=== PATIENT | male | born 1935 | race Caucasian/White ===

== ENCOUNTER 2016-10-28 17:01 | Inpatient (IN) | payer MEDICARE, BC ==
[2016-10-28] MEDS ORDERED: ACETAMINOPHEN 325 MG TABLET PO ONE (18:45)
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
[2016-10-28] MEDS ORDERED: ACETAMINOPHEN 325 MG TABLET ONE (19:34)
[2016-10-28] MEDS ORDERED: ACETAMINOPHEN 500 MG TABLET PO PRN (20:57)
[2016-10-28 20:58] LABS: Hematocrit 37.2 % (42.0-52.0); Hemoglobin 12.4 gm/dL (13.5-18.0); Mean Cell Volume 88.4 fl (78-100); Mean Corpuscular Hemoglobin 29.5 pg (27-31); Mean Corpuscular Hgb Conc 33.3 g/dl (32-36); Mean Platelet Volume 10.7 fl (6.0-9.5); Neutrophil # 12.5 K/mm3 (1.3-6.0); Neutrophil % 81.8 % (42-75.0); Platelet Count 221 K/mm3 (150-450); Red Blood Count 4.21 M/mm3 (4.7-6.0); Red Cell Distribution Width 12.7 % (11.5-14.0); White Blood Count 15.3 K/mm3 (4.0-10.5)
[2016-10-28 21:13] LABS: Albumin * 3.1 gm/dl (3.4-5.0); Anion Gap 11.8 mmol/L (6.8-13.8); BUN/Creatinine Ratio 15.6 (9.0-21.6); Bilirubin, Total 0.4 mg/dL (0.0-1.1); Ca. Corrected For Albumin 9.2 mg/dL (8.4-10.2); Calcium * 8.8 mg/dL (7.9-10.9); Carbon Dioxide 26.3 mmol/L (24-32.6); Potassium 4.1 mmol/L (3.4-4.6); Total Protein 7.3 gm/dL (6.2-8.2)
[2016-10-28] MEDS ORDERED: NORMAL SALINE 1,000 ML IV ONE (21:22)
--- NOTE | 2016-10-28 21:40 | HP ---
Chief Complaint - Chief Complaint Date of Service: 10/28/16 Time of Service: 21:38 Chief Complaint: "Fall, LT hip Pain ". Source of HPI- Pt; neil, ARIANA limonoder report. History of Present Illness: Mr. Harris is a 81-yr-old WM pt of Dr. Layo Campos with a PMH of: CKD III , CAD, DM II, Gout, HLD, HTN, Hypothyroidism, HI & Spinal Stenosis. Pt is a fdc care resident at [facility] and has lived there for the past 25 yrs. Pt states that this morning after taking a shower, he lost his balance while trying to reach for his walker, and he fell down. He landed on the LT side of the body. He denies hitting his head on the surface or any object. He also denies any dizziness or lightheadedness prior to the fall. He was brought to the ED around noon. The X-ray imaging of the LT Hip/Pelvis & follow-up with a CT for better clarity showed he sustained a non- displaced LT femoral neck Fracture. His lab-work showed mildly elevated WBC of 15,300 with a LT shift. He denies any fever, chills, night sweats, coughing, diarrhea, abdominal pain or pain with urination. ERP spoke with Dr. Marcos ( Orthopedic ) and he will evaluate pt in am.The pt will need to be admitted inpatient for a minimum of 2 midnights due to the need for surgery which requires preoperative and post operative management. - Patient's Past Medical History Patient History - Medical: Diabetes Type 2, Diabetes Type 2 Insulin Dependent, Hypothyroidism, Renal Failure, Other Patient History - Cardiac/Respiratory: Coronary Heart Disease, Hypertension, Hyperlipidemia, Myocardial Infarction, Other - Gout Patient History - Cancer: No Hx of Cancer Patient History - Surgical Procedures: Cholecystectomy, Coronary Bypass Surgery Patient History - Other: None - Family History Father Family History - Medical: , No pertinent hx Mother Family History - Medical: , No pertinent hx - Social History Living Situations: assisted Abuse History: No History of abuse Psych History: No pertinent hx Smoking Status: Never smoker Do you dip or chew tobacco: No Alcohol Use: none Drug Use: none - Immunizations Immunizations Up to Date: Yes Hx Pneumococcal Vaccination: No History of Influenza Vaccine: No Review Of Systems (GEN) - Review of Systems Generalized/Overall Review: Absent: Weakness, Chills, Fever, Malaise EENTM: Absent: Eye Pain, Double Vision, Ear Pain, Mouth Swelling Respiratory: Absent: Cough, Shortness of Breath, Orthopnea Cardiac: Absent: Chest Pain, Edema, Palpitations, Syncope Abdominal: Absent: Nausea, Vomiting, Hematemesis, Abdominal Pain, Constipation, Diarrhea Genitourinary: Absent: Itching, Frequency, Hesitancy, Hematuria Musculoskeletal: Present: Joint Pain - LT hip Neurological: Present: Headache, Anxiety, Depressed Skin: Present: Dryness. Absent: Rash, Bruising Endocrine: Absent: Intolerance to Cold, Intolerance to Heat, Increased Hunger, Increased Thirst Misc: All systems neg except as marked Immunizations: IMMUNIZATION HX History of Influenza Vaccine No Hx Pneumococcal Vaccination No Allergies/Adverse Reactions: Allergies Allergy/AdvReac Type Severity Reaction Status Date / Time No Known Allergies Allergy Unverified 09/02/14 15:16 Home Medications: HOME MEDICATIONS Aspirin [[place] Aspirin] 81 mg PO QAM 09/02/14 [Last Taken 10/28/16 07:00] Atorvastatin Calcium [Lipitor] 80 mg PO DAILY 09/02/14 [Last Taken 10/27/16 20: 00] Chlorthalidone [Hygroton] 12.5 mg PO DAILY 09/02/14 [Last Taken 10/28/16 07:00] Ergocalciferol (Vitamin D2) [Vitamin D2] 2,000 unit PO DAILY 09/02/14 [Last Taken 10/28/16 07:00] Insulin Glargine,Hum.rec.anlog [Lantus] 45 units SC QPM 09/02/14 [Last Taken 20:00] Lisinopril [Zestril] 40 mg PO DAILY 09/02/14 [Last Taken 10/28/16 07:00] Metoprolol Tartrate [Lopressor] 50 mg PO DAILY 09/02/14 [Last Taken 10/28/16 07: 00] Nitroglycerin 0.4 mg SL PRN PRN MDD 3 doses 09/02/14 [Last Taken Unknown] amLODIPine BESYLATE [Norvasc] 10 mg PO QAM 09/02/14 [Last Taken 10/28/16 07:00] Catapres 0.1 mg PO BID 07/18/15 [Last Taken 10/28/16 07:00] Levothyroxine Sodium [Synthroid] 100 mcg PO DAILY 07/18/15 [Last Taken 10/28/16 07:00] Acetaminophen [Tylenol] 650 mg PO Q4H PRN 10/28/16 [Last Taken Unknown] Docusate Sodium [Colace Clear] 50 mg PO BID PRN 10/28/16 [Last Taken Unknown] Pregabalin [Lyrica] 25 mg PO QAM 10/28/16 [Last Taken 10/28/16 07:00] Saliva Stimulant Agents Comb.3 [Biotene Moisturizing Mouth] 44.3 ml MM PRN PRN 10/28/16 [Last Taken Unknown] traMADol HCL [Ultram] 50 mg PO TID PRN 10/28/16 [Last Taken Unknown] Exam - Exam Vital Signs: Vital Signs - Last Taken Temp 37.3 C 10/28/16 17:01 Pulse 63 10/28/16 17:01 Resp 16 10/28/16 17:01 BP 118/91 10/28/16 17:01 Pulse Ox 99 10/28/16 17:01 Constitutional: Present: Alert, Oriented x3, Cooperative, No distress, Elderly ENT Exam: Present: normal ENT inspection, hearing grossly normal. Absent: nasal drainage, pharyngeal erythema Eye Exam: bilateral eye: normal inspection, PERRL Neck: Present: full range of motion, supple, normal inspection Back Exam: Present: no CVA tenderness Breasts: Present: Exam deferred Respiratory: Present: lungs clear, normal breath sounds, no respiratory distress Cardiovascular/Chest: Present: normal peripheral pulses, regular rate, rhythm, no murmur Abdomen: Present: Normal bowel sounds, rigidity, firm /Rectal: Present: Exam deferred Extremity: Present: normal inspection, no pedal edema, other - Limited ROM on LLE, Skin Exam: Present: warm/dry, no cyanosis Lymphatic: Present: no adenopathy Neurologic: Present: alert, normal mood/affect, oriented x 3. Absent: motor weakness, dizzy/light-headedness Appearance: Present: appropriate appearance, appropriate insight Eye contact: Present: cooperative, good eye contact, normal speech Thoughts: Present: normal thought pattern, no apparent hallucination Diagnostic Studies: Abnormal Lab Results 10/28/16 Range/Units 20:50 BUN 38 H (6-23) mg/dL Creatinine 2.44 H (0.4-1.4) mg/dL Est GFR (Non-Af Amer) 27 L (60-130) mL/min ALT 14 L (19-67) U/L Albumin 3.1 L (3.4-5.0) gm/dl Laboratory Results WBC 15.3 K/mm3 (4.0-10.5) H 10/28/16 20:34 RBC 4.21 M/mm3 (4.7-6.0) L 10/28/16 20:34 Hgb 12.4 gm/dL (13.5-18.0) L 10/28/16 20:34 Hct 37.2 % (42.0-52.0) L 10/28/16 20:34 MCV 88.4 fl (78-100) 10/28/16 20:34 MCH 29.5 pg (27-31) 10/28/16 20: MCHC 33.3 g/dl (32-36) 10/28/16 20:34 RDW 12.7 % (11.5-14.0) 10/28/16 20:34 Plt Count 221 K/mm3 (150-450) 10/28/16 20:34 MPV 10.7 fl (6.0-9.5) H 10/28/16 20:34 Immature Gran % (Auto) 0.90 % (0.001-0.429) H 10/28/16 20:34 Immature Gran # (Auto) 0.13 K/mm3 (0.000-0.0310) H 10/28/16 20:34 Neutrophils % 81.8 % (42-75.0) H 10/28/16 20:34 Lymphocytes % 10.9 % (20-51) L 10/28/16 20:34 Monocytes % 4.6 % (0.0-9) 10/28/16 20:34 Eosinophils % 1.4 % (0.0-3.0) 10/28/16 20:34 Basophils % 0.4 % (0.0-1.0) 10/28/16 20:34 Nucleated RBC % 0.0 k/mm3 (0-1) 10/28/16 20:34 Neutrophils # 12.5 K/mm3 (1.3-6.0) H 10/28/16 20:34 Lymphocytes # 1.7 k/mm3 (1.5-3.5) 10/28/16 20:34 Monocytes # 0.7 k/mm3 (0.0-1.0) 10/28/16 20:34 Eosinophils # 0.2 k/mm3 (0.0-0.7) 10/28/16 20:34 Absolute Basophils 0.1 k/mm3 (0.0-0.1) 10/28/16 20:34 Sodium 140 mmol/L (132-142) 10/28/16 20:50 Plasma Sodium 140 mmol/L (130-142) 10/28/16 20:50 Potassium 4.1 mmol/L (3.4-4.6) 10/28/16 20:50 Chloride 106 mmol/L (97-106) 10/28/16 20:50 Carbon Dioxide 26.3 mmol/L (24-32.6) 10/28/16 20:50 Anion Gap 11.8 mmol/L (6.8-13.8) 10/28/16 20:50 BUN 38 mg/dL (6-23) H 10/28/16 20:50 Creatinine 2.44 mg/dL (0.4-1.4) H 10/28/16 20:50 Est GFR (Non-Af Amer) 27 mL/min (60-130) L 10/28/16 20:50 BUN/Creatinine Ratio 15.6 (9.0-21.6) 10/28/16 20:50 Random Glucose 106 mg/dL (70-110) 10/28/16 20:50 Calcium 8.8 mg/dL (7.9-10.9) 10/28/16 20:50 Calcium Adj for Albumin 9.2 mg/dL (8.4-10.2) 10/28/16 20:50 Total Bilirubin 0.4 mg/dL (0.0-1.1) 10/28/16 20:50 AST 17 U/L (0-48) 10/28/16 20:50 ALT 14 U/L (19-67) L 10/28/16 20:50 Alkaline Phosphatase 105 U/L (50-170) 10/28/16 20:50 Total Protein 7.3 gm/dL (6.2-8.2) 10/28/16 20:50 Albumin 3.1 gm/dl (3.4-5.0) L 10/28/16 20:50 Assessment/Plan - Assessment/Plan (1) Hip fracture, left Assessment: Mr. Harris sustained a non- displaced Left Femoral Neck Fracture. Orthopedic consulted and will eval. pt in am. Will provide supportive cares with:Pain mgt, immobilization of the affected extremity, IVF hydration and clear him for surgery. The EKG showed NSR. The CXR did not have any acute cardiopulmonary findings. He has an elevated WBC of 15,300 with Left shift and do not suspect any infection as there is no report of fevers or chills, no coughing, no diarrhea, or painful urination. The high WBC is likely due to physical stress from falling or from chronic inflammation from Gout. Therefore antibiotics may be unnecessary for now. According to RCRI, he has a score of 5 which is class IV /IV and carries a 11% chance of major cardiac event pre/post-operatively. However,the benefits of surgery outweighs the risks of not doing any and is clear to proceed with procedure. Problem: Acute Qualifiers: Encounter type: initial encounter Fracture type: closed Qualified Code(s) : S72.002A - Fracture of unspecified part of neck of left femur, initial encounter for closed fracture (2) Leukocytosis Assessment: Is likely due to physical stress from falling, chronic inflammation from Gout, VS infection. No sign of infection according to the ROS, the CXR, & UA. Therefore antibiotics initiation unnecessary at this time apart from the prophylactic antibiotics prior to surgery. Trend CBC in am. Problem: Acute (3) Diabetes Assessment: Will start D5NS while NPO, Accu checks q 6 hrs, Hold any regular insulin and give the long acting insulin. Problem: Chronic Qualifiers: Diabetes mellitus type: type 2 (4) HTN (hypertension) Assessment: Stable- Continue Amlodipine, Metoprolol, Lisinopril and Catapress. Problem: Chronic (5) Chronic kidney disease, stage 3a Assessment: BUN/CR of 38/2.44- Slightly above baseline. Will hydrate gently with IVF. BMP in am. Problem: Chronic
[2016-10-28] MEDS: DEXTROSE 5%-NORMAL SALINE 1,000 ML IV PRN (22:29)
[2016-10-28] MEDS: MORPHINE SULFATE 4 MG/ML SYRG IV PRN (23:56)
[2016-10-28 23:57] LABS: Urine Bilirubin Negative (NEGATIVE); Urine Blood 25 /ul (NEGATIVE); Urine Ketone Negative (NEGATIVE); Urine Nitrite Negative (NEGATIVE); Urine Protein 100 mg/dL (NEGATIVE); Urine Specific Gravity 1.015 SP.GR. (1.005-1.030); Urine Urobilinogen Normal (NORMAL); Urine pH 6.5 pH (5.0-7.0)
[2016-10-29 00:01] LABS: Urine Appearance Clear; Urine Bacteria None Seen; Urine Color Pale Yellow; Urine RBC 0-5 /hpf (0-5); Urine WBC 0-5 /hpf (0-5)
[2016-10-29 00:02] LABS: Urine Amorphous Sediment Moderate - 2+ (NONE-FEW); Urine Mucus Few - 1+
[2016-10-29] MEDS ORDERED: ACETAMINOPHEN 325 MG TABLET PO PRN (00:02)
[2016-10-29] MEDS ORDERED: traMADol HCL 50 MG TABLET PO PRN (00:02)
[2016-10-29] MEDS ORDERED: NITROGLYCERIN 0.4 MG/TAB BTL SL PRN (00:02)
[2016-10-29] MEDS ORDERED: DOCUSATE SODIUM 150 MG/15 ML BTL PO PRN ×2 (00:34→06:46)
[2016-10-29] MEDS: HYDROmorphone HCL 1 MG/ML DISP.SYRIN IV PRN ×5 (02:56→22:55)
[2016-10-29] MEDS: MORPHINE SULFATE 4 MG/ML SYRG IV PRN (05:12)
[2016-10-29 06:01] LABS: Hematocrit 34.6 % (42.0-52.0); Hemoglobin 11.3 gm/dL (13.5-18.0); Mean Cell Volume 88.5 fl (78-100); Mean Corpuscular Hemoglobin 28.9 pg (27-31); Mean Corpuscular Hgb Conc 32.7 g/dl (32-36); Mean Platelet Volume 11.4 fl (6.0-9.5); Neutrophil # 10.9 K/mm3 (1.3-6.0); Neutrophil % 79.6 % (42-75.0); Platelet Count 219 K/mm3 (150-450); Red Blood Count 3.91 M/mm3 (4.7-6.0); Red Cell Distribution Width 12.9 % (11.5-14.0); White Blood Count 13.6 K/mm3 (4.0-10.5)
[2016-10-29 06:09] LABS: Prothrombin Time (Patient) 11.4 Seconds (9.4-11.4)
[2016-10-29 06:10] LABS: Anion Gap 15.4 mmol/L (6.8-13.8); BUN/Creatinine Ratio 15.6 (9.0-21.6); Calcium * 8.8 mg/dL (7.9-10.9); Carbon Dioxide 21.9 mmol/L (24-32.6); Estimated Creat Clear 24.7; Potassium 4.3 mmol/L (3.4-4.6)
[2016-10-29 06:20] LABS: INR 1.1 INR (0.90-1.10); Partial Thrombolplastin Time 33.1 Seconds (24-32)
[2016-10-29] MEDS: LEVOTHYROXINE SODIUM 100 MCG TABLET PO SCH ×2 (07:05→08:39)
--- NOTE | 2016-10-29 08:15 | PN ---
Subjective - Date and Time Seen Date: 10/29/16 Time: 08:05 Subjective Narrative: Positive left hip pain. For ORIF in the morning. Objective - Review of Systems Generalized/Overall Review: Denies: Chills, Fever EENTM: Reports: No Symptoms Reported Respiratory: Denies: Cough, Shortness of Breath, Orthopnea Cardiac: Denies: Chest Pain, Edema, Palpitations Abdominal: Denies: Nausea, Vomiting Genitourinary Symptoms: Denies: Urgency, Frequency Musculoskeletal Complaints: Reports: Joint Pain - Vitals Vitals: Last Vital Signs Temp 37.4 C 10/29/16 06:49 Pulse 64 10/29/16 06:49 Resp 18 10/29/16 06:49 BP 127/72 10/29/16 06:49 Pulse Ox 94 10/29/16 06:49 - Abnormal Lab Findings Abnormal Lab Findings: Abnormal Lab Results 10/28/16 10/28/16 10/29/16 Range/Units 20:50 23:46 05:53 WBC 13.6 H (4.0-10.5) K/mm3 RBC 3.91 L (4.7-6.0) M/mm3 Hgb 11.3 L (13.5-18.0) gm/dL Hct 34.6 L (42.0-52.0) % MPV 11.4 H (6.0-9.5) fl Immature Gran % (Auto) 0.60 H (0.001-0.429) % Immature Gran # (Auto) 0.08 H (0.000-0.0310) K/mm3 Neutrophils % 79.6 H (42-75.0) % Lymphocytes % 10.8 L (20-51) % Neutrophils # 10.9 H (1.3-6.0) K/mm3 PTT (Bremer) (24-32) Seconds Chloride (97-106) mmol/L Carbon Dioxide (24-32.6) mmol/L Anion Gap (6.8-13.8) mmol/L BUN 38 H (6-23) mg/dL Creatinine 2.44 H (0.4-1.4) mg/dL Est GFR (Non-Af Amer) 27 L (60-130) mL/min Random Glucose (70-110) mg/dL ALT 14 L (19-67) U/L Albumin 3.1 L (3.4-5.0) gm/dl Urine Protein 100 H (NEGATIVE) mg/dL Urine Glucose (UA) 100 H (NEGATIVE) mg/dL Urine Blood 25 H (NEGATIVE) /ul Prot Sulfosalicylic Acd 4+ H (0) mg/dL Amorphous Sediment Moderate - 2+ H (NONE-FEW) Urine Mucus Few - 1+ H (NONE) 10/29/16 10/29/16 Range/Units 05:53 05:53 WBC (4.0-10.5) K/mm3 RBC (4.7-6.0) M/mm3 Hgb (13.5-18.0) gm/dL Hct (42.0-52.0) % MPV (6.0-9.5) fl Immature Gran % (Auto) (0.001-0.429) % Immature Gran # (Auto) (0.000-0.0310) K/mm3 Neutrophils % (42-75.0) % Lymphocytes % (20-51) % Neutrophils # (1.3-6.0) K/mm3 PTT (Bremer) 33.1 H (24-32) Seconds Chloride 108 H (97-106) mmol/L Carbon Dioxide 21.9 L (24-32.6) mmol/L Anion Gap 15.4 H (6.8-13.8) mmol/L BUN 36 H (6-23) mg/dL Creatinine 2.31 H (0.4-1.4) mg/dL Est GFR (Non-Af Amer) 29 L (60-130) mL/min Random Glucose 159 H D (70-110) mg/dL ALT (19-67) U/L Albumin (3.4-5.0) gm/dl Urine Protein (NEGATIVE) mg/dL Urine Glucose (UA) (NEGATIVE) mg/dL Urine Blood (NEGATIVE) /ul Prot Sulfosalicylic Acd (0) mg/dL Amorphous Sediment (NONE-FEW) Urine Mucus (NONE) - Exam Constitutional: Present: Alert, Oriented x3, Cooperative ENT Exam: Present: hard of hearing Neck: Present: supple Breasts: Present: Exam deferred Respiratory: Present: normal breath sounds, No rales, No wheezing Cardiovascular/Chest: Present: regular rate, rhythm, no murmur Abdomen: Present: Normal bowel sounds, soft, nontender, nondistended Extremity: Present: no pedal edema, no calf tenderness Assessment/Plan - Problems/Diagnosis (1) Nondisplaced fracture of neck of left femur Problem: Acute Qualifiers: Encounter type: initial encounter Fracture type: closed Qualified Code(s) : S72.002A - Fracture of unspecified part of neck of left femur, initial encounter for closed fracture Narrative: for ORIF in the morning. he is medically stable to proceed with proveedure. (2) Leukocytosis Problem: Acute Qualifiers: Leukocytosis type: unspecified Qualified Code(s): D72.829 - Elevated white blood cell count, unspecified Narrative: reactive (3) Chronic kidney disease, stage 3a Problem: Chronic Narrative: Stage IV (4) Diabetes Problem: Chronic Qualifiers: Diabetes mellitus type: type 2 (5) HTN (hypertension) Problem: Chronic Qualifiers: Hypertension type: essential hypertension Qualified Code(s): I10 - Essential (primary) hypertension (6) Fall Problem: Acute Qualifiers: Encounter type: initial encounter Qualified Code(s): W19.XXXA - Unspecified fall, initial encounter Narrative: lost balance while turning around.
[2016-10-29] MEDS: DEXTROSE 5%-NORMAL SALINE 1,000 ML IV PRN (08:36)
[2016-10-29] MEDS: LISINOPRIL 40 MG TABLET PO SCH (08:39)
[2016-10-29] MEDS: CHOLECALCIFEROL 1,000 UNIT CAPSULE PO SCH (08:39)
[2016-10-29] MEDS: amLODIPine BESYLATE 10 MG TABLET PO SCH (08:39)
[2016-10-29] MEDS: ASPIRIN 81 MG TABLET.DR PO SCH (08:40)
[2016-10-29] MEDS: NYSTATIN 15 APPL BTL TP SCH ×4 (08:40→20:05)
[2016-10-29] MEDS: CHLORTHALIDONE 25 MG TABLET PO SCH (08:40)
[2016-10-29] MEDS: CLONIDINE HCL 0.1 MG TABLET PO SCH ×2 (08:45→20:05)
[2016-10-29] MEDS: PREGABALIN 25 MG CAPSULE PO SCH (08:46)
[2016-10-29] MEDS ORDERED: METOPROLOL TARTRATE 50 MG TABLET PO SCH (09:00)
[2016-10-29] MEDS ORDERED: ATORVASTATIN CALCIUM 40 MG TABLET PO SCH (09:00)
[2016-10-29] MEDS ORDERED: amLODIPine BESYLATE 5 MG TABLET PO SCH (09:00)
--- OUTSIDE RECORDS SUMMARY | 2016-10-29 11:09 | XMS REPORT | Continuity of Care Document ---
:1935 Author Organization [facility] ([facility]) Address [place] [address] Phone [phone] Care Team Providers Name Role Phone Provider, No-Primary Care Primary Care Provider Unavailable Source Comments This disclosure is being made pursuant to the Care Everywhere program, applicable federal and state laws, and may not contain all informaitonavailable regarding this patient.[facility] ([facility]) Active Allergies and Adverse Reactions Not on File Current Medications Not on file Active Problems Not on file Social History Tobacco Use Types Packs/Day Years Used Date Never Assessed Plan of Care Health Maintenance Due Date Last Done Comments Hepatitis B Vaccine (1 of 3 - Primary Series) 1935 Tdap Vaccine 1945 Lipid Disorder Screening 02/12/1952 Td Vaccine 02/12/1952 Colonoscopy 1984 Zoster Vaccine 1994 Pneumococcal Vaccine (1 of 2 - PCV13) 1999 Influenza Vaccine: Seasonal (#1) 12/31/2015 Results from Last 3 Months Not on file
--- OUTSIDE RECORDS SUMMARY | 2016-10-29 11:09 | XMS REPORT | Continuity of Care Document ---
:1935 Author Organization [facility] ([facility]) Address [place] [address] Phone [phone] Care Team Providers Name Role Phone Provider, No-Primary Care Primary Care Provider Unavailable Source Comments This disclosure is being made pursuant to the Care Everywhere program, applicable federal and state laws, and may not contain all informaitonavailable regarding this patient.[facility] ([facility]) Active Allergies and Adverse Reactions [...]
--- NOTE | 2016-10-29 11:24 | CONS ---
- Reason for consultation (1) Nondisplaced fracture of neck of left femur Date of Service: 10/29/16 HPI - General Date of Service: 10/29/16 Narrative: Mr. Harris is a 81-year-old gentleman who was standing and turned to get his walker when he misstepped and fell onto his left side. He hit his left elbow and hip but did not lose consciousness or cause any other injury. He reported increased left hip pain and an inability to weight-bear and was brought to the emergency department. Plain radiographs were obtained which did not show any gross signs of fracture however a CT identified that there was a nondisplaced midcervical left femoral neck fracture. He reports that he is active, uses a walker occasionally for longer distances. He runs his own errands. He enjoys [place]. He drives. He reports no prior hip pain Source: patient Exam Limitations: no limitations - History of Present Illness Timing/Duration: 24 hours Severity: mild Modifying Factors - (Worsens): Reports: movement Modifying Factors - (Improves): Reports: immobilization, medication Associated Symptoms: denies symptoms Allergies/Adverse Reactions: Allergies No Known Allergies Allergy (Unverified 09/02/14 15:16) Home Medications: Home Medications Medication Instructions Recorded Last Taken Aspirin [[place] Aspirin] 81 mg PO QAM 09/02/14 10/28/16 07:00 Atorvastatin Calcium [Lipitor] 80 mg PO DAILY 09/02/14 10/27/16 20:00 Chlorthalidone [Hygroton] 12.5 mg PO DAILY 09/02/14 10/28/16 07:00 Ergocalciferol (Vitamin D2) 2,000 unit PO DAILY 09/02/14 10/28/16 07:00 [Vitamin D2] Insulin Glargine,Hum.rec.anlog 45 units SC QPM 09/02/14 10/27/16 20:00 [Lantus] Lisinopril [Zestril] 40 mg PO DAILY 09/02/14 10/28/16 07:00 Metoprolol Tartrate [Lopressor] 50 mg PO DAILY 09/02/14 10/28/16 07:00 Nitroglycerin 0.4 mg SL PRN PRN MDD 3 doses 09/02/14 Unknown amLODIPine BESYLATE [Norvasc] 10 mg PO QAM 09/02/14 10/28/16 07:00 Catapres 0.1 mg PO BID 07/18/15 10/28/16 07:00 Levothyroxine Sodium [Synthroid] 100 mcg PO DAILY 07/18/15 10/28/16 07:00 Acetaminophen [Tylenol] 650 mg PO Q4H PRN 10/28/16 Unknown Docusate Sodium [Colace Clear] 50 mg PO BID PRN 10/28/16 Unknown Pregabalin [Lyrica] 25 mg PO QAM 10/28/16 10/28/16 07:00 Saliva Stimulant Agents Comb.3 44.3 ml MM PRN PRN 10/28/16 Unknown [Biotene Moisturizing Mouth] traMADol HCL [Ultram] 50 mg PO TID PRN 10/28/16 Unknown - Patient's Past Medical History Patient History - Medical: Diabetes Type 2, Diabetes Type 2 Insulin Dependent, Hypothyroidism, Renal Failure, Other Patient History - Cardiac/Respiratory: Coronary Heart Disease, Hypertension, Hyperlipidemia, Myocardial Infarction, Other - Gout Patient History - Cancer: No Hx of Cancer Patient History - Surgical Procedures: Cholecystectomy, Coronary Bypass Surgery Patient History - Other: None - Family History Family History:: no untoward family reactions to anesthesia, no family history of clotting disorders, no family history of premature - Family History Mother Family History - Medical: , No pertinent hx Family History - Cardiac/Respiratory: No pertinent hx Family History - Cancer: No pertinent family hx Father Family History - Medical: , No pertinent hx Family History - Cardiac/Respiratory: No pertinent hx Family History - Cancer: No pertinent family hx - Social History Living Situations: custodial Abuse History: No History of abuse Psych History: No pertinent hx Does anyone smoke in the home?: No Smoking Status: Never smoker Have you smoked in the past 12 months: No Do you dip or chew tobacco: No Alcohol Use: none Drug Use: none - Immunizations Immunizations Up to Date: Yes Hx Pneumococcal Vaccination: No History of Influenza Vaccine: No Procedures ANESTH INJECT-SPIN CANAL (07/23/11) CATARAC PHACOEMULS/ASPIR (11/26/10) INJECT STEROID (07/23/11) INSERT LENS AT CATAR EXT (11/26/10) SPINAL CANAL INJECT NEC (07/23/11) Medications - Medications Current Medications: Current Medications Amlodipine Besylate (Norvasc) 10 mg PO QAM [facility] Stop: 11/28/16 09:01 Last Admin: 10/29/16 08:39 Dose: 10 mg Aspirin (Aspirin Enteric Coated) 81 mg PO QAM [facility] Stop: 11/28/16 09:01 Last Admin: 10/29/16 08:40 Dose: 81 mg Chlorthalidone (Hygroton) 12.5 mg PO DAILY [facility] Stop: 11/28/16 09:01 Last Admin: 10/29/16 08:40 Dose: 12.5 mg Cholecalciferol (Vitamin D) 2,000 unit PO DAILY [facility] Stop: 11/28/16 09:01 Last Admin: 10/29/16 08:39 Dose: 2,000 unit Clonidine (Catapres) 0.1 mg PO BID [facility] Stop: 11/28/16 09:01 Last Admin: 10/29/16 08:45 Dose: Not Given Hydromorphone HCl (Dilaudid) 0.5 mg IV Q2H PRN PRN Reason: Moderate Pain Stop: 11/28/16 01:42 Last Admin: 10/29/16 10:17 Dose: 0.5 mg Dextrose/Sodium Chloride (Dextrose 5%-0.9% Ns) 1,000 mls @ 100 mls/hr IV .Q10H PRN PRN Reason: HYDRATION Stop: 11/27/16 21:25 Last Admin: 10/29/16 08:36 Dose: 100 mls/hr Levothyroxine Sodium (Synthroid) 100 mcg PO QDAC [facility] Stop: 11/28/16 07:01 Last Admin: 10/29/16 08:39 Dose: 100 mcg Lisinopril (Zestril) 40 mg PO DAILY [facility] Stop: 11/28/16 09:01 Last Admin: 10/29/16 08:39 Dose: 40 mg Metoprolol Tartrate (Lopressor) 50 mg PO DAILY [facility] Stop: 11/28/16 09:01 Last Admin: 10/29/16 08:45 Dose: Not Given Morphine Sulfate (Morphine Sulfate) 2 mg IV Q15M PRN PRN Reason: Severe Pain Stop: 11/27/16 20:58 Last Admin: 10/29/16 05:12 Dose: 2 mg Nystatin (Mycostatin Powder) 1 appl TP QID [facility] Stop: 11/28/16 09:01 Last Admin: 10/29/16 08:40 Dose: 1 appl [facility]) [facility]: 11/28/16 09:01 Last Admin: 10/29/16 08:46 Dose: 25 mg Review of Systems - Review of Systems Generalized/Overall Review: Absent: Weakness, Fatigue Cardiac: Absent: Chest Pain Physical Examination - Exam Narrative: Left upper extremity: Skin tear at the left wrist which is clean and covered, ecchymosis to the lateral elbow, no tenderness to palpation, full elbow and wrist range of motion, no crepitance, sensation is intact light touch throughout the left upper extremity Left lower extremity: Pain with any hip range of motion, [place] dorsalis pedis pulse, no skin lacerations or ecchymosis or breakdown, thigh soft, calf is soft , sensation is intact light touch, no signs of soft tissue disruption around the hip, no shortening or rotation of the limb, no scars or signs of prior surgery at the knee or hip Vital Signs: Vital Signs - Last Taken Temp 37.3 C 10/29/16 10:53 Pulse 67 10/29/16 10:53 Resp 18 10/29/16 10:53 BP 133/70 10/29/16 10:53 Pulse Ox 93 10/29/16 10:53 O2 Oxygen Delivery Method Room Air Constitutional: Present: Alert, Oriented x3 - Results and Findings: Narrative: AP pelvis 2 views left hip: Cortical disruption in the inferior neck of the femoral neck without any signs of displacement, minimal arthrosis, no pelvic disruption, no shortening or malrotation of the extremity, no signs of implants CT left hip: Nondisplaced midcervical femoral neck fracture without any other signs of acute trauma Lab/Microbiology results last 24 hrs: Abnormal/Pending Laboratory Last 24 HRS 10/29/16 10/29/16 10/29/16 05:53 05:53 05:53 WBC 13.6 H RBC 3.91 L Hgb 11.3 L Hct 34.6 L MPV 11.4 H Immature Gran % (Auto) 0.60 H Immature Gran # (Auto) 0.08 H Neutrophils % 79.6 H Lymphocytes % 10.8 L Neutrophils # 10.9 H PTT ([place]) 33.1 H Chloride 108 H Carbon Dioxide 21.9 L Anion Gap 15.4 H BUN 36 H Creatinine 2.31 H Est GFR (Non-Af Amer) 29 L Random Glucose 159 H D ALT Albumin Urine Protein Urine Glucose (UA) Urine Blood Prot Sulfosalicylic Acd Amorphous Sediment Urine Mucus 10/28/16 10/28/16 23:46 20:50 WBC RBC Hgb Hct MPV Immature Gran % (Auto) Immature Gran # (Auto) Neutrophils % Lymphocytes % Neutrophils # PTT (Jeff) Chloride Carbon Dioxide Anion Gap BUN 38 H Creatinine 2.44 H Est GFR (Non-Af Amer) 27 L Random Glucose ALT 14 L Albumin 3.1 L Urine Protein 100 H Urine Glucose (UA) 100 H Urine Blood 25 H Prot Sulfosalicylic Acd 4+ H Amorphous Sediment Moderate - 2+ H Urine Mucus Few - 1+ H - Assessments/Findings (1) Nondisplaced fracture of neck of left femur Diagnosis(s): The plan will be to treat this with percutaneous fixation in the a.m. He'll be nothing by mouth after midnight. He will receive IV Ancef preoperatively for antibiotics. Consent will be obtained for closed reduction and percutaneous fixation of the left hip. The risks, benefits, alternatives were discussed with the patient. Nonoperative treatment was discussed with the risks associated with this as well as surgical intervention. The risks of , blood clots, malunion, nonunion, prominent implants, failure of implants, persistent pain, arthrosis, limited mobility, need for additional procedures were all discussed and he wished to proceed with surgical intervention. The case was discussed with his medical provider felt that he was of appropriate risk to undergo the procedure. Problem: Acute Qualifiers: Encounter type: initial encounter Fracture type: closed Qualified Code(s) : S72.002A - Fracture of unspecified part of neck of left femur, initial encounter for closed fracture
[2016-10-29] MEDS: INSULIN GLARGINE,HUM.REC.ANLOG 100 UNITS/ML VIAL SC SCH (18:06)
[2016-10-29] MEDS: ROSUVASTATIN CALCIUM 10 MG TABLET PO SCH (20:05)
[2016-10-29] MEDS: METOPROLOL TARTRATE 50 MG TABLET PO SCH (20:05)
[2016-10-30] MEDS: DEXTROSE 5%-NORMAL SALINE 1,000 ML IV PRN ×2 (04:09→07:40)
[2016-10-30 05:37] LABS: Hematocrit 39.1 % (42.0-52.0); Mean Cell Volume 87.5 fl (78-100); Mean Corpuscular Hemoglobin 29.1 pg (27-31); Mean Corpuscular Hgb Conc 33.2 g/dl (32-36); Mean Platelet Volume 10.9 fl (6.0-9.5); Neutrophil % 81.4 % (42-75.0); Platelet Count 223 K/mm3 (150-450); Red Blood Count 4.47 M/mm3 (4.7-6.0); Red Cell Distribution Width 12.8 % (11.5-14.0); White Blood Count 17.1 K/mm3 (4.0-10.5)
[2016-10-30 05:54] LABS: Anion Gap 16.6 mmol/L (6.8-13.8); BUN/Creatinine Ratio 14.9 (9.0-21.6); Calcium * 9.2 mg/dL (7.9-10.9); Carbon Dioxide 22.7 mmol/L (24-32.6); Estimated Creat Clear 23.5; Potassium 4.3 mmol/L (3.4-4.6)
--- NOTE | 2016-10-30 07:07 | PN ---
Subjective - Date and Time Seen Date: 10/30/16 Time: 06:58 Subjective Narrative: Patient says he has no coughing, SOB, dysuria, calf pain. positive hip pain. He did have a Tmax of 38 C and his WBC is more elevated. Objective - Review of Systems Generalized/Overall Review: Reports: Fever. Denies: Chills EENTM: Reports: No Symptoms Reported Respiratory: Denies: Cough, Shortness of Breath, Orthopnea Cardiac: Reports: Edema. Denies: Chest Pain, Palpitations Abdominal: Denies: Nausea, Vomiting Genitourinary Symptoms: Denies: Urgency, Frequency, Dysuria Musculoskeletal Complaints: Reports: Joint Pain - Vitals Vitals: Last Vital Signs Temp 37.3 C 10/30/16 06:42 Pulse 77 10/30/16 06:42 Resp 18 10/30/16 06:42 BP 136/80 10/30/16 06:42 Pulse Ox 94 10/30/16 06:42 - Abnormal Lab Findings Abnormal Lab Findings: Abnormal Lab Results 10/30/16 10/30/16 Range/Units 05:31 05:31 WBC 17.1 H D (4.0-10.5) K/mm3 RBC 4.47 L (4.7-6.0) M/mm3 Hgb 13.0 L (13.5-18.0) gm/dL Hct 39.1 L (42.0-52.0) % MPV 10.9 H (6.0-9.5) fl Immature Gran % (Auto) 0.80 H (0.001-0.429) % Immature Gran # (Auto) 0.14 H (0.000-0.0310) K/mm3 Neutrophils % 81.4 H (42-75.0) % Lymphocytes % 8.1 L (20-51) % Neutrophils # 14.0 H (1.3-6.0) K/mm3 Lymphocytes # 1.4 L (1.5-3.5) k/mm3 Monocytes # 1.3 H (0.0-1.0) k/mm3 Carbon Dioxide 22.7 L (24-32.6) mmol/L Anion Gap 16.6 H (6.8-13.8) mmol/L BUN 36 H (6-23) mg/dL Creatinine 2.42 H (0.4-1.4) mg/dL Est GFR (Non-Af Amer) 27 L (60-130) mL/min Random Glucose 171 H (70-110) mg/dL - Exam Constitutional: Present: Alert, Oriented x3, Cooperative, Elderly ENT Exam: Present: hard of hearing Neck: Present: supple Breasts: Present: Exam deferred Respiratory: Present: decreased breath sounds, No rales, No wheezing Cardiovascular/Chest: Present: regular rate, rhythm, no JVD, no murmur Abdomen: Present: Normal bowel sounds, soft, nontender, nondistended Extremity: Present: no calf tenderness, pedal edema - LLE Cauti Physician Documentation - Urinary Catheter Management Urethral (Foster) Date of Insertion: 10/29/16 Time of Insertion: 22:00 Assessment/Plan - Problems/Diagnosis (1) Nondisplaced fracture of neck of left femur Problem: Acute Qualifiers: Encounter type: initial encounter Fracture type: closed Qualified Code(s) : S72.002A - Fracture of unspecified part of neck of left femur, initial encounter for closed fracture Narrative: for CRIF today. (2) Fever Problem: Acute Qualifiers: Fever type: unspecified Qualified Code(s): R50.9 - Fever, unspecified Narrative: atelectasis? DVT? aspiration ? infection vs inflammatory. will get BC x 2, UA and UCS if warranted. will get a bedside CXR. he is likely getting Ancef per Ortho protocol.. ADDENDUM: I talked to Dr. Mague mcclain to give IV ancef preop. (3) Leukocytosis Problem: Acute Qualifiers: Leukocytosis type: unspecified Qualified Code(s): D72.829 - Elevated white blood cell count, unspecified Narrative: elevated more today at 17.1. infection vs inflammatory. denies coughing, dysuria , chest pain, calf pain, choking. (4) Chronic kidney disease, stage 3a Problem: Chronic Narrative: CRF Stage IV (5) Diabetes Problem: Chronic Qualifiers: Diabetes mellitus type: type 2 (6) HTN (hypertension) Problem: Chronic Qualifiers: Hypertension type: essential hypertension Qualified Code(s): I10 - Essential (primary) hypertension (7) Fall Problem: Acute Qualifiers: Encounter type: initial encounter Qualified Code(s): W19.XXXA - Unspecified fall, initial encounter (8) Mild dementia Problem: Chronic
[2016-10-30] MEDS ORDERED: ceFAZolin SODIUM/DEXTROSE,ISO 2 GM/50 ML BAG IV PRN (07:17)
[2016-10-30 07:33] LABS: Urine Bilirubin Negative (NEGATIVE); Urine Blood 250 /ul (NEGATIVE); Urine Ketone Negative (NEGATIVE); Urine Nitrite Negative (NEGATIVE); Urine Protein >=300 mg/dL (NEGATIVE)
--- NOTE | 2016-10-30 07:38 | PN ---
[place]ñito Note - Interim Narrative: 10/30/16 07:37 Patient seen and examined this morning. This morning, the patient had a fever of 38.0 which has now normalized. His WBC has bumped to 17 this am as well. This is most likely secondary to atelectasis vs UTI. After discussion with Internal Medicine, this will not preclude us from proceeding with surgery. This fracture needs to be addressed in a timely manner to get the patient up and mobilizing. In my opinion, it would be more dangerous to delay the surgery and leave the patient bed bound. On exam, he is alert and oriented. Breath sounds are clear and unlabored, heart is regular rate and rhythym. Patient has pain with any movement of the LLE, he has good strength distally, intact sensation in all nerve branches, and brisk capillary refill at the foot. We will proceed with fixation of his non-displaced L femoral neck fracture this morning. 2g Ancef pre-op.
[2016-10-30 07:52] LABS: Urine Appearance Slightly Cloudy; Urine Bacteria TRACE; Urine Color Yellow; Urine RBC 25-50 /hpf (0-5); Urine WBC 0-5 /hpf (0-5)
[2016-10-30] MEDS ORDERED: ceFAZolin SODIUM 1 GM VIAL IV ONE (08:35)
[2016-10-30] MEDS ORDERED: RINGERS SOLUTION,LACTATED 1,000 ML IV ONE (08:35)
[2016-10-30] MEDS ORDERED: PROMETHAZINE HCL 5 MG in DEXTROSE 5 % IN WATER 50 ML IV PRN ×2 (09:51)
[2016-10-30] MEDS ORDERED: MAGNESIUM HYDROXIDE 30 ML UDC PO PRN (09:51)
[2016-10-30] MEDS ORDERED: diphenhydrAMINE HCL 50 MG/ML VIAL IV PRN (09:51)
[2016-10-30] MEDS ORDERED: MAG HYDROX/ALUMINUM HYD/SIMETH 30 ML UDC PO PRN (09:51)
[2016-10-30] MEDS ORDERED: MORPHINE SULFATE 4 MG/ML SYRG IV PRN (09:58)
[2016-10-30] MEDS ORDERED: INSULIN REGULAR, HUMAN 100 UNITS/ML VIAL IV ONE (10:05)
--- NOTE | 2016-10-30 10:11 | OR ---
Operative Report - Dictated Report Narrative: Date: 10/30/2016 Surgeon: Gustavo Duran M.D. Assembler [employer]: Bhupendra Wolfe PA-C Preoperative diagnosis: Left nondisplaced, mid-cervical femoral neck fracture Postoperative diagnosis: Left nondisplaced, mid-cervical femoral neck fracture Operations and procedures: Open treatment left nondisplaced femoral neck fracture with cannulated screws Anesthesia: Spinal Specimens: None Estimated blood loss: Less than 50 [place] Retained implants: [employer] 7.0 mm cannulated, partially threaded screws 3 with washers Complications: None Indications for procedure: Osmany is an 81-year-old male who injured the left leg after a fall from standing height. He is an independent ambulator in a prison setting. They were admitted to the hospital after being evaluated in the emergency department. Once the medical provider felt that they were stable for surgical treatment, the risks and benefits alternatives were discussed. The risks of , blood clots, bleeding, infection, nerve/tendon/blood vessel injury, malunion, nonunion, failure of implants, painful implants, arthrosis, and need for additional procedures were discussed. The extremity was marked and consent was obtained on the floor. Procedure: After marking the operative extremity on the floor, the patient was taken to the operating room. A timeout was performed. IV antibiotics consisting of 2 g of Ancef were administered. A spinal anesthetic was induced by anesthesia, and the patient was then placed onto a fracture table with a well-padded perineal post. The nonoperative leg was placed in a well-padded traction boot in slight extension without any traction with an SCD on the leg. The operative leg was placed in a well-padded traction boot. Preliminary images were attained utilizing C-arm in both the AP and lateral views. This confirmed that we had obtained adequate visualization of the entirety of the proximal femur on the AP and lateral views and that the fracture remained nondisplaced. The hip was then prepped and draped in a standard sterile fashion using a shower curtain drape. We first turned our attention to the lateral aspect of the proximal femur. The guidewire was laid on top of the hip to saman out a position for inferior most screw. A lateral incision was then made approximately 4 cm in length based on the saman that was previously made. The IT band was then incised revealing the lateral aspect of the greater trochanter. Our inferior most guidepin was then placed in the inferior and slightly posterior aspect of the femoral neck through the calcar. Appropriate position and depth was then confirmed on AP and lateral images. The 2 superior guide pins were then placed starting with the anterior pin followed by the posterior pin. These were placed in the superior aspect of the femoral neck parallel to the previously placed inferior pin. Once again, appropriate position and depth was confirmed on AP and lateral fluoroscopic images. Our pins were then measured and screw lengths 5 mm less than the measured value were chosen. We chose a 16 mm partially- threaded screw for the inferior most screw to avoid threads crossing the fracture site. 32 mm partially threaded cannulated screws were chosen for the 2 superior screws. Washers were used for the inferior and posterior-superior screws. All screws were advanced down to the lateral cortex of the greater trochanter and hand tightened. The position and depth of all 3 screws was then confirmed on final AP and lateral images, ensuring that we had not penetrated the joint. The hip was placed through range of motion and showed no crepitance. The IT band was closed with 0 Vicryl, the subcutaneous tissue with 3-0 Vicryl, and the skin was closed with eleno. Sterile dressings of Xeroform, 4 x 4, ABD, and tape were applied. All sponge, sharp, and instrument counts were correct prior to closing the wounds. The patient was then awoken and transferred to the postanesthesia care unit in stable condition.
[2016-10-30] MEDS: LEVOTHYROXINE SODIUM 100 MCG TABLET PO SCH (11:14)
[2016-10-30] MEDS: ASPIRIN 81 MG TABLET.DR PO SCH (11:14)
[2016-10-30] MEDS: CHOLECALCIFEROL 1,000 UNIT CAPSULE PO SCH (11:14)
[2016-10-30] MEDS: NYSTATIN 15 APPL BTL TP SCH ×4 (11:14→21:14)
[2016-10-30] MEDS: PREGABALIN 25 MG CAPSULE PO SCH (11:20)
[2016-10-30] MEDS: CLONIDINE HCL 0.1 MG TABLET PO SCH ×2 (12:12→21:14)
[2016-10-30] MEDS: CHLORTHALIDONE 25 MG TABLET PO SCH (12:12)
[2016-10-30] MEDS: METOPROLOL TARTRATE 50 MG TABLET PO SCH (12:12)
[2016-10-30] MEDS: LISINOPRIL 40 MG TABLET PO SCH (12:13)
[2016-10-30] MEDS: amLODIPine BESYLATE 10 MG TABLET PO SCH (12:13)
[2016-10-30] MEDS: ceFAZolin SODIUM 2 GM in DEXTROSE 5 % IN WATER 50 ML IV SCH ×4 (12:27→17:58)
[2016-10-30] MEDS: DEXTROSE 5%-LACTATED RINGERS 1,000 ML IV PRN ×2 (12:36→21:13)
[2016-10-30] MEDS: oxyCODONE HCL/ACETAMINOPHEN 1 TAB TABLET PO PRN ×2 (13:16→21:13)
[2016-10-30 16:52] LABS: Albumin * 2.7 gm/dl (3.4-5.0); Bilirubin Direct 0.2 mg/dL (0.0-0.3); Bilirubin, Total 0.9 mg/dL (0.0-1.1); Bilirubin,Indirect 0.7 mg/dL (0.1-0.7); Total Protein 6.3 gm/dL (6.2-8.2)
[2016-10-30 17:00] LABS: Troponin I 0.361 ng/ml (0.00-0.10)
--- NOTE | 2016-10-30 17:49 | PN ---
Progess Note - Interim Narrative: 10/30/16 17:39 Nurse called me to asses the patient as he just does not look right. Patient says he has no CP, Abdominal pain, no nausea, no HUGHES, no calf pain but visibly has SOB and he agrees to it. His O2 saturation is 96-97 %, sinus tachy in the low 100's, 130/93. He does have a distended abdomen on P.E. and has some tenderness on palpation, BS is decreased. He is AAO x 2 and has no focal deficit. Will get bedside AXR, do EKG and do troponin. ADDENDUM: His EKG showed ST, RBBB, inferior wall AR, old, ST changes r/o anterior ischemia, troponin 0.361. Still no CP. Will repeat troponin and EKG in 6 hours and trend it as this could still be due renal causes- he has a Cr of 2.47 in Stage IV of CRF. In the meantime with do heparin drip w/o the bolus as he just had his surgery this morning and d/c his lovenox. Will do echo in the morning. Will likely treat this conservatively if this is going to be AMI as his kidney function may not tolerate the burden of IV dye. AXR showed ileus. Will keep him on clear liquids for now.
[2016-10-30] MEDS: INSULIN GLARGINE,HUM.REC.ANLOG 100 UNITS/ML VIAL SC SCH (17:56)
[2016-10-30 17:58] LABS: Hematocrit 38.5 % (42.0-52.0); Hemoglobin 13.1 gm/dL (13.5-18.0); Mean Cell Volume 86.7 fl (78-100); Mean Corpuscular Hemoglobin 29.5 pg (27-31); Mean Platelet Volume 10.7 fl (6.0-9.5); Neutrophil # 17.2 K/mm3 (1.3-6.0); Neutrophil % 85.2 % (42-75.0); Platelet Count 212 K/mm3 (150-450); Red Blood Count 4.44 M/mm3 (4.7-6.0); Red Cell Distribution Width 12.7 % (11.5-14.0); White Blood Count 20.1 K/mm3 (4.0-10.5)
[2016-10-30 18:08] LABS: Prothrombin Time (Patient) 12.3 Seconds (9.4-11.4)
[2016-10-30 18:09] LABS: INR 1.18 INR (0.90-1.10); Partial Thrombolplastin Time 38.1 Seconds (24-32)
[2016-10-30] MEDS: HEPARIN SODIUM,PORCINE/D5W 25,000 UNITS/500 ML BAG IV PRN (19:14)
[2016-10-30] MEDS ORDERED: SENNOSIDES/DOCUSATE SODIUM 1 TAB TABLET PO SCH (21:00)
[2016-10-30] MEDS: ROSUVASTATIN CALCIUM 10 MG TABLET PO SCH (21:14)
[2016-10-31] MEDS: HYDROmorphone HCL 1 MG/ML DISP.SYRIN IV PRN ×2 (00:17→05:10)
[2016-10-31] MEDS: ceFAZolin SODIUM 2 GM in DEXTROSE 5 % IN WATER 50 ML IV SCH ×6 (00:21→11:14)
[2016-10-31 01:45] LABS: Hematocrit 36.7 % (42.0-52.0); Hemoglobin 12.3 gm/dL (13.5-18.0); Mean Cell Volume 87.8 fl (78-100); Mean Corpuscular Hemoglobin 29.4 pg (27-31); Mean Corpuscular Hgb Conc 33.5 g/dl (32-36); Mean Platelet Volume 10.9 fl (6.0-9.5); Platelet Count 205 K/mm3 (150-450); Red Blood Count 4.18 M/mm3 (4.7-6.0); Red Cell Distribution Width 12.9 % (11.5-14.0); White Blood Count 18.4 K/mm3 (4.0-10.5)
[2016-10-31 01:54] LABS: BUN/Creatinine Ratio 13.1 (9.0-21.6); Calcium * 8.9 mg/dL (7.9-10.9); Estimated Creat Clear 22.7
[2016-10-31] MEDS: DEXTROSE 5%-LACTATED RINGERS 1,000 ML IV PRN (04:55)
[2016-10-31] MEDS: ONDANSETRON HCL/PF 2 MG/ML VIAL IV PRN (04:56)
[2016-10-31] MEDS: LEVOTHYROXINE SODIUM 100 MCG TABLET PO SCH (06:58)
[2016-10-31] MEDS: HEPARIN SODIUM,PORCINE/D5W 25,000 UNITS/500 ML BAG IV PRN (07:00)
--- NOTE | 2016-10-31 07:54 | PN ---
Subjective - Date and Time Seen Date: 10/31/16 Time: 07:45 Subjective Narrative: Patient AAO x 2. Eating breakfast- clear liquids . Ileus with N/V this morning. Afebrile. Objective - Review of Systems Generalized/Overall Review: Denies: Chills, Fever EENTM: Reports: No Symptoms Reported Respiratory: Denies: Cough, Shortness of Breath, Orthopnea Cardiac: Denies: Chest Pain, Palpitations Abdominal: Reports: Nausea, Vomiting. Denies: Abdominal Pain Genitourinary Symptoms: Denies: Urgency, Frequency Musculoskeletal Complaints: Reports: Joint Pain - Vitals Vitals: Last Vital Signs Temp 37.1 C 10/31/16 01:15 Pulse 96 10/31/16 05:15 Resp 20 10/31/16 05:15 BP 126/76 10/31/16 05:15 Pulse Ox 97 10/31/16 05:15 - Abnormal Lab Findings Abnormal Lab Findings: Abnormal Lab Results 10/30/16 10/30/16 10/30/16 Range/Units 05:31 06:57 17:58 WBC 20.1 H (4.0-10.5) K/mm3 RBC 4.44 L (4.7-6.0) M/mm3 Hgb 13.1 L (13.5-18.0) gm/dL Hct 38.5 L (42.0-52.0) % MPV 10.7 H (6.0-9.5) fl Immature Gran % (Auto) 0.70 H (0.001-0.429) % Immature Gran # (Auto) 0.15 H (0.000-0.0310) K/mm3 Neutrophils % 85.2 H (42-75.0) % Lymphocytes % 6.5 L (20-51) % Neutrophils # 17.2 H (1.3-6.0) K/mm3 Lymphocytes # 1.3 L (1.5-3.5) k/mm3 Monocytes # 1.4 H (0.0-1.0) k/mm3 PT (9.4-11.4) Seconds INR (Anticoag Therapy) (0.90-1.10) INR PTT (Jeff) (24-32) Seconds Carbon Dioxide (24-32.6) mmol/L Anion Gap (6.8-13.8) mmol/L BUN (6-23) mg/dL Creatinine (0.4-1.4) mg/dL Est GFR (Non-Af Amer) (60-130) mL/min Random Glucose (70-110) mg/dL ALT 13 L (19-67) U/L Troponin I 0.361 H* (0.00-0.10) ng/ml Albumin 2.7 L (3.4-5.0) gm/dl Urine Protein >=300 H (NEGATIVE) mg/dL Urine Glucose (UA) 100 H (NEGATIVE) mg/dL Urine Blood 250 H (NEGATIVE) /ul Prot Sulfosalicylic Acd 4+ H (0) mg/dL Urine Urobilinogen 2.0 H (NORMAL) EU/dl Urine RBC 25-50 H (0-5) /hpf Hyaline Casts 5-10 H (NONE) /LPF 10/30/16 10/30/16 10/31/16 Range/Units 17:58 22:30 01:40 WBC (4.0-10.5) K/mm3 RBC (4.7-6.0) M/mm3 Hgb (13.5-18.0) gm/dL Hct (42.0-52.0) % MPV (6.0-9.5) fl Immature Gran % (Auto) (0.001-0.429) % Immature Gran # (Auto) (0.000-0.0310) K/mm3 Neutrophils % (42-75.0) % Lymphocytes % (20-51) % Neutrophils # (1.3-6.0) K/mm3 Lymphocytes # (1.5-3.5) k/mm3 Monocytes # (0.0-1.0) k/mm3 PT 12.3 H (9.4-11.4) Seconds INR (Anticoag Therapy) 1.18 H (0.90-1.10) INR PTT ([place]) 38.1 H 48.5 H D (24-32) Seconds Carbon Dioxide (24-32.6) mmol/L Anion Gap (6.8-13.8) mmol/L BUN (6-23) mg/dL Creatinine (0.4-1.4) mg/dL Est GFR (Non-Af Amer) (60-130) mL/min Random Glucose (70-110) mg/dL ALT (19-67) U/L Troponin I 0.195 H* (0.00-0.10) ng/ml Albumin (3.4-5.0) gm/dl Urine Protein (NEGATIVE) mg/dL Urine Glucose (UA) (NEGATIVE) mg/dL Urine Blood (NEGATIVE) /ul Prot Sulfosalicylic Acd (0) mg/dL Urine Urobilinogen (NORMAL) EU/dl Urine RBC (0-5) /hpf Hyaline Casts (NONE) /LPF 10/31/16 10/31/16 10/31/16 Range/Units 01:40 01:40 05:40 WBC 18.4 H (4.0-10.5) K/mm3 RBC 4.18 L (4.7-6.0) M/mm3 Hgb 12.3 L (13.5-18.0) gm/dL Hct 36.7 L (42.0-52.0) % MPV 10.9 H (6.0-9.5) fl Immature Gran % (Auto) (0.001-0.429) % Immature Gran # (Auto) (0.000-0.0310) K/mm3 Neutrophils % (42-75.0) % Lymphocytes % (20-51) % Neutrophils # (1.3-6.0) K/mm3 Lymphocytes # (1.5-3.5) k/mm3 Monocytes # (0.0-1.0) k/mm3 PT (9.4-11.4) Seconds INR (Anticoag Therapy) (0.90-1.10) INR PTT (Jeff) 45.5 H (24-32) Seconds Carbon Dioxide 22.0 L (24-32.6) mmol/L Anion Gap 14.0 H (6.8-13.8) mmol/L BUN 33 H (6-23) mg/dL Creatinine 2.51 H (0.4-1.4) mg/dL Est GFR (Non-Af Amer) 26 L (60-130) mL/min Random Glucose 230 H D (70-110) mg/dL ALT (19-67) U/L Troponin I (0.00-0.10) ng/ml Albumin (3.4-5.0) gm/dl Urine Protein (NEGATIVE) mg/dL Urine Glucose (UA) (NEGATIVE) mg/dL Urine Blood (NEGATIVE) /ul Prot Sulfosalicylic Acd (0) mg/dL Urine Urobilinogen (NORMAL) EU/dl Urine RBC (0-5) /hpf Hyaline Casts (NONE) /LPF - Exam Constitutional: Present: Alert - AAO x 2, Elderly ENT Exam: Present: hard of hearing Neck: Present: supple Breasts: Present: Exam deferred Respiratory: Present: decreased breath sounds. Absent: No rales, No wheezing Cardiovascular/Chest: Present: regular rate, rhythm, systolic murmur. Absent: no JVD Abdomen: Present: soft, tender, distended - slightly, hypoactive Extremity: Present: no calf tenderness, pedal edema Cauti Physician Documentation - Urinary Catheter Management Urethral ([place]) Date of Insertion: 10/29/16 Time of Insertion: 22:00 Assessment/Plan - Problems/Diagnosis (1) Nondisplaced fracture of neck of left femur Problem: Acute Qualifiers: Encounter type: initial encounter Fracture type: closed Qualified Code(s) : S72.002A - Fracture of unspecified part of neck of left femur, initial encounter for closed fracture Narrative: S/P CRIF. POD # 1. afebrile. leukocytosis- work up so far negative. likely inflammatory still. (2) Fever Problem: Acute Qualifiers: Fever type: unspecified Qualified Code(s): R50.9 - Fever, unspecified Narrative: resolved (3) Leukocytosis Problem: Acute Qualifiers: Leukocytosis type: unspecified Qualified Code(s): D72.829 - Elevated white blood cell count, unspecified Narrative: peaked to 20 but down this morning to 18. reactive likely more than infection. (4) Chronic kidney disease, stage 3a Problem: Chronic Narrative: CRF Stage IV (5) Diabetes Problem: Chronic Qualifiers: Diabetes mellitus type: type 2 (6) HTN (hypertension) Problem: Chronic Qualifiers: Hypertension type: essential hypertension Qualified Code(s): I10 - Essential (primary) hypertension (7) Fall Problem: Acute Qualifiers: Encounter type: initial encounter Qualified Code(s): W19.XXXA - Unspecified fall, initial encounter (8) Mild dementia Problem: Chronic (9) Elevated troponin Problem: Acute Narrative: trending down- renal related and likely increase demand ischemia from stress of fracture and surgery. will await Echo. if no new wall motion abnormality will d/ c heparin drip. (10) Adynamic ileus Problem: Acute Narrative: postoperative. will keep patient on clear liquids for now. increase ambulation with PT. minimize narcotics if possible. will increase senosoides/docusate to BID and scheduled.
[2016-10-31] MEDS ORDERED: ENOXAPARIN SODIUM 30 MG/0.3 ML SYRG SC SCH (08:56)
[2016-10-31] MEDS: ASPIRIN 81 MG TABLET.DR PO SCH (09:29)
[2016-10-31] MEDS: CLONIDINE HCL 0.1 MG TABLET PO SCH ×2 (09:29→20:28)
[2016-10-31] MEDS: CHLORTHALIDONE 25 MG TABLET PO SCH (09:29)
[2016-10-31] MEDS: METOPROLOL TARTRATE 50 MG TABLET PO SCH (09:29)
[2016-10-31] MEDS: NYSTATIN 15 APPL BTL TP SCH ×4 (09:30→20:27)
[2016-10-31] MEDS: amLODIPine BESYLATE 10 MG TABLET PO SCH (09:30)
[2016-10-31] MEDS: LISINOPRIL 40 MG TABLET PO SCH (09:31)
[2016-10-31] MEDS: SENNOSIDES/DOCUSATE SODIUM 1 TAB TABLET PO SCH ×2 (09:31→20:28)
[2016-10-31] MEDS: CHOLECALCIFEROL 1,000 UNIT CAPSULE PO SCH (09:31)
[2016-10-31] MEDS: oxyCODONE HCL/ACETAMINOPHEN 1 TAB TABLET PO PRN ×2 (09:33→14:16)
[2016-10-31] MEDS: PREGABALIN 25 MG CAPSULE PO SCH (09:33)
[2016-10-31] MEDS ORDERED: MORPHINE SULFATE 2 MG/ML DISP.SYRIN IV PRN (09:44)
--- NOTE | 2016-10-31 12:15 | PN ---
Subjective - Date and Time Seen Date: 10/31/16 Time: 12:11 Subjective Narrative: Patient is awake and alert. He responds to questions. Patient states that he has pain is under control. Staff states it took a max of 3 for any attempt at a touchdown weightbearing. Patient denies nausea vomiting. She states he ate small amounts of his meals today. Objective Objective Narrative: Examination today of left hip reveals dressing to be in place. There is clean and dry. No bleeding on the dressing. She has tenderness to palpation about the area of the dressing. There is no swelling noted to the left lower extremity. Toes well and left side. His normal light touch sensation. Diminished but intact pulses noted to the left lower extremity. - Vitals Vitals: Last Vital Signs Temp 36.7 C 10/31/16 11:15 Pulse 72 10/31/16 11:15 Resp 17 10/31/16 11:15 BP 99/56 10/31/16 11:15 Pulse Ox 97 10/31/16 11:15 - Abnormal Lab Findings Abnormal Lab Findings: Abnormal Lab Results 10/30/16 10/30/16 10/30/16 Range/Units 05:31 17:58 17:58 WBC 20.1 H (4.0-10.5) K/mm3 RBC 4.44 L (4.7-6.0) M/mm3 Hgb 13.1 L (13.5-18.0) gm/dL Hct 38.5 L (42.0-52.0) % MPV 10.7 H (6.0-9.5) fl Immature Gran % (Auto) 0.70 H (0.001-0.429) % Immature Gran # (Auto) 0.15 H (0.000-0.0310) K/mm3 Neutrophils % 85.2 H (42-75.0) % Lymphocytes % 6.5 L (20-51) % Neutrophils # 17.2 H (1.3-6.0) K/mm3 Lymphocytes # 1.3 L (1.5-3.5) k/mm3 Monocytes # 1.4 H (0.0-1.0) k/mm3 PT 12.3 H (9.4-11.4) Seconds INR (Anticoag Therapy) 1.18 H (0.90-1.10) INR PTT (Jeff) 38.1 H (24-32) Seconds Carbon Dioxide (24-32.6) mmol/L Anion Gap (6.8-13.8) mmol/L BUN (6-23) mg/dL Creatinine (0.4-1.4) mg/dL Est GFR (Non-Af Amer) (60-130) mL/min Random Glucose (70-110) mg/dL ALT 13 L (19-67) U/L Troponin I 0.361 H* (0.00-0.10) ng/ml Albumin 2.7 L (3.4-5.0) gm/dl 10/30/16 10/31/16 10/31/16 Range/Units 22:30 01:40 01:40 WBC 18.4 H (4.0-10.5) K/mm3 RBC 4.18 L (4.7-6.0) M/mm3 Hgb 12.3 L (13.5-18.0) gm/dL Hct 36.7 L (42.0-52.0) % MPV 10.9 H (6.0-9.5) fl Immature Gran % (Auto) (0.001-0.429) % Immature Gran # (Auto) (0.000-0.0310) K/mm3 Neutrophils % (42-75.0) % Lymphocytes % (20-51) % Neutrophils # (1.3-6.0) K/mm3 Lymphocytes # (1.5-3.5) k/mm3 Monocytes # (0.0-1.0) k/mm3 PT (9.4-11.4) Seconds INR (Anticoag Therapy) (0.90-1.10) INR PTT ([place]) 48.5 H D (24-32) Seconds Carbon Dioxide (24-32.6) mmol/L Anion Gap (6.8-13.8) mmol/L BUN (6-23) mg/dL Creatinine (0.4-1.4) mg/dL Est GFR (Non-Af Amer) (60-130) mL/min Random Glucose (70-110) mg/dL ALT (19-67) U/L Troponin I 0.195 H* (0.00-0.10) ng/ml Albumin (3.4-5.0) gm/dl 06/07/1810/31/16 10/31/16 Range/Units 01:40 05:40 06:00 WBC (4.0-10.5) K/mm3 RBC (4.7-6.0) M/mm3 Hgb (13.5-18.0) gm/dL Hct (42.0-52.0) % MPV (6.0-9.5) fl Immature Gran % (Auto) (0.001-0.429) % Immature Gran # (Auto) (0.000-0.0310) K/mm3 Neutrophils % (42-75.0) % Lymphocytes % (20-51) % Neutrophils # (1.3-6.0) K/mm3 Lymphocytes # (1.5-3.5) k/mm3 Monocytes # (0.0-1.0) k/mm3 PT (9.4-11.4) Seconds INR (Anticoag Therapy) (0.90-1.10) INR PTT (Jeff) 45.5 H (24-32) Seconds Carbon Dioxide 22.0 L (24-32.6) mmol/L Anion Gap 14.0 H (6.8-13.8) mmol/L BUN 33 H (6-23) mg/dL Creatinine 2.51 H (0.4-1.4) mg/dL Est GFR (Non-Af Amer) 26 L (60-130) mL/min Random Glucose 230 H D (70-110) mg/dL ALT (19-67) U/L Troponin I 0.240 H* (0.00-0.10) ng/ml Albumin (3.4-5.0) gm/dl Cauti Physician Documentation - Urinary Catheter Management Urethral ([place]) Date of Insertion: 10/29/16 Time of Insertion: 22:00 Date of Removal: 10/31/16 Time of Removal: 07:30 Assessment/Plan Plan Narrative: Continue physical therapy. Continue pain medication as ordered patient may required placement if does not advance well with physical therapy
[2016-10-31] MEDS ORDERED: ROSUVASTATIN CALCIUM 10 MG TABLET PO STA (13:48)
[2016-10-31] MEDS: CLOPIDOGREL BISULFATE 75 MG TABLET PO SCH (14:12)
[2016-10-31] MEDS: ENOXAPARIN SODIUM 30 MG/0.3 ML SYRG SC SCH (14:12)
[2016-10-31] MEDS: INSULIN LISPRO 100 UNITS/ML VIAL SC SCH (16:58)
[2016-10-31] MEDS: INSULIN GLARGINE,HUM.REC.ANLOG 100 UNITS/ML VIAL SC SCH (17:00)
[2016-10-31] MEDS: ROSUVASTATIN CALCIUM 10 MG TABLET PO SCH (20:28)
[2016-11-01 05:43] LABS: Hematocrit 36.4 % (42.0-52.0); Hemoglobin 12.1 gm/dL (13.5-18.0); Mean Cell Volume 87.1 fl (78-100); Mean Corpuscular Hemoglobin 28.9 pg (27-31); Mean Corpuscular Hgb Conc 33.2 g/dl (32-36); Neutrophil # 19.7 K/mm3 (1.3-6.0); Neutrophil % 88.7 % (42-75.0); Platelet Count 244 K/mm3 (150-450); Red Blood Count 4.18 M/mm3 (4.7-6.0); Red Cell Distribution Width 12.9 % (11.5-14.0); White Blood Count 22.2 K/mm3 (4.0-10.5)
[2016-11-01 05:52] LABS: Anion Gap 15.5 mmol/L (6.8-13.8); BUN/Creatinine Ratio 12.9 (9.0-21.6); Calcium * 9.2 mg/dL (7.9-10.9); Carbon Dioxide 25.6 mmol/L (24-32.6); Potassium 4.1 mmol/L (3.4-4.6)
[2016-11-01] MEDS: INSULIN LISPRO 100 UNITS/ML VIAL SC SCH ×3 (06:29→16:11)
[2016-11-01] MEDS: LEVOTHYROXINE SODIUM 100 MCG TABLET PO SCH (06:31)
[2016-11-01] MEDS: ONDANSETRON HCL/PF 2 MG/ML VIAL IV PRN (06:33)
--- NOTE | 2016-11-01 06:45 | PN ---
Subjective - Date and Time Seen Date: 11/01/16 Time: 06:35 Subjective Narrative: Mr. Harris examined this am. He is in mild distress and discomfort from nausea. Reported vomiting towards morning hours and during the exam, he had another moderate emesis. Denies abdominal pain. WBC 22,000 & CR 3.17 this am. Has not ambulated much. No other issues according to nursing. Objective - Vitals Vitals: Last Vital Signs Temp 37.8 C H 11/01/16 06:24 Pulse 90 11/01/16 06:24 Resp 30 H 11/01/16 06:24 BP 155/86 11/01/16 06:24 Pulse Ox 96 11/01/16 06:24 - Abnormal Lab Findings Abnormal Lab Findings: Abnormal Lab Results 10/31/16 11/01/16 11/01/16 Range/Units 06:00 05:30 05:30 WBC 22.2 H D (4.0-10.5) K/mm3 RBC 4.18 L (4.7-6.0) M/mm3 Hgb 12.1 L (13.5-18.0) gm/dL Hct 36.4 L (42.0-52.0) % MPV 11.0 H (6.0-9.5) fl Immature Gran % (Auto) 0.80 H (0.001-0.429) % Immature Gran # (Auto) 0.17 H (0.000-0.0310) K/mm3 Neutrophils % 88.7 H (42-75.0) % Lymphocytes % 4.3 L (20-51) % Neutrophils # 19.7 H (1.3-6.0) K/mm3 Lymphocytes # 1.0 L (1.5-3.5) k/mm3 Monocytes # 1.2 H (0.0-1.0) k/mm3 Plasma Sodium 143 H (130-142) mmol/L Anion Gap 15.5 H (6.8-13.8) mmol/L BUN 41 H (6-23) mg/dL Creatinine 3.17 H D (0.4-1.4) mg/dL Est GFR (Non-Af Amer) 20 L D (60-130) mL/min Random Glucose 178 H (70-110) mg/dL Troponin I 0.240 H* (0.00-0.10) ng/ml - Exam Constitutional: Present: Alert, Oriented x3, Mild distress ENT Exam: Present: normal ENT inspection, hearing grossly normal, dry mucous membranes Neck: Present: full range of motion Respiratory: Present: chest non-tender, lungs clear Cardiovascular/Chest: Present: normal peripheral pulses, regular rate, rhythm, no chest tenderness Abdomen: Present: Normal bowel sounds, no rebound tenderness, distended /Rectal: Present: Other - [place] Catheter Extremity: Present: no pedal edema, other - LT hip surgical site Skin Exam: Present: warm/dry, no cyanosis Lymphatic: Present: no adenopathy Neurologic: Present: alert, oriented x 3, depressed affect Appearance: Present: appropriate appearance, appropriate insight Eye contact: Present: cooperative, good eye contact, normal speech Thoughts: Present: normal thought pattern, no apparent hallucination Cauti Physician Documentation - Urinary Catheter Management Urethral ([place]) Date of Insertion: 10/31/16 Time of Insertion: 16:50 Date of Removal: 10/31/16 Time of Removal: 07:30 Assessment/Plan - Problems/Diagnosis (1) Nondisplaced fracture of neck of left femur Problem: Acute Qualifiers: Encounter type: initial encounter Fracture type: closed Qualified Code(s) : S72.002A - Fracture of unspecified part of neck of left femur, initial encounter for closed fracture Narrative: POD # 2 of ORIF. Continue physical therapy.Ortho following pt. Continue with pain mgt, bowel regimen, DVT prophylaxis. (2) Nausea & vomiting Problem: Acute Narrative: Noted to have abdominal distention. Vomited twice this am. Had an Ileus on Abdominal Xray obtained on 10/30. Will obtain another KUB to see if there is obstruction developing. Give antiemetics, Keep NPO, & Resume IVF. (3) Leukocytosis Problem: Acute Qualifiers: Leukocytosis type: unspecified Qualified Code(s): D72.829 - Elevated white blood cell count, unspecified Narrative: WBC up more this am. prior work-up was negative. Will check Abdominal X-ray this am. . (4) Elevated troponin Problem: Acute Narrative: Found to be renal related and likely increase demand Ischemia from stress of fracture and surgery. Echo report pending. Was being medically managed with anticoagulant. Heparin discontinued- no new wall motion abnormality on Echo. (5) Chronic kidney disease, stage 3a Problem: Chronic Narrative: CR up 3.17- Will need gentle hydration with IVF. BMP in am. (6) Diabetes Problem: Chronic Qualifiers: Diabetes mellitus type: type 2 (7) HTN (hypertension) Problem: Chronic Qualifiers: Hypertension type: essential hypertension Qualified Code(s): I10 - Essential (primary) hypertension
[2016-11-01] MEDS: CHLORTHALIDONE 25 MG TABLET PO SCH (08:10)
[2016-11-01] MEDS: LISINOPRIL 40 MG TABLET PO SCH (08:10)
[2016-11-01] MEDS: METOPROLOL TARTRATE 50 MG TABLET PO SCH ×3 (08:10→20:19)
[2016-11-01] MEDS: SENNOSIDES/DOCUSATE SODIUM 1 TAB TABLET PO SCH ×2 (08:10→20:19)
[2016-11-01] MEDS: amLODIPine BESYLATE 10 MG TABLET PO SCH (08:11)
[2016-11-01] MEDS: ASPIRIN 81 MG TABLET.DR PO SCH (08:11)
[2016-11-01] MEDS: CHOLECALCIFEROL 1,000 UNIT CAPSULE PO SCH (08:11)
[2016-11-01] MEDS: CLOPIDOGREL BISULFATE 75 MG TABLET PO SCH (08:11)
[2016-11-01] MEDS: CLONIDINE HCL 0.1 MG TABLET PO SCH ×2 (08:11→20:17)
[2016-11-01] MEDS: NYSTATIN 15 APPL BTL TP SCH ×4 (08:12→23:36)
[2016-11-01] MEDS: PREGABALIN 25 MG CAPSULE PO SCH (08:14)
[2016-11-01] MEDS ORDERED: POTASSIUM CHLORIDE 20 MEQ in DEXTROSE 5%-0.5 NORMAL SALINE 990 ML IV SCH (09:00)
--- NOTE | 2016-11-01 10:23 | PN ---
Subjective - Date and Time Seen Date: 11/01/16 Subjective Narrative: Patient with increased nausea and vomiting this am. KUB obtained concerning for ileus. WBC bumped again this am, still no clear source. Objective - Vitals Vitals: Last Vital Signs Temp 37.8 C H 11/01/16 06:24 Pulse 91 11/01/16 09:07 Resp 30 H 11/01/16 06:24 BP 155/86 11/01/16 09:07 Pulse Ox 96 11/01/16 06:24 - Abnormal Lab Findings Abnormal Lab Findings: Abnormal Lab Results 11/01/16 11/01/16 Range/Units 05:30 05:30 WBC 22.2 H D (4.0-10.5) K/mm3 RBC 4.18 L (4.7-6.0) M/mm3 Hgb 12.1 L (13.5-18.0) gm/dL Hct 36.4 L (42.0-52.0) % MPV 11.0 H (6.0-9.5) fl Immature Gran % (Auto) 0.80 H (0.001-0.429) % Immature Gran # (Auto) 0.17 H (0.000-0.0310) K/mm3 Neutrophils % 88.7 H (42-75.0) % Lymphocytes % 4.3 L (20-51) % Neutrophils # 19.7 H (1.3-6.0) K/mm3 Lymphocytes # 1.0 L (1.5-3.5) k/mm3 Monocytes # 1.2 H (0.0-1.0) k/mm3 Plasma Sodium 143 H (130-142) mmol/L Anion Gap 15.5 H (6.8-13.8) mmol/L BUN 41 H (6-23) mg/dL Creatinine 3.17 H D (0.4-1.4) mg/dL Est GFR (Non-Af Amer) 20 L D (60-130) mL/min Random Glucose 178 H (70-110) mg/dL - Exam Exam Narrative: Gen: alert, oriented to person and place MSK: LLE--> dressing c/d/i, mild surrounding tenderness, no erythema, SILT, distal cap refill brisk Cauti Physician Documentation - Urinary Catheter Management Urethral ([place]) Date of Insertion: 10/31/16 Time of Insertion: 16:50 Date of Removal: 11/01/16 Time of Removal: 10:10 Assessment/Plan Plan Narrative: 81 yo M w/ non-displaced L femoral neck fx s/p ORIF with cannulated screws, POD #2. - WBAT, ROM as tolerated - elevated WBC - blood and urine cultures remain negative, Medicine continuing to work up source, CXR and abdominal CT ordered - nausea and vomiting - likely ileus, patient remaining NPO, likely NG tube placement today - oral pain meds - DVT ppx: lovenox, SCDs, teds - PT/OT - dispo: continue inpatient care per Medicine team
[2016-11-01 11:05] LABS: Anion Gap 18.9 mmol/L (6.8-13.8); BUN/Creatinine Ratio 13.6 (9.0-21.6); Calcium * 8.8 mg/dL (7.9-10.9); Carbon Dioxide 23.1 mmol/L (24-32.6); Estimated Creat Clear 17.2
[2016-11-01 12:31] LABS: Random Urine Total Protein 526.1 mg/dL (0-12)
[2016-11-01] MEDS: ENOXAPARIN SODIUM 30 MG/0.3 ML SYRG SC SCH (13:21)
[2016-11-01 13:41] LABS: Urine Bacteria 1+; Urine RBC >50 /hpf (0-5)
[2016-11-01 13:42] LABS: Urine Coarse Granular Cast 0-5 /LPF; Urine Fine Granular Cast 0-5 /LPF
[2016-11-01] MEDS: INSULIN GLARGINE,HUM.REC.ANLOG 100 UNITS/ML VIAL SC SCH (16:21)
[2016-11-01] MEDS: DEXTROSE 5%-0.5 NORMAL SALINE 1,000 ML IV PRN (18:21)
[2016-11-01] MEDS: ROSUVASTATIN CALCIUM 10 MG TABLET PO SCH (20:19)
[2016-11-01] MEDS: oxyCODONE HCL/ACETAMINOPHEN 1 TAB TABLET PO PRN (20:25)
[2016-11-01] MEDS: Lytes/Yerba Santa 240 APPL BTL MM PRN (20:29)
[2016-11-02] MEDS: DEXTROSE 5%-0.5 NORMAL SALINE 1,000 ML IV PRN ×3 (02:37→18:52)
[2016-11-02 05:42] LABS: Hemoglobin 11.5 gm/dL (13.5-18.0); Mean Cell Volume 88.8 fl (78-100); Mean Corpuscular Hgb Conc 33.8 g/dl (32-36); Mean Platelet Volume 10.5 fl (6.0-9.5); Neutrophil # 14.6 K/mm3 (1.3-6.0); Neutrophil % 84.3 % (42-75.0); Platelet Count 249 K/mm3 (150-450); Red Blood Count 3.83 M/mm3 (4.7-6.0); White Blood Count 17.3 K/mm3 (4.0-10.5)
[2016-11-02 06:00] LABS: Anion Gap 15.5 mmol/L (6.8-13.8); BUN/Creatinine Ratio 14.7 (9.0-21.6); Bilirubin Direct 0.2 mg/dL (0.0-0.3); Bilirubin, Total 0.4 mg/dL (0.0-1.1); Bilirubin,Indirect 0.2 mg/dL (0.1-0.7); Calcium * 8.6 mg/dL (7.9-10.9); Carbon Dioxide 23.2 mmol/L (24-32.6); Estimated Creat Clear 16.4; Potassium 3.7 mmol/L (3.4-4.6); Total Protein 6.5 gm/dL (6.2-8.2)
[2016-11-02] MEDS: INSULIN LISPRO 100 UNITS/ML VIAL SC SCH ×3 (06:28→16:04)
[2016-11-02] MEDS: LEVOTHYROXINE SODIUM 100 MCG TABLET PO SCH (06:29)
[2016-11-02] MEDS ORDERED: DIATRIZOATE MEGLU/DIATRIZO SOD 30 ML BTL PO ONE (07:30)
--- NOTE | 2016-11-02 08:34 | PN ---
Subjective - Date and Time Seen Date: 11/02/16 Time: 08:31 Subjective Narrative: Patient seen and examined at bedside. No acute issues overnight. Patient states his pain is well controlled but he just can't get comfortable while sitting in the chair. No BM but patient states he is passing gas. Objective - Review of Systems Generalized/Overall Review: Reports: No Symptoms Reported EENTM: Reports: No Symptoms Reported Respiratory: Reports: No Symptoms Reported Cardiac: Reports: No Symptoms Reported Abdominal: Denies: Abdominal Pain Genitourinary Symptoms: Reports: No Symptoms Reported Musculoskeletal Complaints: Reports: Joint Pain - s/p left hip surgery Neurological: Reports: No Symptoms Reported Skin: Reports: No Symptoms Reported Endocrine: Reports: No Symptoms Reported Misc: All systems neg except as marked - Vitals Vitals: Last Vital Signs Temp 37.2 C 11/02/16 06:09 Pulse 71 11/02/16 06:09 Resp 16 11/02/16 06:09 BP 122/69 11/02/16 06:09 Pulse Ox 92 11/02/16 06:09 - Abnormal Lab Findings Abnormal Lab Findings: Abnormal Lab Results 11/01/16 11/01/16 11/01/16 Range/Units 05:30 10:15 10:45 WBC (4.0-10.5) K/mm3 RBC (4.7-6.0) M/mm3 Hgb (13.5-18.0) gm/dL Hct (42.0-52.0) % MPV (6.0-9.5) fl Immature Gran % (Auto) (0.001-0.429) % Immature Gran # (Auto) (0.000-0.0310) K/mm3 Neutrophils % (42-75.0) % Lymphocytes % (20-51) % Eosinophils % (0.0-3.0) % Neutrophils # (1.3-6.0) K/mm3 Lymphocytes # (1.5-3.5) k/mm3 Sodium 143 H (132-142) mmol/L Plasma Sodium 144 H (130-142) mmol/L Carbon Dioxide 23.1 L (24-32.6) mmol/L Anion Gap 18.9 H (6.8-13.8) mmol/L BUN 45 H (6-23) mg/dL Creatinine 3.31 H (0.4-1.4) mg/dL Est GFR (Non-Af Amer) 19 L (60-130) mL/min Random Glucose 189 H (70-110) mg/dL AST (0-48) U/L ALT (19-67) U/L Albumin (3.4-5.0) gm/dl Procalcitonin 0.99 H (0.05-0.50) ng/mL Urine RBC >50 H (0-5) /hpf Urine WBC 5-10 H (0-5) /hpf Urine Bacteria 1+ H (NONE) Fine Granular Casts 0-5 H (NONE) /LPF Coarse Granular Casts 0-5 H (NONE) /LPF U Random Total Protein (0-12) mg/dL U [place] Prot/Creat Ratio (0-199) mg/gm Ur Random Sodium (40-220) mmol/L Urine Comment Culture ordered L 11/01/16 11/01/16 11/02/16 Range/Units Unknown Unknown 05:35 WBC 17.3 H D (4.0-10.5) K/mm3 RBC 3.83 L (4.7-6.0) M/mm3 Hgb 11.5 L (13.5-18.0) gm/dL Hct 34.0 L (42.0-52.0) % MPV 10.5 H (6.0-9.5) fl Immature Gran % (Auto) 0.60 H (0.001-0.429) % Immature Gran # (Auto) 0.11 H (0.000-0.0310) K/mm3 Neutrophils % 84.3 H (42-75.0) % Lymphocytes % 6.0 L (20-51) % Eosinophils % 3.2 H (0.0-3.0) % Neutrophils # 14.6 H (1.3-6.0) K/mm3 Lymphocytes # 1.0 L (1.5-3.5) k/mm3 Sodium (132-142) mmol/L Plasma Sodium (130-142) mmol/L Carbon Dioxide (24-32.6) mmol/L Anion Gap (6.8-13.8) mmol/L BUN (6-23) mg/dL Creatinine (0.4-1.4) mg/dL Est GFR (Non-Af Amer) (60-130) mL/min Random Glucose (70-110) mg/dL AST (0-48) U/L ALT (19-67) U/L Albumin (3.4-5.0) gm/dl Procalcitonin (0.05-0.50) ng/mL Urine RBC (0-5) /hpf Urine WBC (0-5) /hpf Urine Bacteria (NONE) Fine Granular Casts (NONE) /LPF Coarse Granular Casts (NONE) /LPF U Random Total Protein 526.1 H (0-12) mg/dL U [place] Prot/Creat Ratio 3659 H (0-199) mg/gm Ur Random Sodium 25 L (40-220) mmol/L Urine Comment 11/02/16 11/02/16 Range/Units 05:35 05:35 WBC (4.0-10.5) K/mm3 RBC (4.7-6.0) M/mm3 Hgb (13.5-18.0) gm/dL Hct (42.0-52.0) % MPV (6.0-9.5) fl Immature Gran % (Auto) (0.001-0.429) % Immature Gran # (Auto) (0.000-0.0310) K/mm3 Neutrophils % (42-75.0) % Lymphocytes % (20-51) % Eosinophils % (0.0-3.0) % Neutrophils # (1.3-6.0) K/mm3 Lymphocytes # (1.5-3.5) k/mm3 Sodium (132-142) mmol/L Plasma Sodium (130-142) mmol/L Carbon Dioxide 23.2 L (24-32.6) mmol/L Anion Gap 15.5 H (6.8-13.8) mmol/L BUN 51 H (6-23) mg/dL Creatinine 3.47 H (0.4-1.4) mg/dL Est GFR (Non-Af Amer) 18 L (60-130) mL/min Random Glucose 174 H (70-110) mg/dL AST 136 H (0-48) U/L ALT 8 L (19-67) U/L Albumin 2.0 L (3.4-5.0) gm/dl Procalcitonin 0.97 H (0.05-0.50) ng/mL Urine RBC (0-5) /hpf Urine WBC (0-5) /hpf Urine Bacteria (NONE) Fine Granular Casts (NONE) /LPF Coarse Granular Casts (NONE) /LPF U Random Total Protein (0-12) mg/dL U [place] Prot/Creat Ratio (0-199) mg/gm Ur Random Sodium (40-220) mmol/L Urine Comment - Exam Constitutional: Present: Alert, Cooperative, No distress, Elderly ENT Exam: Present: hard of hearing, moist mucous membranes Respiratory: Present: lungs clear, normal breath sounds, no respiratory distress , no accessory muscle use Cardiovascular/Chest: Present: regular rate, rhythm, edema - Very minimal trace edema in bilateral lower extremities Abdomen: Present: soft, distended, hypoactive. Absent: rigidity Extremity: Present: lower extremity edema - Very minimal trace edema in bilateral lower extremities, other - s/p left hip ORIF with dressings in place Skin Exam: Present: warm/dry Neurologic: Present: alert, normal mood/affect Appearance: Present: impaired insight, impaired recent memory, impaired remote memory Eye contact: Present: cooperative Thoughts: Present: no apparent hallucination Cauti Physician Documentation - Urinary Catheter Management Urethral ([facility]) Date of Insertion: 10/31/16 Time of Insertion: 16:50 Date of Removal: 11/01/16 Time of Removal: 10:10 Assessment/Plan Plan Narrative: IMPRESSION & PLAN: Nondisplaced left femoral neck fracture s/p ORIF on 10/30/2016 -Weight-bearing as tolerated, range of motion as tolerated -Pain control per ortho -VTE prophylaxis with Lovenox, SCDs, compression stockings -Continue ongoing PT and OT evaluation and treatment Leukocytosis -Unclear etiology. Urine culture and blood culture NGTD. CXR unremarkable -White blood cell count improving this morning. Leukocytosis is likely multifactorial and secondary to a reactive process as well as vomiting. No obvious signs of infection. Hold off on antibiotics for now. 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 He has likely had progression of his CKD since that time so I am not sure what his actual baseline creatinine is. -CKD is likely multifactorial and secondary to both DM and HTN. ?MM -Creatinine Clearance is ~17 mL/min -Renally dose all medications and avoid nephrotoxic medications if possible -Tramadol interval changed to Q12H -Hold Lisinopril for now -Atorvastatin would ideally be the best statin to use in this patient as it is the only statin that does not have to have dose adjustments based on kidney function. However, I spoke with our pharmacist and we do not have any atorvastatin available for inpatient use. I would recommend on discharge, that the patient be discharged home on Atorvastatin 40 or 80mg PO QHS. -FENa is 0.4% which is consistent with a prerenal etiology. Continue IV fluid hydration. Consider outpatient evaluation for renal artery stenosis. If the patient is not already following with nephrology I would recommend that he be referred to nephrology as an outpatient for ongoing evaluation and management of his poor kidney function. -Renal ultrasound on 11/01/2016 showed: Bilateral renal cysts without evidence for hydronephrosis. Urinary bladder within normal limits. Prostate volume of 9 cc. -Continue IVF hydration with D5 NS @ 125cc/hr. Monitor volume status closely. Check daily weight. Proteinuria -Based on review of the patients clinic records, he has had markedly elevated microalbumin/creatinine ratios that date back to September 2010 at which time the ratio was 1184. -Likely secondary to CKD and DM. ?MM Given his progression, I have ordered for further evaluation with SPEP and UPEP. Ileus vs. Partial Bowel Obstruction -I was unable to auscultate any bowel sounds yesterday so an order placed for an NG to LIS; however, patient unable to tolerate NG placement. Today I am able to auscultate bowel sounds, however the patient is still rather distended and has not had a BM. Order placed for a CT of the abdomen and pelvis with oral contrast only. -NPO except sips with meds Patient was on metoprolol tartrate 50mg daily and tartrate should be dosed BID. Patient switched to metoprolol succinate 50mg PO daily. 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 Problem: Chronic (3) Proteinuria Problem: Chronic Qualifiers: Proteinuria type: persistent Qualified Code(s): R80.1 - Persistent proteinuria, unspecified (4) Ileus, postoperative Problem: Acute (5) Partial bowel obstruction Problem: Suspected (6) Leukocytosis Problem: Acute Qualifiers: Leukocytosis type: unspecified Qualified Code(s): D72.829 - Elevated white blood cell count, unspecified (7) Nondisplaced fracture of neck of left femur Problem: Acute Qualifiers: Encounter type: initial encounter Fracture type: closed Qualified Code(s) : S72.002A - Fracture of unspecified part of neck of left femur, initial encounter for closed fracture
[2016-11-02] MEDS: ASPIRIN 81 MG TABLET.DR PO SCH (08:54)
[2016-11-02] MEDS: CLOPIDOGREL BISULFATE 75 MG TABLET PO SCH (08:55)
[2016-11-02] MEDS: CHOLECALCIFEROL 1,000 UNIT CAPSULE PO SCH (08:55)
[2016-11-02] MEDS: CLONIDINE HCL 0.1 MG TABLET PO SCH ×2 (08:55→20:23)
[2016-11-02] MEDS: amLODIPine BESYLATE 10 MG TABLET PO SCH (08:55)
[2016-11-02] MEDS: CHLORTHALIDONE 25 MG TABLET PO SCH (08:55)
[2016-11-02] MEDS: SENNOSIDES/DOCUSATE SODIUM 1 TAB TABLET PO SCH ×2 (08:55→20:22)
[2016-11-02] MEDS: NYSTATIN 15 APPL BTL TP SCH ×4 (08:56→20:24)
[2016-11-02] MEDS: METOPROLOL SUCCINATE 50 MG TABLET.SA PO SCH (08:56)
[2016-11-02] MEDS: PREGABALIN 25 MG CAPSULE PO SCH (08:58)
--- NOTE | 2016-11-02 10:05 | PN ---
Subjective - Date and Time Seen Date: 11/02/16 Subjective Narrative: Patient passing gas this am, no BM. Nausea/vomiting improved. Pain controlled in L hip, but can't get comfortable in chair. Objective - Vitals Vitals: Last Vital Signs Temp 37.2 C 11/02/16 06:09 Pulse 71 11/02/16 08:56 Resp 16 11/02/16 06:09 BP 122/69 11/02/16 08:56 Pulse Ox 92 11/02/16 06:09 - Abnormal Lab Findings Abnormal Lab Findings: Abnormal Lab Results 11/01/16 11/01/16 11/01/16 Range/Units 05:30 10:15 10:45 WBC (4.0-10.5) K/mm3 RBC (4.7-6.0) M/mm3 Hgb (13.5-18.0) gm/dL Hct (42.0-52.0) % MPV (6.0-9.5) fl Immature Gran % (Auto) (0.001-0.429) % Immature Gran # (Auto) (0.000-0.0310) K/mm3 Neutrophils % (42-75.0) % Lymphocytes % (20-51) % Eosinophils % (0.0-3.0) % Neutrophils # (1.3-6.0) K/mm3 Lymphocytes # (1.5-3.5) k/mm3 Sodium 143 H (132-142) mmol/L Plasma Sodium 144 H (130-142) mmol/L Carbon Dioxide 23.1 L (24-32.6) mmol/L Anion Gap 18.9 H (6.8-13.8) mmol/L BUN 45 H (6-23) mg/dL Creatinine 3.31 H (0.4-1.4) mg/dL Est GFR (Non-Af Amer) 19 L (60-130) mL/min Random Glucose 189 H (70-110) mg/dL AST (0-48) U/L ALT (19-67) U/L Albumin (3.4-5.0) gm/dl Procalcitonin 0.99 H (0.05-0.50) ng/mL Urine RBC >50 H (0-5) /hpf Urine WBC 5-10 H (0-5) /hpf Urine Bacteria 1+ H (NONE) Fine Granular Casts 0-5 H (NONE) /LPF Coarse Granular Casts 0-5 H (NONE) /LPF U Random Total Protein (0-12) mg/dL U [place] Prot/Creat Ratio (0-199) mg/gm Ur Random Sodium (40-220) mmol/L Urine Comment Culture ordered L 11/01/16 11/01/16 11/02/16 Range/Units Unknown Unknown 05:35 WBC 17.3 H D (4.0-10.5) K/mm3 RBC 3.83 L (4.7-6.0) M/mm3 Hgb 11.5 L (13.5-18.0) gm/dL Hct 34.0 L (42.0-52.0) % MPV 10.5 H (6.0-9.5) fl Immature Gran % (Auto) 0.60 H (0.001-0.429) % Immature Gran # (Auto) 0.11 H (0.000-0.0310) K/mm3 Neutrophils % 84.3 H (42-75.0) % Lymphocytes % 6.0 L (20-51) % Eosinophils % 3.2 H (0.0-3.0) % Neutrophils # 14.6 H (1.3-6.0) K/mm3 Lymphocytes # 1.0 L (1.5-3.5) k/mm3 Sodium (132-142) mmol/L Plasma Sodium (130-142) mmol/L Carbon Dioxide (24-32.6) mmol/L Anion Gap (6.8-13.8) mmol/L BUN (6-23) mg/dL Creatinine (0.4-1.4) mg/dL Est GFR (Non-Af Amer) (60-130) mL/min Random Glucose (70-110) mg/dL AST (0-48) U/L ALT (19-67) U/L Albumin (3.4-5.0) gm/dl Procalcitonin (0.05-0.50) ng/mL Urine RBC (0-5) /hpf Urine WBC (0-5) /hpf Urine Bacteria (NONE) Fine Granular Casts (NONE) /LPF Coarse Granular Casts (NONE) /LPF U Random Total Protein 526.1 H (0-12) mg/dL U [place] Prot/Creat Ratio 3659 H (0-199) mg/gm Ur Random Sodium 25 L (40-220) mmol/L Urine Comment 11/02/16 11/02/16 Range/Units 05:35 05:35 WBC (4.0-10.5) K/mm3 RBC (4.7-6.0) M/mm3 Hgb (13.5-18.0) gm/dL Hct (42.0-52.0) % MPV (6.0-9.5) fl Immature Gran % (Auto) (0.001-0.429) % Immature Gran # (Auto) (0.000-0.0310) K/mm3 Neutrophils % (42-75.0) % Lymphocytes % (20-51) % Eosinophils % (0.0-3.0) % Neutrophils # (1.3-6.0) K/mm3 Lymphocytes # (1.5-3.5) k/mm3 Sodium (132-142) mmol/L Plasma Sodium (130-142) mmol/L Carbon Dioxide 23.2 L (24-32.6) mmol/L Anion Gap 15.5 H (6.8-13.8) mmol/L BUN 51 H (6-23) mg/dL Creatinine 3.47 H (0.4-1.4) mg/dL Est GFR (Non-Af Amer) 18 L (60-130) mL/min Random Glucose 174 H (70-110) mg/dL AST 136 H (0-48) U/L ALT 8 L (19-67) U/L Albumin 2.0 L (3.4-5.0) gm/dl Procalcitonin 0.97 H (0.05-0.50) ng/mL Urine RBC (0-5) /hpf Urine WBC (0-5) /hpf Urine Bacteria (NONE) Fine Granular Casts (NONE) /LPF Coarse Granular Casts (NONE) /LPF U Random Total Protein (0-12) mg/dL U [place] Prot/Creat Ratio (0-199) mg/gm Ur Random Sodium (40-220) mmol/L Urine Comment - Exam Exam Narrative: MSK: LLE--> dressings c/d/i, mild TTP, no swelling or erythema, SILT, distal cap refill brisk Cauti Physician Documentation - Urinary Catheter Management Urethral ([facility]) Date of Insertion: 10/31/16 Time of Insertion: 16:50 Date of Removal: 11/01/16 Time of Removal: 10:10 Assessment/Plan Plan Narrative: 81 yo M w/ non-displaced L femoral neck fx s/p ORIF with cannulated screws, POD #2. - WBAT, ROM as tolerated - elevated WBC - comprehensive workup negative so far, WBC trending back down, likely secondary to inflammatory response to injury and surgery - nausea and vomiting - passing gas today but no BM, oral contrast CT ordered for today, continue managment per Medicine team - renal failure - continue management per Medicine team - oral pain meds - DVT ppx: lovenox, SCDs, teds - PT/OT - dispo: continue inpatient care per Medicine team
[2016-11-02] MEDS: traMADol HCL 50 MG TABLET PO PRN (12:42)
[2016-11-02] MEDS: ENOXAPARIN SODIUM 30 MG/0.3 ML SYRG SC SCH (13:16)
[2016-11-02] MEDS: INSULIN GLARGINE,HUM.REC.ANLOG 100 UNITS/ML VIAL SC SCH (16:07)
[2016-11-02] MEDS: Lytes/Yerba Santa 240 APPL BTL MM PRN (18:37)
[2016-11-02] MEDS: ROSUVASTATIN CALCIUM 10 MG TABLET PO SCH (20:23)
[2016-11-02] MEDS: ACETAMINOPHEN 500 MG TABLET PO PRN (21:39)
[2016-11-03] MEDS: DEXTROSE 5%-0.5 NORMAL SALINE 1,000 ML IV PRN ×3 (02:27→18:45)
[2016-11-03] MEDS: traMADol HCL 50 MG TABLET PO PRN ×2 (04:26→18:45)
[2016-11-03 05:25] LABS: Hematocrit 30.8 % (42.0-52.0); Hemoglobin 10.3 gm/dL (13.5-18.0); Mean Cell Volume 88.3 fl (78-100); Mean Corpuscular Hemoglobin 29.5 pg (27-31); Mean Corpuscular Hgb Conc 33.4 g/dl (32-36); Mean Platelet Volume 9.8 fl (6.0-9.5); Neutrophil # 13.9 K/mm3 (1.3-6.0); Neutrophil % 82.3 % (42-75.0); Platelet Count 249 K/mm3 (150-450); Red Blood Count 3.49 M/mm3 (4.7-6.0); White Blood Count 16.9 K/mm3 (4.0-10.5)
[2016-11-03 05:43] LABS: Albumin * 1.9 gm/dl (3.4-5.0); Anion Gap 14.7 mmol/L (6.8-13.8); BUN/Creatinine Ratio 17.4 (9.0-21.6); Bilirubin Direct 0.2 mg/dL (0.0-0.3); Bilirubin, Total 0.5 mg/dL (0.0-1.1); Bilirubin,Indirect 0.3 mg/dL (0.1-0.7); Calcium * 8.5 mg/dL (7.9-10.9); Carbon Dioxide 22.6 mmol/L (24-32.6); Estimated Creat Clear 17.4; Potassium 3.3 mmol/L (3.4-4.6); Total Protein 6.2 gm/dL (6.2-8.2)
[2016-11-03] MEDS: INSULIN LISPRO 100 UNITS/ML VIAL SC SCH ×3 (07:03→16:59)
[2016-11-03] MEDS: LEVOTHYROXINE SODIUM 100 MCG TABLET PO SCH (07:04)
--- NOTE | 2016-11-03 08:44 | PN ---
Subjective - Date and Time Seen Date: 11/03/16 Time: 08:30 Subjective Narrative: Tmax 37.8 . had BM yesterday. Objective - Review of Systems Generalized/Overall Review: Reports: Fever. Denies: Chills EENTM: Reports: No Symptoms Reported Respiratory: Denies: Cough, Shortness of Breath, Orthopnea Cardiac: Denies: Chest Pain, Edema, Palpitations Abdominal: Denies: Nausea, Vomiting Genitourinary Symptoms: Denies: Urgency, Frequency Musculoskeletal Complaints: Reports: Joint Pain - Vitals Vitals: Last Vital Signs Temp 37.3 C 11/03/16 07:15 Pulse 66 11/03/16 07:15 Resp 18 11/03/16 07:15 BP 140/77 11/03/16 07:15 Pulse Ox 94 11/03/16 07:15 - Abnormal Lab Findings Abnormal Lab Findings: Abnormal Lab Results 11/03/16 11/03/16 Range/Units 05:20 05:20 WBC 16.9 H (4.0-10.5) K/mm3 RBC 3.49 L (4.7-6.0) M/mm3 Hgb 10.3 L (13.5-18.0) gm/dL Hct 30.8 L (42.0-52.0) % MPV 9.8 H (6.0-9.5) fl Immature Gran % (Auto) 0.50 H (0.001-0.429) % Immature Gran # (Auto) 0.09 H (0.000-0.0310) K/mm3 Neutrophils % 82.3 H (42-75.0) % Lymphocytes % 6.7 L (20-51) % Eosinophils % 4.3 H (0.0-3.0) % Neutrophils # 13.9 H (1.3-6.0) K/mm3 Lymphocytes # 1.1 L (1.5-3.5) k/mm3 Potassium 3.3 L (3.4-4.6) mmol/L Carbon Dioxide 22.6 L (24-32.6) mmol/L Anion Gap 14.7 H (6.8-13.8) mmol/L BUN 57 H (6-23) mg/dL Creatinine 3.27 H (0.4-1.4) mg/dL Est GFR (Non-Af Amer) 19 L (60-130) mL/min AST 91 H (0-48) U/L ALT 8 L (19-67) U/L Albumin 1.9 L (3.4-5.0) gm/dl - Exam Constitutional: Present: Alert, Cooperative ENT Exam: Present: hard of hearing Neck: Present: supple Breasts: Present: Exam deferred Respiratory: Present: decreased breath sounds, No rales, No wheezing Cardiovascular/Chest: Present: regular rate, rhythm, no JVD, no murmur Abdomen: Present: Normal bowel sounds, soft, nontender, nondistended Extremity: Present: no calf tenderness, pedal edema Cauti Physician Documentation - Urinary Catheter Management Urethral ([place]) Date of Insertion: 10/31/16 Time of Insertion: 16:50 Date of Removal: 11/01/16 Time of Removal: 10:10 Assessment/Plan - Problems/Diagnosis (1) Nondisplaced fracture of neck of left femur Problem: Acute Qualifiers: Encounter type: initial encounter Fracture type: closed Qualified Code(s) : S72.002A - Fracture of unspecified part of neck of left femur, initial encounter for closed fracture (2) Fever Problem: Acute Qualifiers: Fever type: unspecified Qualified Code(s): R50.9 - Fever, unspecified (3) Leukocytosis Problem: Acute Qualifiers: Leukocytosis type: unspecified Qualified Code(s): D72.829 - Elevated white blood cell count, unspecified Narrative: likley due to PSBO. Trending down. (4) Diabetes Problem: Chronic Qualifiers: Diabetes mellitus type: type 2 (5) HTN (hypertension) Problem: Chronic Qualifiers: Hypertension type: essential hypertension Qualified Code(s): I10 - Essential (primary) hypertension (6) Fall Problem: Acute Qualifiers: Encounter type: initial encounter Qualified Code(s): W19.XXXA - Unspecified fall, initial encounter (7) Mild dementia Problem: Chronic (8) Elevated troponin Problem: Acute (9) Adynamic ileus Problem: Acute Narrative: CTS showed PSBO. Had BM yesterday. will get Surgical consult. (10) CRF (chronic renal failure) Problem: Acute Qualifiers: Chronic kidney disease stage: stage 4 (severe) Qualified Code(s): N18.4 - Chronic kidney disease, stage 4 (severe)
[2016-11-03] MEDS: ACETAMINOPHEN 500 MG TABLET PO PRN (09:12)
[2016-11-03] MEDS: ASPIRIN 81 MG TABLET.DR PO SCH (09:12)
[2016-11-03] MEDS: CHLORTHALIDONE 25 MG TABLET PO SCH (09:12)
[2016-11-03] MEDS: METOPROLOL SUCCINATE 50 MG TABLET.SA PO SCH (09:12)
[2016-11-03] MEDS: SENNOSIDES/DOCUSATE SODIUM 1 TAB TABLET PO SCH ×2 (09:13→20:14)
[2016-11-03] MEDS: NYSTATIN 15 APPL BTL TP SCH ×4 (09:13→20:16)
[2016-11-03] MEDS: CLOPIDOGREL BISULFATE 75 MG TABLET PO SCH (09:13)
[2016-11-03] MEDS: CHOLECALCIFEROL 1,000 UNIT CAPSULE PO SCH (09:13)
[2016-11-03] MEDS: CLONIDINE HCL 0.1 MG TABLET PO SCH ×2 (09:13→20:15)
[2016-11-03] MEDS: amLODIPine BESYLATE 10 MG TABLET PO SCH (09:13)
[2016-11-03] MEDS: PREGABALIN 25 MG CAPSULE PO SCH (09:18)
[2016-11-03] MEDS: ENOXAPARIN SODIUM 30 MG/0.3 ML SYRG SC SCH (15:00)
--- NOTE | 2016-11-03 16:53 | PN ---
Subjective - Date and Time Seen Date: 11/03/16 Subjective Narrative: Patient had BM late yesterday, continuing to pass gas. Hip pain controlled. Objective - Vitals Vitals: Last Vital Signs Temp 36.7 C 11/03/16 15:00 Pulse 71 11/03/16 15:00 Resp 17 11/03/16 15:00 BP 115/71 11/03/16 15:00 Pulse Ox 99 11/03/16 15:00 - Abnormal Lab Findings Abnormal Lab Findings: Abnormal Lab Results 11/03/16 11/03/16 Range/Units 05:20 05:20 WBC 16.9 H (4.0-10.5) K/mm3 RBC 3.49 L (4.7-6.0) M/mm3 Hgb 10.3 L (13.5-18.0) gm/dL Hct 30.8 L (42.0-52.0) % MPV 9.8 H (6.0-9.5) fl Immature Gran % (Auto) 0.50 H (0.001-0.429) % Immature Gran # (Auto) 0.09 H (0.000-0.0310) K/mm3 Neutrophils % 82.3 H (42-75.0) % Lymphocytes % 6.7 L (20-51) % Eosinophils % 4.3 H (0.0-3.0) % Neutrophils # 13.9 H (1.3-6.0) K/mm3 Lymphocytes # 1.1 L (1.5-3.5) k/mm3 Potassium 3.3 L (3.4-4.6) mmol/L Carbon Dioxide 22.6 L (24-32.6) mmol/L Anion Gap 14.7 H (6.8-13.8) mmol/L BUN 57 H (6-23) mg/dL Creatinine 3.27 H (0.4-1.4) mg/dL Est GFR (Non-Af Amer) 19 L (60-130) mL/min AST 91 H (0-48) U/L ALT 8 L (19-67) U/L Albumin 1.9 L (3.4-5.0) gm/dl - Exam Exam Narrative: MSK: LLE--> dressings c/d/i, no swelling or erythema, appropriate TTP, SILT, cap refill brisk Cauti Physician Documentation - Urinary Catheter Management Urethral ([facility]) Date of Insertion: 10/31/16 Time of Insertion: 16:50 Date of Removal: 11/01/16 Time of Removal: 10:10 Assessment/Plan Plan Narrative: 81 yo M w/ non-displaced L femoral neck fx s/p ORIF with cannulated screws, POD #4. - WBAT, ROM as tolerated - elevated WBC - comprehensive workup negative so far, WBC trending back down, likely secondary to inflammatory response to injury and surgery - nausea and vomiting - passing gas and had BM, CT with oral contrast consistent with partial small bowel obstruction - Gen surg consult pending - renal failure - continue management per Medicine team - oral pain meds - DVT ppx: lovenox, SCDs, teds - PT/OT - dispo: continue inpatient care per Medicine team
[2016-11-03] MEDS: INSULIN GLARGINE,HUM.REC.ANLOG 100 UNITS/ML VIAL SC SCH (17:00)
[2016-11-03] MEDS: ROSUVASTATIN CALCIUM 10 MG TABLET PO SCH (20:16)
[2016-11-04] MEDS: ONDANSETRON HCL/PF 2 MG/ML VIAL IV PRN (00:17)
--- NOTE | 2016-11-04 03:16 | PN ---
Progess Note - Interim Narrative: 11/04/16 03:13 At 23.45, Nursing staff reported that pt had greenish emesis measuring about 900ml. Abdomen noted to be distended but soft with tenderness on lower region. Pt initially underwent ORIF of LT hip on 10/30/16. He was noted to have increasing Leukocytosis and had abdominal pain. An Abdominal X-ray obtained on showed he had an ileus. He was kept on clear liquid diet. During the morning hours on 11/01, he had two episodes of moderate emesis. A KUB imaging followed by CT of the Abdomen with Gastrograffin was completed and the results showed PSBO. Apparently pt refused an NG tube to be placed. The pt was thought to have improved on his own as noted with passing flatus, less distention, active BS, and normal BMs. Surgery (Dr. Steele) had been consulted on pt's case by Dr Campos and he happened to be seeing another pt on the floor last night. I passed the report that the pt's symptoms seemed to be improving, and therefore he planned to evaluate pt in am, 11/04. However at approximately midnight on 11/04 , pt developed the vomiting again and had 3 episodes with one measuring 900ml. He was kept NPO. I discussed the case with Dr. Steele again who agreed that the pt needed the NG tube to be placed as otherwise, serious complications such as bowel necrosis or perforation can occur that can lead to emergent abdominal surgery. I visited with the pt about the medical necessity of placing the NG tube to resolve bowel obstruction and the danger of refusing the tube for the decompression of his abdomen. He willingly agreed stating " I ve been miserable with vomiting and am okay with whatever treatment you think I need to feel better." Orders communicated to nursing. Will continue to monitor pt, offer supportive cares with: Gut rest, IVF ( D5NSw 20KCL@100ml/hr, Pain mgt , Antiemetics. Surgery will follow and make additional recommendation and need for serial Abd imaging to see if there is resolution of PSBO * Nursing placed the NG tube and reported an instant 600ml output of feculent material.
[2016-11-04] MEDS: POTASSIUM CHLORIDE 20 MEQ in DEXTROSE 5%-NORMAL SALINE 990 ML IV SCH ×2 (04:45→14:51)
[2016-11-04 06:53] LABS: Hematocrit 31.4 % (42.0-52.0); Hemoglobin 10.7 gm/dL (13.5-18.0); Mean Cell Volume 85.8 fl (78-100); Mean Corpuscular Hemoglobin 29.2 pg (27-31); Mean Corpuscular Hgb Conc 34.1 g/dl (32-36); Neutrophil # 16.2 K/mm3 (1.3-6.0); Neutrophil % 89.6 % (42-75.0); Platelet Count 310 K/mm3 (150-450); Red Blood Count 3.66 M/mm3 (4.7-6.0); Red Cell Distribution Width 12.8 % (11.5-14.0); White Blood Count 18.1 K/mm3 (4.0-10.5)
[2016-11-04 06:59] LABS: Anion Gap 14.6 mmol/L (6.8-13.8); BUN/Creatinine Ratio 16.8 (9.0-21.6); Calcium * 8.4 mg/dL (7.9-10.9); Carbon Dioxide 22.9 mmol/L (24-32.6); Estimated Creat Clear 17.7; Potassium 3.5 mmol/L (3.4-4.6)
[2016-11-04] MEDS: INSULIN LISPRO 100 UNITS/ML VIAL SC SCH ×3 (06:59→16:31)
[2016-11-04] MEDS: LEVOTHYROXINE SODIUM 100 MCG TABLET PO SCH (06:59)
--- NOTE | 2016-11-04 08:11 | ECHO ---
This report is available in the EMR
--- NOTE | 2016-11-04 08:26 | PN ---
Subjective - Date and Time Seen Date: 11/04/16 Time: 08:18 Subjective Narrative: Sitting on chair. No abdominal pain. On NGT. Tmax 38.2. Objective - Review of Systems Generalized/Overall Review: Reports: Fever. Denies: Chills EENTM: Reports: No Symptoms Reported Respiratory: Denies: Cough, Shortness of Breath, Orthopnea Cardiac: Denies: Chest Pain, Edema, Palpitations Abdominal: Reports: Nausea, Vomiting. Denies: Abdominal Pain Genitourinary Symptoms: Denies: Urgency, Frequency Musculoskeletal Complaints: Reports: Joint Pain - Vitals Vitals: Last Vital Signs Temp 38.3 C H 11/04/16 07:05 Pulse 83 11/04/16 07:05 Resp 18 11/04/16 07:05 BP 123/71 11/04/16 07:05 Pulse Ox 96 11/04/16 07:05 - Abnormal Lab Findings Abnormal Lab Findings: Abnormal Lab Results 11/04/16 11/04/16 Range/Units 06:45 06:45 WBC 18.1 H (4.0-10.5) K/mm3 RBC 3.66 L (4.7-6.0) M/mm3 Hgb 10.7 L (13.5-18.0) gm/dL Hct 31.4 L (42.0-52.0) % MPV 10.0 H (6.0-9.5) fl Immature Gran % (Auto) 0.70 H (0.001-0.429) % Immature Gran # (Auto) 0.12 H (0.000-0.0310) K/mm3 Neutrophils % 89.6 H (42-75.0) % Lymphocytes % 4.5 L (20-51) % Neutrophils # 16.2 H (1.3-6.0) K/mm3 Lymphocytes # 0.8 L (1.5-3.5) k/mm3 Carbon Dioxide 22.9 L (24-32.6) mmol/L Anion Gap 14.6 H (6.8-13.8) mmol/L BUN 54 H (6-23) mg/dL Creatinine 3.21 H (0.4-1.4) mg/dL Est GFR (Non-Af Amer) 20 L (60-130) mL/min Random Glucose 182 H D (70-110) mg/dL - Exam Constitutional: Present: Alert, Oriented x3, Cooperative, Elderly ENT Exam: Present: hard of hearing Neck: Present: supple Breasts: Present: Exam deferred Respiratory: Present: decreased breath sounds, No rales, No wheezing Cardiovascular/Chest: Present: regular rate, rhythm, no JVD, no murmur Abdomen: Present: nontender, tender - slightly, firm, hypoactive Extremity: Present: no calf tenderness, pedal edema Cauti Physician Documentation - Urinary Catheter Management Urethral (Foster) Date of Insertion: 10/31/16 Time of Insertion: 16:50 Date of Removal: 11/01/16 Time of Removal: 10:10 Assessment/Plan - Problems/Diagnosis (1) Dark emesis Problem: Acute Narrative: likely due to PSBO. continue with NGT. surgery will see him today. will add LFT to his labs. will start IV protonix. (2) SBO (small bowel obstruction) Problem: Acute Narrative: PSBO on CTS . Adynamic Ileus on AXR. Surgery will see him today. keep NPO and on IVF. will do follow up AXR, (3) Nondisplaced fracture of neck of left femur Problem: Acute Qualifiers: Encounter type: initial encounter Fracture type: closed Qualified Code(s) : S72.002A - Fracture of unspecified part of neck of left femur, initial encounter for closed fracture Narrative: s/p CRIF (4) Fever Problem: Acute Qualifiers: Fever type: unspecified Qualified Code(s): R50.9 - Fever, unspecified Narrative: likely GIT in etiology. (5) Leukocytosis Problem: Acute Qualifiers: Leukocytosis type: unspecified Qualified Code(s): D72.829 - Elevated white blood cell count, unspecified Narrative: likely GIT in etiology. (6) Diabetes Problem: Chronic Qualifiers: Diabetes mellitus type: type 2 (7) HTN (hypertension) Problem: Chronic Qualifiers: Hypertension type: essential hypertension Qualified Code(s): I10 - Essential (primary) hypertension (8) Fall Problem: Acute Qualifiers: Encounter type: initial encounter Qualified Code(s): W19.XXXA - Unspecified fall, initial encounter (9) Mild dementia Problem: Chronic (10) Elevated troponin Problem: Acute (11) CRF (chronic renal failure) Problem: Acute Qualifiers: Chronic kidney disease stage: stage 4 (severe) Qualified Code(s): N18.4 - Chronic kidney disease, stage 4 (severe) (12) Nutrition deficiency due to insufficient food Problem: Acute Narrative: will likely need TPN.
[2016-11-04 08:44] LABS: Bilirubin Direct 0.1 mg/dL (0.0-0.3); Bilirubin, Total 0.4 mg/dL (0.0-1.1); Bilirubin,Indirect 0.3 mg/dL (0.1-0.7); Total Protein 6.5 gm/dL (6.2-8.2)
[2016-11-04] MEDS: CLONIDINE HCL 0.1 MG TABLET PO SCH ×2 (08:45→20:21)
[2016-11-04] MEDS: ASPIRIN 81 MG TABLET.DR PO SCH (08:45)
[2016-11-04] MEDS: CHLORTHALIDONE 25 MG TABLET PO SCH (08:45)
[2016-11-04] MEDS: PREGABALIN 25 MG CAPSULE PO SCH (08:46)
[2016-11-04] MEDS: CLOPIDOGREL BISULFATE 75 MG TABLET PO SCH (08:46)
[2016-11-04] MEDS: NYSTATIN 15 APPL BTL TP SCH ×4 (08:46→20:20)
[2016-11-04] MEDS: amLODIPine BESYLATE 10 MG TABLET PO SCH (08:46)
[2016-11-04] MEDS: METOPROLOL SUCCINATE 50 MG TABLET.SA PO SCH (08:46)
[2016-11-04] MEDS: SENNOSIDES/DOCUSATE SODIUM 1 TAB TABLET PO SCH ×2 (08:46→20:20)
[2016-11-04] MEDS: CHOLECALCIFEROL 1,000 UNIT CAPSULE PO SCH (08:46)
[2016-11-04] MEDS: CIPROFLOXACIN LACTATE/D5W 400 MG/200 ML BAG IV SCH (08:57)
[2016-11-04] MEDS: ACETAMINOPHEN 500 MG TABLET PO PRN (09:00)
[2016-11-04 10:42] LABS: Abnormal Protein Band 1 DNR mg/dL (NONE DETECTED); Abnormal Protein Band 2 DNR mg/dL (NONE DETECTED); Abnormal Protein Band 3 DNR mg/dL (NONE DETECTED); Alpha-1-Globulins 4 %; Alpha-2-Globulins 13 %; Protein/Creatinine Ratio 4311 mg/g creat (22-128)
[2016-11-04] MEDS: metroNIDAZOLE/SODIUM CHLORIDE 500 MG/100 ML BAG IV SCH ×2 (11:03→16:32)
[2016-11-04] MEDS: PANTOPRAZOLE SODIUM 40 MG in NORMAL SALINE 100 ML IV SCH (12:10)
[2016-11-04 13:30] LABS: Protein Total, Random Urine 651 mg/dL (5-25)
[2016-11-04] MEDS: ENOXAPARIN SODIUM 30 MG/0.3 ML SYRG SC SCH (14:51)
[2016-11-04] MEDS: INSULIN GLARGINE,HUM.REC.ANLOG 100 UNITS/ML VIAL SC SCH (16:31)
[2016-11-04] MEDS: ROSUVASTATIN CALCIUM 10 MG TABLET PO SCH (20:21)
--- NOTE | 2016-11-04 23:05 | CONS ---
[facility] - General Date of Service: 11/04/16 Narrative: Asked to see for a partial SBO. Pt had surgery for a hip fracture and has had trouble with oral intake postoperatively. Over the weekend he refused NG placement. He has had a CT of the abdomen showing a partial SBO. He has had persistent leukocytosis postoperatively initially thought due to his trauma however no source has been found. He has had an NG tube placed. He has no complaints of abdominal pain. Source: patient, RN/MD, old records Exam Limitations: no limitations - History of Present Illness Allergies/Adverse Reactions: Allergies No Known Allergies Allergy (Unverified 09/02/14 15:16) Home Medications: Home Medications Medication Instructions Recorded Last Taken Aspirin [Carteret Aspirin] 81 mg PO QAM 09/02/14 10/28/16 07:00 Atorvastatin Calcium [Lipitor] 80 mg PO DAILY 09/02/14 10/27/16 20:00 Chlorthalidone [Hygroton] 12.5 mg PO DAILY 09/02/14 10/28/16 07:00 Ergocalciferol (Vitamin D2) 2,000 unit PO DAILY 09/02/14 10/28/16 07:00 [Vitamin D2] Insulin Glargine,Hum.rec.anlog 45 units SC QPM 09/02/14 10/27/16 20:00 [Lantus] Lisinopril [Zestril] 40 mg PO DAILY 09/02/14 10/28/16 07:00 Metoprolol Tartrate [Lopressor] 50 mg PO DAILY 09/02/14 10/28/16 07:00 Nitroglycerin 0.4 mg SL PRN PRN MDD 3 doses 09/02/14 Unknown amLODIPine BESYLATE [Norvasc] 10 mg PO QAM 09/02/14 10/28/16 07:00 Catapres 0.1 mg PO BID 07/18/15 10/28/16 07:00 Levothyroxine Sodium [Synthroid] 100 mcg PO DAILY 07/18/15 10/28/16 07:00 Acetaminophen [Tylenol] 650 mg PO Q4H PRN 10/28/16 Unknown Docusate Sodium [Colace Clear] 50 mg PO BID PRN 10/28/16 Unknown Pregabalin [Lyrica] 25 mg PO QAM 10/28/16 10/28/16 07:00 Saliva Stimulant Agents Comb.3 44.3 ml MM PRN PRN 10/28/16 Unknown [Biotene Moisturizing Mouth] traMADol HCL [Ultram] 50 mg PO TID PRN 10/28/16 Unknown - Patient's Past Medical History Patient History - Medical: Diabetes Type 2, Diabetes Type 2 Insulin Dependent, Hypothyroidism, Renal Failure, Other Patient History - Cardiac/Respiratory: Coronary Heart Disease, Hypertension, Hyperlipidemia, Myocardial Infarction, Other - Gout Patient History - Cancer: No Hx of Cancer Patient History - Surgical Procedures: Cholecystectomy, Coronary Bypass Surgery Patient History - Other: None - Family History Family History:: no untoward family reactions to anesthesia, no family history of clotting disorders, no family history of premature - Family History Mother Family History - Medical: , No pertinent hx Family History - Cardiac/Respiratory: No pertinent hx Family History - Cancer: No pertinent family hx Father Family History - Medical: , No pertinent hx Family History - Cardiac/Respiratory: No pertinent hx Family History - Cancer: No pertinent family hx - Social History Living Situations: [facility] Abuse History: No History of abuse Psych History: No pertinent hx Does anyone smoke in the home?: No Smoking Status: Never smoker Have you smoked in the past 12 months: No Do you dip or chew tobacco: No Alcohol Use: none Drug Use: none - Immunizations Immunizations Up to Date: Yes Hx Pneumococcal Vaccination: No History of Influenza Vaccine: No Procedures ANESTH INJECT-SPIN CANAL (07/23/11) CATARAC PHACOEMULS/ASPIR (11/26/10) INJECT STEROID (07/23/11) INSERT LENS AT CATAR EXT (11/26/10) REPOSITION LEFT UPPER FEMUR WITH INT FIX, OPEN APPROACH (10/28/16) SPINAL CANAL INJECT NEC (07/23/11) Medications - Medications Current Medications: Current Medications Acetaminophen (Tylenol) 1,000 mg PO Q6H PRN PRN Reason: Mild pain Stop: 11/29/16 09:52 Last Admin: 11/04/16 09:00 Dose: 1,000 mg Amlodipine Besylate (Norvasc) 10 mg PO QAM MAGGI Stop: 11/28/16 09:01 Last Admin: 11/04/16 08:46 Dose: 10 mg Aspirin (Aspirin Enteric Coated) 81 mg PO QAM MAGGI Stop: 11/28/16 09:01 Last Admin: 11/04/16 08:45 Dose: Not Given Chlorthalidone (Hygroton) 12.5 mg PO DAILY MAGGI Stop: 11/28/16 09:01 Last Admin: 11/04/16 08:45 Dose: 12.5 mg Cholecalciferol (Vitamin D) 2,000 unit PO DAILY MAGGI Stop: 11/28/16 09:01 Last Admin: 11/04/16 08:46 Dose: Not Given Clonidine (Catapres) 0.1 mg PO BID MAGGI Stop: 11/28/16 09:01 Last Admin: 11/04/16 20:21 Dose: 0.1 mg Clopidogrel Bisulfate (Plavix) 75 mg PO DAILY MAGGI Stop: 11/30/16 14:16 Last Admin: 11/04/16 08:46 Dose: 75 mg Enoxaparin Sodium (Lovenox) 30 mg SC Q24H MAGGI Stop: 11/30/16 14:16 Last Admin: 11/04/16 14:51 Dose: 30 mg Hydromorphone HCl (Dilaudid) 0.5 mg IV Q2H PRN PRN Reason: Moderate Pain Stop: 11/28/16 01:42 Last Admin: 10/31/16 05:10 Dose: 0.5 mg Dextrose/Sodium Chloride (Dextrose 5%-0.45%Ns) 1,000 mls @ 125 mls/hr IV .Q8H PRN PRN Reason: HYDRATION Stop: 12/01/16 11:38 Last Infusion: 11/04/16 02:45 Dose: Infused Potassium Chloride 20 meq/ (Dextrose/Sodium Chloride) 1,000 mls @ 100 mls/hr IV .Q10H MAGGI Stop: 12/04/16 03:46 Last Admin: 11/04/16 14:51 Dose: 100 mls/hr Ciprofloxacin/Dextrose (Cipro) 400 mg in 200 mls @ 200 mls/hr IV Q24H MAGGI PRN Reason: Protocol Stop: 12/04/16 08:31 Last Infusion: 11/04/16 09:57 Dose: Infused Metronidazole (Flagyl) 500 mg in 100 mls @ 100 mls/hr IV Q8H MAGGI PRN Reason: Protocol Stop: 12/04/16 09:31 Last Infusion: 11/04/16 17:32 Dose: Infused Pantoprazole Sodium 40 mg/ (Sodium Chloride) 100 mls @ 400 mls/hr IV Q24H [facility] Stop: 12/04/16 10:31 Last Infusion: 11/04/16 12:25 Dose: Infused Insulin Glargine (Lantus) 45 units SC QPM [facility] Stop: 11/28/16 17:01 Last Admin: 11/04/16 16:31 Dose: 45 units Insulin Human Lispro (Humalog) 0 - 21 units SC ACINS MAGGI PRN Reason: Protocol Stop: 11/30/16 17:01 Last Admin: 11/04/16 16:31 Dose: Not Given Levothyroxine Sodium (Synthroid) 100 mcg PO QDAC [facility] Stop: 11/28/16 07:01 Last Admin: 11/04/16 06:59 Dose: Not Given Metoprolol Succinate (Toprol Xl) 50 mg PO DAILY [facility] Stop: 12/02/16 09:01 Last Admin: 11/04/16 08:46 Dose: 50 mg Nystatin (Mycostatin Powder) 1 appl TP QID [facility] Stop: 11/28/16 09:01 Last Admin: 11/04/16 20:20 Dose: 1 appl Ondansetron HCl (Zofran) 4 mg IV Q4H PRN PRN Reason: Nausea And Vomiting Stop: 11/27/16 20:58 Last Admin: 11/04/16 00:17 Dose: 4 mg Oxycodone/Acetaminophen (Percocet 5 Mg/325 Mg) 1 tab PO Q4H PRN PRN Reason: Moderate Pain Stop: 11/29/16 09:52 Last Admin: 10/31/16 09:33 Dose: 1 tab Oxycodone/Acetaminophen (Percocet 5 Mg/325 Mg) 2 tab PO Q4H PRN PRN Reason: Moderate Pain Stop: 11/29/16 09:52 Last Admin: 11/01/16 20:25 Dose: 2 tab Pregabalin (Lyrica) 25 mg PO QAM [facility] Stop: 11/28/16 09:01 Last Admin: 11/04/16 08:46 Dose: Not Given Rosuvastatin Calcium (Crestor) 10 mg PO HS [facility] Stop: 11/30/16 21:01 Last Admin: 11/04/16 20:21 Dose: 10 mg Saliva Substitute (Mouthkote Solution) 1 appl MM PRN PRN PRN Reason: Dry Mouth Stop: 11/28/16 01:48 Last Admin: 11/02/16 18:37 Dose: 1 appl Senna/Docusate Sodium (Senokot-S) 2 tab PO BID MAGGI Stop: 11/30/16 09:01 Last Admin: 11/04/16 20:20 Dose: 2 tab Tramadol HCl (Ultram) 50 mg PO Q12H PRN PRN Reason: Mild to Moderate Pain Stop: 11/28/16 00:03 Last Admin: 11/03/16 18:45 Dose: 50 mg Review of Systems - Review of Systems Misc: All systems neg except as marked - see HPI Physical Examination - Exam Vital Signs: Vital Signs - Last Taken Temp 36.8 C 11/04/16 19:00 Pulse 72 11/04/16 20:21 Resp 17 11/04/16 19:00 BP 130/68 11/04/16 20:21 Pulse Ox 91 11/04/16 19:00 O2 Oxygen Delivery Method Room Air Constitutional: Present: Alert, Oriented x3, Cooperative, No distress ENT Exam: Present: other - NG per nares. Draining clear bilious succus entericus. Neck: Present: normal inspection, trachea midline Respiratory: Present: no respiratory distress Abdomen: Present: soft, nontender, nondistended, no rebound tenderness. Absent : tender, guarding, rigidity, rebound tenderness Skin Exam: Present: warm/dry Neurologic: Present: no motor/sensory deficits - Results and Findings: Lab/Microbiology results last 24 hrs: Abnormal/Pending Laboratory Last 24 HRS 11/04/16 11/04/16 11/04/16 06:48 06:45 06:45 WBC 18.1 H RBC 3.66 L Hgb 10.7 L Hct 31.4 L MPV 10.0 H Immature Gran % (Auto) 0.70 H Immature Gran # (Auto) 0.12 H Neutrophils % 89.6 H Lymphocytes % 4.5 L Neutrophils # 16.2 H Lymphocytes # 0.8 L Carbon Dioxide 22.9 L Anion Gap 14.6 H BUN 54 H Creatinine 3.21 H Est GFR (Non-Af Amer) 20 L Random Glucose 182 H D AST 66 H Albumin 2.0 L U Random Total Protein 11/01/16 10:50 WBC RBC Hgb Hct MPV Immature Gran % (Auto) Immature Gran # (Auto) Neutrophils % Lymphocytes % Neutrophils # Lymphocytes # Carbon Dioxide Anion Gap BUN Creatinine Est GFR (Non-Af Amer) Random Glucose AST Albumin U Random Total Protein 651 H Culture 10/30/16 07:12 Blood Culture - Final Blood NO GROWTH 5 DAYS 10/30/16 05:31 Blood Culture - Final Blood NO GROWTH 5 DAYS - Assessments/Findings (1) Partial obstruction of small intestine Diagnosis(s): Recommend gut rest. Abdominal exam is completely benign and does not account for his leukocytosis. Problem: Acute
[2016-11-05] MEDS: POTASSIUM CHLORIDE 20 MEQ in DEXTROSE 5%-NORMAL SALINE 990 ML IV SCH ×4 (01:00→14:25)
[2016-11-05] MEDS: metroNIDAZOLE/SODIUM CHLORIDE 500 MG/100 ML BAG IV SCH ×3 (01:00→17:20)
[2016-11-05] MEDS: INSULIN LISPRO 100 UNITS/ML VIAL SC SCH ×3 (07:21→16:16)
[2016-11-05] MEDS: LEVOTHYROXINE SODIUM 100 MCG TABLET PO SCH (07:23)
[2016-11-05 07:56] LABS: Hematocrit 33.1 % (42.0-52.0); Hemoglobin 11.2 gm/dL (13.5-18.0); Mean Cell Volume 87.1 fl (78-100); Mean Corpuscular Hemoglobin 29.5 pg (27-31); Mean Corpuscular Hgb Conc 33.8 g/dl (32-36); Mean Platelet Volume 9.9 fl (6.0-9.5); Neutrophil # 17.3 K/mm3 (1.3-6.0); Neutrophil % 86.1 % (42-75.0); Platelet Count 357 K/mm3 (150-450); White Blood Count 20.1 K/mm3 (4.0-10.5)
[2016-11-05 08:05] LABS: Anion Gap 14.6 mmol/L (6.8-13.8); BUN/Creatinine Ratio 15.9 (9.0-21.6); Calcium * 8.8 mg/dL (7.9-10.9); Carbon Dioxide 22.7 mmol/L (24-32.6); Estimated Creat Clear 18.9; Potassium 3.3 mmol/L (3.4-4.6)
--- NOTE | 2016-11-05 08:08 | PN ---
Subjective - Date and Time Seen Date: 11/05/16 Time: 08:08 Subjective Narrative: Patient feels better clinically. Tmax 37. no BM after 11/02/16. Objective - Review of Systems Generalized/Overall Review: Denies: Chills, Fever EENTM: Reports: No Symptoms Reported Respiratory: Denies: Cough, Shortness of Breath, Orthopnea Cardiac: Denies: Chest Pain, Edema, Palpitations Abdominal: Denies: Nausea, Vomiting, Abdominal Pain Genitourinary Symptoms: Denies: Itching, Urgency Musculoskeletal Complaints: Reports: Joint Pain - Vitals Vitals: Last Vital Signs Temp 37 C 11/05/16 07:20 Pulse 76 11/05/16 07:20 Resp 20 11/05/16 07:20 BP 132/74 11/05/16 07:20 Pulse Ox 94 11/05/16 07:20 - Abnormal Lab Findings Abnormal Lab Findings: Abnormal Lab Results 11/01/16 11/04/16 11/05/16 Range/Units 10:50 06:48 07:44 WBC 20.1 H (4.0-10.5) K/mm3 RBC 3.80 L (4.7-6.0) M/mm3 Hgb 11.2 L (13.5-18.0) gm/dL Hct 33.1 L (42.0-52.0) % MPV 9.9 H (6.0-9.5) fl Immature Gran % (Auto) 1.40 H (0.001-0.429) % Immature Gran # (Auto) 0.28 H (0.000-0.0310) K/mm3 Neutrophils % 86.1 H (42-75.0) % Lymphocytes % 4.5 L (20-51) % Neutrophils # 17.3 H (1.3-6.0) K/mm3 Lymphocytes # 0.9 L (1.5-3.5) k/mm3 Monocytes # 1.1 H (0.0-1.0) k/mm3 AST 66 H (0-48) U/L Albumin 2.0 L (3.4-5.0) gm/dl U Random Total Protein 651 H mg/dL - Exam Constitutional: Present: Alert, Oriented x3, Cooperative, Elderly ENT Exam: Present: hard of hearing Abdomen: Present: Normal bowel sounds, nontender, firm, distended, hypoactive Extremity: Present: no calf tenderness, pedal edema Cauti Physician Documentation - Urinary Catheter Management Urethral (Foster) Date of Insertion: 10/31/16 Time of Insertion: 16:50 Date of Removal: 11/01/16 Time of Removal: 10:10 Assessment/Plan - Problems/Diagnosis (1) Dark emesis Problem: Acute Narrative: on NGT. NPO. IVF. IV protonix. surgery on case- recommends still conservative treatment for now. (2) SBO (small bowel obstruction) Problem: Acute Narrative: NPO. IVF. talked with surgery today- recommend to continue with conservative treatment. (3) Nondisplaced fracture of neck of left femur Problem: Acute Qualifiers: Encounter type: initial encounter Fracture type: closed Qualified Code(s) : S72.002A - Fracture of unspecified part of neck of left femur, initial encounter for closed fracture Narrative: s/p CRIF. (4) Fever Problem: Resolved Qualifiers: Fever type: unspecified Qualified Code(s): R50.9 - Fever, unspecified Narrative: T max 37. (5) Leukocytosis Problem: Acute Qualifiers: Leukocytosis type: unspecified Qualified Code(s): D72.829 - Elevated white blood cell count, unspecified Narrative: up to 20 from 18. Day 2 of IV Cipro/Flagyl. will continue. (6) Diabetes Problem: Chronic Qualifiers: Diabetes mellitus type: type 2 (7) HTN (hypertension) Problem: Chronic Qualifiers: Hypertension type: essential hypertension Qualified Code(s): I10 - Essential (primary) hypertension (8) Fall Problem: Acute Qualifiers: Encounter type: initial encounter Qualified Code(s): W19.XXXA - Unspecified fall, initial encounter (9) Mild dementia Problem: Chronic (10) Elevated troponin Problem: Acute (11) CRF (chronic renal failure) Problem: Acute Qualifiers: Chronic kidney disease stage: stage 4 (severe) Qualified Code(s): N18.4 - Chronic kidney disease, stage 4 (severe) (12) Nutrition deficiency due to insufficient food Problem: Acute Narrative: will refer to anesthesia for PICC line or central line for TPN.
[2016-11-05] MEDS: CIPROFLOXACIN LACTATE/D5W 400 MG/200 ML BAG IV SCH (08:45)
[2016-11-05] MEDS: ASPIRIN 81 MG TABLET.DR PO SCH (08:46)
[2016-11-05] MEDS: CLONIDINE HCL 0.1 MG TABLET PO SCH ×2 (08:47→20:40)
[2016-11-05] MEDS: PREGABALIN 25 MG CAPSULE PO SCH (08:47)
[2016-11-05] MEDS: CLOPIDOGREL BISULFATE 75 MG TABLET PO SCH (08:47)
[2016-11-05] MEDS: CHLORTHALIDONE 25 MG TABLET PO SCH (08:47)
[2016-11-05] MEDS: amLODIPine BESYLATE 10 MG TABLET PO SCH (08:47)
[2016-11-05] MEDS: NYSTATIN 15 APPL BTL TP SCH ×4 (08:47→20:40)
[2016-11-05] MEDS: CHOLECALCIFEROL 1,000 UNIT CAPSULE PO SCH (08:48)
[2016-11-05] MEDS: METOPROLOL SUCCINATE 50 MG TABLET.SA PO SCH (08:48)
[2016-11-05 09:15] LABS: Magnesium 1.7 mg/dL (1.2-2.8); Phosphorus 3.5 mg/dL (2.2-4.2)
[2016-11-05] MEDS: SENNOSIDES/DOCUSATE SODIUM 1 TAB TABLET PO SCH ×2 (10:00→20:40)
[2016-11-05] MEDS: PANTOPRAZOLE SODIUM 40 MG in NORMAL SALINE 100 ML IV SCH (11:45)
[2016-11-05] MEDS: traMADol HCL 50 MG TABLET PO PRN (11:47)
[2016-11-05] MEDS: ENOXAPARIN SODIUM 30 MG/0.3 ML SYRG SC SCH (14:26)
[2016-11-05] MEDS ORDERED: POTASSIUM PHOS,M-BASIC-D-BASIC 18 MM, ELECTROLYTE SOLUTION,INJ 20 ML, MULTIVIT INFUSN,A... IV SCH ×6 (15:00)
--- NOTE | 2016-11-05 15:09 | OR ---
Anesthesia Procedure Note - Anesthesia Procedure Note Date of Service: 11/05/16 Narrative: Vital Signs - Last Taken Temp 36.8 C 11/05/16 11:18 Pulse 82 11/05/16 11:18 Resp 20 11/05/16 11:18 BP 128/64 11/05/16 11:18 Pulse Ox 96 11/05/16 11:18 O2 Oxygen Delivery Method Room Air 11/05/16 15:06 ANESTHESIA PROCEDURE NOTE Date of Procedure: 11/05/2016. Time of procedure: 1330. Performed by: Chung Swann CRNA Host And Hostess: None. Preprocedure diagnosis: Need for TPN and lipids. Post procedure diagnosis: Same. Procedure: Unsuccessful ultrasound-guided PICC line insertion. Indications: This 81-year-old male who is in need of a PICC line for administration of TPN and lipids. Findings: See below. Details of the procedure: Under ultrasound guidance the right cephalic vein was visualized. Skin over the intended target site was cleansed with ChloraPrep. The patient was draped in sterile fashion. The skin over the intended target site was anesthetized with 1% lidocaine. Under direct ultrasound visualization the vein was cannulated with a 22-gauge IV catheter. Dark red blood was noted from the catheter. A 0.45 mm guidewire was inserted through the IV catheter and IV catheter was removed intact. A skin ld was made at the guidewire insertion site with a scalpel. The 5 [place] vessel dilator was inserted over the guidewire and the guidewire was removed intact. Dark red blood was noted from the vessel dilator. The PICC line was inserted to a depth of 46 cm and the vessel dilator was peeled away. Dark red blood was noted from both ports of the PICC line. PICC line was flushed with sterile normal saline solution. A sterile dressing was then applied over the PICC line insertion site. EBL: Minimal. Fluids: N/A. Specimen: N/A. Post procedure condition: The patient tolerated the procedure well. No complications were noted. Chest x-ray revealed the placement of the PICC line to be curled upon itself in the vein chest just medial to the axilla. The PICC line was then removed. Pressure was applied to the insertion site and a pressure dressing was applied to maintain hemostasis. Thank you for this consultation. Chung Swann CRNA
--- NOTE | 2016-11-05 15:18 | PN ---
Subjective - Date and Time Seen Date: 11/05/16 Subjective Narrative: No acute events. NGT placed. PICC line for TPN attempted but was unsuccessful. Hip pain well controlled. Objective - Vitals Vitals: Last Vital Signs Temp 36.8 C 11/05/16 11:18 Pulse 82 11/05/16 11:18 Resp 20 11/05/16 11:18 BP 128/64 11/05/16 11:18 Pulse Ox 96 11/05/16 11:18 - Abnormal Lab Findings Abnormal Lab Findings: Abnormal Lab Results 11/05/16 11/05/16 Range/Units 07:44 07:44 WBC 20.1 H (4.0-10.5) K/mm3 RBC 3.80 L (4.7-6.0) M/mm3 Hgb 11.2 L (13.5-18.0) gm/dL Hct 33.1 L (42.0-52.0) % MPV 9.9 H (6.0-9.5) fl Immature Gran % (Auto) 1.40 H (0.001-0.429) % Immature Gran # (Auto) 0.28 H (0.000-0.0310) K/mm3 Neutrophils % 86.1 H (42-75.0) % Lymphocytes % 4.5 L (20-51) % Neutrophils # 17.3 H (1.3-6.0) K/mm3 Lymphocytes # 0.9 L (1.5-3.5) k/mm3 Monocytes # 1.1 H (0.0-1.0) k/mm3 Potassium 3.3 L (3.4-4.6) mmol/L Carbon Dioxide 22.7 L (24-32.6) mmol/L Anion Gap 14.6 H (6.8-13.8) mmol/L BUN 48 H (6-23) mg/dL Creatinine 3.02 H (0.4-1.4) mg/dL Est GFR (Non-Af Amer) 21 L (60-130) mL/min Random Glucose 161 H (70-110) mg/dL - Exam Exam Narrative: MSK: LLE--> incision healing appropriately without drainage or erythema, mild TTP, minimal pain with gentle ROM of hip, SILT, cap refill brisk Cauti Physician Documentation - Urinary Catheter Management Urethral (Foster) Date of Insertion: 10/31/16 Time of Insertion: 16:50 Date of Removal: 11/01/16 Time of Removal: 10:10 Assessment/Plan Plan Narrative: 81 yo M w/ non-displaced L femoral neck fx s/p ORIF with cannulated screws, POD #6. - WBAT, ROM as tolerated - elevated WBC - continues to be labile, Medicine managing, hip not concerning as a source at this time - postoperative SBO - NGT, NPO, needing access for TPN - PICC placement unsuccessful - renal failure - continue management per Medicine team - oral pain meds - DVT ppx: lovenox, SCDs, teds - PT/OT - dispo: continue inpatient care per Medicine team
--- NOTE | 2016-11-05 16:36 | PN ---
Subjective - Date and Time Seen Date: 11/05/16 Time: 16:30 Subjective Narrative: FU PSBO He has no complaints of abdominal pain. He has just completed a walk with PT this morning and is being seated in a chair. Objective - Review of Systems Abdominal: Reports: No Symptoms Reported Misc: All systems neg except as marked - Vitals Vitals: Last Vital Signs Temp 36.8 C 11/05/16 11:18 Pulse 82 11/05/16 11:18 Resp 20 11/05/16 11:18 BP 128/64 11/05/16 11:18 Pulse Ox 96 11/05/16 11:18 - Abnormal Lab Findings Abnormal Lab Findings: Abnormal Lab Results 11/05/16 11/05/16 Range/Units 07:44 07:44 WBC 20.1 H (4.0-10.5) K/mm3 RBC 3.80 L (4.7-6.0) M/mm3 Hgb 11.2 L (13.5-18.0) gm/dL Hct 33.1 L (42.0-52.0) % MPV 9.9 H (6.0-9.5) fl Immature Gran % (Auto) 1.40 H (0.001-0.429) % Immature Gran # (Auto) 0.28 H (0.000-0.0310) K/mm3 Neutrophils % 86.1 H (42-75.0) % Lymphocytes % 4.5 L (20-51) % Neutrophils # 17.3 H (1.3-6.0) K/mm3 Lymphocytes # 0.9 L (1.5-3.5) k/mm3 Monocytes # 1.1 H (0.0-1.0) k/mm3 Potassium 3.3 L (3.4-4.6) mmol/L Carbon Dioxide 22.7 L (24-32.6) mmol/L Anion Gap 14.6 H (6.8-13.8) mmol/L BUN 48 H (6-23) mg/dL Creatinine 3.02 H (0.4-1.4) mg/dL Est GFR (Non-Af Amer) 21 L (60-130) mL/min Random Glucose 161 H (70-110) mg/dL - Exam Constitutional: Present: Alert, Oriented x3, Cooperative, No distress ENT Exam: Present: other - NG with clear bilious succus entericus Abdomen: Present: soft, nontender, nondistended, no rebound tenderness. Absent : tender, guarding, rigidity, rebound tenderness Skin Exam: Present: warm/dry Cauti Physician Documentation - Urinary Catheter Management Urethral (Foster) Date of Insertion: 10/31/16 Time of Insertion: 16:50 Date of Removal: 11/01/16 Time of Removal: 10:10 Assessment/Plan Plan Narrative: Case d/w Dr. Campos. Agree with nutritional goals and PICC. Ongoing gut rest. - Problems/Diagnosis (1) Partial obstruction of small intestine Problem: Acute
[2016-11-05] MEDS: FAT EMULSIONS 50 G in Premix Bag 1 BAG IV SCH (16:58)
[2016-11-05] MEDS: INSULIN GLARGINE,HUM.REC.ANLOG 100 UNITS/ML VIAL SC SCH (17:21)
[2016-11-05] MEDS: ROSUVASTATIN CALCIUM 10 MG TABLET PO SCH (20:40)
[2016-11-06] MEDS: metroNIDAZOLE/SODIUM CHLORIDE 500 MG/100 ML BAG IV SCH ×3 (01:07→16:51)
[2016-11-06] MEDS: POTASSIUM CHLORIDE 20 MEQ in DEXTROSE 5%-NORMAL SALINE 990 ML IV SCH ×4 (01:07→21:15)
[2016-11-06 06:17] LABS: Hematocrit 30.1 % (42.0-52.0); Hemoglobin 10.2 gm/dL (13.5-18.0); Mean Cell Volume 86.7 fl (78-100); Mean Corpuscular Hemoglobin 29.4 pg (27-31); Mean Corpuscular Hgb Conc 33.9 g/dl (32-36); Mean Platelet Volume 10.2 fl (6.0-9.5); Neutrophil % 81.9 % (42-75.0); Platelet Count 381 K/mm3 (150-450); Red Blood Count 3.47 M/mm3 (4.7-6.0); Red Cell Distribution Width 13.1 % (11.5-14.0); White Blood Count 18.4 K/mm3 (4.0-10.5)
[2016-11-06 06:22] LABS: Albumin * 2.1 gm/dl (3.4-5.0); Anion Gap 12.1 mmol/L (6.8-13.8); BUN/Creatinine Ratio 15.7 (9.0-21.6); Bilirubin, Total 0.5 mg/dL (0.0-1.1); Ca. Corrected For Albumin 9.8 mg/dL (8.4-10.2); Calcium * 8.6 mg/dL (7.9-10.9); Magnesium 1.6 mg/dL (1.2-2.8); Phosphorus 3.3 mg/dL (2.2-4.2); Potassium 3.1 mmol/L (3.4-4.6); Total Protein 6.1 gm/dL (6.2-8.2)
[2016-11-06] MEDS: INSULIN LISPRO 100 UNITS/ML VIAL SC SCH ×3 (06:36→16:26)
[2016-11-06] MEDS: LEVOTHYROXINE SODIUM 100 MCG TABLET PO SCH (06:37)
--- NOTE | 2016-11-06 07:36 | PN ---
Subjective - Date and Time Seen Date: 11/06/16 Time: 07:36 Subjective Narrative: Working with PT with transfer to recliner from bed. Afebrile. Tmax 37. WBC improved to 18 . Objective - Review of Systems Generalized/Overall Review: Reports: Weakness. Denies: Chills, Fever Respiratory: Denies: Cough, Shortness of Breath Cardiac: Denies: Chest Pain, Edema, Palpitations Abdominal: Denies: Nausea - on NGT, Vomiting - on NGT Genitourinary Symptoms: Denies: Urgency, Frequency Musculoskeletal Complaints: Reports: Joint Pain - Vitals Vitals: Last Vital Signs Temp 37 C 11/06/16 06:40 Pulse 81 11/06/16 06:40 Resp 20 11/06/16 06:40 BP 151/87 11/06/16 06:40 Pulse Ox 96 11/06/16 06:40 - Abnormal Lab Findings Abnormal Lab Findings: Abnormal Lab Results 11/05/16 11/05/16 11/06/16 Range/Units 07:44 07:44 05:54 WBC 20.1 H (4.0-10.5) K/mm3 RBC 3.80 L (4.7-6.0) M/mm3 Hgb 11.2 L (13.5-18.0) gm/dL Hct 33.1 L (42.0-52.0) % MPV 9.9 H (6.0-9.5) fl Immature Gran % (Auto) 1.40 H (0.001-0.429) % Immature Gran # (Auto) 0.28 H (0.000-0.0310) K/mm3 Neutrophils % 86.1 H (42-75.0) % Lymphocytes % 4.5 L (20-51) % Neutrophils # 17.3 H (1.3-6.0) K/mm3 Lymphocytes # 0.9 L (1.5-3.5) k/mm3 Monocytes # 1.1 H (0.0-1.0) k/mm3 Sodium 143 H (132-142) mmol/L Plasma Sodium 144 H (130-142) mmol/L Potassium 3.3 L 3.1 L (3.4-4.6) mmol/L Chloride 111 H (97-106) mmol/L Carbon Dioxide 22.7 L 23.0 L (24-32.6) mmol/L Anion Gap 14.6 H (6.8-13.8) mmol/L BUN 48 H 45 H (6-23) mg/dL Creatinine 3.02 H 2.86 H (0.4-1.4) mg/dL Est GFR (Non-Af Amer) 21 L 23 L (60-130) mL/min Random Glucose 161 H 133 H (70-110) mg/dL ALT 12 L (19-67) U/L Total Protein 6.1 L (6.2-8.2) gm/dL Albumin 2.1 L (3.4-5.0) gm/dl 11/06/16 Range/Units 06:11 WBC 18.4 H (4.0-10.5) K/mm3 RBC 3.47 L (4.7-6.0) M/mm3 Hgb 10.2 L (13.5-18.0) gm/dL Hct 30.1 L (42.0-52.0) % MPV 10.2 H (6.0-9.5) fl Immature Gran % (Auto) 2.50 H (0.001-0.429) % Immature Gran # (Auto) 0.45 H (0.000-0.0310) K/mm3 Neutrophils % 81.9 H (42-75.0) % Lymphocytes % 6.4 L (20-51) % Neutrophils # 15.0 H (1.3-6.0) K/mm3 Lymphocytes # 1.2 L (1.5-3.5) k/mm3 Monocytes # 1.1 H (0.0-1.0) k/mm3 Sodium (132-142) mmol/L Plasma Sodium (130-142) mmol/L Potassium (3.4-4.6) mmol/L Chloride (97-106) mmol/L Carbon Dioxide (24-32.6) mmol/L Anion Gap (6.8-13.8) mmol/L BUN (6-23) mg/dL Creatinine (0.4-1.4) mg/dL Est GFR (Non-Af Amer) (60-130) mL/min Random Glucose (70-110) mg/dL ALT (19-67) U/L Total Protein (6.2-8.2) gm/dL Albumin (3.4-5.0) gm/dl - Exam Constitutional: Present: Alert, Oriented x3, Cooperative, Elderly ENT Exam: Present: hard of hearing Neck: Present: supple Breasts: Present: Exam deferred Respiratory: Present: decreased breath sounds, No rales, No wheezing Cardiovascular/Chest: Present: regular rate, rhythm, no JVD, no murmur Abdomen: Present: nontender, firm, distended - slightly, hypoactive Extremity: Present: no pedal edema, no calf tenderness Cauti Physician Documentation - Urinary Catheter Management Urethral (Foster) Date of Insertion: 10/31/16 Time of Insertion: 16:50 Date of Removal: 11/01/16 Time of Removal: 10:10 Assessment/Plan - Problems/Diagnosis (1) Dark emesis Problem: Acute Narrative: 80-90 ml- dark fluid on NGT. (2) SBO (small bowel obstruction) Problem: Acute Narrative: NPO. IVF. on NGT. continue with bowel rest per surgery. (3) Nondisplaced fracture of neck of left femur Problem: Acute Qualifiers: Encounter type: initial encounter Fracture type: closed Qualified Code(s) : S72.002A - Fracture of unspecified part of neck of left femur, initial encounter for closed fracture Narrative: s/p CRIF (4) Fever Problem: Resolved Qualifiers: Fever type: unspecified Qualified Code(s): R50.9 - Fever, unspecified (5) Leukocytosis Problem: Acute Qualifiers: Leukocytosis type: unspecified Qualified Code(s): D72.829 - Elevated white blood cell count, unspecified Narrative: Improved to 18 from 20. Continue with Cipro/Flagyl Day # 3.. (6) Diabetes Problem: Chronic Qualifiers: Diabetes mellitus type: type 2 (7) HTN (hypertension) Problem: Chronic Qualifiers: Hypertension type: essential hypertension Qualified Code(s): I10 - Essential (primary) hypertension (8) Fall Problem: Acute Qualifiers: Encounter type: initial encounter Qualified Code(s): W19.XXXA - Unspecified fall, initial encounter (9) Mild dementia Problem: Chronic (10) CRF (chronic renal failure) Problem: Acute Qualifiers: Chronic kidney disease stage: stage 4 (severe) Qualified Code(s): N18.4 - Chronic kidney disease, stage 4 (severe) Narrative: Cr improved to 2.81. (11) Nutrition deficiency due to insufficient food Problem: Acute Narrative: for PICC line today and if not succesful surgery will do subclavian. Once estab; ished , will start TPN. (12) Hypokalemia Problem: Acute Narrative: due to gastric loss- 3.1. will give K riders today.
[2016-11-06] MEDS: POTASSIUM CHLORIDE 100 ML IV SCH ×2 (07:42→08:43)
[2016-11-06] MEDS: CIPROFLOXACIN LACTATE/D5W 400 MG/200 ML BAG IV SCH (08:43)
[2016-11-06] MEDS: ASPIRIN 81 MG TABLET.DR PO SCH (08:44)
[2016-11-06] MEDS: CHLORTHALIDONE 25 MG TABLET PO SCH (08:44)
[2016-11-06] MEDS: FAT EMULSIONS 50 G in Premix Bag 1 BAG IV SCH ×2 (08:44→21:15)
[2016-11-06] MEDS: CLONIDINE HCL 0.1 MG TABLET PO SCH ×2 (08:44→21:09)
[2016-11-06] MEDS: PREGABALIN 25 MG CAPSULE PO SCH (08:45)
[2016-11-06] MEDS: NYSTATIN 15 APPL BTL TP SCH ×4 (08:45→21:08)
[2016-11-06] MEDS: CLOPIDOGREL BISULFATE 75 MG TABLET PO SCH (08:45)
[2016-11-06] MEDS: SENNOSIDES/DOCUSATE SODIUM 1 TAB TABLET PO SCH ×2 (08:45→21:09)
[2016-11-06] MEDS: METOPROLOL SUCCINATE 50 MG TABLET.SA PO SCH (08:45)
[2016-11-06] MEDS: amLODIPine BESYLATE 10 MG TABLET PO SCH (08:45)
[2016-11-06] MEDS: CHOLECALCIFEROL 1,000 UNIT CAPSULE PO SCH (08:46)
[2016-11-06] MEDS: PANTOPRAZOLE SODIUM 40 MG in NORMAL SALINE 100 ML IV SCH (12:11)
--- NOTE | 2016-11-06 13:16 | PN ---
Subjective - Date and Time Seen Date: 11/06/16 Time: 12:59 Subjective Narrative: FU PSBO No c/o abdominal pain. Objective Objective Narrative: O: AXR shows no significant interval improvement. WBC is trending down. Abdomen is soft and nontender without peritoneal signs. NG with clear bilious succus entericus. - Vitals Vitals: Last Vital Signs Temp 36.8 C 11/06/16 10:41 Pulse 98 11/06/16 10:41 Resp 18 11/06/16 10:41 BP 142/78 11/06/16 10:41 Pulse Ox 98 11/06/16 10:41 - Abnormal Lab Findings Abnormal Lab Findings: Abnormal Lab Results 11/06/16 11/06/16 Range/Units 05:54 06:11 WBC 18.4 H (4.0-10.5) K/mm3 RBC 3.47 L (4.7-6.0) M/mm3 Hgb 10.2 L (13.5-18.0) gm/dL Hct 30.1 L (42.0-52.0) % MPV 10.2 H (6.0-9.5) fl Immature Gran % (Auto) 2.50 H (0.001-0.429) % Immature Gran # (Auto) 0.45 H (0.000-0.0310) K/mm3 Neutrophils % 81.9 H (42-75.0) % Lymphocytes % 6.4 L (20-51) % Neutrophils # 15.0 H (1.3-6.0) K/mm3 Lymphocytes # 1.2 L (1.5-3.5) k/mm3 Monocytes # 1.1 H (0.0-1.0) k/mm3 Sodium 143 H (132-142) mmol/L Plasma Sodium 144 H (130-142) mmol/L Potassium 3.1 L (3.4-4.6) mmol/L Chloride 111 H (97-106) mmol/L Carbon Dioxide 23.0 L (24-32.6) mmol/L BUN 45 H (6-23) mg/dL Creatinine 2.86 H (0.4-1.4) mg/dL Est GFR (Non-Af Amer) 23 L (60-130) mL/min Random Glucose 133 H (70-110) mg/dL ALT 12 L (19-67) U/L Total Protein 6.1 L (6.2-8.2) gm/dL Albumin 2.1 L (3.4-5.0) gm/dl - EKG/Xray Findings XRAY: abdomen Interpretation: Reviewed by me Melgoza Physician Documentation - Urinary Catheter Management Urethral (Foster) Date of Insertion: 10/31/16 Time of Insertion: 16:50 Date of Removal: 11/01/16 Time of Removal: 10:10 Assessment/Plan Plan Narrative: A: Persistent PSBO P: Case d/w Beth. Not making any progress with conservative measures and recommend exploratory laparotomy. I have spoken with his POA Ibrahima Harris and reviewed the risks and benefits and options. He seems to understand, asks appropriate questions, and desires to proceed. Will do central line if no PICC is started and ex-lap. Both discussed with his POA. - Problems/Diagnosis (1) Partial obstruction of small intestine Problem: Acute
[2016-11-06] MEDS: ENOXAPARIN SODIUM 30 MG/0.3 ML SYRG SC SCH (14:43)
[2016-11-06] MEDS: POTASSIUM PHOS,M-BASIC-D-BASIC 18 MM, ELECTROLYTE SOLUTION,INJ 20 ML, MULTIVIT INFUSN,A... IV SCH ×12 (16:27→21:15)
[2016-11-06] MEDS: INSULIN GLARGINE,HUM.REC.ANLOG 100 UNITS/ML VIAL SC SCH (16:50)
[2016-11-06] MEDS ORDERED: RINGERS SOLUTION,LACTATED 1,000 ML IV ONE ×2 (18:00)
[2016-11-06] MEDS ORDERED: BUPIVACAINE HCL 50 ML VIAL IJ ONE (18:35)
--- NOTE | 2016-11-06 20:12 | OR ---
Operative Report - Dictated Report Narrative: DATE: 11/06/2016 PRE: Partial Small Bowel Obstruction POST: Same, internal hernia, adhesions PROC: Exploratory laparotomy, reduction of internal hernia, adhesiolysis, suture of intestine SURG: Derrell Steele MD EBL: 10cc DRAINS: none SPECIMENS: none DESCRIPTION: Pt placed in supine position and GETA induction. A wilson was inserted, SCDs applied. Abdomen prepped and draped in a sterile fashion. Field block performed with marcaine in the midline. Abdomen entered in a standard fashion through a midline incision. He was noted to have a hernia patch from a previous umbilical hernia repair. Pt was eviscerated. Proximal bowel was dilated and fluid filled. Distal small bowel was decompressed and normal. There was a segment of small bowel that had a chronic indentation from internal herniation. There was in addition a sharp angulation at the transition point from adhesions. These were lysed. A small serosal tear was repaired with interrupted seromuscular stitches of 4-0 GI Vicryl. This segment was pressurized and held well. The small bowel was once again run and no other abnormalities were identified and it was all viable. No purulence or other abdominal abnormality was encountered. Small bowel contents were filling the distal bowel nicely as we returned abdominal contents to an anatomic position. The midline fascia was approximated with #1 PDS. The incision was closed with eleno. Mepilex with border was applied. The patient remains under GETA for placement of a PICC line. The CXR from that placement is pending at the time of this dictation.
[2016-11-06] MEDS: ROSUVASTATIN CALCIUM 10 MG TABLET PO SCH (21:09)
--- NOTE | 2016-11-06 21:09 | OR ---
Anesthesia Procedure Note - Anesthesia Procedure Note Date of Service: 11/06/16 Narrative: Vital Signs - Last Taken Temp 36.9 C 11/06/16 20:54 Pulse 62 11/06/16 20:55 Resp 18 11/06/16 20:55 BP 149/78 11/06/16 20:55 Pulse Ox 92 11/06/16 20:55 O2 Oxygen Delivery Method Room Air 11/06/16 21:05 ANESTHESIA PROCEDURE NOTE Date of Procedure: 11/06/2016. Time of procedure: 2011. Performed by: Chung Swann CRNA Heat Pump Installer: None. Preprocedure diagnosis: Small bowel obstruction. Post procedure diagnosis: Same. Procedure: Ultrasound-guided left basilic vein PICC line insertion. Indications: This 81-year-old male in need for IV nutrition. Findings: See below. Details of the procedure: Under ultrasound guidance the left basilic vein was visualized. Skin over the intended target site was cleansed with ChloraPrep. The patient was draped in sterile fashion. The skin over the intended target site was anesthetized with 1% lidocaine. Under direct ultrasound visualization the vein was cannulated with a 22-gauge IV catheter. Dark red blood was noted from the catheter. A 0.45 mm guidewire was inserted through the IV catheter and IV catheter was removed intact. A skin ld was made at the guidewire insertion site with a scalpel. The 5 Danish vessel dilator was inserted over the guidewire and the guidewire was removed intact. Dark red blood was noted from the vessel dilator. The PICC line was inserted to a depth of 64 cm and the vessel dilator was peeled away. Dark red blood was noted from both ports of the PICC line. PICC line was flushed with sterile normal saline solution. A sterile dressing was then applied over the PICC line insertion site. EBL: Minimal. Fluids: N/A. Specimen: N/A. Post procedure condition: The patient tolerated the procedure well. No complications were noted. Chest x-ray revealed the placement of the PICC line to be in the right atrium. Under sterile procedure the PICC line was withdrawn centimeters and sterile dressing was reapplied, per chest x-ray. Thank you for this consultation. Chung Swann CRNA
[2016-11-07] MEDS: metroNIDAZOLE/SODIUM CHLORIDE 500 MG/100 ML BAG IV SCH ×3 (00:45→18:19)
[2016-11-07 06:39] LABS: Albumin * 1.9 gm/dl (3.4-5.0); Anion Gap 16.2 mmol/L (6.8-13.8); BUN/Creatinine Ratio 14.3 (9.0-21.6); Bilirubin, Total 0.4 mg/dL (0.0-1.1); Ca. Corrected For Albumin 9.6 mg/dL (8.4-10.2); Calcium * 8.2 mg/dL (7.9-10.9); Carbon Dioxide 19.6 mmol/L (24-32.6); Magnesium 1.4 mg/dL (1.2-2.8); Phosphorus 2.7 mg/dL (2.2-4.2); Potassium 3.8 mmol/L (3.4-4.6); Total Protein 5.9 gm/dL (6.2-8.2)
[2016-11-07] MEDS: POTASSIUM CHLORIDE 20 MEQ in DEXTROSE 5%-NORMAL SALINE 990 ML IV SCH ×2 (07:05→20:10)
[2016-11-07] MEDS: LEVOTHYROXINE SODIUM 100 MCG TABLET PO SCH (07:08)
[2016-11-07] MEDS: INSULIN LISPRO 100 UNITS/ML VIAL SC SCH ×3 (07:09→17:08)
--- NOTE | 2016-11-07 08:01 | PN ---
Subjective - Date and Time Seen Date: 11/07/16 Time: 07:54 Subjective Narrative: Patient is POD # 1. Tmax 37. TPN is on board. Objective - Review of Systems Generalized/Overall Review: Denies: Chills, Fever EENTM: Reports: No Symptoms Reported Respiratory: Denies: Cough, Shortness of Breath, Orthopnea Cardiac: Denies: Chest Pain, Edema, Palpitations Abdominal: Reports: Abdominal Pain - incision wound. Denies: Nausea, Vomiting Genitourinary Symptoms: Denies: Urgency, Frequency Musculoskeletal Complaints: Denies: Joint Pain - Vitals Vitals: Last Vital Signs Temp 37.0 C 11/07/16 07:00 Pulse 76 11/07/16 07:00 Resp 20 11/07/16 07:00 BP 142/77 11/07/16 07:00 Pulse Ox 96 11/07/16 07:00 - Abnormal Lab Findings Abnormal Lab Findings: Abnormal Lab Results 11/07/16 Range/Units 06:00 Sodium 143 H (132-142) mmol/L Plasma Sodium 146 H (130-142) mmol/L Chloride 111 H (97-106) mmol/L Carbon Dioxide 19.6 L (24-32.6) mmol/L Anion Gap 16.2 H (6.8-13.8) mmol/L BUN 37 H (6-23) mg/dL Creatinine 2.59 H (0.4-1.4) mg/dL Est GFR (Non-Af Amer) 25 L (60-130) mL/min Random Glucose 273 H D (70-110) mg/dL ALT 12 L (19-67) U/L Total Protein 5.9 L (6.2-8.2) gm/dL Albumin 1.9 L (3.4-5.0) gm/dl - Exam Constitutional: Present: Alert, Cooperative, Elderly - AAO x 2 ENT Exam: Present: hard of hearing Neck: Present: supple Breasts: Present: Exam deferred Respiratory: Present: decreased breath sounds, No rales, No wheezing Cardiovascular/Chest: Present: regular rate, rhythm, no JVD, no murmur Abdomen: Present: soft, nondistended, tender - incision wound , area, no bowel sounds Extremity: Present: no calf tenderness, pedal edema Cauti Physician Documentation - Urinary Catheter Management Urethral (Foster) Date of Insertion: 11/06/16 Time of Insertion: 16:50 Date of Removal: 11/01/16 Time of Removal: 10:10 Assessment/Plan - Problems/Diagnosis (1) SBO (small bowel obstruction) Problem: Acute Narrative: PSBO s/p explor lap, lysis of adhesion , internal hernia reduction, suture of intestine (2) Nondisplaced fracture of neck of left femur Problem: Acute Qualifiers: Encounter type: initial encounter Fracture type: closed Qualified Code(s) : S72.002A - Fracture of unspecified part of neck of left femur, initial encounter for closed fracture Narrative: s/p CRIF (3) Leukocytosis Problem: Acute Qualifiers: Leukocytosis type: unspecified Qualified Code(s): D72.829 - Elevated white blood cell count, unspecified Narrative: GI vs pulmonary (atelectasis cannot r/o pneumonia on latest CXR. on Cipro / Flagyl. will change cipro to levaquin. (4) Diabetes Problem: Chronic Qualifiers: Diabetes mellitus type: type 2 (5) HTN (hypertension) Problem: Chronic Qualifiers: Hypertension type: essential hypertension Qualified Code(s): I10 - Essential (primary) hypertension (6) Mild dementia Problem: Chronic (7) CRF (chronic renal failure) Problem: Acute Qualifiers: Chronic kidney disease stage: stage 4 (severe) Qualified Code(s): N18.4 - Chronic kidney disease, stage 4 (severe) (8) Nutrition deficiency due to insufficient food Problem: Acute Narrative: on TPN (9) Hypokalemia Problem: Resolved
[2016-11-07 08:08] LABS: Hemoglobin 10.5 gm/dL (13.5-18.0); Mean Cell Volume 88.2 fl (78-100); Mean Corpuscular Hemoglobin 28.9 pg (27-31); Mean Corpuscular Hgb Conc 32.8 g/dl (32-36); Mean Platelet Volume 10.1 fl (6.0-9.5); Neutrophil # 14.3 K/mm3 (1.3-6.0); Neutrophil % 78.1 % (42-75.0); Platelet Count 418 K/mm3 (150-450); Red Blood Count 3.63 M/mm3 (4.7-6.0); Red Cell Distribution Width 13.1 % (11.5-14.0); White Blood Count 18.3 K/mm3 (4.0-10.5)
--- NOTE | 2016-11-07 08:09 | PN ---
Subjective - Date and Time Seen Date: 11/07/16 Subjective Narrative: Taken for ex lap with lysis of adhesions and hernia repair yesterday. Patient doing ok this am. Pain controlled. Objective - Vitals Vitals: Last Vital Signs Temp 37.0 C 11/07/16 07:00 Pulse 76 11/07/16 07:00 Resp 20 11/07/16 07:00 BP 142/77 11/07/16 07:00 Pulse Ox 96 11/07/16 07:00 - Abnormal Lab Findings Abnormal Lab Findings: Abnormal Lab Results 11/07/16 Range/Units 06:00 Sodium 143 H (132-142) mmol/L Plasma Sodium 146 H (130-142) mmol/L Chloride 111 H (97-106) mmol/L Carbon Dioxide 19.6 L (24-32.6) mmol/L Anion Gap 16.2 H (6.8-13.8) mmol/L BUN 37 H (6-23) mg/dL Creatinine 2.59 H (0.4-1.4) mg/dL Est GFR (Non-Af Amer) 25 L (60-130) mL/min Random Glucose 273 H D (70-110) mg/dL ALT 12 L (19-67) U/L Total Protein 5.9 L (6.2-8.2) gm/dL Albumin 1.9 L (3.4-5.0) gm/dl - Exam Exam Narrative: MSK: LLE--> dressing changed, incision healing appropriately without drainage or erythema, mild TTP, SILT, 5/5 EHL/FHL/DF/PF, cap refill brisk Cauti Physician Documentation - Urinary Catheter Management Urethral (Foster) Date of Insertion: 11/06/16 Time of Insertion: 16:50 Date of Removal: 11/01/16 Time of Removal: 10:10 Assessment/Plan Plan Narrative: 81 yo M w/ non-displaced L femoral neck fx s/p ORIF with cannulated screws, POD #8. - WBAT, ROM as tolerated - elevated WBC - continues to be labile, Medicine managing, hip not concerning as a source at this time - postoperative SBO - taken for ex lap with lysis of adhesions and hernia repair yesterday due to lack of improvement with NGT and bowel rest - TPN per Medicine team - renal failure - continue management per Medicine team - oral pain meds - DVT ppx: GELY metcalfs, teds - PT/OT - dispo: continue inpatient care per Medicine team
[2016-11-07] MEDS ORDERED: LEVOFLOXACIN/D5W 750 MG/150 ML BAG IV ONE (09:00)
[2016-11-07] MEDS: CLONIDINE HCL 0.1 MG TABLET PO SCH ×2 (09:48→20:08)
[2016-11-07] MEDS: CHOLECALCIFEROL 1,000 UNIT CAPSULE PO SCH (09:48)
[2016-11-07] MEDS: amLODIPine BESYLATE 10 MG TABLET PO SCH (09:48)
[2016-11-07] MEDS: CHLORTHALIDONE 25 MG TABLET PO SCH (09:48)
[2016-11-07] MEDS: CLOPIDOGREL BISULFATE 75 MG TABLET PO SCH (09:48)
[2016-11-07] MEDS: ASPIRIN 81 MG TABLET.DR PO SCH (09:49)
[2016-11-07] MEDS: NYSTATIN 15 APPL BTL TP SCH ×4 (09:49→20:10)
[2016-11-07] MEDS: SENNOSIDES/DOCUSATE SODIUM 1 TAB TABLET PO SCH ×2 (09:49→20:09)
[2016-11-07] MEDS: PREGABALIN 25 MG CAPSULE PO SCH (09:50)
[2016-11-07] MEDS: METOPROLOL SUCCINATE 50 MG TABLET.SA PO SCH (09:51)
[2016-11-07] MEDS: traMADol HCL 50 MG TABLET PO PRN (10:01)
[2016-11-07] MEDS: PANTOPRAZOLE SODIUM 40 MG in NORMAL SALINE 100 ML IV SCH (12:10)
--- NOTE | 2016-11-07 12:17 | PN ---
Subjective - Date and Time Seen Date: 11/07/16 Time: 12:15 Subjective Narrative: POD1 Adhesiolysis for PSBO No c/o. Objective Objective Narrative: NG succus clear bilious Drsg CDI - Vitals Vitals: Last Vital Signs Temp 36.8 C 11/07/16 10:59 Pulse 87 11/07/16 10:59 Resp 20 11/07/16 10:59 BP 123/78 11/07/16 10:59 Pulse Ox 96 11/07/16 10:59 - Abnormal Lab Findings Abnormal Lab Findings: Abnormal Lab Results 11/07/16 11/07/16 Range/Units 06:00 06:00 WBC 18.3 H (4.0-10.5) K/mm3 RBC 3.63 L (4.7-6.0) M/mm3 Hgb 10.5 L (13.5-18.0) gm/dL Hct 32.0 L (42.0-52.0) % MPV 10.1 H (6.0-9.5) fl Immature Gran % (Auto) 7.20 H (0.001-0.429) % Immature Gran # (Auto) 1.31 H (0.000-0.0310) K/mm3 Neutrophils % 78.1 H (42-75.0) % Lymphocytes % 6.8 L (20-51) % Neutrophils # 14.3 H (1.3-6.0) K/mm3 Lymphocytes # 1.3 L (1.5-3.5) k/mm3 Sodium 143 H (132-142) mmol/L Plasma Sodium 146 H (130-142) mmol/L Chloride 111 H (97-106) mmol/L Carbon Dioxide 19.6 L (24-32.6) mmol/L Anion Gap 16.2 H (6.8-13.8) mmol/L BUN 37 H (6-23) mg/dL Creatinine 2.59 H (0.4-1.4) mg/dL Est GFR (Non-Af Amer) 25 L (60-130) mL/min Random Glucose 273 H D (70-110) mg/dL ALT 12 L (19-67) U/L Total Protein 5.9 L (6.2-8.2) gm/dL Albumin 1.9 L (3.4-5.0) gm/dl Cauti Physician Documentation - Urinary Catheter Management Urethral (Foster) Date of Insertion: 11/06/16 Time of Insertion: 16:50 Date of Removal: 11/01/16 Time of Removal: 10:10 Assessment/Plan Plan Narrative: A: Stable POD1 P: clamp NG. - Problems/Diagnosis (1) Partial obstruction of small intestine Problem: Acute
[2016-11-07] MEDS: ENOXAPARIN SODIUM 30 MG/0.3 ML SYRG SC SCH (14:02)
[2016-11-07] MEDS: CIPROFLOXACIN LACTATE/D5W 400 MG/200 ML BAG IV SCH (16:55)
[2016-11-07] MEDS: INSULIN GLARGINE,HUM.REC.ANLOG 100 UNITS/ML VIAL SC SCH (17:08)
[2016-11-07] MEDS: Lytes/Yerba Santa 240 APPL BTL MM PRN (17:09)
[2016-11-07] MEDS: ROSUVASTATIN CALCIUM 10 MG TABLET PO SCH (20:09)
[2016-11-07] MEDS: POTASSIUM PHOS,M-BASIC-D-BASIC 18 MM, ELECTROLYTE SOLUTION,INJ 20 ML, MULTIVIT INFUSN,A... IV SCH ×6 (21:29)
[2016-11-07] MEDS: FAT EMULSIONS 50 G in Premix Bag 1 BAG IV SCH (21:29)
[2016-11-08] MEDS: metroNIDAZOLE/SODIUM CHLORIDE 500 MG/100 ML BAG IV SCH ×3 (00:46→17:56)
[2016-11-08 05:31] LABS: Hematocrit 30.9 % (42.0-52.0); Hemoglobin 10.2 gm/dL (13.5-18.0); Mean Corpuscular Hemoglobin 29.1 pg (27-31); Mean Platelet Volume 9.7 fl (6.0-9.5); Platelet Count 424 K/mm3 (150-450); Red Blood Count 3.51 M/mm3 (4.7-6.0); Red Cell Distribution Width 13.2 % (11.5-14.0); White Blood Count 22.6 K/mm3 (4.0-10.5)
[2016-11-08 05:42] LABS: Total Cells Counted 100
[2016-11-08 05:51] LABS: Albumin * 1.9 gm/dl (3.4-5.0); BUN/Creatinine Ratio 15.7 (9.0-21.6); Bilirubin, Total 0.3 mg/dL (0.0-1.1); Ca. Corrected For Albumin 9.8 mg/dL (8.4-10.2); Calcium * 8.4 mg/dL (7.9-10.9); Carbon Dioxide 18.9 mmol/L (24-32.6); Magnesium 1.3 mg/dL (1.2-2.8); Phosphorus 2.5 mg/dL (2.2-4.2); Potassium 3.9 mmol/L (3.4-4.6)
[2016-11-08 06:01] LABS: Band 3 % (0-2.0); Eosinophil 6 % (0-3); Immature Granulocyte 1 (0-1); Lymphocyte 7 % (20-51); Monocyte 7 % (0-9); Neutrophil 76 % (42-75); Neutrophil # 17.2 K/mm3 (1.3-6.0)
[2016-11-08 06:03] LABS: Platelet Estimate Normal (NORMAL); RBC Morphology Normal (NORMAL)
[2016-11-08] MEDS: LEVOTHYROXINE SODIUM 100 MCG TABLET PO SCH (07:01)
[2016-11-08] MEDS: INSULIN LISPRO 100 UNITS/ML VIAL SC SCH ×3 (07:04→17:24)
--- NOTE | 2016-11-08 08:11 | PN ---
Subjective - Date and Time Seen Date: 11/08/16 Subjective Narrative: No events overnight. Patient says he hurts all over this morning, denies hip pain specifically. Objective - Vitals Vitals: Last Vital Signs Temp 37 C 11/08/16 06:37 Pulse 94 11/08/16 06:37 Resp 20 11/08/16 06:37 BP 156/90 11/08/16 06:37 Pulse Ox 98 11/08/16 06:37 - Abnormal Lab Findings Abnormal Lab Findings: Abnormal Lab Results 11/07/16 11/08/16 11/08/16 Range/Units 06:00 05:15 05:15 WBC 18.3 H 22.6 H D (4.0-10.5) K/mm3 RBC 3.63 L 3.51 L (4.7-6.0) M/mm3 Hgb 10.5 L 10.2 L (13.5-18.0) gm/dL Hct 32.0 L 30.9 L (42.0-52.0) % MPV 10.1 H 9.7 H (6.0-9.5) fl Immature Gran % (Auto) 7.20 H (0.001-0.429) % Immature Gran # (Auto) 1.31 H (0.000-0.0310) K/mm3 Neutrophils % 78.1 H (42-75.0) % Neutrophils % (Manual) 76 H (42-75) % Band Neuts % (Manual) 3 H (0-2.0) % Lymphocytes % 6.8 L (20-51) % Lymphocytes % (Manual) 7 L (20-51) % Eosinophils % (Manual) 6 H (0-3) % Neutrophils # 14.3 H (1.3-6.0) K/mm3 Neutrophils # (Manual) 17.2 H (1.3-6.0) K/mm3 Lymphocytes # 1.3 L (1.5-3.5) k/mm3 Monocytes # (Manual) 1.6 H (0.0-1.0) k/mm3 Eosinophils # (Manual) 1.4 H (0.0-0.7) k/mm3 Plasma Sodium 145 H (130-142) mmol/L Chloride 110 H (97-106) mmol/L Carbon Dioxide 18.9 L (24-32.6) mmol/L Anion Gap 17.0 H (6.8-13.8) mmol/L BUN 37 H (6-23) mg/dL Creatinine 2.35 H (0.4-1.4) mg/dL Est GFR (Non-Af Amer) 28 L (60-130) mL/min Random Glucose 270 H (70-110) mg/dL ALT 10 L (19-67) U/L Total Protein 6.0 L (6.2-8.2) gm/dL Albumin 1.9 L (3.4-5.0) gm/dl - Exam Exam Narrative: MSK: LLE--> dressings c/d/i, no erythema, minimal tenderness, mild pain with gentle ROM, SILT, cap refill brisk Cauti Physician Documentation - Urinary Catheter Management Urethral (Foster) Date of Insertion: 11/06/16 Time of Insertion: 16:50 Date of Removal: 11/01/16 Time of Removal: 10:10 Assessment/Plan Plan Narrative: 81 yo M w/ non-displaced L femoral neck fx s/p ORIF with cannulated screws, POD #9. - WBAT, ROM as tolerated - elevated WBC - continues to be labile, Medicine managing, hip not concerning as a source at this time - postoperative SBO - s/p ex lap with lysis of adhesions and hernia repair due to lack of improvement with NGT and bowel rest, NGT clamped this am, Gen Surg managing - TPN per Medicine team - renal failure - continue management per Medicine team - oral pain meds - DVT ppx: lovenox, SCDs, teds - PT/OT - minimal progress with upright mobility - dispo: continue inpatient care per Medicine team
[2016-11-08] MEDS: PANTOPRAZOLE SODIUM 40 MG in NORMAL SALINE 100 ML IV SCH ×2 (09:55→18:48)
[2016-11-08] MEDS: FAT EMULSIONS 50 G in Premix Bag 1 BAG IV SCH (09:58)
[2016-11-08] MEDS: ASPIRIN 81 MG TABLET.DR PO SCH (10:05)
[2016-11-08] MEDS: PREGABALIN 25 MG CAPSULE PO SCH (10:05)
[2016-11-08] MEDS: CLOPIDOGREL BISULFATE 75 MG TABLET PO SCH (10:06)
[2016-11-08] MEDS: SENNOSIDES/DOCUSATE SODIUM 1 TAB TABLET PO SCH ×2 (10:06→20:16)
[2016-11-08] MEDS: CLONIDINE HCL 0.1 MG TABLET PO SCH ×2 (10:06→20:16)
[2016-11-08] MEDS: CHOLECALCIFEROL 1,000 UNIT CAPSULE PO SCH (10:06)
[2016-11-08] MEDS: amLODIPine BESYLATE 10 MG TABLET PO SCH (10:06)
[2016-11-08] MEDS: CHLORTHALIDONE 25 MG TABLET PO SCH (10:06)
[2016-11-08] MEDS: METOPROLOL SUCCINATE 50 MG TABLET.SA PO SCH (10:07)
[2016-11-08] MEDS: NYSTATIN 15 APPL BTL TP SCH ×4 (10:13→20:15)
--- NOTE | 2016-11-08 11:20 | PN ---
Subjective - Date and Time Seen Date: 11/08/16 Time: 11:18 Subjective Narrative: POD1 Ex Lap for adhesive PSBO No new c/o Objective Objective Narrative: Drsg CDI Tolerating NG clamping for 24 hours with no vomiting and no c/o nausea. - Vitals Vitals: Last Vital Signs Temp 36.8 C 11/08/16 10:40 Pulse 85 11/08/16 10:40 Resp 18 11/08/16 10:40 BP 156/82 11/08/16 10:40 Pulse Ox 99 11/08/16 10:40 - Abnormal Lab Findings Abnormal Lab Findings: Abnormal Lab Results 11/08/16 11/08/16 Range/Units 05:15 05:15 WBC 22.6 H D (4.0-10.5) K/mm3 RBC 3.51 L (4.7-6.0) M/mm3 Hgb 10.2 L (13.5-18.0) gm/dL Hct 30.9 L (42.0-52.0) % MPV 9.7 H (6.0-9.5) fl Neutrophils % (Manual) 76 H (42-75) % Band Neuts % (Manual) 3 H (0-2.0) % Lymphocytes % (Manual) 7 L (20-51) % Eosinophils % (Manual) 6 H (0-3) % Neutrophils # (Manual) 17.2 H (1.3-6.0) K/mm3 Monocytes # (Manual) 1.6 H (0.0-1.0) k/mm3 Eosinophils # (Manual) 1.4 H (0.0-0.7) k/mm3 Plasma Sodium 145 H (130-142) mmol/L Chloride 110 H (97-106) mmol/L Carbon Dioxide 18.9 L (24-32.6) mmol/L Anion Gap 17.0 H (6.8-13.8) mmol/L BUN 37 H (6-23) mg/dL Creatinine 2.35 H (0.4-1.4) mg/dL Est GFR (Non-Af Amer) 28 L (60-130) mL/min Random Glucose 270 H (70-110) mg/dL ALT 10 L (19-67) U/L Total Protein 6.0 L (6.2-8.2) gm/dL Albumin 1.9 L (3.4-5.0) gm/dl Cauti Physician Documentation - Urinary Catheter Management Urethral (Foster) Date of Insertion: 11/06/16 Time of Insertion: 16:50 Date of Removal: 11/01/16 Time of Removal: 10:10 Assessment/Plan Plan Narrative: A: Stable POD2 P: DC NG. Start clears. - Problems/Diagnosis (1) Partial obstruction of small intestine Problem: Acute
[2016-11-08] MEDS ORDERED: VANCOMYCIN HCL 1 GM in DEXTROSE 5 % IN WATER 250 ML IV ONE ×2 (12:02)
[2016-11-08] MEDS ORDERED: PIPERACILLIN SODIUM/TAZOBACTAM 3.375 GM in DEXTROSE 5 % IN WATER 100 ML IV STA ×2 (12:02)
[2016-11-08 12:26] LABS: Hematocrit 30.5 % (42.0-52.0); Hemoglobin 10.2 gm/dL (13.5-18.0); Mean Cell Volume 87.9 fl (78-100); Mean Corpuscular Hemoglobin 29.4 pg (27-31); Mean Corpuscular Hgb Conc 33.4 g/dl (32-36); Mean Platelet Volume 9.7 fl (6.0-9.5); Platelet Count 435 K/mm3 (150-450); Red Blood Count 3.47 M/mm3 (4.7-6.0); Red Cell Distribution Width 13.2 % (11.5-14.0); White Blood Count 23.6 K/mm3 (4.0-10.5)
--- NOTE | 2016-11-08 12:27 | PN ---
Subjective - Date and Time Seen Date: 11/08/16 Time: 12:27 Subjective Narrative: Ongoing wbc elevation, a little higher now, with mild bandemia, unknown source, taking a little po. Objective - Review of Systems Generalized/Overall Review: Reports: Malaise EENTM: Reports: No Symptoms Reported Respiratory: Reports: No Symptoms Reported Cardiac: Reports: No Symptoms Reported Abdominal: Reports: No Symptoms Reported Genitourinary Symptoms: Reports: No Symptoms Reported Musculoskeletal Complaints: Reports: No Symptoms Reported Neurological: Reports: No Symptoms Reported Skin: Reports: No Symptoms Reported Endocrine: Reports: No Symptoms Reported Misc: All systems neg except as marked - Vitals Vitals: Last Vital Signs Selected Entries 11/08/16 10:40 Temperature 36.8 C Temperature Oral Source Pulse Rate 85 Respiratory 18 Rate Blood Pressure 156/82 Blood Pressure Sitting Position O2 Sat by Pulse 99 Oximetry Oxygen Delivery Room Air Method Oxygen Flow 0 Rate - Abnormal Lab Findings Abnormal Lab Findings: Abnormal Lab Results 11/08/16 11/08/16 Range/Units 05:15 05:15 WBC 22.6 H D (4.0-10.5) K/mm3 RBC 3.51 L (4.7-6.0) M/mm3 Hgb 10.2 L (13.5-18.0) gm/dL Hct 30.9 L (42.0-52.0) % MPV 9.7 H (6.0-9.5) fl Neutrophils % (Manual) 76 H (42-75) % Band Neuts % (Manual) 3 H (0-2.0) % Lymphocytes % (Manual) 7 L (20-51) % Eosinophils % (Manual) 6 H (0-3) % Neutrophils # (Manual) 17.2 H (1.3-6.0) K/mm3 Monocytes # (Manual) 1.6 H (0.0-1.0) k/mm3 Eosinophils # (Manual) 1.4 H (0.0-0.7) k/mm3 Plasma Sodium 145 H (130-142) mmol/L Chloride 110 H (97-106) mmol/L Carbon Dioxide 18.9 L (24-32.6) mmol/L Anion Gap 17.0 H (6.8-13.8) mmol/L BUN 37 H (6-23) mg/dL Creatinine 2.35 H (0.4-1.4) mg/dL Est GFR (Non-Af Amer) 28 L (60-130) mL/min Random Glucose 270 H (70-110) mg/dL ALT 10 L (19-67) U/L Total Protein 6.0 L (6.2-8.2) gm/dL Albumin 1.9 L (3.4-5.0) gm/dl - Exam Constitutional: Present: Alert, Oriented x3, Cooperative, Well developed, Well nourished, No distress ENT Exam: Present: normal ENT inspection, hard of hearing Neck: Present: normal inspection Respiratory: Present: lungs clear, no respiratory distress Cardiovascular/Chest: Present: regular rate, rhythm, no edema Abdomen: Present: Normal bowel sounds, soft, nontender, nondistended, no rebound tenderness, no hepatospenomegaly, no masses Extremity: Present: normal inspection, no pedal edema Skin Exam: Present: no cyanosis, cool/dry Neurologic: Present: alert, oriented x 3 Appearance: Present: appropriate appearance, neat Eye contact: Present: cooperative Thoughts: Present: normal thought pattern Cauti Physician Documentation - Urinary Catheter Management Urethral (Foster) Date of Insertion: 11/06/16 Time of Insertion: 16:50 Date of Removal: 11/01/16 Time of Removal: 10:10 Assessment/Plan Plan Narrative: reculture. change antibiotics. I spoke with Dr. Steele, he would like to keep the pic line a bit longer. labs tomorrow. - Problems/Diagnosis (1) Hospital-acquired bacterial pneumonia Problem: Acute (2) Bandemia Problem: Acute (3) CRF (chronic renal failure) Problem: Acute Qualifiers: Chronic kidney disease stage: stage 4 (severe) Qualified Code(s): N18.4 - Chronic kidney disease, stage 4 (severe) (4) Hip fracture, left Problem: Acute Qualifiers: Encounter type: initial encounter Fracture type: closed Qualified Code(s) : S72.002A - Fracture of unspecified part of neck of left femur, initial encounter for closed fracture (5) Ileus, postoperative Problem: Acute (6) Leukocytosis Problem: Acute Qualifiers: Leukocytosis type: unspecified Qualified Code(s): D72.829 - Elevated white blood cell count, unspecified (7) Nutrition deficiency due to insufficient food Problem: Acute (8) Partial obstruction of small intestine Problem: Acute (9) Diabetes Problem: Chronic Qualifiers: Diabetes mellitus type: type 2 (10) HTN (hypertension) Problem: Chronic Qualifiers: Hypertension type: essential hypertension Qualified Code(s): I10 - Essential (primary) hypertension (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
[2016-11-08 12:28] LABS: Total Cells Counted 100
[2016-11-08 12:37] LABS: Albumin * 1.9 gm/dl (3.4-5.0); Anion Gap 16.2 mmol/L (6.8-13.8); BUN/Creatinine Ratio 16.7 (9.0-21.6); Bilirubin, Total 0.3 mg/dL (0.0-1.1); Ca. Corrected For Albumin 9.5 mg/dL (8.4-10.2); Calcium * 8.1 mg/dL (7.9-10.9); Carbon Dioxide 20.6 mmol/L (24-32.6); Potassium 3.8 mmol/L (3.4-4.6); Total Protein 5.9 gm/dL (6.2-8.2)
[2016-11-08 12:47] LABS: Eosinophil 5 % (0-3); Lymphocyte 4 % (20-51); Monocyte 8 % (0-9); Neutrophil 83 % (42-75); Neutrophil # 19.6 K/mm3 (1.3-6.0)
[2016-11-08 12:52] LABS: Platelet Estimate Normal (NORMAL); RBC Morphology Normal (NORMAL)
[2016-11-08] MEDS ORDERED: VANCOMYCIN HCL 1.75 GM in DEXTROSE 5 % IN WATER 500 ML IV SCH ×2 (13:30)
[2016-11-08] MEDS: PIPERACILLIN SODIUM/TAZOBACTAM 3.375 GM in DEXTROSE 5 % IN WATER 100 ML IV SCH ×2 (13:39)
[2016-11-08] MEDS: ENOXAPARIN SODIUM 30 MG/0.3 ML SYRG SC SCH (13:49)
--- NOTE | 2016-11-08 15:00 | PN ---
Progess Note - Interim Narrative: 11/08/16 14:57 Dr. Dubose, radiology called, no clear sign of pneumonia on today's CXR, which to my view indeed certainly looks better than the one two days ago. May be a clearing pneumonia. Small amount of air under right diaphragm consistent with recent laparotomy. No bands on midday CBC. procalcitonin and lactic acid ok mid day today. Leukocytosis remains a mystery, though could still be an in hospital pneumonia or related to the PICC line. Will continue as is for now.
[2016-11-08] MEDS: INSULIN GLARGINE,HUM.REC.ANLOG 100 UNITS/ML VIAL SC SCH (17:26)
[2016-11-08] MEDS: POTASSIUM CHLORIDE 20 MEQ in DEXTROSE 5%-NORMAL SALINE 990 ML IV SCH (19:38)
[2016-11-08] MEDS: ROSUVASTATIN CALCIUM 10 MG TABLET PO SCH (20:16)
[2016-11-08] MEDS: POTASSIUM PHOS,M-BASIC-D-BASIC 18 MM, ELECTROLYTE SOLUTION,INJ 20 ML, MULTIVIT INFUSN,A... IV SCH ×6 (20:22)
[2016-11-09] MEDS: metroNIDAZOLE/SODIUM CHLORIDE 500 MG/100 ML BAG IV SCH ×3 (00:30→17:24)
[2016-11-09] MEDS: PIPERACILLIN SODIUM/TAZOBACTAM 3.375 GM in DEXTROSE 5 % IN WATER 100 ML IV SCH ×2 (01:40)
[2016-11-09 05:21] LABS: Hematocrit 29.9 % (42.0-52.0); Hemoglobin 9.9 gm/dL (13.5-18.0); Mean Cell Volume 88.7 fl (78-100); Mean Corpuscular Hemoglobin 29.4 pg (27-31); Mean Corpuscular Hgb Conc 33.1 g/dl (32-36); Mean Platelet Volume 9.9 fl (6.0-9.5); Platelet Count 385 K/mm3 (150-450); Red Blood Count 3.37 M/mm3 (4.7-6.0); Red Cell Distribution Width 13.2 % (11.5-14.0); White Blood Count 21.9 K/mm3 (4.0-10.5)
[2016-11-09 05:37] LABS: Total Cells Counted 100
[2016-11-09 05:51] LABS: Albumin * 1.9 gm/dl (3.4-5.0); Anion Gap 15.2 mmol/L (6.8-13.8); BUN/Creatinine Ratio 18.5 (9.0-21.6); Bilirubin, Total 0.5 mg/dL (0.0-1.1); Ca. Corrected For Albumin 9.3 mg/dL (8.4-10.2); Calcium * 7.9 mg/dL (7.9-10.9); Carbon Dioxide 19.3 mmol/L (24-32.6); Potassium 3.5 mmol/L (3.4-4.6); Total Protein 5.8 gm/dL (6.2-8.2)
[2016-11-09 06:03] LABS: Atypical (Reactive) Lymph 4 % (0-2); Band 2 % (0-2.0); Eosinophil 3 % (0-3); Immature Granulocyte 1 (0-1); Lymphocyte 7 % (20-51); Monocyte 5 % (0-9); Neutrophil 78 % (42-75); Neutrophil # 17.1 K/mm3 (1.3-6.0)
[2016-11-09 06:05] LABS: Platelet Estimate Normal (NORMAL); RBC Morphology Normal (NORMAL)
[2016-11-09 06:12] LABS: Magnesium 1.3 mg/dL (1.2-2.8); Phosphorus 2.8 mg/dL (2.2-4.2)
[2016-11-09] MEDS: POTASSIUM CHLORIDE 20 MEQ in DEXTROSE 5%-NORMAL SALINE 990 ML IV SCH ×2 (06:52→17:58)
[2016-11-09] MEDS: LEVOTHYROXINE SODIUM 100 MCG TABLET PO SCH (06:52)
[2016-11-09] MEDS: PANTOPRAZOLE SODIUM 40 MG in NORMAL SALINE 100 ML IV SCH ×2 (06:54→18:30)
[2016-11-09] MEDS: INSULIN LISPRO 100 UNITS/ML VIAL SC SCH ×3 (07:04→17:27)
[2016-11-09] MEDS ORDERED: LEVOFLOXACIN/D5W 500 MG/100 ML BAG IV SCH (09:00)
[2016-11-09] MEDS: CHOLECALCIFEROL 1,000 UNIT CAPSULE PO SCH (09:03)
[2016-11-09] MEDS: ASPIRIN 81 MG TABLET.DR PO SCH (09:03)
[2016-11-09] MEDS: CLOPIDOGREL BISULFATE 75 MG TABLET PO SCH (09:03)
[2016-11-09] MEDS: CHLORTHALIDONE 25 MG TABLET PO SCH (09:03)
[2016-11-09] MEDS: CLONIDINE HCL 0.1 MG TABLET PO SCH ×2 (09:03→20:34)
[2016-11-09] MEDS: NYSTATIN 15 APPL BTL TP SCH ×4 (09:03→20:34)
[2016-11-09] MEDS: amLODIPine BESYLATE 10 MG TABLET PO SCH (09:04)
[2016-11-09] MEDS: METOPROLOL SUCCINATE 50 MG TABLET.SA PO SCH (09:04)
[2016-11-09] MEDS: SENNOSIDES/DOCUSATE SODIUM 1 TAB TABLET PO SCH ×2 (09:05→20:33)
[2016-11-09] MEDS: PREGABALIN 25 MG CAPSULE PO SCH (09:06)
[2016-11-09] MEDS: traMADol HCL 50 MG TABLET PO PRN (09:48)
[2016-11-09] MEDS: FAT EMULSIONS 50 G in Premix Bag 1 BAG IV SCH (10:48)
--- NOTE | 2016-11-09 12:09 | PN ---
Subjective - Date and Time Seen Date: 11/09/16 Time: 12:03 Subjective Narrative: POD3 Ex lap adhesiolysis of PSBO No new c/o Tolerating clears Objective Objective Narrative: Abd soft, nontender - Vitals Vitals: Last Vital Signs Temp 36.6 C 11/09/16 11:34 Pulse 68 11/09/16 11:34 Resp 18 11/09/16 11:34 BP 109/64 11/09/16 11:34 Pulse Ox 98 11/09/16 11:34 - Abnormal Lab Findings Abnormal Lab Findings: Abnormal Lab Results 11/08/16 11/08/16 11/09/16 Range/Units 12:15 12:15 05:00 WBC 23.6 H (4.0-10.5) K/mm3 RBC 3.47 L (4.7-6.0) M/mm3 Hgb 10.2 L (13.5-18.0) gm/dL Hct 30.5 L (42.0-52.0) % MPV 9.7 H (6.0-9.5) fl Neutrophils % (Manual) 83 H (42-75) % Lymphocytes % (Manual) 4 L (20-51) % Eosinophils % (Manual) 5 H (0-3) % Neutrophils # (Manual) 19.6 H (1.3-6.0) K/mm3 Lymphocytes # (Manual) 0.9 L (1.5-3.5) k/mm3 Monocytes # (Manual) 1.9 H (0.0-1.0) k/mm3 Eosinophils # (Manual) 1.2 H (0.0-0.7) k/mm3 Atypic/Reactive Lymphs (0-2) % Plasma Sodium 145 H (130-142) mmol/L Chloride 109 H 110 H (97-106) mmol/L Carbon Dioxide 20.6 L 19.3 L (24-32.6) mmol/L Anion Gap 16.2 H 15.2 H (6.8-13.8) mmol/L BUN 39 H 44 H (6-23) mg/dL Creatinine 2.34 H 2.38 H (0.4-1.4) mg/dL Est GFR (Non-Af Amer) 29 L 28 L (60-130) mL/min Random Glucose 293 H 189 H D (70-110) mg/dL ALT 11 L 12 L (19-67) U/L Total Protein 5.9 L 5.8 L (6.2-8.2) gm/dL Albumin 1.9 L 1.9 L (3.4-5.0) gm/dl 11/09/16 Range/Units 05:00 WBC 21.9 H (4.0-10.5) K/mm3 RBC 3.37 L (4.7-6.0) M/mm3 Hgb 9.9 L (13.5-18.0) gm/dL Hct 29.9 L (42.0-52.0) % MPV 9.9 H (6.0-9.5) fl Neutrophils % (Manual) 78 H (42-75) % Lymphocytes % (Manual) 7 L (20-51) % Eosinophils % (Manual) (0-3) % Neutrophils # (Manual) 17.1 H (1.3-6.0) K/mm3 Lymphocytes # (Manual) (1.5-3.5) k/mm3 Monocytes # (Manual) 1.1 H (0.0-1.0) k/mm3 Eosinophils # (Manual) (0.0-0.7) k/mm3 Atypic/Reactive Lymphs 4 H (0-2) % Plasma Sodium (130-142) mmol/L Chloride (97-106) mmol/L Carbon Dioxide (24-32.6) mmol/L Anion Gap (6.8-13.8) mmol/L BUN (6-23) mg/dL Creatinine (0.4-1.4) mg/dL Est GFR (Non-Af Amer) (60-130) mL/min Random Glucose (70-110) mg/dL ALT (19-67) U/L Total Protein (6.2-8.2) gm/dL Albumin (3.4-5.0) gm/dl Cauti Physician Documentation - Urinary Catheter Management Urethral (Foster) Date of Insertion: 11/06/16 Time of Insertion: 16:50 Date of Removal: 11/01/16 Time of Removal: 10:10 Assessment/Plan Plan Narrative: A: Stable POD3 P: Will keep on clears for the time being due to serosal tear that was repaired. Augment nutrition. Case discussed with Dr. Urias. - Problems/Diagnosis (1) Partial obstruction of small intestine Problem: Acute
--- NOTE | 2016-11-09 12:49 | PN ---
Subjective - Date and Time Seen Date: 11/09/16 Time: 12:46 Subjective Narrative: Ongoing wbc elevation, a little higher now, no bands, unknown source, taking a little po. Objective - Review of Systems Generalized/Overall Review: Reports: Malaise EENTM: Reports: No Symptoms Reported Respiratory: Reports: No Symptoms Reported Cardiac: Reports: No Symptoms Reported Abdominal: Reports: No Symptoms Reported Genitourinary Symptoms: Reports: No Symptoms Reported Musculoskeletal Complaints: Reports: No Symptoms Reported Neurological: Reports: No Symptoms Reported Skin: Reports: No Symptoms Reported Endocrine: Reports: No Symptoms Reported Misc: All systems neg except as marked - Vitals Vitals: Last Vital Signs Selected Entries 11/09/16 11:34 Temperature 36.6 C Temperature Oral Source Pulse Rate 68 Respiratory 18 Rate Respiratory Normal Depth Blood Pressure 109/64 Blood Pressure Supine Position O2 Sat by Pulse 98 Oximetry Oxygen Delivery Room Air Method Oxygen Flow 0 Rate - Abnormal Lab Findings Abnormal Lab Findings: Abnormal Lab Results 11/08/16 11/09/16 11/09/16 Range/Units 12:15 05:00 05:00 WBC 21.9 H (4.0-10.5) K/mm3 RBC 3.37 L (4.7-6.0) M/mm3 Hgb 9.9 L (13.5-18.0) gm/dL Hct 29.9 L (42.0-52.0) % MPV 9.9 H (6.0-9.5) fl Neutrophils % (Manual) 83 H 78 H (42-75) % Lymphocytes % (Manual) 4 L 7 L (20-51) % Eosinophils % (Manual) 5 H (0-3) % Neutrophils # (Manual) 19.6 H 17.1 H (1.3-6.0) K/mm3 Lymphocytes # (Manual) 0.9 L (1.5-3.5) k/mm3 Monocytes # (Manual) 1.9 H 1.1 H (0.0-1.0) k/mm3 Eosinophils # (Manual) 1.2 H (0.0-0.7) k/mm3 Atypic/Reactive Lymphs 4 H (0-2) % Chloride 110 H (97-106) mmol/L Carbon Dioxide 19.3 L (24-32.6) mmol/L Anion Gap 15.2 H (6.8-13.8) mmol/L BUN 44 H (6-23) mg/dL Creatinine 2.38 H (0.4-1.4) mg/dL Est GFR (Non-Af Amer) 28 L (60-130) mL/min Random Glucose 189 H D (70-110) mg/dL ALT 12 L (19-67) U/L Total Protein 5.8 L (6.2-8.2) gm/dL Albumin 1.9 L (3.4-5.0) gm/dl - Exam Constitutional: Present: Cooperative, No distress ENT Exam: Present: normal ENT inspection Neck: Present: normal inspection Respiratory: Present: lungs clear, no respiratory distress Cardiovascular/Chest: Present: regular rate, rhythm, no murmur Abdomen: Present: Normal bowel sounds, soft, nontender, nondistended, no rebound tenderness, no hepatospenomegaly, no masses Extremity: Present: no pedal edema Skin Exam: Present: no cyanosis, cool/dry Neurologic: Present: alert Appearance: Present: neat Eye contact: Present: cooperative Cauti Physician Documentation - Urinary Catheter Management Urethral (Foster) Date of Insertion: 11/06/16 Time of Insertion: 16:50 Date of Removal: 11/01/16 Time of Removal: 10:10 Assessment/Plan Plan Narrative: No source for leukocytosis. Leukocytosis at admission. Before PICC OR surgery. Stop antibiotics and watch. Re evaluate if needed. Right now we are treating leukocytosis with our antibiotics. - Problems/Diagnosis (1) Hospital-acquired bacterial pneumonia Problem: Acute (2) Bandemia Problem: Acute (3) CRF (chronic renal failure) Problem: Acute Qualifiers: Chronic kidney disease stage: stage 4 (severe) Qualified Code(s): N18.4 - Chronic kidney disease, stage 4 (severe) (4) Hip fracture, left Problem: Acute Qualifiers: Encounter type: initial encounter Fracture type: closed Qualified Code(s) : S72.002A - Fracture of unspecified part of neck of left femur, initial encounter for closed fracture (5) Ileus, postoperative Problem: Acute (6) Leukocytosis Problem: Acute Qualifiers: Leukocytosis type: unspecified Qualified Code(s): D72.829 - Elevated white blood cell count, unspecified (7) Nutrition deficiency due to insufficient food Problem: Acute (8) Partial obstruction of small intestine Problem: Acute (9) Diabetes Problem: Chronic Qualifiers: Diabetes mellitus type: type 2 (10) HTN (hypertension) Problem: Chronic Qualifiers: Hypertension type: essential hypertension Qualified Code(s): I10 - Essential (primary) hypertension (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
[2016-11-09] MEDS: ACETAMINOPHEN 500 MG TABLET PO PRN (13:23)
[2016-11-09] MEDS: ENOXAPARIN SODIUM 30 MG/0.3 ML SYRG SC SCH (13:51)
[2016-11-09] MEDS: INSULIN GLARGINE,HUM.REC.ANLOG 100 UNITS/ML VIAL SC SCH (17:28)
[2016-11-09 17:35] LABS: Amylase * 107 U/L (25-115); Lipase 1143 U/L (73-393)
[2016-11-09] MEDS: ROSUVASTATIN CALCIUM 10 MG TABLET PO SCH (20:34)
[2016-11-09] MEDS: POTASSIUM PHOS,M-BASIC-D-BASIC 18 MM, ELECTROLYTE SOLUTION,INJ 20 ML, MULTIVIT INFUSN,A... IV SCH ×6 (20:37)
[2016-11-10] MEDS: metroNIDAZOLE/SODIUM CHLORIDE 500 MG/100 ML BAG IV SCH ×2 (00:51→09:53)
[2016-11-10] MEDS: traMADol HCL 50 MG TABLET PO PRN ×2 (03:19→12:13)
[2016-11-10] MEDS: LEVOTHYROXINE SODIUM 100 MCG TABLET PO SCH (07:08)
[2016-11-10] MEDS: PANTOPRAZOLE SODIUM 40 MG in NORMAL SALINE 100 ML IV SCH ×2 (07:08→19:53)
[2016-11-10] MEDS: INSULIN LISPRO 100 UNITS/ML VIAL SC SCH ×3 (07:10→17:16)
--- NOTE | 2016-11-10 08:07 | PN ---
Subjective - Date and Time Seen Date: 11/10/16 Time: 08:01 Subjective Narrative: Patient is afebrile. Clinically does not look septic. He says he his able to keep PO stuff in. Objective - Review of Systems Generalized/Overall Review: Denies: Chills, Fever EENTM: Reports: No Symptoms Reported Respiratory: Denies: Cough, Shortness of Breath, Orthopnea Cardiac: Denies: Chest Pain, Edema, Palpitations Abdominal: Denies: Nausea, Vomiting, Abdominal Pain Genitourinary Symptoms: Denies: Urgency, Frequency Musculoskeletal Complaints: Reports: Joint Pain - Vitals Vitals: Last Vital Signs Temp 36.4 C L 11/10/16 06:19 Pulse 84 11/10/16 06:19 Resp 16 11/10/16 06:19 BP 134/80 11/10/16 06:19 Pulse Ox 97 11/10/16 06:19 - Abnormal Lab Findings Abnormal Lab Findings: Abnormal Lab Results 11/09/16 Range/Units 17:20 Lipase 1143 H (73-393) U/L - Exam Constitutional: Present: Alert - AAO x 2, Cooperative, Elderly ENT Exam: Present: hard of hearing Neck: Present: supple Breasts: Present: Exam deferred Respiratory: Present: decreased breath sounds, No rales, No wheezing Cardiovascular/Chest: Present: regular rate, rhythm, no JVD, no murmur Abdomen: Present: nontender, firm, distended - slightly, hypoactive Extremity: Present: no calf tenderness, other - PICC line in place- no gross eveidence of infection Cauti Physician Documentation - Urinary Catheter Management Urethral (Wilson) Date of Insertion: 11/06/16 Time of Insertion: 16:50 Date of Removal: 11/01/16 Time of Removal: 10:10 Assessment/Plan - Problems/Diagnosis (1) SBO (small bowel obstruction) Problem: Acute Narrative: s/p adhesiolysis and repair of serosal tear (2) Nondisplaced fracture of neck of left femur Problem: Acute Qualifiers: Encounter type: initial encounter Fracture type: closed Qualified Code(s) : S72.002A - Fracture of unspecified part of neck of left femur, initial encounter for closed fracture Narrative: s/p CRIF (3) Leukocytosis Problem: Acute Qualifiers: Leukocytosis type: unspecified Qualified Code(s): D72.829 - Elevated white blood cell count, unspecified Narrative: slight improvement as of yesterday. infection vs inflammatory vs malignancy. AL/ CLL unlikely - lymphocutes normal to low. Antibiotics stopped by covering physician except for Flagyl. latest CXR showed no consolidation, postive air under the diaphragm, correlate clinically. will d/c wilson and recheck UA and UCS if warranted. await labs from today and US official reading. Will try to get intouch with I.D. - [facility]. (4) Diabetes Problem: Chronic Qualifiers: Diabetes mellitus type: type 2 (5) HTN (hypertension) Problem: Chronic Qualifiers: Hypertension type: essential hypertension Qualified Code(s): I10 - Essential (primary) hypertension (6) Mild dementia Problem: Chronic (7) CRF (chronic renal failure) Problem: Acute Qualifiers: Chronic kidney disease stage: stage 4 (severe) Qualified Code(s): N18.4 - Chronic kidney disease, stage 4 (severe) (8) Nutrition deficiency due to insufficient food Problem: Acute Narrative: on TPN
--- NOTE | 2016-11-10 09:35 | PN ---
Subjective - Date and Time Seen Date: 11/10/16 Time: 09:32 Subjective Narrative: No acute overnight events. Pt reports he has had normal BM and urination. Pt feels like he has decreased strength and has not been able to get out of bed. No additional complaints. Objective - Vitals Vitals: Last Vital Signs Temp 36.4 C L 11/10/16 06:19 Pulse 84 11/10/16 06:19 Resp 16 11/10/16 06:19 BP 134/80 11/10/16 06:19 Pulse Ox 97 11/10/16 06:19 - Abnormal Lab Findings Abnormal Lab Findings: Abnormal Labs Laboratory Results - last 24 hr 11/09/16 17:20 Amylase 107 Lipase 1143 H Laboratory Last Values WBC 21.9 K/mm3 (4.0-10.5) H 11/09/16 05:00 RBC 3.37 M/mm3 (4.7-6.0) L 11/09/16 05:00 Hgb 9.9 gm/dL (13.5-18.0) L 11/09/16 05:00 Hct 29.9 % (42.0-52.0) L 11/09/16 05:00 MCV 88.7 fl (78-100) 11/09/16 05:00 MCH 29.4 pg (27-31) 11/09/16 05:00 MCHC 33.1 g/dl (32-36) 11/09/16 05:00 RDW 13.2 % (11.5-14.0) 11/09/16 05:00 Plt Count 385 K/mm3 (150-450) 11/09/16 05:00 MPV 9.9 fl (6.0-9.5) H 11/09/16 05:00 Immature Gran % (Auto) 7.20 % (0.001-0.429) H 11/07/16 06:00 Immature Gran # (Auto) 1.31 K/mm3 (0.000-0.0310) H 11/07/16 06:00 Neutrophils % 78.1 % (42-75.0) H 11/07/16 06:00 Neutrophils % (Manual) 78 % (42-75) H 11/09/16 05:00 Band Neuts % (Manual) 2 % (0-2.0) 11/09/16 05:00 Lymphocytes % 6.8 % (20-51) L 11/07/16 06:00 Lymphocytes % (Manual) 7 % (20-51) L 11/09/16 05:00 Monocytes % 5.4 % (0.0-9) 11/07/16 06:00 Monocytes % (Manual) 5 % (0-9) 11/09/16 05:00 Eosinophils % 2.0 % (0.0-3.0) 11/07/16 06:00 Eosinophils % (Manual) 3 % (0-3) 11/09/16 05:00 Basophils % 0.5 % (0.0-1.0) 11/07/16 06:00 Nucleated RBC % 0.0 k/mm3 (0-1) 11/07/16 06:00 Immature Granulocytes 1 (0-1) 11/09/16 05:00 Neutrophils # 14.3 K/mm3 (1.3-6.0) H 11/07/16 06:00 Neutrophils # (Manual) 17.1 K/mm3 (1.3-6.0) H 11/09/16 05:00 Lymphocytes # 1.3 k/mm3 (1.5-3.5) L 11/07/16 06:00 Lymphocytes # (Manual) 1.5 k/mm3 (1.5-3.5) 11/09/16 05:00 Monocytes # 1.0 k/mm3 (0.0-1.0) 11/07/16 06:00 Monocytes # (Manual) 1.1 k/mm3 (0.0-1.0) H 11/09/16 05:00 Eosinophils # 0.4 k/mm3 (0.0-0.7) 11/07/16 06:00 Eosinophils # (Manual) 0.7 k/mm3 (0.0-0.7) 11/09/16 05:00 Absolute Basophils 0.1 k/mm3 (0.0-0.1) 11/07/16 06:00 Atypic/Reactive Lymphs 4 % (0-2) H 11/09/16 05:00 Platelet Estimate Normal (NORMAL) 11/09/16 05:00 RBC Morphology Normal (NORMAL) 11/09/16 05:00 PT 12.3 Seconds (9.4-11.4) H 10/30/16 17:58 INR (Anticoag Therapy) 1.18 INR (0.90-1.10) H 10/30/16 17:58 PTT (Jeff) 45.5 Seconds (24-32) H 10/31/16 05:40 Sodium 141 mmol/L (132-142) 11/09/16 05:00 Plasma Sodium 142 mmol/L (130-142) 11/09/16 05:00 Potassium 3.5 mmol/L (3.4-4.6) 11/09/16 05:00 Chloride 110 mmol/L (97-106) H 11/09/16 05:00 Carbon Dioxide 19.3 mmol/L (24-32.6) L 11/09/16 05:00 Anion Gap 15.2 mmol/L (6.8-13.8) H 11/09/16 05:00 BUN 44 mg/dL (6-23) H 11/09/16 05:00 Creatinine 2.38 mg/dL (0.4-1.4) H 11/09/16 05:00 Est GFR (Non-Af Amer) 28 mL/min (60-130) L 11/09/16 05:00 BUN/Creatinine Ratio 18.5 (9.0-21.6) 11/09/16 05:00 Random Glucose 189 mg/dL (70-110) H D 11/09/16 05:00 Serum Osmolality 303 mOsm/kg 11/01/16 05:30 Lactic Acid, Venous 1.3 mmol/L (0.4-1.9) 11/08/16 12:15 Calcium 7.9 mg/dL (7.9-10.9) 11/09/16 05:00 Calcium Adj for Albumin 9.3 mg/dL (8.4-10.2) 11/09/16 05:00 Phosphorus 2.8 mg/dL (2.2-4.2) D 11/09/16 05:00 Magnesium 1.3 mg/dL (1.2-2.8) 11/09/16 05:00 Total Bilirubin 0.5 mg/dL (0.0-1.1) 11/09/16 05:00 Direct Bilirubin 0.1 mg/dL (0.0-0.3) 11/04/16 06:48 Indirect Bilirubin 0.3 mg/dL (0.1-0.7) 11/04/16 06:48 GGT 61 U/L (4-104) 11/04/16 06:48 AST 28 U/L (0-48) 11/09/16 05:00 ALT 12 U/L (19-67) L 11/09/16 05:00 Alkaline Phosphatase 86 U/L (50-170) 11/09/16 05:00 Troponin I 0.240 ng/ml (0.00-0.10) H* 10/31/16 06:00 Total Protein 5.8 gm/dL (6.2-8.2) L 11/09/16 05:00 Albumin 1.9 gm/dl (3.4-5.0) L 11/09/16 05:00 Albumin % 48 % 11/01/16 10:50 Nduzo-0-Otqnlivyb 4 % 11/01/16 10:50 Ogerc-7-Idbjmhkhe 13 % 11/01/16 10:50 Beta Globulins (%) 17 % 11/01/16 10:50 Gamma Globulins (%) 18 % 11/01/16 10:50 Abnormal Protein Bands Dnr mg/dL 11/01/16 10:50 Triglycerides 92 mg/dL (30-200) 11/05/16 07:44 Cholesterol 61 mg/dL (0-200) 11/05/16 07:44 Amylase 107 U/L (25-115) 11/09/16 17:20 Lipase 1143 U/L (73-393) H 11/09/16 17:20 Procalcitonin 0.43 ng/mL (0.05-0.50) 11/08/16 12:15 Urine Color Yellow 10/30/16 06:57 Urine Appearance Slightly cloudy 10/30/16 06:57 Urine pH 7.0 pH (5.0-7.0) 10/30/16 06:57 Ur Specific [place] 1.020 SP.GR. (1.005-1.030) 10/30/16 06:57 Urine Protein >=300 mg/dL (NEGATIVE) H 10/30/16 06:57 Urine Glucose (UA) 100 mg/dL (NEGATIVE) H 10/30/16 06:57 Urine Ketones Negative mg/dL (NEGATIVE) 10/30/16 06:57 Urine Blood 250 /ul (NEGATIVE) H 10/30/16 06:57 Urine Nitrate Negative (NEGATIVE) 10/30/16 06:57 Urine Bilirubin Negative mg/dl (NEGATIVE) 10/30/16 06:57 Prot Sulfosalicylic Acd 4+ mg/dL (0) H 10/30/16 06:57 Urine Urobilinogen 2.0 EU/dl (NORMAL) H 10/30/16 06:57 Ur Leukocyte Esterase Negative /ul (NEGATIVE) 10/30/16 06:57 Urine RBC >50 /hpf (0-5) H 11/01/16 10:15 Urine WBC 5-10 /hpf (0-5) H 11/01/16 10:15 Ur Epithelial Cells None seen /hpf (0-5) 11/01/16 10:15 Amorphous Sediment Moderate - 2+ (NONE-FEW) H 10/28/16 23:46 Urine Bacteria 1+ (NONE) H 11/01/16 10:15 Hyaline Casts 5-10 /LPF (NONE) H 10/30/16 06:57 Fine Granular Casts 0-5 /LPF (NONE) H 11/01/16 10:15 Coarse Granular Casts 0-5 /LPF (NONE) H 11/01/16 10:15 Urine Mucus Few - 1+ (NONE) H 10/28/16 23:46 Urine Culture Comments Culture to follow 10/30/16 06:57 Urine Osmolality 405 mOsm/kg 11/01/16 10:50 Ur Random Creatinine 143.8 mg/dL (60-200) 11/01/16 Unknown U Random Total Protein 526.1 mg/dL (0-12) H 11/01/16 Unknown U [place] Prot/Creat Ratio 3659 mg/gm (0-199) H 11/01/16 Unknown Ur Random Sodium 25 mmol/L (40-220) L 11/01/16 Unknown Ur Random Potassium 78.0 mmol/L (25-125) 11/01/16 Unknown Ur Random Chloride 43 11/01/16 Unknown Ur Random Urea 521 mg/dL 11/01/16 10:50 Urine PEP Interpret See note 11/01/16 10:50 Urine Comment Culture ordered L 11/01/16 10:15 Stool Occult Blood Negative 11/03/16 02:05 Blood Type O Positive 10/29/16 05:53 Antibody Screen Negative 10/29/16 05:53 11/09/16 Range/Units 17:20 Lipase 1143 H (73-393) U/L - Exam Constitutional: Present: Alert, Cooperative, No distress Respiratory: Absent: no respiratory distress Extremity: Present: other - LLE bandages clean, dry, intact. No erythema around wound. Distal pulses 2+, SILT, 5/5 strength EHL, FHL, PF, DF. Cauti Physician Documentation - Urinary Catheter Management Urethral (Foster) Date of Insertion: 11/06/16 Time of Insertion: 16:50 Date of Removal: 11/01/16 Time of Removal: 10:10 Assessment/Plan Plan Narrative: 81 yo M w/ non-displaced L femoral neck fx s/p ORIF with cannulated screws, POD #11. - WBAT, ROM as tolerated - elevated WBC at 21.6 - continues to be labile, Medicine managing, hip not concerning as a source at this time -HgB stable 9.9 - postoperative SBO - s/p ex lap with lysis of adhesions and hernia repair due to lack of improvement with NGT and bowel rest, NGT clamped, Gen Surg managing - TPN per Medicine team - renal failure - continue management per Medicine team - oral pain meds - DVT ppx: lovenox, SCDs, teds - PT/OT - minimal progress with upright mobility - dispo: continue inpatient care per Medicine team - Problems/Diagnosis (1) Hip fracture, left Problem: Acute Qualifiers: Encounter type: initial encounter Fracture type: closed Qualified Code(s) : S72.002A - Fracture of unspecified part of neck of left femur, initial encounter for closed fracture (2) Leukocytosis Problem: Acute Qualifiers: Leukocytosis type: unspecified Qualified Code(s): D72.829 - Elevated white blood cell count, unspecified (3) CRF (chronic renal failure) Problem: Acute Qualifiers: Chronic kidney disease stage: stage 4 (severe) Qualified Code(s): N18.4 - Chronic kidney disease, stage 4 (severe) (4) Ileus, postoperative Problem: Acute
[2016-11-10] MEDS: ASPIRIN 81 MG TABLET.DR PO SCH (09:38)
[2016-11-10] MEDS: CHLORTHALIDONE 25 MG TABLET PO SCH (09:38)
[2016-11-10] MEDS: SENNOSIDES/DOCUSATE SODIUM 1 TAB TABLET PO SCH ×2 (09:38→21:56)
[2016-11-10] MEDS: CHOLECALCIFEROL 1,000 UNIT CAPSULE PO SCH (09:39)
[2016-11-10] MEDS: CLONIDINE HCL 0.1 MG TABLET PO SCH ×2 (09:39→21:55)
[2016-11-10] MEDS: amLODIPine BESYLATE 10 MG TABLET PO SCH (09:39)
[2016-11-10] MEDS: CLOPIDOGREL BISULFATE 75 MG TABLET PO SCH (09:39)
[2016-11-10] MEDS: METOPROLOL SUCCINATE 50 MG TABLET.SA PO SCH (09:39)
[2016-11-10] MEDS: NYSTATIN 15 APPL BTL TP SCH ×4 (09:40→21:57)
[2016-11-10] MEDS: PREGABALIN 25 MG CAPSULE PO SCH (09:45)
[2016-11-10] MEDS: FAT EMULSIONS 50 G in Premix Bag 1 BAG IV SCH (09:53)
[2016-11-10 10:06] LABS: Hematocrit 29.8 % (42.0-52.0); Hemoglobin 10.1 gm/dL (13.5-18.0); Mean Cell Volume 86.4 fl (78-100); Mean Corpuscular Hemoglobin 29.3 pg (27-31); Mean Corpuscular Hgb Conc 33.9 g/dl (32-36); Mean Platelet Volume 9.9 fl (6.0-9.5); Platelet Count 381 K/mm3 (150-450); Red Blood Count 3.45 M/mm3 (4.7-6.0); Red Cell Distribution Width 13.2 % (11.5-14.0); White Blood Count 22.5 K/mm3 (4.0-10.5)
[2016-11-10 10:10] LABS: Urine Bilirubin Negative (NEGATIVE); Urine Blood 50 /ul (NEGATIVE); Urine Ketone Negative (NEGATIVE); Urine Nitrite Negative (NEGATIVE); Urine Protein 100 mg/dL (NEGATIVE); Urine Urobilinogen Normal (NORMAL); Urine pH 5.5 pH (5.0-7.0)
[2016-11-10 10:11] LABS: Total Cells Counted 100
[2016-11-10 10:16] LABS: Urine Appearance Clear; Urine Color Yellow
[2016-11-10 10:17] LABS: Urine RBC 0-5 /hpf (0-5); Urine WBC TRACE /hpf (0-5)
[2016-11-10 10:18] LABS: Albumin * 1.9 gm/dl (3.4-5.0); Anion Gap 16.9 mmol/L (6.8-13.8); Bilirubin, Total 0.3 mg/dL (0.0-1.1); Ca. Corrected For Albumin 9.5 mg/dL (8.4-10.2); Calcium * 8.1 mg/dL (7.9-10.9); Magnesium 1.3 mg/dL (1.2-2.8); Phosphorus 2.8 mg/dL (2.2-4.2); Potassium 3.9 mmol/L (3.4-4.6); Total Protein 5.9 gm/dL (6.2-8.2)
[2016-11-10 10:18] LABS: Urine Bacteria TRACE
[2016-11-10 10:19] LABS: Urine Mucus TRACE
[2016-11-10] MEDS: POTASSIUM CHLORIDE 20 MEQ in DEXTROSE 5%-NORMAL SALINE 990 ML IV SCH ×2 (10:33→16:17)
[2016-11-10 11:13] LABS: Atypical (Reactive) Lymph 1 % (0-2); Band 1 % (0-2.0); Eosinophil 5 % (0-3); Lymphocyte 12 % (20-51); Monocyte 3 % (0-9); Neutrophil 78 % (42-75); Neutrophil # 17.6 K/mm3 (1.3-6.0)
[2016-11-10 11:14] LABS: Platelet Estimate Normal (NORMAL)
[2016-11-10 11:16] LABS: Hypersegmented Polys 1+
[2016-11-10 11:17] LABS: Schistocytes 1+
[2016-11-10] MEDS ORDERED: CIPROFLOXACIN LACTATE/D5W 400 MG/200 ML BAG IV SCH (12:00)
--- NOTE | 2016-11-10 12:04 | PN ---
Subjective - Date and Time Seen Date: 11/10/16 Time: 12:02 Subjective Narrative: POD4 Ex lap BONIFACIO for PSBO Tolerating clears Neg BM Objective Objective Narrative: Drsg CDI - Vitals Vitals: Last Vital Signs Temp 37.4 C 11/10/16 10:22 Pulse 83 11/10/16 10:22 Resp 19 11/10/16 10:22 BP 132/72 11/10/16 10:22 Pulse Ox 94 11/10/16 10:22 - Abnormal Lab Findings Abnormal Lab Findings: Abnormal Lab Results 11/09/16 11/10/16 11/10/16 Range/Units 17:20 09:23 09:50 WBC (4.0-10.5) K/mm3 RBC (4.7-6.0) M/mm3 Hgb (13.5-18.0) gm/dL Hct (42.0-52.0) % MPV (6.0-9.5) fl Neutrophils % (Manual) (42-75) % Lymphocytes % (Manual) (20-51) % Eosinophils % (Manual) (0-3) % Neutrophils # (Manual) (1.3-6.0) K/mm3 Eosinophils # (Manual) (0.0-0.7) k/mm3 Chloride 110 H (97-106) mmol/L Carbon Dioxide 17.0 L (24-32.6) mmol/L Anion Gap 16.9 H (6.8-13.8) mmol/L BUN 47 H (6-23) mg/dL Creatinine 2.24 H (0.4-1.4) mg/dL Est GFR (Non-Af Amer) 30 L (60-130) mL/min Random Glucose 177 H (70-110) mg/dL ALT 11 L (19-67) U/L Total Protein 5.9 L (6.2-8.2) gm/dL Albumin 1.9 L (3.4-5.0) gm/dl Amylase 145 H (25-115) U/L Lipase 1143 H 1650 H (73-393) U/L Urine Protein 100 H (NEGATIVE) mg/dL Urine Glucose (UA) 250 H (NEGATIVE) mg/dL Urine Blood 50 H (NEGATIVE) /ul 11/10/16 Range/Units 09:50 WBC 22.5 H (4.0-10.5) K/mm3 RBC 3.45 L (4.7-6.0) M/mm3 Hgb 10.1 L (13.5-18.0) gm/dL Hct 29.8 L (42.0-52.0) % MPV 9.9 H (6.0-9.5) fl Neutrophils % (Manual) 78 H (42-75) % Lymphocytes % (Manual) 12 L (20-51) % Eosinophils % (Manual) 5 H (0-3) % Neutrophils # (Manual) 17.6 H (1.3-6.0) K/mm3 Eosinophils # (Manual) 1.1 H (0.0-0.7) k/mm3 Chloride (97-106) mmol/L Carbon Dioxide (24-32.6) mmol/L Anion Gap (6.8-13.8) mmol/L BUN (6-23) mg/dL Creatinine (0.4-1.4) mg/dL Est GFR (Non-Af Amer) (60-130) mL/min Random Glucose (70-110) mg/dL ALT (19-67) U/L Total Protein (6.2-8.2) gm/dL Albumin (3.4-5.0) gm/dl Amylase (25-115) U/L Lipase (73-393) U/L Urine Protein (NEGATIVE) mg/dL Urine Glucose (UA) (NEGATIVE) mg/dL Urine Blood (NEGATIVE) /ul Cauti Physician Documentation - Urinary Catheter Management Urethral (Foster) Date of Insertion: 11/06/16 Time of Insertion: 16:50 Date of Removal: 11/01/16 Time of Removal: 10:10 Assessment/Plan Plan Narrative: A: Stable P: Advance diet to regular - Problems/Diagnosis (1) Partial obstruction of small intestine Problem: Resolved
[2016-11-10 12:06] LABS: Ab Band 2 DNR g/dL (NONE DETECTED); Ab Band 3 DNR g/dL (NONE DETECTED); Alpha 1 Globulins 0.6 g/dL (0.2-0.3); Beta 1 Globulins 0.4 g/dL (0.4-0.6); SEP Albumin 2.6 g/dL (3.8-4.8)
[2016-11-10 12:10] LABS: CRP 3.8 mg/dL (0.0-0.9); Chol/HDL Risk Ratio 3.5 mg/dL (3.3-5.0)
[2016-11-10] MEDS: ENOXAPARIN SODIUM 30 MG/0.3 ML SYRG SC SCH (15:21)
[2016-11-10] MEDS: PIPERACILLIN SODIUM/TAZOBACTAM 3.375 GM in DEXTROSE 5 % IN WATER 100 ML IV SCH ×4 (16:13→23:26)
[2016-11-10] MEDS: INSULIN GLARGINE,HUM.REC.ANLOG 100 UNITS/ML VIAL SC SCH (17:17)
[2016-11-10] MEDS: ROSUVASTATIN CALCIUM 10 MG TABLET PO SCH (21:55)
[2016-11-11 06:15] LABS: Hematocrit 30.1 % (42.0-52.0); Hemoglobin 9.9 gm/dL (13.5-18.0); Mean Cell Volume 88.5 fl (78-100); Mean Corpuscular Hemoglobin 29.1 pg (27-31); Mean Corpuscular Hgb Conc 32.9 g/dl (32-36); Mean Platelet Volume 10.1 fl (6.0-9.5); Platelet Count 339 K/mm3 (150-450); Red Cell Distribution Width 13.2 % (11.5-14.0); White Blood Count 21.8 K/mm3 (4.0-10.5)
[2016-11-11 06:16] LABS: Total Cells Counted 100
[2016-11-11 06:35] LABS: Albumin * 1.8 gm/dl (3.4-5.0); BUN/Creatinine Ratio 21.2 (9.0-21.6); Bilirubin, Total 0.3 mg/dL (0.0-1.1); Ca. Corrected For Albumin 9.5 mg/dL (8.4-10.2); Calcium * 8.1 mg/dL (7.9-10.9); Carbon Dioxide 15.3 mmol/L (24-32.6); Potassium 4.3 mmol/L (3.4-4.6); Total Protein 5.7 gm/dL (6.2-8.2)
[2016-11-11 06:40] LABS: Eosinophil 6 % (0-3); Lymphocyte 12 % (20-51); Macrocytosis 1+; Monocyte 1 % (0-9); Neutrophil 81 % (42-75); Neutrophil # 17.7 K/mm3 (1.3-6.0); Platelet Estimate Normal (NORMAL); Polychromasia Trace
[2016-11-11 06:41] LABS: Dohle Bodies 2+
[2016-11-11] MEDS: LEVOTHYROXINE SODIUM 100 MCG TABLET PO SCH (07:14)
[2016-11-11] MEDS: INSULIN LISPRO 100 UNITS/ML VIAL SC SCH ×3 (07:14→16:55)
[2016-11-11] MEDS: PANTOPRAZOLE SODIUM 40 MG in NORMAL SALINE 100 ML IV SCH ×2 (07:15→18:44)
--- NOTE | 2016-11-11 07:29 | PN ---
Subjective - Date and Time Seen Date: 11/11/16 Time: 07:23 Subjective Narrative: Had a huge BM today per nursing staff. Afebrile. WBC slightly down. Complaining of muscle pain allover. Objective - Review of Systems Generalized/Overall Review: Denies: Chills, Fever EENTM: Reports: No Symptoms Reported Respiratory: Denies: Cough, Shortness of Breath Cardiac: Denies: Chest Pain, Edema, Palpitations Abdominal: Denies: Nausea, Vomiting, Abdominal Pain Genitourinary Symptoms: Denies: Urgency, Frequency Musculoskeletal Complaints: Reports: Joint Pain, Muscle Pain - Vitals Vitals: Last Vital Signs Temp 36.5 C 11/11/16 02:00 Pulse 65 11/11/16 02:00 Resp 18 11/11/16 02:00 BP 134/73 11/11/16 02:00 Pulse Ox 97 11/11/16 02:00 - Abnormal Lab Findings Abnormal Lab Findings: Abnormal Lab Results 11/01/16 11/10/16 11/10/16 Range/Units 10:45 09:23 09:50 WBC (4.0-10.5) K/mm3 RBC (4.7-6.0) M/mm3 Hgb (13.5-18.0) gm/dL Hct (42.0-52.0) % MPV (6.0-9.5) fl Neutrophils % (Manual) (42-75) % Lymphocytes % (Manual) (20-51) % Eosinophils % (Manual) (0-3) % Neutrophils # (Manual) (1.3-6.0) K/mm3 Eosinophils # (Manual) (0.0-0.7) k/mm3 ESR (0-10) mm/hr Chloride 110 H (97-106) mmol/L Carbon Dioxide 17.0 L (24-32.6) mmol/L Anion Gap 16.9 H (6.8-13.8) mmol/L BUN 47 H (6-23) mg/dL Creatinine 2.24 H (0.4-1.4) mg/dL Est GFR (Non-Af Amer) 30 L (60-130) mL/min Random Glucose 177 H (70-110) mg/dL ALT 11 L (19-67) U/L C-Reactive Prot, Quant (0.0-0.9) mg/dL Prot Electrophoresis 5.8 L g/dL Total Protein 5.9 L (6.2-8.2) gm/dL Albumin 1.9 L (3.4-5.0) gm/dl Albumin (PEP) 2.6 L g/dL Oxunz-9-Xkrkfogrf 0.6 H g/dL Hdhvq-4-Pqgxsqhoh 1.0 H g/dL LDL Cholesterol (70-130) mg/dL HDL Cholesterol (40-60) mg/dL Amylase 145 H (25-115) U/L Lipase 1650 H (73-393) U/L Urine Protein 100 H (NEGATIVE) mg/dL Urine Glucose (UA) 250 H (NEGATIVE) mg/dL Urine Blood 50 H (NEGATIVE) /ul 11/10/16 11/10/16 11/10/16 Range/Units 09:50 09:50 09:50 WBC 22.5 H (4.0-10.5) K/mm3 RBC 3.45 L (4.7-6.0) M/mm3 Hgb 10.1 L (13.5-18.0) gm/dL Hct 29.8 L (42.0-52.0) % MPV 9.9 H (6.0-9.5) fl Neutrophils % (Manual) 78 H (42-75) % Lymphocytes % (Manual) 12 L (20-51) % Eosinophils % (Manual) 5 H (0-3) % Neutrophils # (Manual) 17.6 H (1.3-6.0) K/mm3 Eosinophils # (Manual) 1.1 H (0.0-0.7) k/mm3 ESR 88 H (0-10) mm/hr Chloride (97-106) mmol/L Carbon Dioxide (24-32.6) mmol/L Anion Gap (6.8-13.8) mmol/L BUN (6-23) mg/dL Creatinine (0.4-1.4) mg/dL Est GFR (Non-Af Amer) (60-130) mL/min Random Glucose (70-110) mg/dL ALT (19-67) U/L C-Reactive Prot, Quant 3.8 H (0.0-0.9) mg/dL Prot Electrophoresis g/dL Total Protein (6.2-8.2) gm/dL Albumin (3.4-5.0) gm/dl Albumin (PEP) g/dL Npbrx-6-Edwnyqcrc g/dL Exxwt-0-Jhmlttupb g/dL LDL Cholesterol 15 L (70-130) mg/dL HDL Cholesterol 16 L (40-60) mg/dL Amylase (25-115) U/L Lipase (73-393) U/L Urine Protein (NEGATIVE) mg/dL Urine Glucose (UA) (NEGATIVE) mg/dL Urine Blood (NEGATIVE) /ul 11/11/16 11/11/16 Range/Units 06:08 06:08 WBC 21.8 H (4.0-10.5) K/mm3 RBC 3.40 L (4.7-6.0) M/mm3 Hgb 9.9 L (13.5-18.0) gm/dL Hct 30.1 L (42.0-52.0) % MPV 10.1 H (6.0-9.5) fl Neutrophils % (Manual) 81 H (42-75) % Lymphocytes % (Manual) 12 L (20-51) % Eosinophils % (Manual) 6 H (0-3) % Neutrophils # (Manual) 17.7 H (1.3-6.0) K/mm3 Eosinophils # (Manual) 1.3 H (0.0-0.7) k/mm3 ESR (0-10) mm/hr Chloride 110 H (97-106) mmol/L Carbon Dioxide 15.3 L (24-32.6) mmol/L Anion Gap 17.0 H (6.8-13.8) mmol/L BUN 49 H (6-23) mg/dL Creatinine 2.31 H (0.4-1.4) mg/dL Est GFR (Non-Af Amer) 29 L (60-130) mL/min Random Glucose 134 H (70-110) mg/dL ALT 9 L (19-67) U/L C-Reactive Prot, Quant (0.0-0.9) mg/dL Prot Electrophoresis g/dL Total Protein 5.7 L (6.2-8.2) gm/dL Albumin 1.8 L (3.4-5.0) gm/dl Albumin (PEP) g/dL Bljhs-7-Rgtxmshzt g/dL Udnwb-8-Bpevbwjvp g/dL LDL Cholesterol (70-130) mg/dL HDL Cholesterol (40-60) mg/dL Amylase (25-115) U/L Lipase (73-393) U/L Urine Protein (NEGATIVE) mg/dL Urine Glucose (UA) (NEGATIVE) mg/dL Urine Blood (NEGATIVE) /ul - Exam Constitutional: Present: Alert, Oriented x3, Cooperative, Elderly ENT Exam: Present: hard of hearing Neck: Present: supple Breasts: Present: Exam deferred Respiratory: Present: decreased breath sounds, No rales, No wheezing Cardiovascular/Chest: Present: regular rate, rhythm, no JVD, no murmur Abdomen: Present: nontender, nondistended, firm, hypoactive Extremity: Present: no pedal edema, no calf tenderness Cauti Physician Documentation - Urinary Catheter Management Urethral (Foster) Date of Insertion: 11/06/16 Time of Insertion: 16:50 Date of Removal: 11/01/16 Time of Removal: 10:10 Assessment/Plan - Problems/Diagnosis (1) SBO (small bowel obstruction) Problem: Acute Narrative: s/p adhesiolyis (2) Nondisplaced fracture of neck of left femur Problem: Acute Qualifiers: Encounter type: initial encounter Fracture type: closed Qualified Code(s) : S72.002A - Fracture of unspecified part of neck of left femur, initial encounter for closed fracture Narrative: s/p CRIF (3) Leukocytosis Problem: Acute Qualifiers: Leukocytosis type: unspecified Qualified Code(s): D72.829 - Elevated white blood cell count, unspecified Narrative: slightly improved. Discussed case with Demond Celestin , [facility]- give broad spectrum antibitoic- if WBC goes down in 48 hours continue for 7-10 days. ESR/ CRP elevated. Uric acid normal. Will add CK, LDH and aldolase for his muscle pain. will ikely be high due to his recent surgeries but if very high consider myositis. (4) Diabetes Problem: Chronic Qualifiers: Diabetes mellitus type: type 2 (5) HTN (hypertension) Problem: Chronic Qualifiers: Hypertension type: essential hypertension Qualified Code(s): I10 - Essential (primary) hypertension (6) Mild dementia Problem: Chronic (7) CRF (chronic renal failure) Problem: Acute Qualifiers: Chronic kidney disease stage: stage 4 (severe) Qualified Code(s): N18.4 - Chronic kidney disease, stage 4 (severe) (8) Nutrition deficiency due to insufficient food Problem: Acute Narrative: surgery has started him on regular diet. will d/c TPN.
[2016-11-11 07:30] LABS: Amylase * 159 U/L (25-115); CK Total * 99 U/L (0-259); LD 587 U/L (85-227); Lipase 1373 U/L (73-393)
[2016-11-11] MEDS: PIPERACILLIN SODIUM/TAZOBACTAM 3.375 GM in DEXTROSE 5 % IN WATER 100 ML IV SCH ×6 (08:32→22:48)
[2016-11-11] MEDS: amLODIPine BESYLATE 10 MG TABLET PO SCH (08:34)
[2016-11-11] MEDS: ASPIRIN 81 MG TABLET.DR PO SCH (08:34)
[2016-11-11] MEDS: CLONIDINE HCL 0.1 MG TABLET PO SCH ×2 (08:34→20:13)
[2016-11-11] MEDS: CLOPIDOGREL BISULFATE 75 MG TABLET PO SCH (08:35)
[2016-11-11] MEDS: METOPROLOL SUCCINATE 50 MG TABLET.SA PO SCH (08:35)
[2016-11-11] MEDS: CHLORTHALIDONE 25 MG TABLET PO SCH (08:35)
[2016-11-11] MEDS: CHOLECALCIFEROL 1,000 UNIT CAPSULE PO SCH (08:35)
[2016-11-11] MEDS: NYSTATIN 15 APPL BTL TP SCH ×4 (08:35→20:14)
[2016-11-11] MEDS: SENNOSIDES/DOCUSATE SODIUM 1 TAB TABLET PO SCH ×2 (08:35→20:13)
[2016-11-11] MEDS: traMADol HCL 50 MG TABLET PO PRN (08:36)
[2016-11-11] MEDS: PREGABALIN 25 MG CAPSULE PO SCH (08:36)
--- NOTE | 2016-11-11 10:44 | PN ---
Subjective - Date and Time Seen Date: 11/11/16 Time: 10:42 Subjective Narrative: POD5 Ex lap BONIFACIO for PSBO No c/o 4 large BMs today. Nurses are giving him a shave right now. Objective Objective Narrative: Kristina is CDI - Vitals Vitals: Last Vital Signs Temp 36.8 C 11/11/16 07:34 Pulse 93 11/11/16 08:35 Resp 18 11/11/16 07:34 BP 137/83 11/11/16 08:35 Pulse Ox 98 11/11/16 07:34 - Abnormal Lab Findings Abnormal Lab Findings: Abnormal Lab Results 11/01/16 11/10/16 11/10/16 Range/Units 10:45 09:50 09:50 WBC (4.0-10.5) K/mm3 RBC (4.7-6.0) M/mm3 Hgb (13.5-18.0) gm/dL Hct (42.0-52.0) % MPV (6.0-9.5) fl Neutrophils % (Manual) 78 H (42-75) % Lymphocytes % (Manual) 12 L (20-51) % Eosinophils % (Manual) 5 H (0-3) % Neutrophils # (Manual) 17.6 H (1.3-6.0) K/mm3 Eosinophils # (Manual) 1.1 H (0.0-0.7) k/mm3 ESR (0-10) mm/hr Chloride (97-106) mmol/L Carbon Dioxide (24-32.6) mmol/L Anion Gap (6.8-13.8) mmol/L BUN (6-23) mg/dL Creatinine (0.4-1.4) mg/dL Est GFR (Non-Af Amer) (60-130) mL/min Random Glucose (70-110) mg/dL ALT (19-67) U/L Lactate Dehydrogenase (85-227) U/L C-Reactive Prot, Quant 3.8 H (0.0-0.9) mg/dL Prot Electrophoresis 5.8 L g/dL Total Protein (6.2-8.2) gm/dL Albumin (3.4-5.0) gm/dl Albumin (PEP) 2.6 L g/dL Aidhv-9-Orumxyymj 0.6 H g/dL Borts-7-Hghyjfofr 1.0 H g/dL LDL Cholesterol 15 L (70-130) mg/dL HDL Cholesterol 16 L (40-60) mg/dL Amylase (25-115) U/L Lipase (73-393) U/L 11/10/16 11/11/16 11/11/16 Range/Units 09:50 06:08 06:08 WBC 21.8 H (4.0-10.5) K/mm3 RBC 3.40 L (4.7-6.0) M/mm3 Hgb 9.9 L (13.5-18.0) gm/dL Hct 30.1 L (42.0-52.0) % MPV 10.1 H (6.0-9.5) fl Neutrophils % (Manual) 81 H (42-75) % Lymphocytes % (Manual) 12 L (20-51) % Eosinophils % (Manual) 6 H (0-3) % Neutrophils # (Manual) 17.7 H (1.3-6.0) K/mm3 Eosinophils # (Manual) 1.3 H (0.0-0.7) k/mm3 ESR 88 H (0-10) mm/hr Chloride 110 H (97-106) mmol/L Carbon Dioxide 15.3 L (24-32.6) mmol/L Anion Gap 17.0 H (6.8-13.8) mmol/L BUN 49 H (6-23) mg/dL Creatinine 2.31 H (0.4-1.4) mg/dL Est GFR (Non-Af Amer) 29 L (60-130) mL/min Random Glucose 134 H (70-110) mg/dL ALT 9 L (19-67) U/L Lactate Dehydrogenase (85-227) U/L C-Reactive Prot, Quant (0.0-0.9) mg/dL Prot Electrophoresis g/dL Total Protein 5.7 L (6.2-8.2) gm/dL Albumin 1.8 L (3.4-5.0) gm/dl Albumin (PEP) g/dL Wiebd-2-Cjpfhzxiq g/dL Jfxcz-7-Bzmuwvkez g/dL LDL Cholesterol (70-130) mg/dL HDL Cholesterol (40-60) mg/dL Amylase (25-115) U/L Lipase (73-393) U/L 11/11/16 Range/Units 06:08 WBC (4.0-10.5) K/mm3 RBC (4.7-6.0) M/mm3 Hgb (13.5-18.0) gm/dL Hct (42.0-52.0) % MPV (6.0-9.5) fl Neutrophils % (Manual) (42-75) % Lymphocytes % (Manual) (20-51) % Eosinophils % (Manual) (0-3) % Neutrophils # (Manual) (1.3-6.0) K/mm3 Eosinophils # (Manual) (0.0-0.7) k/mm3 ESR (0-10) mm/hr Chloride (97-106) mmol/L Carbon Dioxide (24-32.6) mmol/L Anion Gap (6.8-13.8) mmol/L BUN (6-23) mg/dL Creatinine (0.4-1.4) mg/dL Est GFR (Non-Af Amer) (60-130) mL/min Random Glucose (70-110) mg/dL ALT (19-67) U/L Lactate Dehydrogenase 587 H (85-227) U/L C-Reactive Prot, Quant (0.0-0.9) mg/dL Prot Electrophoresis g/dL Total Protein (6.2-8.2) gm/dL Albumin (3.4-5.0) gm/dl Albumin (PEP) g/dL Jwcuq-4-Spmhfxzfj g/dL Jvemv-7-Akgziodcd g/dL LDL Cholesterol (70-130) mg/dL HDL Cholesterol (40-60) mg/dL Amylase 159 H (25-115) U/L Lipase 1373 H (73-393) U/L Cauti Physician Documentation - Urinary Catheter Management Urethral (Foster) Date of Insertion: 11/06/16 Time of Insertion: 16:50 Date of Removal: 11/01/16 Time of Removal: 10:10 Assessment/Plan Plan Narrative: A: Improved P: Dr. Campos note re WBC reviewed. Agree Satisfactory ongoing convalescence from abdominal surgery. - Problems/Diagnosis (1) Partial obstruction of small intestine Problem: Resolved
[2016-11-11] MEDS: POTASSIUM CHLORIDE 20 MEQ in DEXTROSE 5%-NORMAL SALINE 990 ML IV SCH ×2 (11:54→16:04)
--- NOTE | 2016-11-11 12:07 | PN ---
Subjective - Date and Time Seen Date: 11/11/16 Time: 12:04 Subjective Narrative: No acute overnight events. Pt reports that he has aches all over his body. Pt reports that he has been able to transition from bed to chair with assistance. Pt reports minimal pain from his hip. Objective - Vitals Vitals: Last Vital Signs Temp 36.8 C 11/11/16 11:04 Pulse 84 11/11/16 11:04 Resp 20 11/11/16 11:04 BP 145/88 11/11/16 11:04 Pulse Ox 96 11/11/16 11:04 - Abnormal Lab Findings Abnormal Lab Findings: Abnormal Lab Results 11/01/16 11/10/16 11/10/16 Range/Units 10:45 09:50 09:50 WBC (4.0-10.5) K/mm3 RBC (4.7-6.0) M/mm3 Hgb (13.5-18.0) gm/dL Hct (42.0-52.0) % MPV (6.0-9.5) fl Neutrophils % (Manual) (42-75) % Lymphocytes % (Manual) (20-51) % Eosinophils % (Manual) (0-3) % Neutrophils # (Manual) (1.3-6.0) K/mm3 Eosinophils # (Manual) (0.0-0.7) k/mm3 ESR 88 H (0-10) mm/hr Chloride (97-106) mmol/L Carbon Dioxide (24-32.6) mmol/L Anion Gap (6.8-13.8) mmol/L BUN (6-23) mg/dL Creatinine (0.4-1.4) mg/dL Est GFR (Non-Af Amer) (60-130) mL/min Random Glucose (70-110) mg/dL ALT (19-67) U/L Lactate Dehydrogenase (85-227) U/L C-Reactive Prot, Quant 3.8 H (0.0-0.9) mg/dL Prot Electrophoresis 5.8 L g/dL Total Protein (6.2-8.2) gm/dL Albumin (3.4-5.0) gm/dl Albumin (PEP) 2.6 L g/dL Nftkz-6-Sslloxxyr 0.6 H g/dL Zkdun-6-Ltdewzkmd 1.0 H g/dL LDL Cholesterol 15 L (70-130) mg/dL HDL Cholesterol 16 L (40-60) mg/dL Amylase (25-115) U/L Lipase (73-393) U/L 11/11/16 11/11/16 11/11/16 Range/Units 06:08 06:08 06:08 WBC 21.8 H (4.0-10.5) K/mm3 RBC 3.40 L (4.7-6.0) M/mm3 Hgb 9.9 L (13.5-18.0) gm/dL Hct 30.1 L (42.0-52.0) % MPV 10.1 H (6.0-9.5) fl Neutrophils % (Manual) 81 H (42-75) % Lymphocytes % (Manual) 12 L (20-51) % Eosinophils % (Manual) 6 H (0-3) % Neutrophils # (Manual) 17.7 H (1.3-6.0) K/mm3 Eosinophils # (Manual) 1.3 H (0.0-0.7) k/mm3 ESR (0-10) mm/hr Chloride 110 H (97-106) mmol/L Carbon Dioxide 15.3 L (24-32.6) mmol/L Anion Gap 17.0 H (6.8-13.8) mmol/L BUN 49 H (6-23) mg/dL Creatinine 2.31 H (0.4-1.4) mg/dL Est GFR (Non-Af Amer) 29 L (60-130) mL/min Random Glucose 134 H (70-110) mg/dL ALT 9 L (19-67) U/L Lactate Dehydrogenase 587 H (85-227) U/L C-Reactive Prot, Quant (0.0-0.9) mg/dL Prot Electrophoresis g/dL Total Protein 5.7 L (6.2-8.2) gm/dL Albumin 1.8 L (3.4-5.0) gm/dl Albumin (PEP) g/dL Palbp-7-Mzbzalfwm g/dL Wihik-5-Yljyelsjt g/dL LDL Cholesterol (70-130) mg/dL HDL Cholesterol (40-60) mg/dL Amylase 159 H (25-115) U/L Lipase 1373 H (73-393) U/L - Exam Constitutional: Present: Alert, Cooperative, No distress Respiratory: Present: no respiratory distress Extremity: Present: other - LLE bandages clean, dry, and intact. No erythema. SILT, 5/5 strength of EHL, FHL, DF, PF. Distal pulses 2+ Cauti Physician Documentation - Urinary Catheter Management Urethral (Foster) Date of Insertion: 11/06/16 Time of Insertion: 16:50 Date of Removal: 11/01/16 Time of Removal: 10:10 Assessment/Plan Plan Narrative: 81 yo M w/ non-displaced L femoral neck fx s/p ORIF with cannulated screws, POD #12. - WBAT, ROM as tolerated - elevated WBC at 21.8- continues to be labile, Medicine managing, hip not concerning as a source at this time -HgB stable 9.9 - postoperative SBO - s/p ex lap with lysis of adhesions and hernia repair due to lack of improvement with NGT and bowel rest, NGT clamped, Gen Surg managing - TPN per Medicine team - renal failure - continue management per Medicine team - oral pain meds - DVT ppx: lovenox, SCDs, teds - PT/OT - minimal progress with upright mobility - dispo: continue inpatient care per Medicine team - Problems/Diagnosis (1) Hip fracture, left Problem: Acute Qualifiers: Encounter type: initial encounter Fracture type: closed Qualified Code(s) : S72.002A - Fracture of unspecified part of neck of left femur, initial encounter for closed fracture (2) Leukocytosis Problem: Acute Qualifiers: Leukocytosis type: unspecified Qualified Code(s): D72.829 - Elevated white blood cell count, unspecified (3) CRF (chronic renal failure) Problem: Acute Qualifiers: Chronic kidney disease stage: stage 4 (severe) Qualified Code(s): N18.4 - Chronic kidney disease, stage 4 (severe) (4) Ileus, postoperative Problem: Acute
[2016-11-11] MEDS: ENOXAPARIN SODIUM 30 MG/0.3 ML SYRG SC SCH (13:28)
[2016-11-11] MEDS: INSULIN GLARGINE,HUM.REC.ANLOG 100 UNITS/ML VIAL SC SCH (16:56)
[2016-11-11] MEDS: ROSUVASTATIN CALCIUM 10 MG TABLET PO SCH (20:13)
[2016-11-12 05:08] LABS: Hemoglobin 9.9 gm/dL (13.5-18.0); Mean Cell Volume 88.5 fl (78-100); Mean Corpuscular Hemoglobin 29.2 pg (27-31); Mean Platelet Volume 10.1 fl (6.0-9.5); Neutrophil # 15.7 K/mm3 (1.3-6.0); Neutrophil % 77.2 % (42-75.0); Platelet Count 356 K/mm3 (150-450); Red Blood Count 3.39 M/mm3 (4.7-6.0); Red Cell Distribution Width 13.3 % (11.5-14.0); White Blood Count 20.3 K/mm3 (4.0-10.5)
[2016-11-12] MEDS: INSULIN LISPRO 100 UNITS/ML VIAL SC SCH ×3 (06:24→17:42)
[2016-11-12] MEDS: oxyCODONE HCL/ACETAMINOPHEN 1 TAB TABLET PO PRN (06:30)
[2016-11-12] MEDS: PANTOPRAZOLE SODIUM 40 MG in NORMAL SALINE 100 ML IV SCH ×2 (06:31→19:32)
[2016-11-12] MEDS: LEVOTHYROXINE SODIUM 100 MCG TABLET PO SCH (06:31)
[2016-11-12] MEDS: PIPERACILLIN SODIUM/TAZOBACTAM 3.375 GM in DEXTROSE 5 % IN WATER 100 ML IV SCH ×6 (07:17→22:32)
--- NOTE | 2016-11-12 08:12 | PN ---
Subjective - Date and Time Seen Date: 11/12/16 Time: 08:10 Subjective Narrative: POD6 s/p Ex Lap BONIFACIO for PSBO No new c/o Tolerating PO +BM Objective Objective Narrative: Wound without s/s infection - Vitals Vitals: Last Vital Signs Temp 36.4 C L 11/12/16 07:03 Pulse 66 11/12/16 07:03 Resp 20 11/12/16 07:03 BP 145/67 11/12/16 07:03 Pulse Ox 96 11/12/16 07:03 - Abnormal Lab Findings Abnormal Lab Findings: Abnormal Lab Results 11/12/16 Range/Units 05:10 WBC 20.3 H (4.0-10.5) K/mm3 RBC 3.39 L (4.7-6.0) M/mm3 Hgb 9.9 L (13.5-18.0) gm/dL Hct 30.0 L (42.0-52.0) % MPV 10.1 H (6.0-9.5) fl Immature Gran % (Auto) 5.40 H (0.001-0.429) % Immature Gran # (Auto) 1.10 H (0.000-0.0310) K/mm3 Neutrophils % 77.2 H (42-75.0) % Lymphocytes % 7.6 L (20-51) % Eosinophils % 4.8 H (0.0-3.0) % Neutrophils # 15.7 H (1.3-6.0) K/mm3 Eosinophils # 1.0 H (0.0-0.7) k/mm3 Cauti Physician Documentation - Urinary Catheter Management Urethral (Foster) Date of Insertion: 11/06/16 Time of Insertion: 16:50 Date of Removal: 11/01/16 Time of Removal: 10:10 Assessment/Plan Plan Narrative: A: Satisfactory ongoing postop convalescence P: No changes - Problems/Diagnosis (1) Partial obstruction of small intestine Problem: Resolved
--- NOTE | 2016-11-12 08:21 | PN ---
Progess Note - Interim Narrative: 11/12/16 08:20 Toney continue with IV antibioitcs as WBC is slowly improving. Possible SNF unless [facility] can do IV antibiotics.
[2016-11-12] MEDS: SENNOSIDES/DOCUSATE SODIUM 1 TAB TABLET PO SCH ×2 (08:39→20:17)
[2016-11-12] MEDS: CHLORTHALIDONE 25 MG TABLET PO SCH (08:40)
[2016-11-12] MEDS: amLODIPine BESYLATE 10 MG TABLET PO SCH (08:40)
[2016-11-12] MEDS: METOPROLOL SUCCINATE 50 MG TABLET.SA PO SCH (08:40)
[2016-11-12] MEDS: CLONIDINE HCL 0.1 MG TABLET PO SCH ×2 (08:41→20:18)
[2016-11-12] MEDS: NYSTATIN 15 APPL BTL TP SCH ×4 (08:41→20:18)
[2016-11-12] MEDS: ASPIRIN 81 MG TABLET.DR PO SCH (08:41)
[2016-11-12] MEDS: CLOPIDOGREL BISULFATE 75 MG TABLET PO SCH (08:41)
[2016-11-12] MEDS: traMADol HCL 50 MG TABLET PO PRN (08:42)
[2016-11-12] MEDS: PREGABALIN 25 MG CAPSULE PO SCH (08:42)
[2016-11-12] MEDS: CHOLECALCIFEROL 1,000 UNIT CAPSULE PO SCH (08:42)
[2016-11-12] MEDS: POTASSIUM CHLORIDE 20 MEQ in DEXTROSE 5%-NORMAL SALINE 990 ML IV SCH ×2 (08:50→11:30)
[2016-11-12] MEDS: ENOXAPARIN SODIUM 30 MG/0.3 ML SYRG SC SCH (14:45)
--- NOTE | 2016-11-12 15:12 | PN ---
Subjective - Date and Time Seen Date: 11/12/16 Time: 15:07 Subjective Narrative: Patient still with max assist with ambulation. elevated amylase/lipase liklely due to TPN infusion, unlikely pancreatitis - no abdominal pain. Objective - Review of Systems Generalized/Overall Review: Reports: Weakness. Denies: Chills, Fever EENTM: Reports: No Symptoms Reported Respiratory: Denies: Cough, Shortness of Breath Cardiac: Denies: Chest Pain, Edema, Palpitations Abdominal: Denies: Nausea, Vomiting, Abdominal Pain Genitourinary Symptoms: Denies: Urgency, Frequency Musculoskeletal Complaints: Reports: Joint Pain - Vitals Vitals: Last Vital Signs Temp 36.6 C 11/12/16 10:35 Pulse 74 11/12/16 10:35 Resp 18 11/12/16 10:35 BP 113/59 11/12/16 10:35 Pulse Ox 100 11/12/16 10:35 - Abnormal Lab Findings Abnormal Lab Findings: Abnormal Lab Results 11/12/16 Range/Units 05:10 WBC 20.3 H (4.0-10.5) K/mm3 RBC 3.39 L (4.7-6.0) M/mm3 Hgb 9.9 L (13.5-18.0) gm/dL Hct 30.0 L (42.0-52.0) % MPV 10.1 H (6.0-9.5) fl Immature Gran % (Auto) 5.40 H (0.001-0.429) % Immature Gran # (Auto) 1.10 H (0.000-0.0310) K/mm3 Neutrophils % 77.2 H (42-75.0) % Lymphocytes % 7.6 L (20-51) % Eosinophils % 4.8 H (0.0-3.0) % Neutrophils # 15.7 H (1.3-6.0) K/mm3 Eosinophils # 1.0 H (0.0-0.7) k/mm3 - Exam Constitutional: Present: Alert - AAO X 2, Cooperative, Elderly ENT Exam: Present: hard of hearing Neck: Present: supple Breasts: Present: Exam deferred Respiratory: Present: decreased breath sounds, No rales, No wheezing Cardiovascular/Chest: Present: regular rate, rhythm, no JVD, no murmur Abdomen: Present: Normal bowel sounds, nontender, distended Extremity: Present: no calf tenderness, pedal edema Cauti Physician Documentation - Urinary Catheter Management Urethral (Foster) Date of Insertion: 11/06/16 Time of Insertion: 16:50 Date of Removal: 11/01/16 Time of Removal: 10:10 Assessment/Plan - Problems/Diagnosis (1) SBO (small bowel obstruction) Problem: Acute Narrative: S/P ADHESIOLYSIS. positive BM. (2) Nondisplaced fracture of neck of left femur Problem: Acute Qualifiers: Encounter type: initial encounter Fracture type: closed Qualified Code(s) : S72.002A - Fracture of unspecified part of neck of left femur, initial encounter for closed fracture Narrative: s/p CRIF, slow to recover with PT/OT (3) Leukocytosis Problem: Acute Qualifiers: Leukocytosis type: unspecified Qualified Code(s): D72.829 - Elevated white blood cell count, unspecified Narrative: infection more than inflammatory or malignancy. WBC improved slightly but has not finished his 48 hour. Will transfer to SNF for IV antibuiotics in a.m. (4) Diabetes Problem: Chronic Qualifiers: Diabetes mellitus type: type 2 (5) HTN (hypertension) Problem: Chronic Qualifiers: Hypertension type: essential hypertension Qualified Code(s): I10 - Essential (primary) hypertension (6) Mild dementia Problem: Chronic (7) CRF (chronic renal failure) Problem: Acute Qualifiers: Chronic kidney disease stage: stage 4 (severe) Qualified Code(s): N18.4 - Chronic kidney disease, stage 4 (severe) (8) Nutrition deficiency due to insufficient food Problem: Acute Narrative: back on regular diet. TPN d/c.
[2016-11-12] MEDS: INSULIN GLARGINE,HUM.REC.ANLOG 100 UNITS/ML VIAL SC SCH (17:41)
[2016-11-12] MEDS: ROSUVASTATIN CALCIUM 10 MG TABLET PO SCH (20:18)
[2016-11-13] MEDS: POTASSIUM CHLORIDE 20 MEQ in DEXTROSE 5%-NORMAL SALINE 990 ML IV SCH (03:33)
[2016-11-13 05:27] LABS: Hematocrit 29.7 % (42.0-52.0); Hemoglobin 9.8 gm/dL (13.5-18.0); Mean Cell Volume 88.7 fl (78-100); Mean Corpuscular Hemoglobin 29.3 pg (27-31); Mean Platelet Volume 10.4 fl (6.0-9.5); Platelet Count 354 K/mm3 (150-450); Red Blood Count 3.35 M/mm3 (4.7-6.0); Red Cell Distribution Width 13.6 % (11.5-14.0); White Blood Count 17.4 K/mm3 (4.0-10.5)
[2016-11-13 05:32] LABS: Total Cells Counted 100
[2016-11-13 05:39] LABS: Anion Gap 15.4 mmol/L (6.8-13.8); BUN/Creatinine Ratio 18.7 (9.0-21.6); Calcium * 8.3 mg/dL (7.9-10.9); Carbon Dioxide 17.7 mmol/L (24-32.6); Estimated Creat Clear 24.2; Potassium 4.1 mmol/L (3.4-4.6)
[2016-11-13 06:21] LABS: Eosinophil 4 % (0-3); Immature Granulocyte 1 (0-1); Lymphocyte 9 % (20-51); Monocyte 3 % (0-9); Neutrophil 83 % (42-75); Neutrophil # 14.4 K/mm3 (1.3-6.0); Platelet Estimate Normal (NORMAL); RBC Morphology Normal (NORMAL)
[2016-11-13] MEDS: INSULIN LISPRO 100 UNITS/ML VIAL SC SCH (06:34)
[2016-11-13] MEDS: PANTOPRAZOLE SODIUM 40 MG in NORMAL SALINE 100 ML IV SCH (06:36)
[2016-11-13] MEDS: LEVOTHYROXINE SODIUM 100 MCG TABLET PO SCH (06:36)
[2016-11-13] MEDS: PIPERACILLIN SODIUM/TAZOBACTAM 3.375 GM in DEXTROSE 5 % IN WATER 100 ML IV SCH ×2 (06:37)
[2016-11-13 06:51] VITALS: BP 141/74
== END 2016-11-13 07:51 | disposition swing bed (61) | DRG 481 ==
LOC: ER 17:01 → MS 20:43
PROVIDERS: ADMIT Nurse Practitioner; ATTEND Internal Medicine
PROC: 0QS704Z Reposition Left Upper Femur with Internal Fixation Device, Open Approach (ICD-10-PCS; principal; 2016-10-30 08:00)
PROC: 0DN80ZZ Release Small Intestine, Open Approach (ICD-10-PCS; 2016-11-06)
PROC: 0DQ80ZZ Repair Small Intestine, Open Approach (ICD-10-PCS; 2016-11-06)
DX: S72.035A Nondisplaced midcervical fracture of left femur, initial encounter for closed fracture (principal); K56.5 Intestinal adhesions [bands] with obstruction (postinfection); K91.71 Accidental puncture and laceration of a digestive system organ or structure during a digestive system procedure; I24.8 Other forms of acute ischemic heart disease; W01.0XXA Fall on same level from slipping, tripping and stumbling without subsequent striking against object, initial encounter; Y92.129 Unspecified place in nursing home as the place of occurrence of the external cause; Y83.8 Other surgical procedures as the cause of abnormal reaction of the patient, or of later complication, without mention of misadventure at the time of the procedure; Y92.234 Operating room of hospital as the place of occurrence of the external cause; Y81.8 Miscellaneous general- and plastic-surgery devices associated with adverse incidents, not elsewhere classified; D72.829 Elevated white blood cell count, unspecified; I12.9 Hypertensive chronic kidney disease with stage 1 through stage 4 chronic kidney disease, or unspecified chronic kidney disease; I25.10 Atherosclerotic heart disease of native coronary artery without angina pectoris; N18.3 Chronic kidney disease, stage 3 (moderate); E11.22 Type 2 diabetes mellitus with diabetic chronic kidney disease; E78.5 Hyperlipidemia, unspecified; E03.9 Hypothyroidism, unspecified; I25.2 Old myocardial infarction; Z79.82 Long term (current) use of aspirin; Z79.4 Long term (current) use of insulin; Z95.1 Presence of aortocoronary bypass graft
CPT/HCPCS: 27236; 36415; 44005; 71010; 73502; 73700; 74000; 74020; 74176; 76000; 76705; 76770; 80048; 80053; 80061; 80076; 81001; 81015; 82085; 82150; 82272; 82436; 82465; 82550; 82570; 82977; 83605; 83615; 83690; 83735; 83930; 83935; 84100; 84133; 84145; 84156; 84165; 84166; 84300; 84478; 84484; 84540; 84550; 85007; 85025; 85027; 85610; 85652; 85730; 86140; 86850; 86900; 87040; 87081; 87086; 93005; 93306; 97110; 97163; 97165; 97530; 97535; J2405

== ENCOUNTER 2016-11-13 07:51 | Inpatient (IN) | payer MEDICARE, BC ==
--- OUTSIDE RECORDS SUMMARY | 2016-11-13 08:04 | XMS REPORT | Continuity of Care Document ---
:1935 Author Organization [facility] [place] [address] Phone [phone] Care Team Providers Name Role Phone Provider, No-Primary Care Primary Care Provider Unavailable Source Comments This disclosure is being made pursuant to the Care Everywhere program, applicable federal and state laws, and may not contain all informaitonavailable regarding this patient.[facility] ([facility]) Active Allergies and Adverse Reactions Not on File Current Medications Not on file Active Problems Not on file Most Recent Encounters Date Type Specialty Providers Description 11/10/2016 Telephone Med Infectious Mireille Garay MD Chief Comp: Disease Consultation Social History Tobacco Use Types Packs/Day Years Used Date Never Assessed Plan of Care Health Maintenance Due Date Last Done Comments Hepatitis B Vaccine (1 of 3 - Primary Series) 1935 Tdap Vaccine 1945 Lipid Disorder Screening 02/12/1952 Td Vaccine 02/12/1952 Colonoscopy 1984 Zoster Vaccine 1994 Pneumococcal Vaccine (1 of 2 - PCV13) 1999 Influenza Vaccine: Seasonal (Season Ended) 2016 Results from Last 3 Months Not on file
[2016-11-13] MEDS ORDERED: ACETAMINOPHEN 500 MG TABLET PO PRN (08:36)
[2016-11-13] MEDS ORDERED: DOCUSATE SODIUM 50 MG PO PRN (08:36)
[2016-11-13] MEDS ORDERED: NITROGLYCERIN 0.4 MG/TAB BTL SL PRN (08:36)
[2016-11-13] MEDS ORDERED: ONDANSETRON HCL/PF 2 MG/ML VIAL IV PRN (08:36)
[2016-11-13] MEDS ORDERED: ACETAMINOPHEN 325 MG TABLET PO PRN (08:36)
[2016-11-13] MEDS ORDERED: PANTOPRAZOLE SODIUM 40 MG VIAL IV SCH (08:45)
[2016-11-13] MEDS ORDERED: PIPERACILLIN SODIUM/TAZOBACTAM 3.375 GM VIAL IV SCH (08:45)
[2016-11-13] MEDS ORDERED: LISINOPRIL 40 MG TABLET PO SCH (09:00)
[2016-11-13] MEDS: LEVOTHYROXINE SODIUM 100 MCG TABLET PO SCH (09:35)
[2016-11-13] MEDS: amLODIPine BESYLATE 10 MG TABLET PO SCH (09:36)
[2016-11-13] MEDS: METOPROLOL SUCCINATE 50 MG TABLET.SA PO SCH (09:36)
[2016-11-13] MEDS: ASPIRIN 81 MG TABLET.DR PO SCH (09:37)
[2016-11-13] MEDS: CLONIDINE HCL 0.1 MG TABLET PO SCH ×2 (09:37→20:31)
[2016-11-13] MEDS: traMADol HCL 50 MG TABLET PO PRN (09:37)
[2016-11-13] MEDS: CLOPIDOGREL BISULFATE 75 MG TABLET PO SCH (09:37)
[2016-11-13] MEDS: CHOLECALCIFEROL 1,000 UNIT CAPSULE PO SCH (09:37)
[2016-11-13] MEDS: NYSTATIN 15 APPL BTL TP SCH ×4 (09:39→20:31)
[2016-11-13] MEDS: PREGABALIN 25 MG CAPSULE PO SCH (09:39)
[2016-11-13] MEDS: CHLORTHALIDONE 25 MG TABLET PO SCH (09:39)
--- NOTE | 2016-11-13 09:53 | HP ---
Chief Complaint - Chief Complaint Date of Service: 11/13/16 Time of Service: 09:52 Chief Complaint: SNF for IV antibiotics/PT/OT History of Present Illness: Osmany Harris is a 81-yr-old WM with a PMH of: CKD III, CAD, DM II, Gout, HLD , HTN, Hypothyroidism, AR & Spinal Stenosis who was admitted on 10/28/2016 for left hip pain after a fall. Pt is a long-term care resident at [facility] and has lived there for the past 25 yrs. Pt states that on the morning of admission after taking a shower, he lost his balance while trying to reach for his walker, and he fell down. He landed on the LT side of the body. He denies hitting his head on the surface or any object. He also denies any dizziness or lightheadedness prior to the fall. He was brought to the ED around noon. The X-ray imaging of the LT Hip/Pelvis & follow-up with a CT for better clarity showed he sustained a non- displaced LT femoral neck Fracture. His lab- work showed mildly elevated WBC of 15,300 with a LT shift. He denies any fever, chills, night sweats, coughing, diarrhea, abdominal pain or pain with urination. The patient was referred to Orthopedics and underwent CRIF with multiple pins. His WBC which was elevated on admission was likel reactive to the stress of his fracture. His troponin became eievated but had no EKG, CP. It was likely due to his CRF plus increased demand ischemia from his recent. surgery. His WBC continue to wax and wane and septic work up was negative. Impression was still infection more than inflammatory more than malignancy. He was found to have initially adynamic ileus on AXR . He was put on NPO and IVF . A follow up CTS of the abdomen showed PSBO. Surgery was consulted. He underwent adhesiolysis, suture of serosal tear after 1 week of conservative treatment for which TPN was also started. He was initially on Cipro/Flagyl and consultation with I.D. , ARTURO was done . Since we could not really pinpoint definitely a source of infection, they recommended starting a broad spectrum antibiotics and if WBC start going down in 48 hours to continue it for 7-10 days. He is being transferred to SNF for IV antibiotics and continuance of his PT/OT. - Patient's Past Medical History Patient History - Medical: Diabetes Type 2, Diabetes Type 2 Insulin Dependent, Hypothyroidism, Renal Failure, Other Patient History - Cardiac/Respiratory: Coronary Heart Disease, Hypertension, Hyperlipidemia, Myocardial Infarction, Other Patient History - Cancer: No Hx of Cancer Patient History - Surgical Procedures: Cholecystectomy, Coronary Bypass Surgery Patient History - Other: None - Family History Mother Family History - Medical: , No pertinent hx Family History - Cardiac/Respiratory: No pertinent hx Family History - Cancer: No pertinent family hx Father Family History - Medical: , No pertinent hx Family History - Cardiac/Respiratory: No pertinent hx Family History - Cancer: No pertinent family hx - Social History Living Situations: group home Abuse History: No History of abuse Psych History: No pertinent hx Does anyone smoke in the home?: No Alcohol Use: none Drug Use: none - Immunizations Immunizations Up to Date: Yes Hx Pneumococcal Vaccination: No History of Influenza Vaccine: No Review Of Systems (GEN) - Review of Systems Generalized/Overall Review: Present: Weakness. Absent: Chills, Fever EENTM: Present: No Symptoms Reported Respiratory: Absent: Cough, Shortness of Breath Cardiac: Absent: Chest Pain, Edema, Palpitations Abdominal: Absent: Nausea, Vomiting Genitourinary: Absent: Urgency, Frequency Musculoskeletal: Present: Joint Pain Immunizations: IMMUNIZATION HX Immunizations Up to Date Yes History of Influenza Vaccine No Hx Pneumococcal Vaccination No Allergies/Adverse Reactions: Allergies Allergy/AdvReac Type Severity Reaction Status Date / Time No Known Allergies Allergy Verified 11/13/16 08:52 Home Medications: HOME MEDICATIONS Aspirin [[place] Aspirin] 81 mg PO QAM 09/02/14 [Last Taken 11/12/16 09:00] Chlorthalidone [Hygroton] 12.5 mg PO DAILY 09/02/14 [Last Taken 11/12/16 09:00] Ergocalciferol (Vitamin D2) [Vitamin D2] 2,000 unit PO DAILY 09/02/14 [Last Taken 10/28/16 07:00] Insulin Glargine,Hum.rec.anlog [Lantus] 45 units SC QPM 09/02/14 [Last Taken 20:00] Nitroglycerin 0.4 mg SL PRN PRN MDD 3 doses 09/02/14 [Last Taken Unknown] amLODIPine BESYLATE [Norvasc] 10 mg PO QAM 09/02/14 [Last Taken 11/12/16 09:00] Catapres 0.1 mg PO BID 07/18/15 [Last Taken 11/12/16 09:00] Levothyroxine Sodium [Synthroid] 100 mcg PO DAILY 07/18/15 [Last Taken 11/13/16 07:00] Acetaminophen [Tylenol] 650 mg PO Q4H PRN 10/28/16 [Last Taken Unknown] Docusate Sodium [Colace Clear] 50 mg PO BID PRN 10/28/16 [Last Taken Unknown] Pregabalin [Lyrica] 25 mg PO QAM 10/28/16 [Last Taken 11/12/16 09:00] traMADol HCL [Ultram] 50 mg PO TID PRN 10/28/16 [Last Taken Unknown] Acetaminophen [Tylenol] 1,000 mg PO Q6H PRN #0 tablet 11/13/16 [Last Taken Unknown] Clopidogrel Bisulfate [Plavix] 75 mg PO DAILY tablet 11/13/16 [Last Taken 11/12 09:00] Enoxaparin Sodium [Lovenox] 30 mg SC Q24H disp.syrin 11/13/16 [Last Taken Unknown] Insulin Lispro [Humalog] 0 - 21 units SC ACINS #1 vial 11/13/16 [Last Taken Unknown] Metoprolol Succinate [Toprol Xl] 50 mg PO DAILY tablet.sa 11/13/16 [Last Taken 11/12/16 09:00] Nystatin [Mycostatin Powder] 1 appl TP QID #1 btl 11/13/16 [Last Taken 11/12/16 21:00] Ondansetron HCl/Pf [Zofran] 4 mg IV Q4H PRN #0 vial 11/13/16 [Last Taken Unknown ] Pantoprazole Sodium [Protonix] 40 mg IV Q12H vial 11/13/16 [Last Taken 07:30] Piperacillin Sodium/Tazobactam [Zosyn] 3.375 gm IV Q8H vial 11/13/16 [Last Taken 11/13/16 07:30] Rosuvastatin Calcium [Crestor] 10 mg PO HS tablet 11/13/16 [Last Taken Unknown] Exam - Exam Vital Signs: Vital Signs - Last Taken Temp 37.0 C 11/13/16 06:44 Pulse 71 11/13/16 09:37 Resp BP 120/62 11/13/16 09:37 Pulse Ox Constitutional: Present: Alert - AAO x 2, Cooperative, Elderly ENT Exam: Present: hard of hearing Eye Exam: bilateral eye: normal inspection, PERRL, EOMI Neck: Present: supple Back Exam: Present: no CVA tenderness Breasts: Present: Exam deferred Respiratory: Present: normal breath sounds, No rales, No wheezing Cardiovascular/Chest: Present: regular rate, rhythm, no JVD, no murmur Abdomen: Present: nontender, firm, distended Extremity: Present: no pedal edema, no calf tenderness Assessment/Plan - Assessment/Plan (1) Leukocytosis Assessment: infectious responding to broad spectrum antibiotics , source?. continue with IV zosyn. WBC down to 17. Problem: Acute Qualifiers: Leukocytosis type: unspecified Qualified Code(s): D72.829 - Elevated white blood cell count, unspecified (2) Partial obstruction of small intestine Assessment: s/p adhsiolysis and suture a serosal tear Problem: Resolved (3) Hip fracture, left Assessment: s/p CRIF. 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
[2016-11-13] MEDS: LISINOPRIL 10 MG TABLET PO SCH (10:22)
[2016-11-13] MEDS: INSULIN LISPRO 100 UNITS/ML VIAL SC SCH ×2 (11:51→16:36)
--- NOTE | 2016-11-13 13:31 | PN ---
Subjective - Date and Time Seen Date: 11/13/16 Time: 13:25 Subjective Narrative: No acute overnight event. Patient reports that he is doing better today. Still having overall body discomfort, but is more controlled. Objective Objective Narrative: 81 y/o male, well appearing, lying in bed. - Vitals Vitals: Last Vital Signs Temp 36.7 C 11/13/16 10:00 Pulse 71 11/13/16 10:22 Resp 20 11/13/16 10:00 BP 120/62 11/13/16 10:22 Pulse Ox 94 11/13/16 10:00 - Exam Constitutional: Present: Alert, Cooperative, No distress Respiratory: Present: no respiratory distress Extremity: Present: other - LLE bandages clean, dry, intact. SILT, 5/5 strength of EHL, FHL, PF, DF. Distal pulses 2+. minimal erythema to staple site. No erythema, bleeding, or discharge around wound edges. Assessment/Plan Plan Narrative: 81 yo M w/ non-displaced L femoral neck fx s/p ORIF with cannulated screws, POD #14. - 16 eleno removed from surgery site on 11/13 - WBAT, ROM as tolerated - oral pain meds - DVT ppx: ASA 325mg daily until 6 weeks post-op, SCDs, teds - PT/OT - continue to advance as tolerated - dispo: see patient in outpatient clinic at 4 weeks post-op - Problems/Diagnosis (1) Hip fracture, left Problem: Acute Qualifiers: Encounter type: initial encounter Fracture type: closed Qualified Code(s) : S72.002A - Fracture of unspecified part of neck of left femur, initial encounter for closed fracture
[2016-11-13] MEDS: PIPERACILLIN SODIUM/TAZOBACTAM 3.375 GM in DEXTROSE 5 % IN WATER 100 ML IV SCH ×4 (14:34→23:01)
[2016-11-13] MEDS: ENOXAPARIN SODIUM 30 MG/0.3 ML SYRG SC SCH (14:34)
[2016-11-13] MEDS: INSULIN GLARGINE,HUM.REC.ANLOG 100 UNITS/ML VIAL SC SCH (16:37)
[2016-11-13] MEDS: PANTOPRAZOLE SODIUM 40 MG in NORMAL SALINE 100 ML IV SCH (19:03)
[2016-11-13] MEDS: ROSUVASTATIN CALCIUM 10 MG TABLET PO SCH (20:31)
[2016-11-14] MEDS: PANTOPRAZOLE SODIUM 40 MG in NORMAL SALINE 100 ML IV SCH ×2 (05:34→18:59)
[2016-11-14] MEDS: INSULIN LISPRO 100 UNITS/ML VIAL SC SCH ×3 (07:17→17:09)
[2016-11-14] MEDS: PIPERACILLIN SODIUM/TAZOBACTAM 3.375 GM in DEXTROSE 5 % IN WATER 100 ML IV SCH ×6 (07:24→23:32)
[2016-11-14] MEDS: PREGABALIN 25 MG CAPSULE PO SCH (08:54)
[2016-11-14] MEDS: METOPROLOL SUCCINATE 50 MG TABLET.SA PO SCH (08:54)
[2016-11-14] MEDS: ASPIRIN 81 MG TABLET.DR PO SCH (08:54)
[2016-11-14] MEDS: NYSTATIN 15 APPL BTL TP SCH ×4 (08:54→21:13)
[2016-11-14] MEDS: amLODIPine BESYLATE 10 MG TABLET PO SCH (08:54)
[2016-11-14] MEDS: CLONIDINE HCL 0.1 MG TABLET PO SCH ×2 (08:54→21:12)
[2016-11-14] MEDS: CHOLECALCIFEROL 1,000 UNIT CAPSULE PO SCH (08:55)
[2016-11-14] MEDS: LISINOPRIL 10 MG TABLET PO SCH (08:55)
[2016-11-14] MEDS: LEVOTHYROXINE SODIUM 100 MCG TABLET PO SCH (08:55)
[2016-11-14] MEDS: CLOPIDOGREL BISULFATE 75 MG TABLET PO SCH (08:55)
[2016-11-14] MEDS ORDERED: HEPARIN SOD.,PORCINE 100 UNITS/ML ONE (11:14)
[2016-11-14] MEDS: CHLORTHALIDONE 25 MG TABLET PO SCH (11:47)
[2016-11-14] MEDS: ENOXAPARIN SODIUM 30 MG/0.3 ML SYRG SC SCH (14:20)
[2016-11-14] MEDS: INSULIN GLARGINE,HUM.REC.ANLOG 100 UNITS/ML VIAL SC SCH (17:11)
[2016-11-14] MEDS: ROSUVASTATIN CALCIUM 10 MG TABLET PO SCH (21:12)
[2016-11-15] MEDS: INSULIN LISPRO 100 UNITS/ML VIAL SC SCH ×3 (06:39→17:23)
[2016-11-15] MEDS: PANTOPRAZOLE SODIUM 40 MG in NORMAL SALINE 100 ML IV SCH ×2 (06:40→18:46)
[2016-11-15] MEDS: PIPERACILLIN SODIUM/TAZOBACTAM 3.375 GM in DEXTROSE 5 % IN WATER 100 ML IV SCH ×6 (07:02→23:13)
[2016-11-15] MEDS: CHOLECALCIFEROL 1,000 UNIT CAPSULE PO SCH (09:05)
[2016-11-15] MEDS: METOPROLOL SUCCINATE 50 MG TABLET.SA PO SCH (09:05)
[2016-11-15] MEDS: LEVOTHYROXINE SODIUM 100 MCG TABLET PO SCH (09:05)
[2016-11-15] MEDS: LISINOPRIL 10 MG TABLET PO SCH (09:05)
[2016-11-15] MEDS: CLOPIDOGREL BISULFATE 75 MG TABLET PO SCH (09:05)
[2016-11-15] MEDS: CHLORTHALIDONE 25 MG TABLET PO SCH (09:06)
[2016-11-15] MEDS: CLONIDINE HCL 0.1 MG TABLET PO SCH ×2 (09:06→21:01)
[2016-11-15] MEDS: ASPIRIN 81 MG TABLET.DR PO SCH (09:06)
[2016-11-15] MEDS: amLODIPine BESYLATE 10 MG TABLET PO SCH (09:06)
[2016-11-15] MEDS: NYSTATIN 15 APPL BTL TP SCH ×4 (09:08→21:01)
[2016-11-15] MEDS: PREGABALIN 25 MG CAPSULE PO SCH (09:18)
[2016-11-15] MEDS: traMADol HCL 50 MG TABLET PO PRN (13:55)
[2016-11-15] MEDS: ENOXAPARIN SODIUM 30 MG/0.3 ML SYRG SC SCH (13:57)
[2016-11-15] MEDS: INSULIN GLARGINE,HUM.REC.ANLOG 100 UNITS/ML VIAL SC SCH (17:23)
[2016-11-15] MEDS: ROSUVASTATIN CALCIUM 10 MG TABLET PO SCH (21:01)
[2016-11-16] MEDS: PANTOPRAZOLE SODIUM 40 MG in NORMAL SALINE 100 ML IV SCH ×2 (06:32→17:51)
[2016-11-16] MEDS: traMADol HCL 50 MG TABLET PO PRN (06:32)
[2016-11-16] MEDS: INSULIN LISPRO 100 UNITS/ML VIAL SC SCH ×3 (06:44→17:07)
--- NOTE | 2016-11-16 08:01 | PN ---
Subjective - Date and Time Seen Date: 11/16/16 Time: 07:58 Subjective Narrative: Patient doing better. Appetite is good. he says his good BM. Still with max assist of 2 with ambulation. Objective - Review of Systems Generalized/Overall Review: Reports: Weakness. Denies: Chills, Fever EENTM: Reports: No Symptoms Reported Respiratory: Denies: Cough, Shortness of Breath, Orthopnea Cardiac: Denies: Chest Pain, Edema, Palpitations Abdominal: Denies: Nausea, Vomiting Genitourinary Symptoms: Denies: Urgency, Frequency Musculoskeletal Complaints: Reports: Joint Pain - Vitals Vitals: Last Vital Signs Temp 36.8 C 11/15/16 23:22 Pulse 69 11/15/16 23:22 Resp 18 11/15/16 23:22 BP 138/72 11/15/16 23:22 Pulse Ox 100 11/15/16 23:22 - Exam Constitutional: Present: Alert, Oriented x3, Cooperative, Elderly ENT Exam: Present: hard of hearing Neck: Present: supple Breasts: Present: Exam deferred Respiratory: Present: decreased breath sounds, No rales, No wheezing Cardiovascular/Chest: Present: regular rate, rhythm, no JVD, no murmur Abdomen: Present: Normal bowel sounds, soft, nontender, nondistended Extremity: Present: no calf tenderness, pedal edema Assessment/Plan - Problems/Diagnosis (1) Leukocytosis Problem: Acute Qualifiers: Leukocytosis type: unspecified Qualified Code(s): D72.829 - Elevated white blood cell count, unspecified Narrative: last WBC was down to 17. will do follow up in the morning. continue IV antibiotics. (2) Partial obstruction of small intestine Problem: Resolved Narrative: s/p adhsiolyis (3) Hip fracture, left Problem: Acute Qualifiers: Encounter type: initial encounter Fracture type: closed Qualified Code(s) : S72.002A - Fracture of unspecified part of neck of left femur, initial encounter for closed fracture Narrative: s/p CRIF. continue with PT/OT. (4) CKD stage G4/A3, GFR 15-29 and albumin creatinine ratio >300 mg/g Problem: Chronic (5) Diabetes Problem: Chronic Qualifiers: Diabetes mellitus type: type 2 (6) HTN (hypertension) Problem: Chronic Qualifiers: Hypertension type: essential hypertension Qualified Code(s): I10 - Essential (primary) hypertension (7) Mild dementia Problem: Chronic
[2016-11-16] MEDS: PIPERACILLIN SODIUM/TAZOBACTAM 3.375 GM in DEXTROSE 5 % IN WATER 100 ML IV SCH ×6 (08:25→23:55)
[2016-11-16] MEDS: LEVOTHYROXINE SODIUM 100 MCG TABLET PO SCH (08:28)
[2016-11-16] MEDS: CLOPIDOGREL BISULFATE 75 MG TABLET PO SCH (08:28)
[2016-11-16] MEDS: ASPIRIN 81 MG TABLET.DR PO SCH (08:28)
[2016-11-16] MEDS: CHOLECALCIFEROL 1,000 UNIT CAPSULE PO SCH (08:28)
[2016-11-16] MEDS: CHLORTHALIDONE 25 MG TABLET PO SCH (08:28)
[2016-11-16] MEDS: LISINOPRIL 10 MG TABLET PO SCH (08:32)
[2016-11-16] MEDS: CLONIDINE HCL 0.1 MG TABLET PO SCH ×2 (08:32→20:56)
[2016-11-16] MEDS: amLODIPine BESYLATE 10 MG TABLET PO SCH (08:32)
[2016-11-16] MEDS: METOPROLOL SUCCINATE 50 MG TABLET.SA PO SCH (08:33)
[2016-11-16] MEDS: PREGABALIN 25 MG CAPSULE PO SCH (08:37)
[2016-11-16] MEDS: NYSTATIN 15 APPL BTL TP SCH ×4 (08:41→20:56)
[2016-11-16] MEDS: ENOXAPARIN SODIUM 30 MG/0.3 ML SYRG SC SCH (13:59)
[2016-11-16] MEDS: INSULIN GLARGINE,HUM.REC.ANLOG 100 UNITS/ML VIAL SC SCH (17:09)
[2016-11-16] MEDS: ROSUVASTATIN CALCIUM 10 MG TABLET PO SCH (20:55)
[2016-11-17 06:01] LABS: Hematocrit 27.3 % (42.0-52.0); Mean Cell Volume 86.9 fl (78-100); Mean Corpuscular Hemoglobin 28.7 pg (27-31); Mean Platelet Volume 11.2 fl (6.0-9.5); Neutrophil # 8.9 K/mm3 (1.3-6.0); Platelet Count 332 K/mm3 (150-450); Red Blood Count 3.14 M/mm3 (4.7-6.0); White Blood Count 12.7 K/mm3 (4.0-10.5)
[2016-11-17 06:17] LABS: Albumin * 2.1 gm/dl (3.4-5.0); Anion Gap 17.2 mmol/L (6.8-13.8); BUN/Creatinine Ratio 17.7 (9.0-21.6); Bilirubin, Total 0.4 mg/dL (0.0-1.1); Ca. Corrected For Albumin 9.6 mg/dL (8.4-10.2); Calcium * 8.4 mg/dL (7.9-10.9); Carbon Dioxide 19.8 mmol/L (24-32.6); Total Protein 6.2 gm/dL (6.2-8.2)
[2016-11-17] MEDS: PANTOPRAZOLE SODIUM 40 MG in NORMAL SALINE 100 ML IV SCH ×2 (06:29→20:31)
[2016-11-17] MEDS: INSULIN LISPRO 100 UNITS/ML VIAL SC SCH ×3 (06:45→17:42)
[2016-11-17] MEDS: PIPERACILLIN SODIUM/TAZOBACTAM 3.375 GM in DEXTROSE 5 % IN WATER 100 ML IV SCH ×6 (06:55→23:54)
--- NOTE | 2016-11-17 08:16 | PN ---
Progess Note - Interim Narrative: 11/17/16 08:15 WBC down to 12.7 from 17.4. Continue IV antibiotics.
[2016-11-17] MEDS: LEVOTHYROXINE SODIUM 100 MCG TABLET PO SCH (09:58)
[2016-11-17] MEDS: amLODIPine BESYLATE 10 MG TABLET PO SCH (09:58)
[2016-11-17] MEDS: METOPROLOL SUCCINATE 50 MG TABLET.SA PO SCH (09:58)
[2016-11-17] MEDS: CLONIDINE HCL 0.1 MG TABLET PO SCH ×2 (09:58→20:35)
[2016-11-17] MEDS: LISINOPRIL 10 MG TABLET PO SCH (09:58)
[2016-11-17] MEDS: CHLORTHALIDONE 25 MG TABLET PO SCH (09:58)
[2016-11-17] MEDS: ASPIRIN 81 MG TABLET.DR PO SCH (09:58)
[2016-11-17] MEDS: CHOLECALCIFEROL 1,000 UNIT CAPSULE PO SCH (09:58)
[2016-11-17] MEDS: CLOPIDOGREL BISULFATE 75 MG TABLET PO SCH (09:58)
[2016-11-17] MEDS: NYSTATIN 15 APPL BTL TP SCH ×4 (09:59→20:36)
[2016-11-17] MEDS: PREGABALIN 25 MG CAPSULE PO SCH (10:02)
[2016-11-17] MEDS: ENOXAPARIN SODIUM 30 MG/0.3 ML SYRG SC SCH (13:54)
[2016-11-17] MEDS: INSULIN GLARGINE,HUM.REC.ANLOG 100 UNITS/ML VIAL SC SCH (17:42)
[2016-11-17] MEDS: ROSUVASTATIN CALCIUM 10 MG TABLET PO SCH (20:36)
[2016-11-18] MEDS: INSULIN LISPRO 100 UNITS/ML VIAL SC SCH ×3 (06:38→16:45)
[2016-11-18] MEDS: PIPERACILLIN SODIUM/TAZOBACTAM 3.375 GM in DEXTROSE 5 % IN WATER 100 ML IV SCH ×6 (06:43→22:38)
[2016-11-18] MEDS: PANTOPRAZOLE SODIUM 40 MG in NORMAL SALINE 100 ML IV SCH ×2 (07:01→19:30)
[2016-11-18] MEDS: PREGABALIN 25 MG CAPSULE PO SCH (10:03)
[2016-11-18] MEDS: CHLORTHALIDONE 25 MG TABLET PO SCH (10:03)
[2016-11-18] MEDS: METOPROLOL SUCCINATE 50 MG TABLET.SA PO SCH (10:04)
[2016-11-18] MEDS: CLOPIDOGREL BISULFATE 75 MG TABLET PO SCH (10:05)
[2016-11-18] MEDS: CLONIDINE HCL 0.1 MG TABLET PO SCH ×2 (10:05→20:45)
[2016-11-18] MEDS: LISINOPRIL 10 MG TABLET PO SCH (10:05)
[2016-11-18] MEDS: LEVOTHYROXINE SODIUM 100 MCG TABLET PO SCH (10:05)
[2016-11-18] MEDS: ASPIRIN 81 MG TABLET.DR PO SCH (10:06)
[2016-11-18] MEDS: amLODIPine BESYLATE 10 MG TABLET PO SCH (10:06)
[2016-11-18] MEDS: NYSTATIN 15 APPL BTL TP SCH ×4 (10:06→21:41)
[2016-11-18] MEDS: CHOLECALCIFEROL 1,000 UNIT CAPSULE PO SCH (10:06)
[2016-11-18] MEDS: ENOXAPARIN SODIUM 30 MG/0.3 ML SYRG SC SCH (14:52)
[2016-11-18] MEDS: INSULIN GLARGINE,HUM.REC.ANLOG 100 UNITS/ML VIAL SC SCH (16:52)
[2016-11-18] MEDS: ROSUVASTATIN CALCIUM 10 MG TABLET PO SCH (20:45)
[2016-11-19] MEDS: PANTOPRAZOLE SODIUM 40 MG in NORMAL SALINE 100 ML IV SCH ×2 (05:32→17:53)
[2016-11-19 05:50] LABS: Hematocrit 27.6 % (42.0-52.0); Hemoglobin 9.1 gm/dL (13.5-18.0); Mean Cell Volume 88.5 fl (78-100); Mean Corpuscular Hemoglobin 29.2 pg (27-31); Mean Platelet Volume 11.4 fl (6.0-9.5); Neutrophil # 8.3 K/mm3 (1.3-6.0); Neutrophil % 71.7 % (42-75.0); Platelet Count 330 K/mm3 (150-450); Red Blood Count 3.12 M/mm3 (4.7-6.0); Red Cell Distribution Width 14.5 % (11.5-14.0); White Blood Count 11.5 K/mm3 (4.0-10.5)
[2016-11-19 06:05] LABS: Albumin * 2.1 gm/dl (3.4-5.0); Anion Gap 15.2 mmol/L (6.8-13.8); BUN/Creatinine Ratio 16.5 (9.0-21.6); Bilirubin, Total 0.3 mg/dL (0.0-1.1); Ca. Corrected For Albumin 9.8 mg/dL (8.4-10.2); Calcium * 8.6 mg/dL (7.9-10.9); Potassium 4.2 mmol/L (3.4-4.6); Total Protein 6.4 gm/dL (6.2-8.2)
[2016-11-19] MEDS: INSULIN LISPRO 100 UNITS/ML VIAL SC SCH ×3 (06:59→17:50)
[2016-11-19] MEDS: PIPERACILLIN SODIUM/TAZOBACTAM 3.375 GM in DEXTROSE 5 % IN WATER 100 ML IV SCH ×6 (07:00→22:49)
--- NOTE | 2016-11-19 07:26 | PN ---
Subjective - Date and Time Seen Date: 11/19/16 Time: 07:20 Subjective Narrative: Patient afebrile. WBC continues to go down . Objective - Review of Systems Generalized/Overall Review: Denies: Chills, Fever EENTM: Reports: No Symptoms Reported Respiratory: Denies: Cough, Shortness of Breath, Orthopnea Cardiac: Denies: Chest Pain, Edema, Palpitations Abdominal: Denies: Nausea, Vomiting Genitourinary Symptoms: Denies: Urgency, Frequency Musculoskeletal Complaints: Reports: Joint Pain - Vitals Vitals: Last Vital Signs Temp 37.3 C 11/19/16 06:48 Pulse 70 11/19/16 06:48 Resp 18 11/19/16 06:48 BP 131/76 11/19/16 06:48 Pulse Ox 98 11/19/16 06:48 - Abnormal Lab Findings Abnormal Lab Findings: Abnormal Lab Results 11/19/16 11/19/16 Range/Units 05:10 05:10 WBC 11.5 H (4.0-10.5) K/mm3 RBC 3.12 L (4.7-6.0) M/mm3 Hgb 9.1 L (13.5-18.0) gm/dL Hct 27.6 L (42.0-52.0) % RDW 14.5 H (11.5-14.0) % MPV 11.4 H (6.0-9.5) fl Immature Gran % (Auto) 0.80 H (0.001-0.429) % Immature Gran # (Auto) 0.09 H (0.000-0.0310) K/mm3 Lymphocytes % 12.8 L (20-51) % Eosinophils % 6.3 H (0.0-3.0) % Neutrophils # 8.3 H (1.3-6.0) K/mm3 Chloride 108 H (97-106) mmol/L Carbon Dioxide 22.0 L (24-32.6) mmol/L Anion Gap 15.2 H (6.8-13.8) mmol/L BUN 41 H (6-23) mg/dL Creatinine 2.48 H (0.4-1.4) mg/dL Est GFR (Non-Af Amer) 27 L (60-130) mL/min Random Glucose 168 H D (70-110) mg/dL ALT 13 L (19-67) U/L Albumin 2.1 L (3.4-5.0) gm/dl - Exam Constitutional: Present: Alert, Cooperative, Elderly ENT Exam: Present: hard of hearing Neck: Present: supple Breasts: Present: Exam deferred Respiratory: Present: decreased breath sounds, No rales, No wheezing Cardiovascular/Chest: Present: regular rate, rhythm, no murmur Abdomen: Present: Normal bowel sounds, soft, nontender, nondistended Extremity: Present: no pedal edema, no calf tenderness Assessment/Plan - Problems/Diagnosis (1) Leukocytosis Problem: Acute Qualifiers: Leukocytosis type: unspecified Qualified Code(s): D72.829 - Elevated white blood cell count, unspecified Narrative: continues to improve- 11.5. will repeat CBC in am. possible d/c tomorrow if WBC is back to normal. (2) Partial obstruction of small intestine Problem: Resolved Narrative: s/p adhesiolysis (3) Hip fracture, left Problem: Acute Qualifiers: Encounter type: initial encounter Fracture type: closed Qualified Code(s) : S72.002A - Fracture of unspecified part of neck of left femur, initial encounter for closed fracture Narrative: s/p CRIF. 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
[2016-11-19] MEDS: CHLORTHALIDONE 25 MG TABLET PO SCH (09:13)
[2016-11-19] MEDS: CHOLECALCIFEROL 1,000 UNIT CAPSULE PO SCH (09:13)
[2016-11-19] MEDS: CLONIDINE HCL 0.1 MG TABLET PO SCH ×2 (09:13→20:27)
[2016-11-19] MEDS: CLOPIDOGREL BISULFATE 75 MG TABLET PO SCH (09:13)
[2016-11-19] MEDS: LISINOPRIL 10 MG TABLET PO SCH (09:13)
[2016-11-19] MEDS: METOPROLOL SUCCINATE 50 MG TABLET.SA PO SCH (09:13)
[2016-11-19] MEDS: LEVOTHYROXINE SODIUM 100 MCG TABLET PO SCH (09:14)
[2016-11-19] MEDS: amLODIPine BESYLATE 10 MG TABLET PO SCH (09:14)
[2016-11-19] MEDS: ASPIRIN 81 MG TABLET.DR PO SCH (09:14)
[2016-11-19] MEDS: NYSTATIN 15 APPL BTL TP SCH ×4 (09:14→20:27)
[2016-11-19] MEDS: PREGABALIN 25 MG CAPSULE PO SCH (09:18)
[2016-11-19] MEDS: ENOXAPARIN SODIUM 30 MG/0.3 ML SYRG SC SCH (14:30)
[2016-11-19] MEDS: INSULIN GLARGINE,HUM.REC.ANLOG 100 UNITS/ML VIAL SC SCH (17:50)
[2016-11-19] MEDS: ROSUVASTATIN CALCIUM 10 MG TABLET PO SCH (20:27)
[2016-11-20 06:05] LABS: Hematocrit 30.2 % (42.0-52.0); Hemoglobin 9.8 gm/dL (13.5-18.0); Mean Cell Volume 88.6 fl (78-100); Mean Corpuscular Hemoglobin 28.7 pg (27-31); Mean Corpuscular Hgb Conc 32.5 g/dl (32-36); Mean Platelet Volume 11.2 fl (6.0-9.5); Neutrophil # 6.8 K/mm3 (1.3-6.0); Neutrophil % 66.4 % (42-75.0); Platelet Count 333 K/mm3 (150-450); Red Blood Count 3.41 M/mm3 (4.7-6.0); Red Cell Distribution Width 14.4 % (11.5-14.0); White Blood Count 10.2 K/mm3 (4.0-10.5)
[2016-11-20] MEDS: PANTOPRAZOLE SODIUM 40 MG in NORMAL SALINE 100 ML IV SCH (06:55)
[2016-11-20] MEDS: INSULIN LISPRO 100 UNITS/ML VIAL SC SCH ×2 (07:05→12:03)
[2016-11-20] MEDS: PIPERACILLIN SODIUM/TAZOBACTAM 3.375 GM in DEXTROSE 5 % IN WATER 100 ML IV SCH ×2 (07:29)
--- NOTE | 2016-11-20 07:40 | DS ---
(1) Leukocytosis Problem: Resolved Qualifiers: Leukocytosis type: unspecified Qualified Code(s): D72.829 - Elevated white blood cell count, unspecified (2) Partial obstruction of small intestine Diagnosis(s): s/p adhesiolysis Problem: Resolved (3) Hip fracture, left Diagnosis(s): s/p CRIF Problem: Acute Qualifiers: Encounter type: initial encounter Fracture type: closed Qualified Code(s) : S72.002A - Fracture of unspecified part of neck of left femur, initial encounter for closed fracture (4) CKD stage G4/A3, GFR 15-29 and albumin creatinine ratio >300 mg/g Problem: Chronic (5) Diabetes Problem: Chronic Qualifiers: Diabetes mellitus type: type 2 (6) HTN (hypertension) Problem: Chronic Qualifiers: Hypertension type: essential hypertension Qualified Code(s): I10 - Essential (primary) hypertension (7) Mild dementia Problem: Chronic Description of Stay: Osmany Harris is a 81-yr-old WM with a PMH of: CKD III, CAD, DM II, Gout, HLD , HTN, Hypothyroidism, [place] & Spinal Stenosis who was admitted on 10/28/2016 for left hip pain after a fall. Pt is a custodial care resident at [facility]. Pt states that on the morning of admission after taking a shower, he lost his balance while trying to reach for his walker, and he fell down. He landed on the LT side of the body. He denied hitting his head on the surface or any object. He also denied any dizziness or lightheadedness prior to the fall. He was brought to the ED and X-ray imaging of the LT Hip/Pelvis & follow-up with a CT for better clarity showed he sustained a non- displaced LT femoral neck Fracture. His lab-work showed mildly elevated WBC of 15,300 with a LT shift. He denies any fever, chills, night sweats, coughing, diarrhea, abdominal pain or pain with urination. The patient was referred to Orthopedics and underwent ORIF with multiple cannulated screws. His WBC which was elevated on admission was likely reactive to the stress of his fracture. His troponin became elevated but had no EKG chamges and CP. It was likely due to his CRF on top of his increased demand ischemia from his recent trauma and surgery. His WBC continued to wax and wane and septic work up was negative. Impression was still infection more than inflammatory more than malignancy. He was found to have initially adynamic ileus on AXR . He was put on NPO and IVF . A follow up CTS of the abdomen showed PSBO. Surgery was consulted. He underwent adhesiolysis , suture of serosal tear after 1 week of conservative treatment for which TPN was also started. He was initially on Cipro/Flagyl but WBC continued to be elevated and consultation with I.Jany , ARTURO was done . Since we could not really pinpoint definitely a source of infection, they recommended starting a broad spectrum antibiotics and if WBC start going down in 48 hours to continue it for 7-10 days which it did. He was transferred to SNF for IV antibiotics and continuance of his PT/OT. His WBC today is back to normal and clinically the patient is afebrile and asymptomatic. He is stable to be discharged today to the NH. Procedures Performed: see notes below List Procedures: ORIF with cannulated screws. Explor lap with adhesiolysis and suture of intestine. Discharge Disposition: [facility] Disposition: [facility] Condition: Fair Discharge Activity: Activity as tolerated Discharge Diet: Consistent carbs Additional Patient Instructions (free text): Will follow up with patient in the NH. Complete Home Medications List: Complete Home Medication List: Aspirin [[place] Aspirin] 81 mg PO QAM 09/02/14 Chlorthalidone [Hygroton] 12.5 mg PO DAILY 09/02/14 Ergocalciferol (Vitamin D2) [Vitamin D2] 2,000 unit PO DAILY 09/02/14 Insulin Glargine,Hum.rec.anlog [Lantus] 45 units SC QPM 09/02/14 Nitroglycerin 0.4 mg SL PRN PRN MDD 3 doses 09/02/14 amLODIPine BESYLATE [Norvasc] 10 mg PO QAM 09/02/14 Catapres 0.1 mg PO BID 07/18/15 Levothyroxine Sodium [Synthroid] 100 mcg PO DAILY 07/18/15 Docusate Sodium [Colace Clear] 50 mg PO BID PRN 10/28/16 Pregabalin [Lyrica] 25 mg PO QAM 10/28/16 traMADol HCL [Ultram] 50 mg PO TID PRN 10/28/16 Acetaminophen [Tylenol] 1,000 mg PO Q6H PRN #0 tablet 11/13/16 Clopidogrel Bisulfate [Plavix] 75 mg PO DAILY tablet 11/13/16 Metoprolol Succinate [Toprol Xl] 50 mg PO DAILY tablet.sa 11/13/16 Nystatin [Mycostatin Powder] 1 appl TP QID #1 btl 11/13/16 Pantoprazole Sodium [Protonix] 40 mg IV Q12H vial 11/13/16 Rosuvastatin Calcium [Crestor] 10 mg PO HS tablet 11/13/16 Lisinopril [Zestril] 10 mg PO DAILY tablet 11/20/16
[2016-11-20] MEDS: CLONIDINE HCL 0.1 MG TABLET PO SCH (09:34)
[2016-11-20] MEDS: ASPIRIN 81 MG TABLET.DR PO SCH (09:34)
[2016-11-20] MEDS: amLODIPine BESYLATE 10 MG TABLET PO SCH (09:35)
[2016-11-20] MEDS: LEVOTHYROXINE SODIUM 100 MCG TABLET PO SCH (09:35)
[2016-11-20] MEDS: CLOPIDOGREL BISULFATE 75 MG TABLET PO SCH (09:35)
[2016-11-20] MEDS: CHLORTHALIDONE 25 MG TABLET PO SCH (09:35)
[2016-11-20] MEDS: CHOLECALCIFEROL 1,000 UNIT CAPSULE PO SCH (09:36)
[2016-11-20] MEDS: METOPROLOL SUCCINATE 50 MG TABLET.SA PO SCH (09:36)
[2016-11-20] MEDS: LISINOPRIL 10 MG TABLET PO SCH (09:36)
[2016-11-20] MEDS: NYSTATIN 15 APPL BTL TP SCH (09:36)
[2016-11-20] MEDS: PREGABALIN 25 MG CAPSULE PO SCH (09:38)
[2016-11-20 10:34] VITALS: BP 102/63
--- NOTE | 2016-11-20 11:34 | PN ---
Subjective - Date and Time Seen Date: 11/20/16 Time: 11:31 Subjective Narrative: Had exploratory laparotomy for release of partial small bowel obstruction. bowel function has retuned and incision is healing well. Objective - Review of Systems Abdominal: Reports: Other - eating and moving his bowels - Vitals Vitals: Last Vital Signs Temp 37.0 C 11/20/16 10:33 Pulse 80 11/20/16 10:33 Resp 16 11/20/16 10:33 BP 102/63 11/20/16 10:33 Pulse Ox 96 11/20/16 10:33 - Abnormal Lab Findings Abnormal Lab Findings: Abnormal Lab Results 11/20/16 Range/Units 05:10 RBC 3.41 L (4.7-6.0) M/mm3 Hgb 9.8 L (13.5-18.0) gm/dL Hct 30.2 L (42.0-52.0) % RDW 14.4 H (11.5-14.0) % MPV 11.2 H (6.0-9.5) fl Immature Gran % (Auto) 0.80 H (0.001-0.429) % Immature Gran # (Auto) 0.08 H (0.000-0.0310) K/mm3 Lymphocytes % 15.5 L (20-51) % Eosinophils % 8.0 H (0.0-3.0) % Basophils % 1.1 H (0.0-1.0) % Neutrophils # 6.8 H (1.3-6.0) K/mm3 Eosinophils # 0.8 H (0.0-0.7) k/mm3 - Exam Constitutional: Present: Alert, Cooperative, No distress Abdomen: Present: other - disteded, but soft. Incision healing well Assessment/Plan - Problems/Diagnosis (1) SBO (small bowel obstruction) Problem: Resolved Narrative: [place] removed. Incision intact. Leave Mepilex for today, but may leave open tomorrow and get wet.
== END 2016-11-20 12:15 | DRG 560 ==
LOC: MS 07:51
PROVIDERS: ADMIT Internal Medicine; ATTEND Internal Medicine
DX: S72.002D Fracture of unspecified part of neck of left femur, subsequent encounter for closed fracture with routine healing (principal); N18.4 Chronic kidney disease, stage 4 (severe); D72.829 Elevated white blood cell count, unspecified; Z79.2 Long term (current) use of antibiotics; W19.XXXD Unspecified fall, subsequent encounter; Z91.81 History of falling; Z48.815 Encounter for surgical aftercare following surgery on the digestive system; E11.9 Type 2 diabetes mellitus without complications; I12.9 Hypertensive chronic kidney disease with stage 1 through stage 4 chronic kidney disease, or unspecified chronic kidney disease; F03.90 Unspecified dementia, unspecified severity, without behavioral disturbance, psychotic disturbance, mood disturbance, and anxiety
CPT/HCPCS: 36415; 80053; 85025; 97110; 97116; 97162; 97530; J2405

== ENCOUNTER 2017-02-12 21:59 | Emergency (ER) | payer MEDICARE, BC ==
[2017-02-12 22:34] LABS: Hematocrit 27.4 % (42.0-52.0); Hemoglobin 8.9 gm/dL (13.5-18.0); Mean Cell Volume 84.8 fl (78-100); Mean Corpuscular Hemoglobin 27.6 pg (27-31); Mean Corpuscular Hgb Conc 32.5 g/dl (32-36); Mean Platelet Volume 9.6 fl (6.0-9.5); Neutrophil # 9.9 K/mm3 (1.3-6.0); Neutrophil % 73.6 % (42-75.0); Platelet Count 290 K/mm3 (150-450); Red Blood Count 3.23 M/mm3 (4.7-6.0); Red Cell Distribution Width 14.5 % (11.5-14.0); White Blood Count 13.5 K/mm3 (4.0-10.5)
[2017-02-12 22:47] LABS: Albumin * 2.3 gm/dl (3.4-5.0); Anion Gap 17.1 mmol/L (6.8-13.8); BUN/Creatinine Ratio 20.7 (9.0-21.6); Bilirubin, Total 0.3 mg/dL (0.0-1.1); Ca. Corrected For Albumin 9.5 mg/dL (8.4-10.2); Calcium * 8.5 mg/dL (7.9-10.9); Potassium 4.1 mmol/L (3.4-4.6); Total Protein 7.4 gm/dL (6.2-8.2)
--- NOTE | 2017-02-12 23:24 | ERNOTE ---
Neuro HPI ER Record Presenting Symptoms: weakness, confusion Time Seen by Provider: 02/12/17 23:11 Source: EMS Exam Limitations: no limitations Immunizations: IMMUNIZATION HX Immunizations Up to Date Yes History of Influenza Vaccine Yes Hx Pneumococcal Vaccination Yes Allergies/Adverse Reactions: Allergies Allergy/AdvReac Type Severity Reaction Status Date / Time No Known Allergies Allergy Verified 11/13/16 08:52 Home Medications: HOME MEDICATIONS Chlorthalidone [Hygroton] 12.5 mg PO DAILY 09/02/14 [Last Taken 11/12/16 09:00] Ergocalciferol (Vitamin D2) [Vitamin D2] 2,000 unit PO DAILY 09/02/14 [Last Taken 10/28/16 07:00] Insulin Glargine,Hum.rec.anlog [Lantus] 45 units SC QPM 09/02/14 [Last Taken 20:00] Nitroglycerin 0.4 mg SL PRN PRN MDD 3 doses 09/02/14 [Last Taken Unknown] amLODIPine BESYLATE [Norvasc] 10 mg PO QAM 09/02/14 [Last Taken 11/12/16 09:00] Levothyroxine Sodium [Synthroid] 100 mcg PO DAILY 07/18/15 [Last Taken 11/13/16 07:00] Docusate Sodium [Colace Clear] 50 mg PO BID PRN 10/28/16 [Last Taken Unknown] Pregabalin [Lyrica] 25 mg PO QAM 10/28/16 [Last Taken 11/12/16 09:00] traMADol HCL [Ultram] 50 mg PO TID PRN 10/28/16 [Last Taken Unknown] Acetaminophen [Tylenol] 1,000 mg PO Q6H PRN #0 tablet 11/13/16 [Last Taken Unknown] Metoprolol Succinate [Toprol Xl] 50 mg PO DAILY tablet.sa 11/13/16 [Last Taken 11/12/16 09:00] Nystatin [Mycostatin Powder] 1 appl TP QID #1 btl 11/13/16 [Last Taken 11/12/16 21:00] Rosuvastatin Calcium [Crestor] 10 mg PO HS tablet 11/13/16 [Last Taken Unknown] Lisinopril [Zestril] 10 mg PO DAILY tablet 11/20/16 [Last Taken Unknown] Aspirin [Aspirin Chewable] 81 mg PO DAILY 02/12/17 [Last Taken Unknown] Clonidine HCl [Catapres] 0.1 mg PO BID 02/12/17 [Last Taken Unknown] Clopidogrel Bisulfate [Plavix] 75 mg PO DAILY 02/12/17 [Last Taken Unknown] Escitalopram Oxalate [Lexapro] 10 mg PO DAILY 02/12/17 [Last Taken Unknown] Ranitidine HCl [Zantac] 150 mg PO BID 02/12/17 [Last Taken Unknown] Sulfamethoxazole/Trimethoprim [Bactrim] 1 tab PO BID #20 tablet 02/13/17 [Last Taken Unknown] - History of Present Illness Narrative: NH noted that he has not been acting normal. He is more confused than his usual. Onset: gradual onset Severity: moderate - Character of Deficits Baseline Cognition: Present: alert but disoriented to time Associated Symptoms: Reports: trouble concentrating Review of Systems - Review of Systems Constitutional: Absent: recent illness, fever EYE: Present: no symptoms reported ENT: Present: no symptoms reported Respiratory: Absent: shortness of breath Cardiology: Absent: chest pain Gastrointestinal/Abdominal: Absent: nausea, vomiting Genitourinary: Present: frequency. Absent: dysuria Musculoskeletal: Present: no symptoms reported Skin: Absent: rash Neurological: Present: See HPI Endocrine: Present: no symptoms reported Hematologic/Lymphatic: Present: easy bruising Psych: Present: no symptoms reported - Patient's Past Medical History Patient History - Medical: Diabetes Type 2, Diabetes Type 2 Insulin Dependent, Dementia, Hypothyroidism, Renal Failure, Other Patient History - Cardiac/Respiratory: Coronary Heart Disease, Hypertension, Hyperlipidemia, Myocardial Infarction, Other Patient History - Cancer: No Hx of Cancer Patient History - Surgical Procedures: Cholecystectomy, Coronary Bypass Surgery Patient History - Other: None - Family History Mother Family History - Medical: , No pertinent hx Family History - Cardiac/Respiratory: No pertinent hx Family History - Cancer: No pertinent family hx Father Family History - Medical: , No pertinent hx Family History - Cardiac/Respiratory: No pertinent hx Family History - Cancer: No pertinent family hx - Social History Living Situations: assisted living Abuse History: No History of abuse Psych History: No pertinent hx Does anyone smoke in the home?: No Smoking Status: Never smoker Alcohol Use: none Drug Use: none - Immunizations Immunizations Up to Date: Yes Hx Pneumococcal Vaccination: Yes History of Influenza Vaccine: Yes Physical Exam - Physical Exam General Appearance: Present: wd/wn, alert, no apparent distress Head Exam: Present: normal inspection, no evidence of injury Eye Exam: Normal inspection: bilateral, PERRL: bilateral, EOMI: bilateral Ears, Nose, Throat: Present: normal ENT inspection Neck: Present: normal inspection, nontender Respiratory: Present: no respiratory distress, normal breath sounds, lungs clear Cardiovascular/Chest: Present: regular rate, rhythm, no murmur Gastrointestinal/Abdominal: Present: normal bowel sounds, nontender, nondistended Extremity Exam: Present: pedal edema Neurological Exam: Present: alert, normal mood/affect Skin Exam: Present: normal color, warm/dry, other - wounds on left ant. leg and behind left knee (covered with tegaderm) Lymphatic Exam: Present: no adenopathy Taurus Coma Scale - Assess Eye Opening: Spontaneous Motor: Obeys Commands Verbal: Confused - Total Coma Scale Total: 14 ED Progress - Results and Orders Patient's Lab Results:: I have reviewed the patient's lab results. Results and Orders: Laboratory Tests 02/12/17 02/12/17 02/12/17 22:32 22:32 22:32 WBC 13.5 H Hgb 8.9 L Hct 27.4 L Plt Count 290 Sodium 138 Potassium 4.1 Chloride 103 Carbon Dioxide 22.0 L Anion Gap 17.1 H BUN 62 H D Creatinine 2.99 H D Random Glucose 131 H Lactic Acid, Venous 0.8 Calcium 8.5 Total Bilirubin 0.3 AST 30 ALT 10 L Alkaline Phosphatase 100 Total Protein 7.4 Albumin 2.3 L Urine Color Urine Appearance Urine pH Ur Specific Pilot Urine Protein Urine Glucose (UA) Urine Ketones Urine Blood Urine Nitrate Urine Bilirubin Prot Sulfosalicylic Acd Urine Urobilinogen Ur Leukocyte Esterase Urine RBC Urine WBC Ur Epithelial Cells Amorphous Sediment Urine Bacteria Fine Granular Casts Urine Culture Comments 02/13/17 00:30 WBC Hgb Hct Plt Count Sodium Potassium Chloride Carbon Dioxide Anion Gap BUN Creatinine Random Glucose Lactic Acid, Venous Calcium Total Bilirubin AST ALT Alkaline Phosphatase Total Protein Albumin Urine Color Yellow Urine Appearance Cloudy Urine pH 6.0 Ur Specific Pilot 1.025 Urine Protein 100 H Urine Glucose (UA) Negative Urine Ketones Negative Urine Blood 50 H Urine Nitrate Negative Urine Bilirubin Negative Prot Sulfosalicylic Acd 4+ H Urine Urobilinogen Normal Ur Leukocyte Esterase Negative Urine RBC 0-5 Urine WBC None seen Ur Epithelial Cells None seen Amorphous Sediment Moderate - 2+ H Urine Bacteria 3+ H Fine Granular Casts 0-5 H Urine Culture Comments Culture to follow - Vital Signs Patient's Vital Signs:: I have reviewed the patient's vital signs. Vital Signs: Vital Signs 02/12/17 02/12/17 22:04 22:14 Temperature 37.4 C Pulse Rate 90 81 Respiratory 20 Rate Blood Pressure 102/50 O2 Sat by Pulse 94 Oximetry - EKG EKG: NSR EKG read: Interp. by me EKG Comments: occasional premature atrial complexes. RBBB - X-Ray X-Ray #1 X-Ray: chest Interpretation: Interp. by me X-ray Comments: sternotomy wires present. No infiltrate or effusion - Progress/Reassessment Chief Complaint: Altered Mental Status Progress:: Improved Progress Note-Subjective: 02/13/17 02:15 BP running a little low. His BUN and Cr are increased over his baseline. appears to be dehydrated. NS 1000 mL given. BP back in the normal range. Departure Clinical Impression: Dehydration UTI (urinary tract infection) Qualifiers: Urinary tract infection type: acute cystitis Hematuria presence: with hematuria Qualified Code(s): N30.01 - Acute cystitis with hematuria Proteinuria Qualifiers: Proteinuria type: persistent Qualified Code(s): R80.1 - Persistent proteinuria , unspecified CRF (chronic renal failure) Qualifiers: Chronic kidney disease stage: stage 4 (severe) Qualified Code(s): N18.4 - Chronic kidney disease, stage 4 (severe) - Departure Disposition: [facility] Condition: Good Instructions: Urinary Tract Infection, Adult, [id number] Referrals: Layo Campos MD [Primary Care Provider] - Prescriptions: Sulfamethoxazole/Trimethoprim [Bactrim] 1 tab PO BID #20 tablet
[2017-02-13 00:53] LABS: Urine Bilirubin Negative (NEGATIVE); Urine Blood 50 /ul (NEGATIVE); Urine Ketone Negative (NEGATIVE); Urine Nitrite Negative (NEGATIVE); Urine Protein 100 mg/dL (NEGATIVE); Urine Specific Gravity 1.025 SP.GR. (1.005-1.030); Urine Urobilinogen Normal (NORMAL)
[2017-02-13 00:55] LABS: Urine Amorphous Sediment Moderate - 2+ (NONE-FEW); Urine Appearance Cloudy; Urine Bacteria 3+; Urine Color Yellow; Urine Fine Granular Cast 0-5 /LPF; Urine RBC 0-5 /hpf (0-5); Urine WBC None Seen /hpf (0-5)
[2017-02-13] MEDS ORDERED: NORMAL SALINE 1,000 ML IV ONE (01:23)
[2017-02-13] MEDS ORDERED: SULFAMETHOXAZOLE/TRIMETHOPRIM 1 TAB TABLET PO ONE (02:52)
[2017-02-13] MEDS ORDERED: SULFAMETHOXAZOLE/TRIMETHOPRIM 1 TAB TABLET ONE (03:24)
[2017-02-13 04:02] VITALS: BP 141/77
== END 2017-02-13 03:45 ==
LOC: ER 21:59
PROC: 0T9B7ZZ Drainage of Bladder, Via Natural or Artificial Opening (ICD-10-PCS; principal; 2017-02-12)
DX: E86.0 Dehydration (principal); R80.1 Persistent proteinuria, unspecified; N18.4 Chronic kidney disease, stage 4 (severe); E78.5 Hyperlipidemia, unspecified; E11.9 Type 2 diabetes mellitus without complications; Z79.4 Long term (current) use of insulin; I50.9 Heart failure, unspecified; I25.2 Old myocardial infarction; E03.9 Hypothyroidism, unspecified

== ENCOUNTER 2017-02-16 11:13 | Observation (INO) | payer MEDICARE, BC ==
[2017-02-16] MEDS ORDERED: ENOXAPARIN SODIUM 40 MG/0.4 ML SYRG SC ONE (12:24)
[2017-02-16] MEDS: ENOXAPARIN SODIUM 30 MG/0.3 ML SYRG SC SCH (12:30)
[2017-02-16] MEDS ORDERED: ACETAMINOPHEN 500 MG TABLET PO PRN ×2 (15:02→17:12)
[2017-02-16] MEDS ORDERED: NITROGLYCERIN 0.4 MG/TAB BTL SL PRN (15:02)
[2017-02-16] MEDS ORDERED: DOCUSATE SODIUM 100 MG CAPSULE PO PRN (15:02)
[2017-02-16 15:17] LABS: Body Fluid Appearance CLEAR (CLEAR); Body Fluid Color YELLOW (COLORLESS)
[2017-02-16 15:20] LABS: Body Fluid WBC 13000 /uL
[2017-02-16 15:23] LABS: Anion Gap 16.9 mmol/L (6.8-13.8); BUN/Creatinine Ratio 21.9 (9.0-21.6); Carbon Dioxide 21.7 mmol/L (24-32.6); Estimated Creat Clear 14.6; Potassium 4.6 mmol/L (3.4-4.6); Uric Acid 10.5 mg/dL (2.6-7.2)
[2017-02-16 15:24] LABS: Hemoglobin 9.8 gm/dL (13.5-18.0); Mean Cell Volume 85.2 fl (78-100); Mean Corpuscular Hemoglobin 27.8 pg (27-31); Mean Corpuscular Hgb Conc 32.7 g/dl (32-36); Mean Platelet Volume 9.8 fl (6.0-9.5); Neutrophil # 11.2 K/mm3 (1.3-6.0); Platelet Count 438 K/mm3 (150-450); Red Blood Count 3.52 M/mm3 (4.7-6.0); Red Cell Distribution Width 14.6 % (11.5-14.0); White Blood Count 14.3 K/mm3 (4.0-10.5)
[2017-02-16] MEDS: ceFAZolin SODIUM 1 GM in DEXTROSE 5 % IN WATER 100 ML IV SCH ×4 (15:38→23:09)
[2017-02-16] MEDS ORDERED: INSULIN GLARGINE,HUM.REC.ANLOG 100 UNITS/ML VIAL SC SCH (17:00)
[2017-02-16] MEDS: NORMAL SALINE 1,000 ML IV PRN (18:45)
[2017-02-16] MEDS: INSULIN GLARGINE,HUM.REC.ANLOG 100 UNITS/ML VIAL SC SCH (21:17)
[2017-02-16] MEDS: FAMOTIDINE 20 MG TABLET PO SCH (21:18)
[2017-02-16] MEDS: ROSUVASTATIN CALCIUM 10 MG TABLET PO SCH (21:18)
[2017-02-16] MEDS: CLONIDINE HCL 0.1 MG TABLET PO SCH (21:18)
[2017-02-17] MEDS: traMADol HCL 50 MG TABLET PO PRN ×2 (02:15→11:51)
[2017-02-17] MEDS: NORMAL SALINE 1,000 ML IV PRN ×3 (05:12→18:38)
[2017-02-17 06:18] LABS: Hematocrit 27.2 % (42.0-52.0); Hemoglobin 8.8 gm/dL (13.5-18.0); Mean Cell Volume 84.7 fl (78-100); Mean Corpuscular Hemoglobin 27.4 pg (27-31); Mean Corpuscular Hgb Conc 32.4 g/dl (32-36); Neutrophil # 8.6 K/mm3 (1.3-6.0); Neutrophil % 72.4 % (42-75.0); Platelet Count 371 K/mm3 (150-450); Red Blood Count 3.21 M/mm3 (4.7-6.0); Red Cell Distribution Width 14.5 % (11.5-14.0); White Blood Count 11.9 K/mm3 (4.0-10.5)
[2017-02-17 06:26] LABS: Anion Gap 16.5 mmol/L (6.8-13.8); BUN/Creatinine Ratio 21.7 (9.0-21.6); Calcium * 8.4 mg/dL (7.9-10.9); Carbon Dioxide 20.8 mmol/L (24-32.6); Estimated Creat Clear 15.9; Potassium 4.3 mmol/L (3.4-4.6)
[2017-02-17] MEDS: ceFAZolin SODIUM 1 GM in DEXTROSE 5 % IN WATER 100 ML IV SCH ×2 (07:13)
[2017-02-17] MEDS: LEVOTHYROXINE SODIUM 100 MCG TABLET PO SCH (07:13)
--- NOTE | 2017-02-17 08:09 | PN ---
Subjective - Date and Time Seen Date: 02/17/17 Time: 07:58 Subjective Narrative: Afebrile. Tmax 36.9. Objective - Review of Systems Generalized/Overall Review: Denies: Chills, Fever EENTM: Reports: No Symptoms Reported Respiratory: Denies: Cough, Shortness of Breath Cardiac: Reports: Edema. Denies: Chest Pain, Palpitations Abdominal: Denies: Nausea, Vomiting Genitourinary Symptoms: Denies: Itching, Urgency Musculoskeletal Complaints: Reports: Joint Pain - Vitals Vitals: Last Vital Signs Temp 36.8 C 02/17/17 02:45 Pulse 59 L 02/17/17 02:45 Resp 18 02/17/17 02:45 BP 96/54 02/17/17 02:45 Pulse Ox 97 02/17/17 02:45 - Abnormal Lab Findings Abnormal Lab Findings: Abnormal Lab Results 02/16/17 02/16/17 02/16/17 Range/Units 12:12 12:12 12:12 WBC 14.3 H (4.0-10.5) K/mm3 RBC 3.52 L (4.7-6.0) M/mm3 Hgb 9.8 L (13.5-18.0) gm/dL Hct 30.0 L (42.0-52.0) % RDW 14.6 H (11.5-14.0) % MPV 9.8 H (6.0-9.5) fl Immature Gran % (Auto) 1.70 H (0.001-0.429) % Immature Gran # (Auto) 0.24 H (0.000-0.0310) K/mm3 Neutrophils % 78.0 H (42-75.0) % Lymphocytes % 9.5 L (20-51) % Eosinophils % 3.6 H (0.0-3.0) % Neutrophils # 11.2 H (1.3-6.0) K/mm3 Lymphocytes # 1.4 L (1.5-3.5) k/mm3 ESR Greater than 120 H (0-10) mm/hr Chloride (97-106) mmol/L Carbon Dioxide 21.7 L (24-32.6) mmol/L Anion Gap 16.9 H (6.8-13.8) mmol/L BUN 84 H (6-23) mg/dL Creatinine 3.84 H D (0.4-1.4) mg/dL Est GFR (Non-Af Amer) 16 L D (60-130) mL/min BUN/Creatinine Ratio 21.9 H (9.0-21.6) Random Glucose (70-110) mg/dL Uric Acid 10.5 H (2.6-7.2) mg/dL 02/17/17 02/17/17 Range/Units 06:15 06:15 WBC 11.9 H (4.0-10.5) K/mm3 RBC 3.21 L (4.7-6.0) M/mm3 Hgb 8.8 L (13.5-18.0) gm/dL Hct 27.2 L (42.0-52.0) % RDW 14.5 H (11.5-14.0) % MPV (6.0-9.5) fl Immature Gran % (Auto) 1.60 H (0.001-0.429) % Immature Gran # (Auto) 0.19 H (0.000-0.0310) K/mm3 Neutrophils % (42-75.0) % Lymphocytes % 14.3 L (20-51) % Eosinophils % 4.2 H (0.0-3.0) % Neutrophils # 8.6 H (1.3-6.0) K/mm3 Lymphocytes # (1.5-3.5) k/mm3 ESR (0-10) mm/hr Chloride 107 H (97-106) mmol/L Carbon Dioxide 20.8 L (24-32.6) mmol/L Anion Gap 16.5 H (6.8-13.8) mmol/L BUN 76 H (6-23) mg/dL Creatinine 3.51 H (0.4-1.4) mg/dL Est GFR (Non-Af Amer) 18 L (60-130) mL/min BUN/Creatinine Ratio 21.7 H (9.0-21.6) Random Glucose 55 L D (70-110) mg/dL Uric Acid (2.6-7.2) mg/dL Assessment/Plan - Problems/Diagnosis (1) Right knee pain Problem: Acute Qualifiers: Chronicity: acute Qualified Code(s): M25.561 - Pain in right knee Narrative: rule out Septic arthritis r/o Gout r/o reactive synovitis ( positive superficial ulcer on leg)- had knee aspiration yesterday- inflammatory, no crystals but positive Gram + cocci on Gram stain. Elevated blood uric acid. will low dose start colchicine for now due to renal function. cannot give NSAIDS. if culture comes back negative- consider prednisone or intrarticular inkection by Ortho. (2) Gout Problem: Chronic Narrative: has h/o of gout . Uric acid is elevated but no crystals on joint aspirate. xray showed chondrocalcinosis- pseudogout? 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
--- NOTE | 2017-02-17 08:17 | CONS ---
[facility] - General Date of Service: 02/16/17 Narrative: Request to evaluate knee effusion and pain from Dr. Mirza. Lonnie is a poor historian. [facility] patient with history of low grade fevers. Has had resent hip fracture left hip that was treated surgically. Recently treated for UTI. [facility] reports swelling right knee. Not putting weight on knee. - History of Present Illness Allergies/Adverse Reactions: Allergies gabapentin Allergy (Verified 02/16/17 13:02) Home Medications: Home Medications Medication Instructions Recorded Last Taken Chlorthalidone [Hygroton] 12.5 mg PO DAILY 09/02/14 11/12/16 09:00 Ergocalciferol (Vitamin D2) 2,000 unit PO DAILY 09/02/14 10/28/16 07:00 [Vitamin D2] Insulin Glargine,Hum.rec.anlog 45 units SC QPM 09/02/14 10/27/16 20:00 [Lantus] Nitroglycerin 0.4 mg SL PRN PRN MDD 3 doses 09/02/14 Unknown amLODIPine BESYLATE [Norvasc] 10 mg PO QAM 09/02/14 11/12/16 09:00 Levothyroxine Sodium [Synthroid] 100 mcg PO DAILY 07/18/15 11/13/16 07:00 Docusate Sodium [Colace Clear] 50 mg PO BID PRN 10/28/16 Unknown Pregabalin [Lyrica] 25 mg PO QAM 10/28/16 11/12/16 09:00 traMADol HCL [Ultram] 50 mg PO TID PRN 10/28/16 Unknown Aspirin [Aspirin Chewable] 81 mg PO DAILY 02/12/17 Unknown Clonidine HCl [Catapres] 0.1 mg PO BID 02/12/17 Unknown Clopidogrel Bisulfate [Plavix] 75 mg PO DAILY 02/12/17 Unknown Escitalopram Oxalate [Lexapro] 10 mg PO DAILY 02/12/17 Unknown Ranitidine HCl [Zantac] 150 mg PO BID 02/12/17 Unknown Arginine/Ascorbate Sod/Aneta AC 1 each PO DAILY 02/16/17 Unknown [Arginaid Powder] Nystatin [Mycostatin Powder] 1 appl TP QID 02/16/17 Unknown - Patient's Past Medical History Patient History - Medical: Diabetes Type 2, Diabetes Type 2 Insulin Dependent, Dementia, Hypothyroidism, Renal Failure, Other Patient History - Cardiac/Respiratory: Coronary Heart Disease, Hypertension, Hyperlipidemia, Myocardial Infarction, Other Patient History - Cancer: No Hx of Cancer Patient History - Surgical Procedures: Cholecystectomy, Coronary Bypass Surgery Patient History - Other: None - Family History Mother Family History - Medical: , No pertinent hx Family History - Cardiac/Respiratory: No pertinent hx Family History - Cancer: No pertinent family hx Father Family History - Medical: , No pertinent hx Family History - Cardiac/Respiratory: No pertinent hx Family History - Cancer: No pertinent family hx - Social History Living Situations: long term Abuse History: No History of abuse Psych History: No pertinent hx Does anyone smoke in the home?: No Smoking Status: Never smoker Have you smoked in the past 12 months: No Alcohol Use: none Drug Use: none - Immunizations Immunizations Up to Date: Yes Hx Pneumococcal Vaccination: Yes History of Influenza Vaccine: Yes Procedures ANESTH INJECT-SPIN CANAL (07/23/11) CATARAC PHACOEMULS/ASPIR (11/26/10) INJECT STEROID (07/23/11) INSERT LENS AT CATAR EXT (11/26/10) RELEASE SMALL INTESTINE, OPEN APPROACH (10/28/16) REPAIR SMALL INTESTINE, OPEN APPROACH (10/28/16) REPOSITION LEFT UPPER FEMUR WITH INT FIX, OPEN APPROACH (10/28/16) SPINAL CANAL INJECT NEC (07/23/11) Medications - Medications Current Medications: Current Medications Clonidine (Catapres) 0.1 mg PO BID MAGGI Stop: 03/18/17 21:01 Last Admin: 02/16/17 21:18 Dose: 0.1 mg Enoxaparin Sodium (Lovenox) 30 mg SC Q24H MAGGI Stop: 03/18/17 12:31 Last Admin: 02/16/17 12:30 Dose: 30 mg Famotidine (Pepcid) 20 mg PO BID MAGGI Stop: 03/18/17 21:01 Last Admin: 02/16/17 21:18 Dose: 20 mg Cefazolin Sodium 1 gm/ (Dextrose/Water) 110 mls @ 200 mls/hr IV Q8H MAGGI PRN Reason: Protocol Stop: 03/18/17 15:01 Last Admin: 02/17/17 07:13 Dose: 200 mls/hr Sodium Chloride (Sodium Chloride 0.9%) 1,000 mls @ 100 mls/hr IV .Q10H PRN PRN Reason: HYDRATION Stop: 03/18/17 17:10 Last Admin: 02/17/17 05:12 Dose: 100 mls/hr Insulin Glargine (Lantus) 45 units SC HS MAGGI Stop: 03/18/17 21:01 Last Admin: 02/16/17 21:17 Dose: 45 units Levothyroxine Sodium (Synthroid) 100 mcg PO DAILY@0700 MAGGI Stop: 03/19/17 07:01 Last Admin: 02/17/17 07:13 Dose: 100 mcg Rosuvastatin Calcium (Crestor) 10 mg PO HS MAGGI Stop: 03/18/17 21:01 Last Admin: 02/16/17 21:18 Dose: 10 mg Tramadol HCl (Ultram) 50 mg PO TID PRN PRN Reason: Pain Stop: 03/18/17 15:03 Last Admin: 02/17/17 02:15 Dose: 50 mg Physical Examination - Exam Vital Signs: Vital Signs - Last Taken Temp 36.8 C 02/17/17 02:45 Pulse 59 L 02/17/17 02:45 Resp 18 02/17/17 02:45 BP 96/54 02/17/17 02:45 Pulse Ox 97 02/17/17 02:45 O2 Oxygen Delivery Method Room Air Comprehensive Narative: 02/17/17 08:14 Right knee effusion. No pain with palpation of knee joint. Patient dose not follow commands well. Passive right knee ROM 15-40 degrees. Patient able to do straight leg raise. No warmth to touch of knee joint. No erythema. No open sores. No xrays done at this time. Labs pending at this time. - Results and Findings: Lab/Microbiology results last 24 hrs: Abnormal/Pending Laboratory Last 24 HRS 02/17/17 02/17/17 02/16/17 06:15 06:15 12:12 WBC 11.9 H RBC 3.21 L Hgb 8.8 L Hct 27.2 L RDW 14.5 H MPV Immature Gran % (Auto) 1.60 H Immature Gran # (Auto) 0.19 H Neutrophils % Lymphocytes % 14.3 L Eosinophils % 4.2 H Neutrophils # 8.6 H Lymphocytes # ESR Chloride 107 H Carbon Dioxide 20.8 L 21.7 L Anion Gap 16.5 H 16.9 H BUN 76 H 84 H Creatinine 3.51 H 3.84 H D Est GFR (Non-Af Amer) 18 L 16 L D BUN/Creatinine Ratio 21.7 H 21.9 H Random Glucose 55 L D Uric Acid 10.5 H 02/16/17 02/16/17 12:12 12:12 WBC 14.3 H RBC 3.52 L Hgb 9.8 L Hct 30.0 L RDW 14.6 H MPV 9.8 H Immature Gran % (Auto) 1.70 H Immature Gran # (Auto) 0.24 H Neutrophils % 78.0 H Lymphocytes % 9.5 L Eosinophils % 3.6 H Neutrophils # 11.2 H Lymphocytes # 1.4 L ESR Greater than 120 H Chloride Carbon Dioxide Anion Gap BUN Creatinine Est GFR (Non-Af Amer) BUN/Creatinine Ratio Random Glucose Uric Acid Culture 02/16/17 14:45 Gram Stain - Final Knee - Right - Assessments/Findings (1) Knee effusion, right Diagnosis(s): I prepped lateral joint with betadine. Aspirated 20 mls of clear yellow joint fluid. Fluid to be sent for cell count, gram stain, C and S, crystals. I ordered xrays of knee joint. Problem: Acute
--- NOTE | 2017-02-17 08:34 | PN ---
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 Reports his right knee is "sore". Objective Objective Narrative: Patient up in chair drinking coffee. No distress. Sitting with knee flexed to 85 degrees. Right knee effusion. Passive ROM 20-85 degrees. Has reports no pain with passive ROM, but states it is "sore". No erythema. Culture pending from aspiration. Gram stain rare gram + cocci. Cell count shows only 13,000 WBCs. No crystals. Xrays of knee show degenerative changes. CBC shows WBC 11, 900 today improved from 14,300 yesterday. ESR 120 yesterday. - Vitals Vitals: Last Vital Signs Temp 36.8 C 02/17/17 02:45 Pulse 59 L 02/17/17 02:45 Resp 18 02/17/17 02:45 BP 96/54 02/17/17 02:45 Pulse Ox 97 02/17/17 02:45 - Abnormal Lab Findings Abnormal Lab Findings: Abnormal Lab Results 02/16/17 02/16/17 02/16/17 Range/Units 12:12 12:12 12:12 WBC 14.3 H (4.0-10.5) K/mm3 RBC 3.52 L (4.7-6.0) M/mm3 Hgb 9.8 L (13.5-18.0) gm/dL Hct 30.0 L (42.0-52.0) % RDW 14.6 H (11.5-14.0) % MPV 9.8 H (6.0-9.5) fl Immature Gran % (Auto) 1.70 H (0.001-0.429) % Immature Gran # (Auto) 0.24 H (0.000-0.0310) K/mm3 Neutrophils % 78.0 H (42-75.0) % Lymphocytes % 9.5 L (20-51) % Eosinophils % 3.6 H (0.0-3.0) % Neutrophils # 11.2 H (1.3-6.0) K/mm3 Lymphocytes # 1.4 L (1.5-3.5) k/mm3 ESR Greater than 120 H (0-10) mm/hr Chloride (97-106) mmol/L Carbon Dioxide 21.7 L (24-32.6) mmol/L Anion Gap 16.9 H (6.8-13.8) mmol/L BUN 84 H (6-23) mg/dL Creatinine 3.84 H D (0.4-1.4) mg/dL Est GFR (Non-Af Amer) 16 L D (60-130) mL/min BUN/Creatinine Ratio 21.9 H (9.0-21.6) Random Glucose (70-110) mg/dL Uric Acid 10.5 H (2.6-7.2) mg/dL 02/17/17 02/17/17 Range/Units 06:15 06:15 WBC 11.9 H (4.0-10.5) K/mm3 RBC 3.21 L (4.7-6.0) M/mm3 Hgb 8.8 L (13.5-18.0) gm/dL Hct 27.2 L (42.0-52.0) % RDW 14.5 H (11.5-14.0) % MPV (6.0-9.5) fl Immature Gran % (Auto) 1.60 H (0.001-0.429) % Immature Gran # (Auto) 0.19 H (0.000-0.0310) K/mm3 Neutrophils % (42-75.0) % Lymphocytes % 14.3 L (20-51) % Eosinophils % 4.2 H (0.0-3.0) % Neutrophils # 8.6 H (1.3-6.0) K/mm3 Lymphocytes # (1.5-3.5) k/mm3 ESR (0-10) mm/hr Chloride 107 H (97-106) mmol/L Carbon Dioxide 20.8 L (24-32.6) mmol/L Anion Gap 16.5 H (6.8-13.8) mmol/L BUN 76 H (6-23) mg/dL Creatinine 3.51 H (0.4-1.4) mg/dL Est GFR (Non-Af Amer) 18 L (60-130) mL/min BUN/Creatinine Ratio 21.7 H (9.0-21.6) Random Glucose 55 L D (70-110) mg/dL Uric Acid (2.6-7.2) mg/dL Assessment/Plan - Problems/Diagnosis (1) Knee effusion, right Problem: Acute Narrative: Cell count of aspirate is not consistent with septic knee, gram stain positive for rare gram + cocci, culture still pending, patient has been afebrile through hospitalization. Await cultures to see if any growth. 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
[2017-02-17] MEDS: ASPIRIN 81 MG TAB.CHEW PO SCH (08:35)
[2017-02-17] MEDS: CHOLECALCIFEROL 1,000 UNIT CAPSULE PO SCH (08:36)
[2017-02-17] MEDS: FAMOTIDINE 20 MG TABLET PO SCH ×2 (08:36→20:23)
[2017-02-17] MEDS: CLOPIDOGREL BISULFATE 75 MG TABLET PO SCH (08:36)
[2017-02-17] MEDS: CLONIDINE HCL 0.1 MG TABLET PO SCH ×2 (08:36→20:23)
[2017-02-17] MEDS: CHLORTHALIDONE 25 MG TABLET PO SCH (08:36)
[2017-02-17] MEDS: METOPROLOL SUCCINATE 50 MG TABLET.SA PO SCH (08:36)
[2017-02-17] MEDS: amLODIPine BESYLATE 10 MG TABLET PO SCH (08:36)
[2017-02-17] MEDS: ESCITALOPRAM OXALATE 10 MG TAB PO SCH (08:36)
[2017-02-17] MEDS: LISINOPRIL 10 MG TABLET PO SCH (08:37)
[2017-02-17] MEDS: PREGABALIN 25 MG CAPSULE PO SCH (08:42)
[2017-02-17] MEDS: COLCHICINE 0.6 MG TABLET PO SCH ×2 (08:42→08:43)
[2017-02-17] MEDS: ASCORBATE SOD PO SCH (08:43)
[2017-02-17] MEDS: VITE AC PO SCH (08:43)
[2017-02-17] MEDS: ARGININE PO SCH (08:43)
[2017-02-17] MEDS: ENOXAPARIN SODIUM 30 MG/0.3 ML SYRG SC SCH (11:51)
[2017-02-17] MEDS: CEFAZOLIN SODIUM IV SCH ×2 (18:41)
[2017-02-17] MEDS: WATER IV SCH ×2 (18:41)
[2017-02-17] MEDS: DEXTROSE 5% IV SCH ×2 (18:41)
[2017-02-17] MEDS: INSULIN GLARGINE,HUM.REC.ANLOG 100 UNITS/ML VIAL SC SCH (20:21)
[2017-02-17] MEDS: ROSUVASTATIN CALCIUM 10 MG TABLET PO SCH (20:22)
[2017-02-18 06:10] LABS: Hematocrit 25.8 % (42.0-52.0); Hemoglobin 8.4 gm/dL (13.5-18.0); Mean Cell Volume 83.8 fl (78-100); Mean Corpuscular Hemoglobin 27.3 pg (27-31); Mean Corpuscular Hgb Conc 32.6 g/dl (32-36); Mean Platelet Volume 9.5 fl (6.0-9.5); Neutrophil % 76.8 % (42-75.0); Platelet Count 377 K/mm3 (150-450); Red Blood Count 3.08 M/mm3 (4.7-6.0); Red Cell Distribution Width 14.5 % (11.5-14.0)
[2017-02-18 06:33] LABS: BUN/Creatinine Ratio 21.4 (9.0-21.6); Calcium * 8.5 mg/dL (7.9-10.9); Carbon Dioxide 18.2 mmol/L (24-32.6); Estimated Creat Clear 18.4; Potassium 4.2 mmol/L (3.4-4.6)
[2017-02-18] MEDS: LEVOTHYROXINE SODIUM 100 MCG TABLET PO SCH (07:37)
[2017-02-18] MEDS: WATER IV SCH ×4 (07:37→18:30)
[2017-02-18] MEDS: CEFAZOLIN SODIUM IV SCH ×4 (07:37→18:30)
[2017-02-18] MEDS: DEXTROSE 5% IV SCH ×4 (07:37→18:30)
[2017-02-18] MEDS: ASPIRIN 81 MG TAB.CHEW PO SCH (08:48)
[2017-02-18] MEDS: CLOPIDOGREL BISULFATE 75 MG TABLET PO SCH (08:49)
[2017-02-18] MEDS: ESCITALOPRAM OXALATE 10 MG TAB PO SCH (08:49)
[2017-02-18] MEDS: FAMOTIDINE 20 MG TABLET PO SCH ×2 (08:49→20:15)
[2017-02-18] MEDS: CHLORTHALIDONE 25 MG TABLET PO SCH (08:49)
[2017-02-18] MEDS: CHOLECALCIFEROL 1,000 UNIT CAPSULE PO SCH (08:50)
[2017-02-18] MEDS: CLONIDINE HCL 0.1 MG TABLET PO SCH ×2 (08:51→20:15)
[2017-02-18] MEDS: COLCHICINE 0.6 MG TABLET PO SCH (08:53)
[2017-02-18] MEDS: VITE AC PO SCH (08:53)
[2017-02-18] MEDS: ARGININE PO SCH (08:53)
[2017-02-18] MEDS: ASCORBATE SOD PO SCH (08:53)
[2017-02-18] MEDS: METOPROLOL SUCCINATE 50 MG TABLET.SA PO SCH (08:53)
[2017-02-18] MEDS: amLODIPine BESYLATE 10 MG TABLET PO SCH (08:53)
[2017-02-18] MEDS: LISINOPRIL 10 MG TABLET PO SCH (08:55)
[2017-02-18] MEDS: PREGABALIN 25 MG CAPSULE PO SCH (08:55)
--- NOTE | 2017-02-18 09:47 | PN ---
Subjective - Date and Time Seen Date: 02/18/17 Time: 09:43 Subjective Narrative: He says his right knee is less painful and swollen. Afebrile. Tmax 37.2 Objective - Review of Systems Generalized/Overall Review: Denies: Chills, Fever EENTM: Reports: No Symptoms Reported Respiratory: Denies: Cough, Shortness of Breath Cardiac: Reports: Edema. Denies: Chest Pain, Palpitations Abdominal: Denies: Nausea, Vomiting Genitourinary Symptoms: Denies: Urgency, Frequency Musculoskeletal Complaints: Reports: Joint Pain - Vitals Vitals: Last Vital Signs Temp 36.6 C 02/18/17 07:59 Pulse 64 02/18/17 08:55 Resp 20 02/18/17 07:59 BP 99/54 02/18/17 08:55 Pulse Ox 92 02/18/17 07:59 - Abnormal Lab Findings Abnormal Lab Findings: Abnormal Lab Results 02/18/17 02/18/17 Range/Units 06:05 06:05 WBC 13.0 H (4.0-10.5) K/mm3 RBC 3.08 L (4.7-6.0) M/mm3 Hgb 8.4 L (13.5-18.0) gm/dL Hct 25.8 L (42.0-52.0) % RDW 14.5 H (11.5-14.0) % Immature Gran % (Auto) 1.90 H (0.001-0.429) % Immature Gran # (Auto) 0.24 H (0.000-0.0310) K/mm3 Neutrophils % 76.8 H (42-75.0) % Lymphocytes % 11.9 L (20-51) % Neutrophils # 10.0 H (1.3-6.0) K/mm3 Chloride 107 H (97-106) mmol/L Carbon Dioxide 18.2 L (24-32.6) mmol/L Anion Gap 17.0 H (6.8-13.8) mmol/L BUN 65 H (6-23) mg/dL Creatinine 3.04 H D (0.4-1.4) mg/dL Est GFR (Non-Af Amer) 21 L (60-130) mL/min Random Glucose 45 L (70-110) mg/dL - Exam Constitutional: Present: Alert, Oriented x3, Cooperative ENT Exam: Present: hard of hearing Neck: Present: supple Breasts: Present: Exam deferred Respiratory: Present: decreased breath sounds, No rales, No wheezing Cardiovascular/Chest: Present: regular rate, rhythm, no JVD, no murmur Abdomen: Present: Normal bowel sounds, soft, nontender, nondistended Extremity: Present: no calf tenderness, lower extremity edema, other - mild knee swelling, right Assessment/Plan - Problems/Diagnosis (1) Right knee pain Problem: Acute Qualifiers: Chronicity: acute Qualified Code(s): M25.561 - Pain in right knee Narrative: final culture - NG but WBC up again. IV antibiotics in the meantime. will talk with Ortho if this is more of inflammatory than infection- consider steroid injection. (2) Gout Problem: Chronic Narrative: h/o of gout. colchicine. 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 (6) Leukocytosis Problem: Acute Qualifiers: Narrative: WBC jumped up again to 13. (7) Superficial ulcer of skin Problem: Acute Narrative: leg, buttocks. Wound center on consult.
[2017-02-18] MEDS: NYSTATIN 15 APPL BTL TP SCH ×2 (09:51→20:15)
[2017-02-18] MEDS: NORMAL SALINE 1,000 ML IV PRN (10:44)
[2017-02-18] MEDS ORDERED: TRIAMCINOLONE ACETONIDE 40 MG/ML VIAL IJ PRN (12:09)
[2017-02-18] MEDS: ENOXAPARIN SODIUM 30 MG/0.3 ML SYRG SC SCH (12:19)
--- NOTE | 2017-02-18 13:00 | CONS ---
[facility] - General Date of Service: 02/18/17 Source: patient - History of Present Illness Initial Comments: Patient is an 82 year old male, recently admitted to the hospital. Consult request made to evaluate the non-healing ulcers on the lower legs. The patient is a poor historian, and can provide no history for these ulcers. He does admit to pain in the lower legs. The legs are currently wrapped with MEREDITH type bandages. Timing/Duration: unsure Allergies/Adverse Reactions: Allergies gabapentin Allergy (Verified 02/16/17 13:02) Home Medications: Home Medications Medication Instructions Recorded Last Taken Chlorthalidone [Hygroton] 12.5 mg PO DAILY 09/02/14 11/12/16 09:00 Ergocalciferol (Vitamin D2) 2,000 unit PO DAILY 09/02/14 10/28/16 07:00 [Vitamin D2] Insulin Glargine,Hum.rec.anlog 45 units SC QPM 09/02/14 10/27/16 20:00 [Lantus] Nitroglycerin 0.4 mg SL PRN PRN MDD 3 doses 09/02/14 Unknown amLODIPine BESYLATE [Norvasc] 10 mg PO QAM 09/02/14 11/12/16 09:00 Levothyroxine Sodium [Synthroid] 100 mcg PO DAILY 07/18/15 11/13/16 07:00 Docusate Sodium [Colace Clear] 50 mg PO BID PRN 10/28/16 Unknown Pregabalin [Lyrica] 25 mg PO QAM 10/28/16 11/12/16 09:00 traMADol HCL [Ultram] 50 mg PO TID PRN 10/28/16 Unknown Aspirin [Aspirin Chewable] 81 mg PO DAILY 02/12/17 Unknown Clonidine HCl [Catapres] 0.1 mg PO BID 02/12/17 Unknown Clopidogrel Bisulfate [Plavix] 75 mg PO DAILY 02/12/17 Unknown Escitalopram Oxalate [Lexapro] 10 mg PO DAILY 02/12/17 Unknown Ranitidine HCl [Zantac] 150 mg PO BID 02/12/17 Unknown Arginine/Ascorbate Sod/Aneta AC 1 each PO DAILY 02/16/17 Unknown [Arginaid Powder] Nystatin [Mycostatin Powder] 1 appl TP QID 02/16/17 Unknown - Patient's Past Medical History Patient History - Medical: Diabetes Type 2, Diabetes Type 2 Insulin Dependent, Dementia, Hypothyroidism, Renal Failure, Other Patient History - Cardiac/Respiratory: Coronary Heart Disease, Hypertension, Hyperlipidemia, Myocardial Infarction, Other Patient History - Cancer: No Hx of Cancer Patient History - Surgical Procedures: Cholecystectomy, Coronary Bypass Surgery Patient History - Other: None - Family History Mother Family History - Medical: , No pertinent hx Family History - Cardiac/Respiratory: No pertinent hx Family History - Cancer: No pertinent family hx Father Family History - Medical: , No pertinent hx Family History - Cardiac/Respiratory: No pertinent hx Family History - Cancer: No pertinent family hx - Social History Living Situations: detention Abuse History: No History of abuse Psych History: No pertinent hx Does anyone smoke in the home?: No Smoking Status: Never smoker Have you smoked in the past 12 months: No Alcohol Use: none Drug Use: none - Immunizations Immunizations Up to Date: Yes Hx Pneumococcal Vaccination: Yes History of Influenza Vaccine: Yes Procedures ANESTH INJECT-SPIN CANAL (07/23/11) CATARAC PHACOEMULS/ASPIR (11/26/10) INJECT STEROID (07/23/11) INSERT LENS AT CATAR EXT (11/26/10) RELEASE SMALL INTESTINE, OPEN APPROACH (10/28/16) REPAIR SMALL INTESTINE, OPEN APPROACH (10/28/16) REPOSITION LEFT UPPER FEMUR WITH INT FIX, OPEN APPROACH (10/28/16) SPINAL CANAL INJECT NEC (07/23/11) Medications - Medications Current Medications: Current Medications Amlodipine Besylate (Norvasc) 10 mg PO QAM [facility] Stop: 03/19/17 09:01 Last Admin: 02/18/17 08:53 Dose: Not Given Aspirin (Aspirin Chewable) 81 mg PO DAILY [facility] Stop: 03/19/17 09:01 Last Admin: 02/18/17 08:48 Dose: 81 mg Chlorthalidone (Hygroton) 12.5 mg PO DAILY [facility] Stop: 03/19/17 09:01 Last Admin: 02/18/17 08:49 Dose: 12.5 mg Cholecalciferol (Vitamin D) 2,000 unit PO DAILY [facility] Stop: 03/19/17 09:01 Last Admin: 02/18/17 08:50 Dose: 2,000 unit Clonidine (Catapres) 0.1 mg PO BID [facility] Stop: 03/18/17 21:01 Last Admin: 02/18/17 08:51 Dose: Not Given Clopidogrel Bisulfate (Plavix) 75 mg PO DAILY [facility] Stop: 03/19/17 09:01 Last Admin: 02/18/17 08:49 Dose: 75 mg Colchicine (Colchicine) 0.3 mg PO DAILY [facility] Stop: 03/19/17 08:31 Last Admin: 02/18/17 08:53 Dose: 0.3 mg Enoxaparin Sodium (Lovenox) 30 mg SC Q24H [facility] Stop: 03/18/17 12:31 Last Admin: 02/18/17 12:19 Dose: 30 mg Escitalopram Oxalate (Lexapro) 10 mg PO DAILY [facility] Stop: 03/19/17 09:01 Last Admin: 02/18/17 08:49 Dose: 10 mg Famotidine (Pepcid) 20 mg PO BID [facility] Stop: 03/18/17 21:01 Last Admin: 02/18/17 08:49 Dose: 20 mg Sodium Chloride (Sodium Chloride 0.9%) 1,000 mls @ 75 mls/hr IV .[id number] PRN PRN Reason: HYDRATION Stop: 03/18/17 17:10 Last Admin: 02/18/17 10:44 Dose: 75 mls/hr Cefazolin Sodium 0.5 gm/ (Dextrose/Water) 105 mls @ 200 mls/hr IV Q12H [facility] PRN Reason: Protocol Stop: 03/19/17 19:01 Last Admin: 02/18/17 07:37 Dose: 200 mls/hr Levothyroxine Sodium (Synthroid) 100 mcg PO DAILY@0700 [facility] Stop: 03/19/17 07:01 Last Admin: 02/18/17 07:37 Dose: 100 mcg Lisinopril (Zestril) 10 mg PO DAILY [facility] Stop: 03/19/17 09:01 Last Admin: 02/18/17 08:55 Dose: Not Given Metoprolol Succinate (Toprol Xl) 50 mg PO DAILY [facility] Stop: 03/19/17 09:01 Last Admin: 02/18/17 08:53 Dose: Not Given Arginine/Ascorbate Sod/Aneta Ac [ Arginaid Powder] 1 each PO DAILY [facility] Stop: 03/19/17 09:01 Last Admin: 02/18/17 08:53 Dose: Not Given Nystatin (Mycostatin Powder) 1 appl TP BID [facility] Stop: 03/20/17 09:46 Last Admin: 02/18/17 09:51 Dose: 1 appl Pregabalin (Lyrica) 25 mg PO QAM [facility] Stop: 03/19/17 09:01 Last Admin: 02/18/17 08:55 Dose: 25 mg Rosuvastatin Calcium (Crestor) 10 mg PO HS [facility] Stop: 03/18/17 21:01 Last Admin: 02/17/17 20:22 Dose: 10 mg Tramadol HCl (Ultram) 50 mg PO TID PRN PRN Reason: Pain Stop: 03/18/17 15:03 Last Admin: 02/17/17 11:51 Dose: 50 mg Review of Systems - Review of Systems Respiratory: Absent: Cough Cardiac: Absent: Chest Pain Musculoskeletal: Present: Joint Swelling Neurological: Absent: Numbness, Tingling Skin: Present: Lesions Physical Examination - Exam Vital Signs: Vital Signs - Last Taken Temp 36.6 C 02/18/17 07:59 Pulse 64 02/18/17 08:55 Resp 20 02/18/17 07:59 BP 99/54 02/18/17 08:55 Pulse Ox 92 02/18/17 07:59 O2 Oxygen Delivery Method Room Air Constitutional: Present: Alert, Cooperative, No distress ENT Exam: Present: hearing grossly normal Skin Exam: Present: normal color, other - the right anterior ankle has an open area measuring ~ 1.5cm in circumference. minimal serous drainage. Duoderm in place. no erythema or induration. excellent red granulation tissue present. the left anterior tibia has an area has an area [id number]. completely covered with escar. no drainage, no erythema. Appearance: Present: impaired recent memory, impaired remote memory - Results and Findings: Lab/Microbiology results last 24 hrs: Abnormal/Pending Laboratory Last 24 HRS 02/18/17 02/18/17 06:05 06:05 WBC 13.0 H RBC 3.08 L Hgb 8.4 L Hct 25.8 L RDW 14.5 H Immature Gran % (Auto) 1.90 H Immature Gran # (Auto) 0.24 H Neutrophils % 76.8 H Lymphocytes % 11.9 L Neutrophils # 10.0 H Chloride 107 H Carbon Dioxide 18.2 L Anion Gap 17.0 H BUN 65 H Creatinine 3.04 H D Est GFR (Non-Af Amer) 21 L Random Glucose 45 L Culture 02/16/17 12:33 Blood Culture - Preliminary Blood NO GROWTH AFTER 48 HOURS 02/16/17 12:13 Blood Culture - Preliminary Blood NO GROWTH AFTER 48 HOURS 02/16/17 14:45 Body Fluid Culture - Final Synovial Fluid No Growth 02/16/17 12:33 - Final Nares MRSA Negative - Assessments/Findings (1) Superficial ulcer of skin Problem: Acute (2) Ulcer of right lower extremity with fat layer exposed Problem: Acute (3) Ulcer of left lower extremity Diagnosis(s): Recommend using Pati to the right anterior ankle ulcer, covered with Mepilex border. This should be changed every three days. Wash with soap and water at dressing changes. The ulcer on the left lower leg needs thorough washing with soap and water. If it opens, may cover with mepilex border or gauze. The patient should wear two layers of tubigrip bilaterally. He is encouraged to elevate his legs when possible. Problem: Acute Qualifiers: Non-pressure ulcer stage: limited to breakdown of skin Qualified Code(s): L97.921 - Non-pressure chronic ulcer of unspecified part of left lower leg limited to breakdown of skin
--- NOTE | 2017-02-18 13:22 | PN ---
Subjective - Date and Time Seen Date: 02/18/17 Time: 13:21 Subjective Narrative: continued knee pain, no other complaints Objective Objective Narrative: Effusion, pain with ROM, no erythema, cultures negative - Vitals Vitals: Last Vital Signs Temp 36.6 C 02/18/17 13:08 Pulse 64 02/18/17 13:08 Resp 20 02/18/17 13:08 BP 99/54 02/18/17 13:08 Pulse Ox 92 02/18/17 13:08 - Abnormal Lab Findings Abnormal Lab Findings: Abnormal Lab Results 02/18/17 02/18/17 Range/Units 06:05 06:05 WBC 13.0 H (4.0-10.5) K/mm3 RBC 3.08 L (4.7-6.0) M/mm3 Hgb 8.4 L (13.5-18.0) gm/dL Hct 25.8 L (42.0-52.0) % RDW 14.5 H (11.5-14.0) % Immature Gran % (Auto) 1.90 H (0.001-0.429) % Immature Gran # (Auto) 0.24 H (0.000-0.0310) K/mm3 Neutrophils % 76.8 H (42-75.0) % Lymphocytes % 11.9 L (20-51) % Neutrophils # 10.0 H (1.3-6.0) K/mm3 Chloride 107 H (97-106) mmol/L Carbon Dioxide 18.2 L (24-32.6) mmol/L Anion Gap 17.0 H (6.8-13.8) mmol/L BUN 65 H (6-23) mg/dL Creatinine 3.04 H D (0.4-1.4) mg/dL Est GFR (Non-Af Amer) 21 L (60-130) mL/min Random Glucose 45 L (70-110) mg/dL Assessment/Plan - Problems/Diagnosis (1) Knee effusion, right Problem: Acute (2) DJD (degenerative joint disease) of knee Problem: Acute Narrative: 40mg cortisone injection given today into right knee after prepping with betadine, patient tolerated well. (3) Right knee DJD Problem: Acute (4) Right knee pain Problem: Acute Qualifiers: Chronicity: acute Qualified Code(s): M25.561 - Pain in right knee
[2017-02-18] MEDS: ROSUVASTATIN CALCIUM 10 MG TABLET PO SCH (20:15)
[2017-02-18] MEDS ORDERED: INSULIN GLARGINE,HUM.REC.ANLOG 100 UNITS/ML VIAL SC SCH (21:00)
[2017-02-19] MEDS: NORMAL SALINE 1,000 ML IV PRN (03:07)
[2017-02-19] MEDS: LEVOTHYROXINE SODIUM 100 MCG TABLET PO SCH (07:03)
[2017-02-19] MEDS: WATER IV SCH ×2 (07:09)
[2017-02-19] MEDS: CEFAZOLIN SODIUM IV SCH ×2 (07:09)
[2017-02-19] MEDS: DEXTROSE 5% IV SCH ×2 (07:09)
[2017-02-19 08:11] VITALS: BP 128/77
[2017-02-19] MEDS: COLCHICINE 0.6 MG TABLET PO SCH (08:12)
[2017-02-19] MEDS: CHLORTHALIDONE 25 MG TABLET PO SCH (08:12)
[2017-02-19] MEDS: CHOLECALCIFEROL 1,000 UNIT CAPSULE PO SCH (08:12)
[2017-02-19] MEDS: ESCITALOPRAM OXALATE 10 MG TAB PO SCH (08:13)
[2017-02-19] MEDS: FAMOTIDINE 20 MG TABLET PO SCH (08:13)
[2017-02-19] MEDS: amLODIPine BESYLATE 10 MG TABLET PO SCH (08:13)
[2017-02-19] MEDS: METOPROLOL SUCCINATE 50 MG TABLET.SA PO SCH (08:13)
--- NOTE | 2017-02-19 08:13 | DS ---
(1) Right knee pain Problem: Resolved Qualifiers: Chronicity: acute Qualified Code(s): M25.561 - Pain in right knee (2) Gout Problem: Chronic (3) CKD stage G4/A3, GFR 15-29 and albumin creatinine ratio >300 mg/g Problem: Chronic (4) Diabetes Problem: Chronic (5) HTN (hypertension) Problem: Chronic Qualifiers: (6) Leukocytosis Problem: Acute Qualifiers: (7) Superficial ulcer of skin Problem: Acute Description of Stay: Osmany Harris is an 82-year-old white male with previous medical history of diabetes mellitus type 2, coronary artery disease, chronic renal failure stage IV, gout, hypertension, hypothyroidism who was admitted on 02/16/2017 for right knee pain. The patient is a fdc resident at [facility]. and as per nursing personnel on 02/11/2017 patient had been complaining of right knee pain and was not able to put weight on it. Labs were ordered and Xray taken. The patient also had not been his usual self and he was brought to the emergency room where he was diagnosed with urinary tract infection and was started on Bactrim DS. He continued to not improve clinically. His ESR came back more than 100, Xray showed chodrocalcinosis and so he was told to come to the office. In the office his right knee was slightly warm to touch swollen with significant decreased range of motion. He was then admitted for further workup and IV antibiotics. Working impression then was septic arthritis versus gout versus reactive synovitis. The patient did have some superficial ulcers on his bilateral legs. His white blood cell count was elevated. He was started on IV Ancef after orthopedic aspirated his knee. The knee aspirate showed inflammatory values however Gram stain was showing rare gram-positive cocci, no crystals. Patient was referred to physical therapy. His culture came back negative; his uric acid was elevated at 10.1 . His x-ray showed degenerative osteoarthritis . He was then given knee injection of 40 mg of Kenalog. The patient improved clinically he has been afebrile . He is stable now to be discharge back to the fdc. The culture for his urine alsocame back as no growth as well. Procedures Performed: see notes below List Procedures: knee joint aspiration /Knee joint injection. Discharge Disposition: [facility] Disposition: [facility] Condition: Good Discharge Activity: Activity as tolerated Discharge Diet: Consistent carbs Discharge Level of Care:: [facility] - [facility] Therapy: Physicial Therapy Referrals: Layo Campos MD [Primary Care Provider] - Additional Patient Instructions (free text): Will follow up with patient inn the [place]. Prescriptions (Any new or edited meds): Colchicine 0.3 mg PO DAILY #30 tablet Complete Home Medications List: Complete Home Medication List: Chlorthalidone [Hygroton] 12.5 mg PO DAILY 09/02/14 Ergocalciferol (Vitamin D2) [Vitamin D2] 2,000 unit PO DAILY 09/02/14 Insulin Glargine,Hum.rec.anlog [Lantus] 45 units SC QPM 09/02/14 Nitroglycerin 0.4 mg SL PRN PRN MDD 3 doses 09/02/14 amLODIPine BESYLATE [Norvasc] 10 mg PO QAM 09/02/14 Levothyroxine Sodium [Synthroid] 100 mcg PO DAILY 07/18/15 Docusate Sodium [Colace Clear] 50 mg PO BID PRN 10/28/16 Pregabalin [Lyrica] 25 mg PO QAM 10/28/16 traMADol HCL [Ultram] 50 mg PO TID PRN 10/28/16 Acetaminophen [Tylenol] 1,000 mg PO Q6H PRN #0 tablet 11/13/16 Metoprolol Succinate [Toprol Xl] 50 mg PO DAILY tablet.sa 11/13/16 Rosuvastatin Calcium [Crestor] 10 mg PO HS tablet 11/13/16 Lisinopril [Zestril] 10 mg PO DAILY tablet 11/20/16 Aspirin [Aspirin Chewable] 81 mg PO DAILY 02/12/17 Clonidine HCl [Catapres] 0.1 mg PO BID 02/12/17 Clopidogrel Bisulfate [Plavix] 75 mg PO DAILY 02/12/17 Escitalopram Oxalate [Lexapro] 10 mg PO DAILY 02/12/17 Ranitidine HCl [Zantac] 150 mg PO BID 02/12/17 Arginine/Ascorbate Sod/Aneta AC [Arginaid Powder] 1 each PO DAILY 02/16/17 Nystatin [Mycostatin Powder] 1 appl TP QID 02/16/17 Colchicine 0.3 mg PO DAILY #30 tablet 02/19/17
[2017-02-19] MEDS: LISINOPRIL 10 MG TABLET PO SCH (08:14)
[2017-02-19] MEDS: CLOPIDOGREL BISULFATE 75 MG TABLET PO SCH (08:14)
[2017-02-19] MEDS: ASPIRIN 81 MG TAB.CHEW PO SCH (08:14)
[2017-02-19] MEDS: CLONIDINE HCL 0.1 MG TABLET PO SCH (08:14)
[2017-02-19] MEDS: ASCORBATE SOD PO SCH (08:15)
[2017-02-19] MEDS: VITE AC PO SCH (08:15)
[2017-02-19] MEDS: NYSTATIN 15 APPL BTL TP SCH (08:15)
[2017-02-19] MEDS: ARGININE PO SCH (08:15)
[2017-02-19] MEDS: PREGABALIN 25 MG CAPSULE PO SCH (09:10)
== END 2017-02-19 09:40 ==
LOC: INTOOBSV 11:13 → MS 11:13
PROVIDERS: ADMIT Internal Medicine; ATTEND Internal Medicine
PROC: 3E0U33Z Introduction of Anti-inflammatory into Joints, Percutaneous Approach (ICD-10-PCS; principal; 2017-02-17)
DX: M25.561 Pain in right knee (principal); M25.461 Effusion, right knee; N18.4 Chronic kidney disease, stage 4 (severe); I12.9 Hypertensive chronic kidney disease with stage 1 through stage 4 chronic kidney disease, or unspecified chronic kidney disease; E78.5 Hyperlipidemia, unspecified; E03.9 Hypothyroidism, unspecified; E11.9 Type 2 diabetes mellitus without complications; I25.10 Atherosclerotic heart disease of native coronary artery without angina pectoris; Z95.1 Presence of aortocoronary bypass graft; M1A.9XX0 Chronic gout, unspecified, without tophus (tophi); M17.11 Unilateral primary osteoarthritis, right knee; L97.812 Non-pressure chronic ulcer of other part of right lower leg with fat layer exposed; L97.529 Non-pressure chronic ulcer of other part of left foot with unspecified severity
CPT/HCPCS: 20610; 36415; 73560; 80048; 83605; 84550; 85025; 85652; 87040; 87070; 87081; 87205; 89051; 89060; 96365; 96366; 96372; 97110; 97116; 97162; G0378; G0379

== ENCOUNTER 2018-10-14 12:11 | Inpatient (IN) ==
--- NOTE | 2018-10-14 12:29 | ERNOTE ---
Dyspnea - General Time Seen by Provider: 10/14/18 12:11 Source: custodial records Exam Limitations: clinical condition - Immun/Allergies/Home Medications Immunizations: IMMUNIZATION HX Immunizations Up to Date Yes History of Influenza Vaccine Yes Hx Pneumococcal Vaccination Yes Allergies/Adverse Reactions: Allergies gabapentin Allergy (Unknown, Verified 10/14/18 12:22) unknown Home Medications: HOME MEDICATIONS Amlodipine Besylate 10 mg PO DAILY 03/30/17 [Last Taken Unknown] Arginine/Ascorbate Sod/Aneta AC [Arginaid Powder] 1 ea PO DAILY 03/30/17 [Last Taken Unknown] Aspirin [Aspirin Chewable] 81 mg PO DAILY 03/30/17 [Last Taken Unknown] Cholecalciferol (Vitamin D3) [Vitamin D] 2,000 unit PO DAILY 03/30/17 [Last Taken Unknown] Clonidine HCl [Clonidine HCl ER] 0.1 mg PO BID 03/30/17 [Last Taken Unknown] Clopidogrel Bisulfate [Plavix] 75 mg PO DAILY 03/30/17 [Last Taken Unknown] Docusate Sodium [Colace Clear] 50 mg PO PRN PRN 03/30/17 [Last Taken Unknown] Levothyroxine Sodium [Synthroid] 100 mcg PO DAILY 03/30/17 [Last Taken Unknown] Metoprolol Succinate [Toprol Xl] 50 mg PO DAILY 03/30/17 [Last Taken Unknown] Nitroglycerin [Nitrostat] 0.4 mg SL Q5MIN PRN 03/30/17 [Last Taken Unknown] Polyethylene Glycol 3350 [Miralax] 17 gm PO DAILY 03/30/17 [Last Taken Unknown] Pregabalin [Lyrica] 25 mg PO DAILY 03/30/17 [Last Taken Unknown] Ranitidine HCl [Zantac] 150 mg PO BID 03/30/17 [Last Taken Unknown] Rosuvastatin Calcium 10 mg PO DAILY 03/30/17 [Last Taken Unknown] traMADol HCL [Tramadol HCl] 50 mg PO TID 03/30/17 [Last Taken Unknown] Bisacodyl [Dulcolax Suppository] 10 mg RC 3XW PRN 09/18/17 [Last Taken Unknown] Cetirizine HCl 10 mg PO DAILY 09/18/17 [Last Taken Unknown] Escitalopram Oxalate 5 mg PO DAILY 09/18/17 [Last Taken Unknown] Nut.tx.gluc.intoler,Lac-Fr,Soy [Glucerna] 240 ml PO BID 09/18/17 [Last Taken Unknown] acetaminophen 500 mg capsule 1,000 mg PO Q6H PRN cap 02/11/18 [Last Taken Unknown] furosemide 40 mg tablet 40 mg PO DAILY 02/11/18 [Last Taken Unknown] glipizide 5 mg tablet 5 mg PO DAILY 02/11/18 [Last Taken Unknown] sodium bicarbonate 650 mg tablet 650 mg PO BID tab 02/11/18 [Last Taken Unknown] ipratropium-albuterol 0.5 mg-3 mg(2.5 mg base)/3 mL nebulization soln 3 ml IH Q4H PRN 07/13/18 [Last Taken Unknown] - History of Present Illness Narrative: Patient is from the care center unable to give history. Apparently he has had URI symptoms for a few days, had a CXR three days ago that was normal. Today he became increasingly lethargic and confused, on EMS arrival had a temp and was hypoxic Initiating event: Reports: upper resp illness Associated Symptoms-Dyspnea: Reports: fever/chills Review of Systems - Narrative Narrative: unable to obtain Medical History (Updated 10/14/18 @ 13:54 by Belkis Vincent MD) Osteoarthritis (Chronic) Onset Date: ~03/02/17 Hypothyroidism (Chronic) Onset Date: ~07/21/11 Hyperlipidemia (Chronic) DVT (deep venous thrombosis) (Acute) Onset Date: ~12/12/16 Coronary artery disease (Chronic) Onset Date: ~07/22/11 Chronic kidney disease (CKD) Onset Date: ~09/18/09 right renal stenosis- S/P [employer] 4/10 Diabetes mellitus, type II Difficulty walking Foot pain, bilateral History of gout Hyperparathyroidism Myocardial infarction Onset Date: ~09/18/08 x2 Onychomycosis Hip fracture Hydrocele Spinal stenosis Vitamin A deficiency Surgical History: Surgical History (Updated 02/11/18 @ 14:46 by Vera Browne MD) Closed fracture of neck of femur (Resolved) Onset Date: ~10/30/16 Internal fixation of fracture of left femoral neck with compression screw Open tx nondisplaced femoral neck fx w/cannulated screws by Dr. Duran Coronary artery disease involving coronary bypass graft Onset Date: ~09/18/08 4 blockages History of appendectomy Onset Date: Unknown History of cataract surgery Onset Date: ~2011 bilateral History of cholecystectomy Onset Date: Unknown History of exploratory laparotomy Onset Date: ~11/06/16 Dr. Steele-Reductin internal hernia, adysiolysis, suture of intestine History of hernia repair Onset Date: Unknown umbilical Status post epidural steroid injection Onset Date: Unknown Family History: Family History (Updated 12/08/17 @ 16:14 by Luisa Murray [facility]) Father , unknown type of cancer No problems noted. Family/Other Hypertension Social History: Preferred Language Malay Smoking Status Never smoker Abuse History No History of abuse Psych History No pertinent hx Alcohol Use none (Last Reviewed 09/28/18 @ 15:12 by MARCOS Waters) No Social History Section defined Physical Exam - Physical Exam General Appearance: Present: wd/wn, no apparent distress, lethargic Eye Exam: Normal inspection: bilateral Ears, Nose, Throat: Present: dry mucous membranes Respiratory: Present: no accessory muscle use, lungs clear, respiratory distress - increased RR, decreased breath sounds - right base Cardiovascular/Chest: Present: regular rate, rhythm, no murmur Gastrointestinal/Abdominal: Present: soft, distended Neurological Exam: Present: other - lethargic Skin Exam: Present: normal color, warm/dry Progress - Results and Orders Patient's Lab Results:: I have reviewed the patient's lab results. - Vital Signs Patient's Vital Signs:: I have reviewed the patient's vital signs. Vital Signs: Vital Signs 10/14/18 12:15 10/14/18 12:22 Temperature 38.2 C H Pulse Rate 89 90 Respiratory Rate 27 H 23 H Blood Pressure 121/65 O2 Sat by Pulse Oximetry 88 L 95 - X-Ray X-Ray #1 X-Ray: chest - LLL infiltrate Interpretation: Reviewed by me - Progress/Reassessment Chief Complaint: Altered Mental Status Progress Note-Subjective: 10/14/18 13:20 discussed with son, diagnosis of pneumonia but also of acute on chronic renal failure and hypernatremia, in this hospital no inpatient dialysis is available if his renal failure worsens son states that they had a discussion about dialysis and patient doesn't want that, is okay with admitting patient here 10/14/18 13:[address] Campos 10/14/18 13:[address] Hyde, okay to admit okay to use rocephin and zithromax for pneumonia as patient has history of CHF give only 250ml of NS, then switch to D5W at 50ml/hr PSA 154, class V, acute admission Departure Clinical Impression: Dehydration, Hypernatremia Pneumonia Qualifiers: Pneumonia type: due to unspecified organism Laterality: left Lung location: lower lobe of lung Qualified Code(s): J18.1 - Lobar pneumonia, unspecified organism Acute on chronic renal failure Qualifiers: Acute renal failure type: unspecified Chronic kidney disease stage: unspecified stage Qualified Code(s): N17.9 - Acute kidney failure, unspecified - Departure Disposition: Still a patient Condition: Fair
[2018-10-14 12:51] LABS: Hematocrit 29.4 % (42.0-52.0); Hemoglobin 9.3 gm/dL (13.5-18.0); Mean Cell Volume 90.2 fl (78-100); Mean Corpuscular Hemoglobin 28.5 pg (27-31); Mean Corpuscular Hgb Conc 31.6 g/dl (32-36); Neutrophil # 13.3 K/mm3 (1.3-6.0); Neutrophil % 83.5 % (42-75.0); Platelet Count 260 K/mm3 (150-450); Red Blood Count 3.26 M/mm3 (4.7-6.0); Red Cell Distribution Width 13.6 % (11.5-14.0); White Blood Count 15.9 K/mm3 (4.0-10.5)
[2018-10-14 12:56] LABS: Albumin * 2.7 gm/dl (3.4-5.0); Anion Gap 22.1 mmol/L (6.8-13.8); BUN/Creatinine Ratio 14.3 (9.0-21.6); Bilirubin, Total 0.5 mg/dL (0.0-1.1); Ca. Corrected For Albumin 10.2 mg/dL (8.4-10.2); Calcium * 9.5 mg/dL (7.9-10.9); Carbon Dioxide 19.9 mmol/L (24-32.6); Total Protein 7.7 gm/dL (6.2-8.2)
[2018-10-14] MEDS ORDERED: cefTRIAXone SODIUM 1,000 MG/100 ML BAG IV ONE (13:13)
[2018-10-14] MEDS ORDERED: NORMAL SALINE 1,000 ML IV ONE (13:13)
[2018-10-14] MEDS ORDERED: AZITHROMYCIN 500 MG in DEXTROSE 5 % IN WATER 250 ML IV ONE ×2 (14:01)
[2018-10-14] MEDS ORDERED: DEXTROSE 5 % IN WATER 1,000 ML IV PRN (14:02)
--- NOTE | 2018-10-14 16:47 | HP ---
Chief Complaint - Chief Complaint Date of Service: 10/14/18 Time of Service: 16:14 Chief Complaint: AMS History of Present Illness: Osmany Harris is an 83-year-old white male, resident of the [facility], with past medical history of Alzheimer's dementia, chronic renal failure stage IV, anemia of chronic disease, diabetes mellitus type 2, stasis dermatitis with stasis ulcers, who was admitted on 10/14/2018 because of altered mental status and fever. 2 days prior to admission the patient started not feeling well as per his son who visited him. He was noted to bring him out but was not able to due to his condition. One day prior to admission the half-way called him and said that his father was coughing and they were going to get the chest x-ray. His chest x-ray showed no evidence of pneumonia. Today he said that they called him and told him that his father was having a fever and they were going to send him to the emergency room. In the emergency room he was found to be lethargic and confused. His CXR showed left lower lobe retrocardiac consolidation with a leukocytosis of 13.9, left shift of 83% neutrophils, hemoglobin of 9.2, sodium 157, BUN/creatinine of 73/2.1, random blood sugar of 207, procalcitonin 0.54. The patient has been following with nephrology in the past and has decided that if his kidney gets worse he was not going to have any hemodialysis. The family wants only comfort measures if the patient does not improve and is agreeable to hospice consultation. In the meantime, we will continue with was started on IV antibiotics and IV fluids and admit patient to med Surg floor.. 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 Duran Coronary artery disease involving coronary bypass graft Onset Date: ~09/18/08 4 blockages History of appendectomy Onset Date: Unknown History of cataract surgery Onset Date: ~2011 bilateral History of cholecystectomy Onset Date: Unknown History of exploratory laparotomy Onset Date: ~11/06/16 Dr. Steele-Kathya internal hernia, adysiolysis, suture of intestine History of hernia repair Onset Date: Unknown umbilical Status post epidural steroid injection Onset Date: Unknown Family History: Family History (Updated 12/08/17 @ 16:14 by Luisa Murray CMA) Father , unknown type of cancer No problems noted. Family/Other Hypertension Social History: Preferred Language Serbian Smoking Status Never smoker Abuse History No History of abuse Psych History No pertinent hx Alcohol Use none (Last Reviewed 09/28/18 @ 15:12 by MARCOS Waters) No Social History Section defined Review Of Systems (GEN) - Review of Systems Misc: All systems neg except as marked - Unreliable due to mental status Immunizations: IMMUNIZATION HX Immunizations Up to Date Yes History of Influenza Vaccine Yes Hx Pneumococcal Vaccination Yes Allergies/Adverse Reactions: Allergies Allergy/AdvReac Type Severity Reaction Status Date / Time gabapentin Allergy Unknown unknown Verified 10/14/18 16:06 Home Medications: HOME MEDICATIONS Amlodipine Besylate 10 mg PO DAILY 03/30/17 [Last Taken 10/13/18] Arginine/Ascorbate Sod/Aneta AC [Arginaid Powder] 1 ea PO DAILY 03/30/17 [Last Taken 10/13/18] Aspirin [Aspirin Chewable] 81 mg PO DAILY 03/30/17 [Last Taken 10/13/18] Cholecalciferol (Vitamin D3) [Vitamin D] 2,000 unit PO DAILY 03/30/17 [Last Taken Unknown] Clonidine HCl [Clonidine HCl ER] 0.1 mg PO BID 03/30/17 [Last Taken Unknown] Clopidogrel Bisulfate [Plavix] 75 mg PO DAILY 03/30/17 [Last Taken Unknown] Docusate Sodium [Colace Clear] 50 mg PO PRN PRN 03/30/17 [Last Taken Unknown] Levothyroxine Sodium [Synthroid] 100 mcg PO DAILY 03/30/17 [Last Taken Unknown] Metoprolol Succinate [Toprol Xl] 50 mg PO DAILY 03/30/17 [Last Taken Unknown] Nitroglycerin [Nitrostat] 0.4 mg SL Q5MIN PRN 03/30/17 [Last Taken Unknown] Polyethylene Glycol 3350 [Miralax] 17 gm PO DAILY 03/30/17 [Last Taken Unknown] Pregabalin [Lyrica] 25 mg PO DAILY 03/30/17 [Last Taken Unknown] Ranitidine HCl [Zantac] 150 mg PO BID 03/30/17 [Last Taken Unknown] Rosuvastatin Calcium 10 mg PO DAILY 03/30/17 [Last Taken Unknown] traMADol HCL [Tramadol HCl] 50 mg PO TID 03/30/17 [Last Taken Unknown] Bisacodyl [Dulcolax Suppository] 10 mg RC 3XW PRN 09/18/17 [Last Taken Unknown] Cetirizine HCl 10 mg PO DAILY 09/18/17 [Last Taken Unknown] Escitalopram Oxalate 5 mg PO DAILY 09/18/17 [Last Taken Unknown] Nut.tx.gluc.intoler,Lac-Fr,Soy [Glucerna] 240 ml PO BID 09/18/17 [Last Taken Unknown] acetaminophen 500 mg capsule 1,000 mg PO Q6H PRN cap 02/11/18 [Last Taken Unknown] furosemide 40 mg tablet 40 mg PO DAILY 02/11/18 [Last Taken Unknown] glipizide 5 mg tablet 5 mg PO DAILY 02/11/18 [Last Taken Unknown] sodium bicarbonate 650 mg tablet 650 mg PO BID tab 02/11/18 [Last Taken Unknown] ipratropium-albuterol 0.5 mg-3 mg(2.5 mg base)/3 mL nebulization soln 3 ml IH Q4H PRN 07/13/18 [Last Taken Unknown] Exam - Exam Vital Signs: Vital Signs - Last Taken Temp 38.2 C H 10/14/18 14:39 Pulse 84 10/14/18 14:39 Resp 25 H 10/14/18 14:39 BP 126/75 10/14/18 14:39 Pulse Ox 97 10/14/18 14:39 Constitutional: Present: Alert - Ao x 1, Elderly ENT Exam: Present: hearing grossly normal Eye Exam: bilateral eye: normal inspection, PERRL, EOMI Neck: Present: supple Respiratory: Present: decreased breath sounds, No rales, No wheezing Cardiovascular/Chest: Present: regular rate, rhythm, no JVD, no murmur Abdomen: Present: Normal bowel sounds, soft, nontender, nondistended Extremity: Present: no calf tenderness, pedal edema Skin Exam: Present: skin rash Diagnostic Studies: Abnormal Lab Results 10/14/18 10/14/18 10/14/18 Range/Units 12:36 12:36 12:36 WBC 15.9 H (4.0-10.5) K/mm3 RBC 3.26 L (4.7-6.0) M/mm3 Hgb 9.3 L (13.5-18.0) gm/dL Hct 29.4 L (42.0-52.0) % MCHC 31.6 L (32-36) g/dl Immature Gran % (Auto) 1.20 H (0.001-0.429) % Immature Gran # (Auto) 0.19 H (0.000-0.0310) K/mm3 Neutrophils % 83.5 H (42-75.0) % Lymphocytes % 6.8 L (20-51) % Neutrophils # 13.3 H (1.3-6.0) K/mm3 Lymphocytes # 1.08 L (1.5-3.5) k/mm3 Monocytes # 1.3 H (0.0-1.0) k/mm3 Sodium 157 H (132-142) mmol/L Plasma Sodium 159 H (130-142) mmol/L Chloride 119 H (97-106) mmol/L Carbon Dioxide 19.9 L (24-32.6) mmol/L Anion Gap 22.1 H (6.8-13.8) mmol/L BUN 73 H (6-23) mg/dL Creatinine 5.10 H D (0.4-1.4) mg/dL Est GFR (Non-Af Amer) 12 L D (60-130) mL/min Random Glucose 207 H (70-110) mg/dL ALT 14 L (19-67) U/L Albumin 2.7 L (3.4-5.0) gm/dl Procalcitonin 0.54 H (0.05-0.50) ng/mL Laboratory Results WBC 15.9 K/mm3 (4.0-10.5) H 10/14/18 12:36 RBC 3.26 M/mm3 (4.7-6.0) L 10/14/18 12:36 Hgb 9.3 gm/dL (13.5-18.0) L 10/14/18 12:36 Hct 29.4 % (42.0-52.0) L 10/14/18 12:36 MCV 90.2 fl (78-100) 10/14/18 12:36 MCH 28.5 pg (27-31) 10/14/18 12:36 MCHC 31.6 g/dl (32-36) L 10/14/18 12:36 RDW 13.6 % (11.5-14.0) 10/14/18 12:36 Plt Count 260 K/mm3 (150-450) 10/14/18 12:36 MPV 11.0 fl (8-11.3) 10/14/18 12:36 Immature Gran % (Auto) 1.20 % (0.001-0.429) H 10/14/18 12:36 Immature Gran # (Auto) 0.19 K/mm3 (0.000-0.0310) H 10/14/18 12:36 83.5 % (42-75.0) H 10/14/18 12:36 6.8 % (20-51) L 10/14/18 12:36 7.9 % (0.0-9) 10/14/18 12:36 0.3 % (0.0-3.0) 10/14/18 12:36 0.3 % (0.0-1.0) 10/14/18 12:36 Nucleated RBC % 0.0 k/mm3 (0-1) 10/14/18 12:36 13.3 K/mm3 (1.3-6.0) H 10/14/18 12:36 1.08 k/mm3 (1.5-3.5) L 10/14/18 12:36 1.3 k/mm3 (0.0-1.0) H 10/14/18 12:36 0.0 k/mm3 (0.0-0.7) 10/14/18 12:36 Absolute Basophils 0.1 k/mm3 (0.0-0.1) 10/14/18 12:36 Sodium 157 mmol/L (132-142) H 10/14/18 12:36 159 mmol/L (130-142) H 10/14/18 12:36 Potassium 4.0 mmol/L (3.4-4.6) 10/14/18 12:36 Chloride 119 mmol/L (97-106) H 10/14/18 12:36 Carbon Dioxide 19.9 mmol/L (24-32.6) L 10/14/18 12:36 22.1 mmol/L (6.8-13.8) H 10/14/18 12:36 BUN 73 mg/dL (6-23) H 10/14/18 12:36 5.10 mg/dL (0.4-1.4) H D 10/14/18 12:36 Est GFR (Non-Af Amer) 12 mL/min (60-130) L D 10/14/18 12:36 14.3 (9.0-21.6) 10/14/18 12:36 207 mg/dL (70-110) H 10/14/18 12:36 1.4 mmol/L (0.4-2.0) 10/14/18 12:36 Calcium 9.5 mg/dL (7.9-10.9) 10/14/18 12:36 Calcium Adj for Albumin 10.2 mg/dL (8.4-10.2) 10/14/18 12:36 0.5 mg/dL (0.0-1.1) 10/14/18 12:36 AST 23 U/L (0-48) 10/14/18 12:36 ALT 14 U/L (19-67) L 10/14/18 12:36 102 U/L (50-170) 10/14/18 12:36 7.7 gm/dL (6.2-8.2) 10/14/18 12:36 2.7 gm/dl (3.4-5.0) L 10/14/18 12:36 Amylase 30 U/L (25-115) 10/14/18 12:36 96 U/L (73-393) 10/14/18 12:36 0.54 ng/mL (0.05-0.50) H 10/14/18 12:36 Assessment/Plan - Assessment/Plan (1) Pneumonia Assessment: continue with IV antibiotics. discussed with family about hospice and comfort measures. will get hospice consult. Problem: Acute Qualifiers: Pneumonia type: due to unspecified organism Laterality: left Lung location: lower lobe of lung Qualified Code(s): J18.1 - Lobar pneumonia, unspecified organism (2) Hypernatremia Assessment: due to dehydration. continue D5W at 50 ml/hour as we are not sure of his remaining renal function and output. will get BNP, if not elevted will increase IVF to 75-100 ml. Problem: Acute (3) Acute on chronic renal failure Assessment: acute renal faliure likely prerenal on CRF stage V. will continue with IVF. Problem: Acute Qualifiers: Acute renal failure type: unspecified Chronic kidney disease stage: unspecified stage Qualified Code(s): N17.9 - Acute kidney failure, unspecified; N18.9 - Chronic kidney disease, unspecified (4) Peripheral vascular disease Problem: Chronic (5) Hypothyroidism Problem: Chronic Qualifiers: Hypothyroidism type: unspecified Qualified Code(s): E03.9 - Hypothyroidism, unspecified (6) Hyperlipidemia Problem: Chronic Qualifiers: (7) DVT (deep venous thrombosis) Assessment: history of Problem: Resolved (8) Coronary artery disease Problem: Chronic Qualifiers: Coronary Disease-Associated Artery/Lesion type: bypass graft [place] vs. 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
[2018-10-14] MEDS ORDERED: BISACODYL 10 MG SUPP.RECT RC PRN (16:48)
[2018-10-14] MEDS ORDERED: NITROGLYCERIN 0.4 MG/TAB BTL SL PRN (16:48)
[2018-10-14] MEDS ORDERED: DOCUSATE SODIUM 150 MG/15 ML BTL PO PRN (16:48)
[2018-10-14] MEDS ORDERED: ALBUTEROL SULFATE/IPRATROPIUM 3 ML NEBU IH PRN (16:48)
[2018-10-14] MEDS ORDERED: ACETAMINOPHEN 500 MG TABLET PO PRN (16:48)
[2018-10-14] MEDS ORDERED: POLYVINYL ALCOHOL 150 DROP BTL EACHEYE PRN (17:53)
[2018-10-14] MEDS: traMADol HCL 50 MG TABLET PO SCH (18:19)
[2018-10-14] MEDS: POLYVINYL ALCOHOL 150 DROP BTL EACHEYE SCH (19:12)
[2018-10-14] MEDS ORDERED: INSULIN GLARGINE,HUM.REC.ANLOG 100 UNITS/ML VIAL SC SCH (21:00)
[2018-10-14] MEDS: CLONIDINE HCL 0.1 MG TABLET PO SCH (21:05)
[2018-10-14] MEDS: FAMOTIDINE 20 MG TABLET PO SCH (21:06)
[2018-10-14] MEDS: SODIUM BICARBONATE 650 MG TABLET PO SCH (21:06)
[2018-10-14 22:10] LABS: Anion Gap 14.8 mmol/L (6.8-13.8); BUN/Creatinine Ratio 14.6 (9.0-21.6); Calcium * 9.6 mg/dL (7.9-10.9); Carbon Dioxide 23.8 mmol/L (24-32.6); Estimated Creat Clear 10.5; Potassium 3.6 mmol/L (3.4-4.6)
[2018-10-14] MEDS: DEXTROSE 5 % IN WATER 1,000 ML IV PRN (23:11)
[2018-10-15] MEDS: POLYVINYL ALCOHOL 150 DROP BTL EACHEYE SCH ×3 (01:18→12:38)
[2018-10-15 05:42] LABS: Hematocrit 26.6 % (42.0-52.0); Hemoglobin 8.3 gm/dL (13.5-18.0); Mean Cell Volume 91.1 fl (78-100); Mean Corpuscular Hemoglobin 28.4 pg (27-31); Mean Corpuscular Hgb Conc 31.2 g/dl (32-36); Mean Platelet Volume 11.1 fl (8-11.3); Neutrophil # 12.1 K/mm3 (1.3-6.0); Neutrophil % 79.8 % (42-75.0); Platelet Count 239 K/mm3 (150-450); Red Blood Count 2.92 M/mm3 (4.7-6.0); Red Cell Distribution Width 13.9 % (11.5-14.0); White Blood Count 15.1 K/mm3 (4.0-10.5)
[2018-10-15 06:04] LABS: Anion Gap 17.5 mmol/L (6.8-13.8); BUN/Creatinine Ratio 14.9 (9.0-21.6); Calcium * 9.5 mg/dL (7.9-10.9); Carbon Dioxide 22.1 mmol/L (24-32.6); Estimated Creat Clear 10.9; Potassium 3.6 mmol/L (3.4-4.6)
[2018-10-15] MEDS ORDERED: LEVOTHYROXINE SODIUM 100 MCG TABLET PO SCH (07:00)
[2018-10-15] MEDS: INSULIN LISPRO 100 UNITS/ML VIAL SC SCH ×2 (08:10→12:37)
--- NOTE | 2018-10-15 08:30 | PN ---
Progess Note - Interim Date: 10/15/18 Time: 08:27 Narrative: 10/15/18 08:27 Patient still confused with his Dementia. Daughter says he has been having labored breathing all night long. Daughter aggreable to make him only comfort measures. Hospice on consult. Will change to comfort care only after Hospice and family confers.
[2018-10-15] MEDS: traMADol HCL 50 MG TABLET PO SCH (08:49)
[2018-10-15] MEDS: FAMOTIDINE 20 MG TABLET PO SCH (08:49)
[2018-10-15] MEDS: SODIUM BICARBONATE 650 MG TABLET PO SCH (08:49)
[2018-10-15] MEDS: CLONIDINE HCL 0.1 MG TABLET PO SCH (08:49)
[2018-10-15] MEDS ORDERED: HEPARIN SODIUM,PORCINE 5,000 UNITS/ML VIAL SC SCH (09:00)
[2018-10-15] MEDS ORDERED: ASPIRIN 81 MG TAB.CHEW PO SCH (09:00)
[2018-10-15] MEDS ORDERED: CLOPIDOGREL BISULFATE 75 MG TABLET PO SCH (09:00)
[2018-10-15] MEDS ORDERED: PREGABALIN 25 MG CAPSULE PO SCH (09:00)
[2018-10-15] MEDS ORDERED: CHOLECALCIFEROL 1,000 UNIT CAPSULE PO SCH (09:00)
[2018-10-15] MEDS ORDERED: METOPROLOL SUCCINATE 50 MG TABLET.SA PO SCH (09:00)
[2018-10-15] MEDS: DEXTROSE 5 % IN WATER 1,000 ML IV PRN (09:13)
--- NOTE | 2018-10-15 10:37 | DS ---
(1) Pneumonia Problem: Acute Qualifiers: Pneumonia type: due to unspecified organism Laterality: left Lung location: lower lobe of lung Qualified Code(s): J18.1 - Lobar pneumonia, unspecified organism (2) Hypernatremia Problem: Acute (3) Acute on chronic renal failure Problem: Acute Qualifiers: Acute renal failure type: unspecified Chronic kidney disease stage: unspecified stage Qualified Code(s): N17.9 - Acute kidney failure, unspecified; N18.9 - Chronic kidney disease, unspecified (4) Peripheral vascular disease Problem: Chronic (5) Hypothyroidism Problem: Chronic Qualifiers: Hypothyroidism type: unspecified Qualified Code(s): E03.9 - Hypothyroidism, unspecified (6) Hyperlipidemia Problem: Chronic Qualifiers: (7) DVT (deep venous thrombosis) Problem: Resolved (8) Coronary artery disease Problem: Chronic Qualifiers: Coronary Disease-Associated Artery/Lesion type: bypass graft [place] vs. transplanted heart: [place] heart Associated angina: without angina Qualified Code(s): I25.810 - Atherosclerosis of coronary artery bypass graft(s) without angina pectoris (9) Diabetes Problem: Chronic Qualifiers: Diabetes mellitus type: type 2 Diabetes mellitus jail insulin use: with jail use Diabetes mellitus complication status: with kidney complications Diabetes mellitus complication detail: with chronic kidney disease Chronic kidney disease stage: stage 5, not on chronic dialysis Qualified Code(s): E11.22 - Type 2 diabetes mellitus with diabetic chronic kidney disease; N18.5 - Chronic kidney disease, stage 5; 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 2 days prior to admission the patient started not feeling well as per his son who visited him. He was noted to bring him out but was not able to due to his condition. One day prior to admission the group home called him and said that his father was coughing and they were going to get the chest x-ray. His chest x-ray showed no evidence of pneumonia. Today he said that they called him and told him that his father was having a fever and they were going to send him to the emergency room. In the emergency room he was found to be lethargic and confused. His CXR showed left lower lobe retrocardiac consolidation due to pneumonia with a leukocytosis of 13.9, left shift of 83% neutrophils, hemoglobin of 9.2, sodium 157, BUN/creatinine of 73/2.1, random blood sugar of 207, procalcitonin 0.54. The patient has been following with nephrology in the past and has decided that if his kidney gets worse he was not going to have any hemodialysis. The family wanted only comfort measures if the patient does not improve and is agreeable to hospice consultation. In the meantime, we continued with IV antibiotics and IV fluids and admitted patient to [facility] floor. His BNP was greater [id number]. We had to cut down on his IVF from 75 to 50 ml/hour again as he was sounding gurgly. Overnight the patient had labored breathing per daughter and they wanted not to be aggressive. Hospice saw him this morning and he will be discharged to [facility] for comfort care under Hospice. Will discontinue all of his medications and he will be on comfort care medications only. Procedures Performed: none Results and Findings: Lab Pending Results 10/14/18 12:30: B-Natriuretic [place] [id number] H 10/14/18 12:36: WBC 15.9 H, RBC 3.26 L, Hgb 9.3 L, Hct 29.4 L, MCV 90.2, MCH 28.5, MCHC 31.6 L, RDW 13.6, Plt Count 260, MPV 11.0, Immature Gran % (Auto) 1.20 H, Immature Gran # (Auto) 0.19 H, Neutrophils % 83.5 H, Lymphocytes % 6.8 L, Monocytes % 7.9, Eosinophils % 0.3, Basophils % 0.3, Nucleated RBC % 0.0, Neutrophils # 13.3 H, Lymphocytes # 1.08 L, Monocytes # 1.3 H, Eosinophils # 0.0, Absolute Basophils 0.1 10/14/18 12:36: Sodium 157 H, Plasma Sodium 159 H, Potassium 4.0, Chloride 119 H, Carbon Dioxide 19.9 L, Anion Gap 22.1 H, BUN 73 H, Creatinine 5.10 H D, Est GFR (Non-Af Amer) 12 L D, BUN/Creatinine Ratio 14.3, Random Glucose 207 H, Calc ium 9.5, Calcium Adj for Albumin 10.2, Total Bilirubin 0.5, AST 23, ALT 14 L, Alkaline Phosphatase 102, Total Protein 7.7, Albumin 2.7 L, Amylase 30, Lipase 96 10/14/18 12:36: Lactic Acid, Venous 1.4 10/14/18 12:36: Procalcitonin 0.54 H 10/14/18 22:00: Sodium 150 H, Plasma Sodium 152 H, Potassium 3.6, Chloride 115 H, Carbon Dioxide 23.8 L, Anion Gap 14.8 H, BUN 74 H, Creatinine 5.08 H, Est GFR (Non-Af Amer) 12 L, BUN/Creatinine Ratio 14.6, Random Glucose 250 H, Calcium 9.6 10/15/18 05:10: WBC 15.1 H, RBC 2.92 L, Hgb 8.3 L, Hct 26.6 L, MCV 91.1, MCH 28.4, MCHC 31.2 L, RDW 13.9, Plt Count 239, MPV 11.1, Immature Gran % (Auto) 2.40 H, Immature Gran # (Auto) 0.36 H, Neutrophils % 79.8 H, Lymphocytes % 7.1 L, Monocytes % 9.3 H, Eosinophils % 1.1, Basophils % 0.3, Nucleated RBC % 0.0, Neutrophils # 12.1 H, Lymphocytes # 1.07 L, Monocytes # 1.4 H, Eosinophils # 0.2, Absolute Basophils 0.1 10/15/18 05:10: Sodium 153 H, Plasma Sodium 155 H, Potassium 3.6, Chloride 117 H, Carbon Dioxide 22.1 L, Anion Gap 17.5 H, BUN 73 H, Creatinine 4.89 H, Est GFR (Non-Af Amer) 12 L, BUN/Creatinine Ratio 14.9, Random Glucose 217 H, Calcium 9.5 Discharge Location: [facility] Disposition: Hospice Home Home Health Agency: [facility] Hospice Condition: Poor Level of Care: ICF Discharge Activity: Activity as tolerated Discharge Diet: Mech soft Referrals: Layo Campos MD [Primary Care Provider] - Additional Patient Instructions (free text): [facility] hospice new. Please call report and fax orders upon discharge. Prescriptions (Any new or edited meds): Atropine Sulfate [Atropine 1% Ophthalmic Solution] 2 drp SUBLINGUAL Q4H PRN #15 ml PRN Reason: Secretions Lorazepam [Lorazepam Intensol] 1 mg PO Q4H PRN #10 oral.conc PRN Reason: restlessness/anxiety Morphine Sulfate [Morphine Sulfate Conc. Oral Solution] 5 mg PO Q1H PRN #30 ml PRN Reason: Pain Sennosides [Senokot] 8.6 mg PO BID #60 tab Ondansetron [Zofran Odt] 4 mg PO Q6H PRN #12 tab PRN Reason: Nausea Complete Home Medications List: Complete Home Medication List: Atropine Sulfate [Atropine 1% Ophthalmic Solution] 2 drp SUBLINGUAL Q4H PRN #15 ml 10/15/18 Lorazepam [Lorazepam Intensol] 1 mg PO Q4H PRN #10 oral.conc 10/15/18 Morphine Sulfate [Morphine Sulfate Conc. Oral Solution] 5 mg PO Q1H PRN #30 ml 10/15/18 Ondansetron [Zofran Odt] 4 mg PO Q6H PRN #12 tab 10/15/18 Sennosides [Senokot] 8.6 mg PO BID #60 tab 10/15/18
[2018-10-15 13:20] VITALS: BP 136/66
[2018-10-15] MEDS ORDERED: AZITHROMYCIN 250 MG in DEXTROSE 5 % IN WATER 250 ML IV SCH ×2 (17:00)
== END 2018-10-15 13:45 | disposition hospice, home (50) | DRG 194 ==
LOC: ER 12:11 → MS 13:52
PROVIDERS: ADMIT Internal Medicine; ATTEND Internal Medicine
CPT/HCPCS: 36415; 71010; 71045; 80048; 80053; 82150; 83519; 83605; 83690; 83880; 84145; 85025; 87040; 87081; 96361; 96365; 99285